=== PATIENT | male | born 1945 | race Caucasian/White ===

== ENCOUNTER 2024-07-12 08:36 | Outpatient (CLI) | payer MEDICARE, SELFPAY ==
--- NOTE | ~2024-07-12 | XR_ITS ---
XR foot RT min 3V Ordering provider: Philippe Geiger, History: . Pain in R foot . Comparison: None. FINDINGS: BONES: No acute fracture or dislocation. Small bony fragment near to the navicular bone most likely n onunited apophysis. Calcaneal spur. JOINT SPACES: Proximal and Distal interphalangeal joints osteoarthritic changes. No tarsal coalition. SOFT TISSUES: Normal. IMPRESSION: No acute osseous abnormality of the right foot. Reviewed, dictated and finalized at location A.
== END 2024-07-12 08:37 | disposition home or self-care (01) ==
PROVIDERS: PCP Internal Medicine; Visit Provider Internal Medicine
DX: M79.671 Pain in right foot (principal)
CPT/HCPCS: 73630

== ENCOUNTER 2024-09-01 14:39 | Outpatient (CLI) | payer MEDICARE, SELFPAY ==
--- NOTE | ~2024-09-01 | MR_ITS ---
EXAMINATION: MR foot RT wo con DATE: 09/01/2024 15:36 INDICATION: Right foot pain TECHNIQUE: Magnetic resonance imaging (MRI) of the right foot was performed without intravenous contr ast. Sequences included sagittal T1-weighted FSE, sagittal fluid sensitive FSE STIR, coronal PD-weigh jinny FS FSE, coronal T1-weighted FSE, axial PD-weighted FS FSE, and axial PD-weighted FSE. COMPARISON: Radiographs dated 07/12/2024 FINDINGS: Bone alignment is normal. No fracture. There are juxta articular erosions with overhanging edges and low signal intensity curvilinear likely sclerotic margins at the medial and lateral sides of the head of the first metacarpal tarsal, the lateral and plantar base of the first metatarsal, medial base of the fourth metatarsal, dorsal/distal aspect of the medial cuneiform and into the posterior lateral m alleolus. No marrow signal abnormalities abutting the erosions to suggest osteomyelitis or other path ologic marrow replacing process. The oligo articular distribution and appearance is most suggestive o f a crystalline arthropathy such as gout. Moderate osteoarthritis at the first metatarsophalangeal joint an additional mild osteoarthritis at m ultiple tarsometatarsal and interphalangeal joints. Chronic plantar calcaneal enthesopathy with moder ate-sized spur, thickening and mild increased signal of the proximal plantar aponeurosis without asso ciated marrow edema or surrounding soft tissue edema to suggest acute plantar fasciitis. The medial and lateral stabilizing ligaments of the ankle, the Lisfranc ligament complex and collater al ligament complex at the metatarsophalangeal and interphalangeal joints are unremarkable. The flexo r and extensor tendons of the foot and ankle are normal. Likely reactive mild soft tissue edema in th e intrinsic musculature of the foot with more prominent soft tissue swelling and subcutaneous edema o ann the dorsum of the foot and about the ankle. IMPRESSION: 1. Multiple erosions scattered throughout the right foot and ankle with the distribution and appearan ce most suspicious for gout. 2. 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 3. Chronic plantar enthesopathy. Reviewed, dictated and finalized at location A. GRINDER IMPRESSION: 1. Multiple erosions scattered throughout the right foot and ankle with the dis tribution and appearance most suspicious for gout. 2. 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 3. Chronic plantar enthesopathy.
== END 2024-09-01 14:40 | disposition home or self-care (01) ==
LOC: GOSHIMG 14:40
PROVIDERS: PCP Internal Medicine; Visit Provider Internal Medicine
DX: M19.071 Primary osteoarthritis, right ankle and foot (principal); M77.31 Calcaneal spur, right foot
CPT/HCPCS: 73718

== ENCOUNTER 2024-09-20 09:00 | Emergency (ER) | payer MEDICARE, SELFPAY ==
--- NOTE | ~2024-09-20 | CT_ITS ---
CT of the Abdomen and Pelvis: Indication: Jaundice Technique: 2.5 mm axial scans were obtained through the abdomen and pelvis following intravenous adm inistration of 100 cc of Omnipaque 350. Dose reduction technique was used on this scan by utilizing a utomated exposure control and iterative reconstruction technique. The dose-length product (DLP) was 6 78.54 mGy-cm. Findings: Scans through the lung bases are unremarkable. Several scattered hepatic cysts are present. There is mild intrahepatic biliary dilatation. Gallbladd er is partially distended without wall thickening. Common bile duct is mildly dilated up to 11 mm, wi th distal tapering. Possible 2.4 cm hypodense mass at the uncinate process of pancreas, there is stre ak artifact probable spinal fixation hardware which hinders evaluation.. The spleen, pancreas, adrena ls and kidneys are within normal limits. No evidence of aortic aneurysm. No lymphadenopathy. No bowel obstruction or bowel wall thickening. There is no evidence to suggest acute appendicitis. Images through the pelvis were performed. Urinary bladder unremarkable. Prostate gland enlarged, and indents the bladder base. Impression: Possible 2.4 cm hypodense mass at the uncinate process of the pancreas. Evaluation is somewhat subopt imal due to streak artifact from lumbar spinal fixation hardware. Pre and postcontrast MR or endoscop ic ultrasound recommended to further assess for underlying pancreatic mass. Mild intrahepatic and extrahepatic biliary dilatation, which would correlate with findings of an obst ructing pancreatic head mass. Enlarged prostate gland. Reviewed, dictated and finalized at [facility]. ER [employer] Impression: Possible 2.4 cm hypodense mass at the uncinate process of the pancreas. Evaluat ion is somewhat suboptimal due to streak artifact from lumbar spinal fixation h ardware. Pre and postcontrast MR or endoscopic ultrasound recommended to furthe r assess for underlying pancreatic mass. Mild intrahepatic and extrahepatic biliary dilatation, which would correlate wi th findings of an obstructing pancreatic head mass. Enlarged prostate gland.
[2024-09-20 09:05] VITALS: BP 161/68; PULSE 90; RESP 16; TEMP 36.4; O2SAT 100
[2024-09-20 09:17] VITALS: RESP 16; O2SAT 100
--- NOTE | 2024-09-20 10:17 | ED.GENADULT ---
HPI - General Adult General Chief complaint: Unspecified Stated complaint: multiple complaints Time Seen by Provider: 09/20/24 09:54 History of Present Illness HPI narrative: 78-year-old male with history of COPD, GERD, asthma, gout presents to the emergency department for jaundice. Patient states he was started on colchicine about 2 weeks ago by his PCP for a gout flare to his right foot. He had an MRI by his PCP which confirmed gout to this foot. States since he has started the colchicine he has been very nauseous. Today he woke up and was jaundice and this prompted to come to the ED. He denies vomiting, diarrhea, fever, dysuria, abdominal pain. He does state his urine seems darker than normal. Related Data Home Medications ?Medication ?Instructions ?Recorded ?Confirmed ?Last Taken ?Type atorvastatin 10 mg tablet 10 mg PO DAILY 06/07/24 Unknown History budesonide-formoterol HFA 160 1 inh inhalation ONCE 06/07/24 Unknown History mcg-4.5 mcg/actuation aerosol inhaler (Symbicort) furosemide 40 mg tablet (Lasix) 40 mg PO QAM 06/07/24 Unknown History lisinopril 20 mg tablet 20 mg PO DAILY 06/07/24 Unknown History montelukast 10 mg tablet 10 mg PO DAILY 06/07/24 Unknown History (Singulair) omega 6-qbd-ort-fish oil 300 1 cap PO DAILY 06/07/24 Unknown History mg-1,000 mg capsule (Fish Oil) Allergies Allergy/AdvReac Type Severity Reaction Status Date / Time Cephalosporins Allergy Intermediate RASH Verified 09/20/24 09:20 codeine Allergy Intermediate STOMACH Verified 09/20/24 09:20 CRAMPS Review of Systems Review of Systems: All systems reviewed & are unremarkable except as noted in HPI and below [facility] Past Medical History Medical History Heart disease GERD (gastroesophageal reflux disease) COPD (chronic obstructive pulmonary disease) Asthma Arthritis Surgical History Surgical History History of back surgery H/O left inguinal hernia repair H/O right inguinal hernia repair Family History Family History Other Asthma Hypertension Social History Social History Smoking status: Smoker, status unknown Alcohol intake: current Living arrangements: with family Occupation/Education: retired Exam Narrative: GENERAL: Well-appearing, well-nourished, and in no acute distress. HEAD: Normocephalic, atraumatic. EYES: PERRLA and EOMI. Scleral icterus ENT: Nares clear, no rhinorrhea or epistaxis. Mucous membranes moist. NECK: Supple. CHEST: Clear to auscultation. No respiratory distress. HEART: Regular rate and rhythm. No murmur heard. Normal peripheral pulses. ABDOMEN: Soft, nontender, nondistended, normal active bowel sounds. EXTREMITIES: Edema and erythema to the dorsum of the right foot with tenderness. No erythema or edema extending ankle or calf. DP pulse 2 +. Sensation intact. SKIN: Jaundiced NEURO: No focal deficits. Alert and oriented x3 Course Vital Signs Vital signs: Vital Signs Temperature 97.6 F 09/20/24 09:05 Pulse Rate 90 09/20/24 09:05 Respiratory Rate 16 09/20/24 09:05 Blood Pressure 161/68 H 09/20/24 09:05 Pulse Oximetry 100 09/20/24 09:05 Temperature 97.8 F 09/20/24 11:42 Pulse Rate 69 09/20/24 11:42 Respiratory Rate 20 09/20/24 11:42 Blood Pressure 149/71 H 09/20/24 11:42 Pulse Oximetry 99 09/20/24 11:42 Medical Decision Making [facility] Narrative Medical decision making narrative: 78-year-old male with history of gout, GERD, COPD presents to the emergency department for jaundice. Patient started colchicine about 2 weeks ago for gout flare to his right foot. He has been nauseous since then woke up today jaundiced. Triage vitals without over sure 161/68, otherwise unremarkable. On exam patient has scleral icterus and jaundice. His abdomen is soft and nontender. He does have findings consistent with gout to the right foot. Workup shows no leukocytosis, hemoglobin is 13.6 with normal MCV, no prior for comparison. Chemistries are largely unremarkable. LFT show hyperbilirubinemia at 11.9 with a direct bilirubin of 6.1, AST 181, ALT 271, alk-phos 328. Lipase is 1754. Hepatitis panel ordered and pending his coags are normal with an INR of 1. Lipase elevated at 1754. CT abdomen pelvis remarkable for Possible 2.4 cm hypodense mass at the uncinate process of the pancreas. Evaluation is somewhat suboptimal due to streak artifact from lumbar spinal fixation hardware. Pre and postcontrast MR or endoscopic ultrasound recommended to further assess for underlying pancreatic mass. Mild intrahepatic and extrahepatic biliary dilatation, which would correlate with findings of an obstructing pancreatic head mass. Patient was updated on workup. He remains resting comfortably in exam bed. We do not have GI, patient is requiring transfer to tertiary facility. Patient and requesting [facility] unfortunately they are not accepting transfer at this time. Discussed with [facility] physician Dr. Louis and hospitalist Dr. Tellez who accepts transfer to [facility]. Accepting physician Dr. Tellez. Vital Signs Vital Signs: Vital Signs Temperature 97.6 F 09/20/24 09:05 Pulse Rate 90 09/20/24 09:05 Respiratory Rate 16 09/20/24 09:05 Blood Pressure 161/68 H 09/20/24 09:05 Pulse Oximetry 100 09/20/24 09:05 Temperature 97.8 F 09/20/24 11:42 Pulse Rate 69 09/20/24 11:42 Respiratory Rate 20 09/20/24 11:42 Blood Pressure 149/71 H 09/20/24 11:42 Pulse Oximetry 99 09/20/24 11:42 Lab Data 09/20/24 10:46 09/20/24 10:46 Labs: Lab Results 09/20/24 09/20/24 Range/Units 10:45 10:46 WBC 8.9 (4.5-10.0) K/mm3 RBC 4.30 L (4.6-6.20) M/mm3 Hgb 13.6 L (14.0-18.0) g/dL Hct 38.9 L (42.0-52.0) % MCV 90.5 (80-100) fl MCH 31.6 (26-34) pg MCHC 35.0 (32-36) g/dl RDW 17.2 H (11.5-14.5) % Plt Count 275 (150-375) k/mm3 MPV 10.3 (7.4-10.4) fl Immature Gran % (Auto) 0.3 (0-0.5) % Neut % (Auto) 73.0 (45.5-73.1) % Lymph % (Auto) 11.7 L (18.3-44.2) % [place] % (Auto) 12.4 H (2.6-8.5) % Eos % (Auto) 1.5 (0-4.4) % Baso % (Auto) 1.1 (0.2-1.2) % Lymph # (Auto) 1.04 (0.9-3.2) K/mm3 [place] # (Auto) 1.1 H (0.1-0.6) K/mm3 Eos # (Auto) 0.1 (0-0.3) K/mm3 Baso # (Auto) 0.1 (0.0-0.1) K/mm3 Abs Immat Gran (auto) 0.03 (0.00-0.031) K/mm3 Absolute Neuts (auto) 6.5 (1.3-6.7) K/mm3 Absolute Nucleated RBC 0.000 (0.0-0.012) K/mm3 Nucleated RBC % 0.0 (0.0-0.2) % PT 13.7 (11.1-14.7) Seconds INR 1.0 APTT 33.5 (22.3-36.8) Seconds Sodium 138 (137-145) mmol/L Potassium 3.5 (3.4-5.0) mmol/L Chloride 108 H (98-107) mmol/L Carbon Dioxide 22 (22-30) mmol/L Anion Gap 8 (4-12) mmol/L BUN 16 (9-20) mg/dL Creatinine 1.30 (0.7-1.3) mg/dL Estim Creat Clear Calc 49 ml/min Estimated GFR 54 L (59 - ) Glucose 99 (65-110) mg/dL Calcium 9.8 (8.4-10.2) mg/dL Total Bilirubin 11.9 H (0.2-1.3) mg/dL Direct Bilirubin 6.1 H (0-0.3) mg/dL AST 181 H (17-59) U/L ALT 271 H (6-50) U/L Alkaline Phosphatase 328 H (38-126) U/L Total Protein 8.0 (6.3-8.2) g/dL Albumin 3.8 (3.5-5.1) g/dL Lipase 1754 H (23-300) U/L Urine Color Dark yellow (Yellow) Urine Appearance Clear (Clear) Urine pH 6.5 (5.0-9.0) Ur Specific [place] 1.022 (1.001-1.035) Urine Protein 1+ H (Negative) mg/dL Urine Glucose (UA) Negative (Negative) mg/dL Urine Ketones Negative (Negative) mg/dL Ur Blood (Man) Negative (Negative) Urine Nitrate Positive H (Negative) Urine Bilirubin 3+ H (Negative) Urine Urobilinogen 1.0 (<2.0) mg/dL Add Ur Microanalysis Reviewed Leukocyte Esterase Rfl 1+ H (Negative) PRATIBHA/UL Urine RBC 0-2 (0-2) /hpf Urine WBC 0-5 (0-3) /hpf Ur Squamous Epith Cells None seen (Few) /hpf Urine Bacteria None seen /hpf Urine Casts 3-5 Hepatitis A IgM Ab Negative (Negative) Hep Bs Antigen Negative (Negative) Hep B Core IgM Ab Negative (Negative) Hepatitis C Ab Screen Negative (Negative) Discharge Plan Discharge Clinical Impression: Transaminitis, Mass of pancreas Patient Disposition: Acute Care Hospital Condition: Stable Patient Language: Amharic Prescriptions: No Action lisinopril 20 mg tablet 20 mg PO DAILY furosemide [Lasix] 40 mg tablet 40 mg PO QAM montelukast [Singulair] 10 mg tablet 10 mg PO DAILY atorvastatin 10 mg tablet 10 mg PO DAILY omega 6-hrs-amc-fish oil [Fish Oil] 300-1,000 mg capsule 1 cap PO DAILY budesonide-formoterol [Symbicort] 160-4.5 mcg/actuation HFA aerosol inhaler 1 inh inhalation ONCE Follow-up/Referrals: Juanjo,MD Philippe [Primary Care Provider] -
[2024-09-20 10:55] LABS: Basophils Absolute Auto 0.1 K/mm3 (0.0-0.1); Basophils Percent Auto 1.1 % (0.2-1.2); Eosinophils Absolute Auto 0.1 K/mm3 (0-0.3); Eosinophils Percent Auto 1.5 % (0-4.4); Hematocrit 38.9 % (42.0-52.0); Hemoglobin 13.6 g/dL (14.0-18.0); Immature Granulocyte Absolute 0.03 K/mm3 (0.00-0.031); Immature Granulocyte Percent A 0.3 % (0-0.5); Lymphocytes Absolute Auto 1.04 K/mm3 (0.9-3.2); Lymphocytes Percent Auto 11.7 % (18.3-44.2); Mean Corpuscular Hemoglobin 31.6 pg (26-34); Mean Corpuscular Volume 90.5 fl (80-100); Mean Platelet Volume 10.3 fl (7.4-10.4); Monocytes Absolute Auto 1.1 K/mm3 (0.1-0.6); Monocytes Percent Auto 12.4 % (2.6-8.5); Neutrophils Absolute Auto 6.5 K/mm3 (1.3-6.7); Platelet Count Result 275 k/mm3 (150-375); Red Cell Distribution Width 17.2 % (11.5-14.5); White Blood Count 8.9 K/mm3 (4.5-10.0)
[2024-09-20 11:05] LABS: Prothrombin Time 13.7 Seconds (11.1-14.7)
[2024-09-20 11:06] LABS: Partial Thromboplastin Time 33.5 Seconds (22.3-36.8)
[2024-09-20 11:08] LABS: Alanine Aminotransferase 271 U/L (6-50); Albumin Level 3.8 g/dL (3.5-5.1); Alkaline Phosphatase 328 U/L (38-126); Anion Gap 8 mmol/L (4-12); Aspartate Amino Transferase 181 U/L (17-59); Bilirubin Direct 6.1 mg/dL (0-0.3); Bilirubin,Total 11.9 mg/dL (0.2-1.3); Blood Urea Nitrogen 16 mg/dL (9-20); Calcium 9.8 mg/dL (8.4-10.2); Carbon Dioxide 22 mmol/L (22-30); Chloride 108 mmol/L (98-107); Estimated CRCL calculation 49 ml/min; Estimated Glomerular Filt Rate 54; Glucose 99 mg/dL (65-110); Lipase 1754 U/L (23-300); Potassium 3.5 mmol/L (3.4-5.0); Sodium 138 mmol/L (137-145)
[2024-09-20 11:22] LABS: Add Urine Microscopic? YES; Appearance Urine Clear (Clear); Bacteria Urine None Seen /hpf; Bilirubin Urine 3+ (Negative); Blood Urine Negative (Negative); Color Urine Dark Yellow (Yellow); Glucose Urine UA Negative (Negative); Ketones Urine Negative (Negative); Leukocyte Esterase Ur 1+ LEU/UL (Negative); Need Manual Microscopic Reviewed; Nitrate Urine Positive (Negative); Protein Urine 1+ mg/dL (Negative); RBC Urine 0-2 /hpf (0-2); Specific Grav Ur 1.022 (1.001-1.035); Squamous Epithelial Cell Urine None Seen /hpf (Few); WBC Urine 0-5 /hpf (0-3); pH Urine 6.5 (5.0-9.0)
[2024-09-20 11:42] VITALS: BP 149/71; PULSE 69; RESP 20; TEMP 36.6; O2SAT 99
[2024-09-20 12:11] LABS: Hepatitis B Surface Antigen Negative (Negative)
[2024-09-20 12:17] LABS: HAV RESULT Negative (Negative); Hepatitis B Core IgM Result Negative (Negative)
[2024-09-20 12:28] LABS: Hepatitis C Virus Antibody Negative (Negative)
[2024-09-20] MEDS: SODIUM CHLORIDE 0.9% IV 1,000 ML 999 ML IV CONT (14:00)
[2024-09-20 18:25] VITALS: BP 155/74; PULSE 62; RESP 17; O2SAT 100
--- NOTE | 2024-09-20 20:15 | ED.PROGRESS ---
Subjective Date/time seen: 09/20/24 20:15 Objective Data Vital Signs Vital Signs: Vital Signs - 24 hr 09/20/24 09:05 09/20/24 09:17 09/20/24 11:42 Temperature 97.6 F 97.8 F Pulse Rate 90 69 Respiratory Rate 16 16 20 Blood Pressure 161/68 H 149/71 H Pulse Oximetry 100 100 99 09/20/24 18:25 Temperature Pulse Rate 62 Respiratory Rate 17 Blood Pressure 155/74 H Pulse Oximetry 100 Intake/Output Intake/Output: Intake & Output 09/18/24 09/19/24 09/20/24 09/21/24 23:59 23:59 23:59 23:59 Intake Total 1000 Balance 1000 Meds/Results Radiology Results: ITS Impressions Abdomen/Pelvis CT 09/20/24 12:25 Impression: Possible 2.4 cm hypodense mass at the uncinate process of the pancreas. Evaluation is somewhat suboptimal due to streak artifact from lumbar spinal fixation hardware. Pre and postcontrast MR or endoscopic ultrasound recommended to further assess for underlying pancreatic mass. Mild intrahepatic and extrahepatic biliary dilatation, which would correlate with findings of an obstructing pancreatic head mass. Enlarged prostate gland. Labs Labs: Laboratory Results - last 24 hr 09/20/24 09/20/24 10:45 10:46 WBC 8.9 RBC 4.30 L Hgb 13.6 L Hct 38.9 L MCV 90.5 MCH 31.6 MCHC 35.0 RDW 17.2 H Plt Count 275 MPV 10.3 Immature Gran % (Auto) 0.3 Neut % (Auto) 73.0 Lymph % (Auto) 11.7 L [place] % (Auto) 12.4 H Eos % (Auto) 1.5 Baso % (Auto) 1.1 Lymph # (Auto) 1.04 [place] # (Auto) 1.1 H Eos # (Auto) 0.1 Baso # (Auto) 0.1 Abs Immat Gran (auto) 0.03 Absolute Neuts (auto) 6.5 Absolute Nucleated RBC 0.000 Nucleated RBC % 0.0 PT 13.7 INR 1.0 APTT 33.5 Sodium 138 Potassium 3.5 Chloride 108 H Carbon Dioxide 22 Anion Gap 8 BUN 16 Creatinine 1.30 Estim Creat Clear Calc 49 Estimated GFR 54 L Glucose 99 Calcium 9.8 Total Bilirubin 11.9 H Direct Bilirubin 6.1 H AST 181 H ALT 271 H Alkaline Phosphatase 328 H Total Protein 8.0 Albumin 3.8 Lipase 1754 H Urine Color Dark yellow Urine Appearance Clear Urine pH 6.5 Ur Specific [place] 1.022 Urine Protein 1+ H Urine Glucose (UA) Negative Urine Ketones Negative Ur Blood (Man) Negative Urine Nitrate Positive H Urine Bilirubin 3+ H Urine Urobilinogen 1.0 Add Ur Microanalysis Reviewed Leukocyte Esterase Rfl 1+ H Urine RBC 0-2 Urine WBC 0-5 Ur Squamous Epith Cells None seen Urine Bacteria None seen Urine Casts 3-5 Hepatitis A IgM Ab Negative Hep Bs Antigen Negative Hep B Core IgM Ab Negative Hepatitis C Ab Screen Negative Progress Note: A&P Assessment and Plan (1) Serum total bilirubin elevated: Code(s): R17 - Unspecified jaundice Status: Acute (2) Mass of pancreas: Code(s): K86.89 - Other specified diseases of pancreas Status: Inactive Plan I was called into the room by nursing staff for patient electing to leave AMA. This patient has elected to leave against medical advice. In my opinion, the patient has capacity to leave AMA. The patient is clinically sober, free from distracting injury, appears to have intact insight and judgment and reason, and in my opinion has capacity to make decisions. I explained to the patient that his symptoms may represent impending worsening pancreatitis/liver failure due to a mass and the patient verbalized understanding of my concerns. I had a discussion with the patient about their workup and results, and that they may still have life-threatening condition. I informed the patient that the next step in diagnosis and treatment would be transferred to hepatobiliary services at [facility] and they verbalized understanding of this as well. I explained the risks of leaving without further workup or treatment, which included reasonably foreseeable complications such as , serious injury, permanent disability. The patient is refusing any further care, specifically transfer of care and is leaving against medical advice. I am unable to convince the patient to stay. I have asked them to return as soon as possible to complete their evaluation, and also explained that they were welcome to return to the ER for further evaluation whenever they choose. I have asked the patient to follow up with their primary doctor as soon as possible. I have answered all their questions. Patient signed [place] paperwork.
--- NOTE | 2024-09-20 20:19 | PC.NURSE ---
Patient did not want to wait in the ER all night waiting for a bed at [facility]. Stated he wanted to go home and wait instead. ROSA Ding spoke with patient. Patient still wanting to leave AMA.
--- OUTSIDE RECORDS SUMMARY | 2024-09-27 12:24 | XMS_ITS | Continuity of Care Document ---
Author Organization [place] - [place], [facility] Karan Naranjo Address [address] [place] [address] Care Team Providers Care Tank Carpenter Name Role Phone PHILIPPE GEIGER Primary Care Provider Unavailabl e Assessment Encounter Date Assessment Date Assessment LastModified by Organization Details LastModified Time 07/11/2024 07/11/2024 x-ray of the foot. We will check a uric acid CBC and a BMP we will treat empirically for cellulitis with doxycycline and gout with colchicine he will report back by phone in 72 hours. tramadol Not available 07/11/2024 23:03:04 Plan of Treatment Reminders Order Date Submit Date Provider Last Modified By Organization Details Last Modified Time Details Appointments ANY 15 2024 09:30A Sol Geiger MD Not available Not available Not available Lab uric acid, serum or plasma 2023 [facility], [address], [place], [address], 07/13/2024 04:36:59 BMP, serum or plasma 2023 [facility], [address], [place], [address], 07/13/2024 04:36:57 CBC w/ auto diff 2023 [facility], [address], [place], [address], 07/13/2024 04:37:00 Referral None recorded. Procedures None recorded. Surgeries None recorded. Imaging XR, foot 2023 [facility], [address], [place], [address], 07/12/2024 10:32:47 Medication Orders colchicin e 0.6 mg capsule 2023 [facility], [address] [facility] [address], [address], 08/15/2024 10:01:51 doxycycli ne hyclate 100 mg capsule 2023 [facility], [address], [place], [address], 08/15/2024 10:03:08 Patient TargetsNo targets recorded. Patient InstructionsNo instructions recorded. Reason for Referral None Reported. Results Created Date Observation Date Name Description Value Unit Range Abnormal Flag Note LastModifiedBy Organization Detail LastModifiedTime 07/12/2007/12/2024 XR, foot No observ ation record ed. [facility] [address], [place], [address], 07/12/2024 16:17:38 07/12/2007/12/2024 XR, foot No observ ation record ed. [facility] [address], [place], [address], 07/12/2024 16:17:38 09/05/20 24 09/01/2024 MRI, foot, w/o contr ast No observ ation record ed. [facility], [place], [address], 09/05/2024 15:30:37 09/20/20 24 09/20/2024 CT, abdom en + pelvi s, w/ contr ast No observ ation record ed. [facility] [address] [facility] [address], [place], [address], 09/22/2024 14:32:53 Result Notes None recorded. Problems Name Problem SNOMED Code Status Onset Date Resolution Date Notes Provider Name and Address Organization Details Recorded Time Pain in right foot 1201444662401 07 Active 2023 Andrez Moran MA null, [place] - [facility] 15:59:24 Essential hypertensio n 34721163 Active 2023 Philippe Geiger MD Attn: Tiffany mccann,[address] [facility], [place], [address], [place] [facility] 4 21:28:05 Obesity 326551414 Active 2023 Philippe Geiger MD Attn: Tiffany mccann,[address] [facility], [place], [address], [facility] 4 21:28:07 Chronic rhinitis 52352435 Active 2023 Philippe Geiger MD Attn: Tiffany mccann,[address] [facility], [place], [address], [place] [facility] 4 21:28:08 Hyperlipide ivelisse 16219658 Active 2023 Philippe Geiger MD Attn: Tiffany mccann,[address] [facility], [place], [address], [place] [facility] 4 21:28:10 Chronic obstructive pulmonary disease 05612103 Active 2023 Philippe Geiger MD Attn: Guanacotiffany mccann,[address] [facility], [place], [address], [place] [facility] 4 21:28:12 Problem Notes None recorded. Procedures Surgical History Date Name Laterality Status Provider Name and Address Organization Details Recorded Time Back Surgery completed Wilbur Leung MA [place] - [facility] 12/01/2023 09:56:25 Knee Surgery completed Wilbur Leung MA [facility] 12/01/2023 09:56:32 Imaging Results None recorded. Procedure Notes None recorded. Medical Equipment None Reported. Allergies Allergen ID Allergen Name Allergen Category Reaction Reaction Severity Criticality Documentation Date Start Date Code Code System Note Provider Name and Address Organization Details Recorded Time 457557 codeine medicatio n other Not available Not available 12/01/2023 2670 RxNorm stoma ch cramp s Andrez Moran MA null, [place] [facility] 4 10:21:40 863957 Catapres medicatio n Not available Not available Not available 12/01/202377244 1 RxNorm Wilbur Leung [place], [place] [facility] 4 09:50:29 142607 tramadol medicatio n hives Not available Not available 07/12/2024 28987 RxNorm Andrez Moran [place] null, [place] [facility] 4 10:21:53 Medications Name Sig Start Date Stop Date Status Note LastModified by Organization Details LastModified Time furosemid e 40 mg tablet Take 1 tablet by mouth twice daily active Not Available Not Available No t Available carvedilo l 6.25 mg tablet take 1 tablet by mouth twice daily 2023 active Not Available Not Available Not Avai lable doxycycli ne hyclate 100 mg capsule TAKE 1 CAPSULE BY MOUTH TWICE DAILY FOR 7 DAYS active Not Available Not Available No t Available atorvasta tin 10 mg tablet TAKE 1 TABLET BY MOUTH ONCE DAILY active Not Available Not Available No t Available azithromy hunter 250 mg tablet TAKE 2 TABLETS BY MOUTH ON DAY 1, AND THEN TAKE 1 TABLET BY MOUTH ONCE A DAY ON DAY 2 THROUGH DAY 5 11/30 completed Not Available Not Available Not Available lisinopri l 20 mg tablet Take 1 tablet every day by oral route. active Not Available Not Available No t Available prednison e 20 mg tablet TAKE 3 TABLETS BY MOUTH ONCE DAILY FOR 3 DAYS active Not Available Not Available No t Available levofloxa hunter 250 mg tablet TAKE 2 TABLETS BY MOUTH ONCE DAILY 11/30 completed Not Available Not Available Not Available sulfameth oxazole 800 mg-trimet hoprim 160 mg tablet active Not Available Not Available Not Available potassium chloride ER 20 mEq tablet,ex tended release(p art/cryst ) Take 3 tablets by mouth once daily active Not Available Not Available No t Available tamsulosi n 0.4 mg capsule Take 1 capsule by mouth once daily active Not Available Not Available No t Available hydrocodo ne 7.5 mg-acetam inophen 325 mg tablet Take 1 tablet 3 times a day by oral route as needed, for pain. active Not Available Not Available No t Available lisinopri l 20 mg-hydroc hlorothia zide 25 mg tablet Take 1 tablet by mouth once daily 09/05 completed Not Available Not Available Not Available monteluka st 10 mg tablet Take 1 tablet by mouth once daily active Not Available Not Available No t Available furosemid e 20 mg tablet Take 1 tablet twice a day by oral route. 05/12 completed changed to 40mg BID Not Available Not Available Not Available levofloxa hunter 500 mg tablet TAKE 1 TABLET BY MOUTH ONCE DAILY FOR 7 DAYS 08/15 completed Not Available Not Available Not Available methylpre dnisolone 4 mg tablets in a dose pack TAKE BY MOUTH DIRECTED ON INSIDE OF PACKAGE 11/30 completed Not Available Not Available Not Available colchicin e 0.6 mg tablet Take 1 tablet twice a day by oral route for 5 days. active Not Available Not Available No t Available Symbicort 160 mcg-4.5 mcg/actua tion HFA aerosol inhaler INHALE 2 PUFFS BY MOUTH TWICE DAILY active Not Available Not Available No t Available colchicin e 0.6 mg capsule Take 1 capsule twice a day by oral route for 7 days. 08/15 completed Not Available Not Available Not Available Vitals Date Recorded Body height Heart rate Oxygen saturation Oxygen saturation in Arterial blood by Pulse oximetry Systolic blood pressure Diastolic blood pressure Provider Name and Address Organization Details Last Updated DateTime 4 175.26 cm 63 /min 98 % 98 % 132 mm[Hg] 70 mm[Hg] Venita Blair MA [place] - [facility] 4 17:22:35 Social History Question Answer Notes LastModified by Organizat ion Details LastModified Time Tobacco Smoking Status Never Smoker Wilbur Leung MA null, [place] [facility] 12/01/2023 09:54:51 What Is Your Level Of Alcohol Consumption? None Information not available 12/01/2023 Are You Blind Or Do You Have Difficulty Seeing? No Information n ot available 12/01/2023 What Is Your Level Of Caffeine Consumption? Occasional Information not available 12/01/2023 In The 14 Days Before Symptom Onset, Have You Had Close Contact With A Laboratory-confirm ed COVID-19 While That Case Was Ill? No Information n ot available 04/18/2024 In The 14 Days Before Symptom Onset, Have You Had Close Contact With A Person Who Is Under Investigation For COVID-19 While That Person Was Ill? No Information not available 04/18/2024 Have You Been To An Area Known To Be High Risk For COVID-19? No Information not available 04/18/2024 Are You Currently Employed? No Information not available 04/18/2024 Are You Deaf Or Do You Have Serious Difficulty Hearing? No Information not available 12/01/2023 What Type Of Diet Are You Following? REGULAR Information n ot available 12/01/2023 Are There Any Guns Present In Your Home? No Information not available 12/01/2023 What Was The Date Of Your Most Recent Tobacco Screening? 09/01/2024 [email or web address] Information not available 09/01/2024 What Is Your Relationship Status? Information not available 12/01/2023 Do You Use Your Seat Belt Or Car Seat Routinely? Yes Information not available 12/01/2023 Do You Have Smoke And Carbon Monoxide Detectors In Your Home? Yes Information not available 12/01/2023 Do You Feel Stressed (tense, Restless, Nervous, Or Anxious, Or Unable To Sleep At Night)? [id number] Information not available 12/01/2023 Do You Use Any Illicit Or Recreational Drugs? No Information not available 12/01/2023 Do You Use Sunscreen Routinely? No Information not available 12/01/2023 Has Tobacco Cessation Counseling Been Provided? No Information not available 12/01/2023 Do You Or Have You Ever Used Any Other Forms Of Tobacco Or Nicotine? No Information not available 12/01/2023 Sex: Male Functional Status Question Answer Note LastModified by Organizat ion Details LastModified Time Are you able to care for yourself? Yes Information not available 12/01/2023 What is your exercise level? Occasional Information not available 12/01/2023 Mental Status None recorded. Family History Relationship Description Onset Age of this Age Resolved Age Notes LastModified by Organization Details LastModified Time Brother Attention deficit hyperactivit y disorder [email or web address] Not available 08/2024 09:53:59 Mother Cerebrovascu lar accident [email or web address] Not available 0 12/01/2023 09:54:08 Mother Heart disease [email or web address] Not available 11/19 09:54:19 Mother Hypertensive disorder [email or web address] Not available 11/19 09:54:30 Father Heart disease [email or web address] Not available 11/19 09:54:19 Father Hypertensive disorder [email or web address] Not available 11/19 09:54:30 Medical History Condition Response Coronary Artery Disease N Other N High Blood Pressure Y Atrial Fibrillation N Kidney or Bladder Problems N Thyroid Problems N GI Problems N Depression N COPD Y Blood Clots N Skin Problems N Anemia N Heart Attack (DE) N Anxiety Disorder N Diabetes N Muscle, Joint, or Bone Problems N Seizures/Epilepsy N Acid Reflux (GERD) Y Cancer N Stroke N Asthma N Allergies N High Cholesterol Y Hepatitis N Liver Disease N Headaches N Heart Failure N Osteoporosis N Past Encounters Encounter ID Performer Location Encounter Start Date Encounter Closed Date Diagnosis/Indication Diagnosis SNOMED-CT Code Diagnosis ICD10 Code Diagnosis Note [id number] Philippe Geiger MD [facility] [employer] [address] [place] [address] 07/11/2024 16:03:35 07/11/2024 17:43:33 Pain in right foot 2985630935 15014 M79.671 Health Concerns Section Related Observation LastModified by Organization Detai ls LastModified Time None Recorded Concern Status LastModified by Organization Details LastModified Time None Recorded Payers Encounter Date Sequence Insurance Name Policy Number Policy Hinson Covered Member ID Hinson Member ID Guarantor Name 07/11/2024 1 [facility] (MEDICARE REPLACEMENT/A DVANTAGE - HMO) [id number] Jayjay Ellison [id number] Jayjay Ellison Notes Date Note Type Note Provider Name and Address Organization Details Recorded Time 07/11/2024 text/html a couple of days of pain right foot atraumatic painful to bear weight no fever or chills he was up and down on a ladder a few days ago doing some work. Philippe Geiger MD Attn: [address] [place], [address], [facility] 07/11/2024 23:03:21
--- OUTSIDE RECORDS SUMMARY | 2024-09-27 12:24 | XMS_ITS | Data Portability ---
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 Lab PSA, serum or plasma 04/30/20 [facility], [address] [place] [address] [place], [address], 3 12:39:17 CBC w/ auto diff 04/30/20 [facility], [address] [place] [address] [place], [address], 3 12:41:10 lipid panel, serum 04/30/20 [facility], [address] [place] [address] [place], [address], 3 12:57:14 CMP, serum or plasma 04/30/20 [facility], [address] [place] [address] [place], [address], 3 12:57:25 Referral None recorded . Procedures None recorded . Surgeries None recorded . Imaging None recorded . Medication Orders None recorded . Patient TargetsNo targets recorded. Patient InstructionsNo instructions recorded. Reason for Referral None Reported. Results Created Date Observation Date Name Description Value Unit Range Abnormal Flag Note LastModifiedBy Organization Detail LastModifiedTime 01/16/20 22 01/15/2022 PSA SCREE N PSA medicare screen 6.81 NG/mL 0.00-4 .00 high Not Available [facility] (Lab) [address] [place], [address], 01/15/2022 13:56:31 01/16/20 22 01/15/2022 COMPR EHENS TRUPTI METAB OLIC PANEL sodium 140 mmol/ L 137-14 5 Not Available [facility] (Lab) [address] [place], [address], 01/15/2022 13:07:35 01/16/20 22 01/15/2022 COMPR EHENS TRUPTI METAB OLIC PANEL potassium 3.6 mmol/ L 3.5-5. 1 Not Available [facility] (Lab) [address] [place], [address], 01/15/2022 13:07:35 01/16/20 22 01/15/2022 COMPR EHENS TRUPTI METAB OLIC PANEL chloride 103 mmol/ L 98-107 Not Available [facility] (Lab) [address] [place], [address], 01/15/2022 13:07:35 01/16/20 22 01/15/2022 COMPR EHENS TRUPTI METAB OLIC PANEL carbon dioxide 27 mmol/ L 22-30 Not Available [facility] (Lab) [address] [place], [address], 01/15/2022 13:07:35 01/16/20 22 01/15/2022 COMPR EHENS TRUPTI METAB OLIC PANEL anion gap 13.6 mmol/ L 14-22 low Not Available [facility] (Lab) [address] [place], [address], 01/15/2022 13:07:35 01/16/20 22 01/15/2022 COMPR EHENS TRUPTI METAB OLIC PANEL glucose 92 mg/dL 70-99 Not Available [facility] (Lab) [address] [place], [address], 01/15/2022 13:07:35 01/16/20 22 01/15/2022 COMPR EHENS TRUPTI METAB OLIC PANEL BUN 28 mg/dL 8-19 high Not Available [facility] (Lab) [address] [place], [address], 01/15/2022 13:07:35 01/16/20 22 01/15/2022 COMPR EHENS TRUPTI METAB OLIC PANEL creatinine 1.31 mg/dL 0.66-1 .25 high Not Available [facility] (Lab) [address] [place], [address], 01/15/2022 13:07:35 01/16/20 22 01/15/2022 COMPR EHENS TRUPTI METAB OLIC PANEL GFR 53 Refer ence Range : [place] GFR Healt hy Adult : >60 mL/mi n/1.7 3 m2 Chron ic Kidne y Disea se: 15-60 mL/mi n/1.7 3 m2 Kidne y Failu re: <15/m L/min /1.73 m2 www.n iddk. nih.g ov The MDRD study equat ion has not been valid ated in child aaron <18 years of age; pregn ant women ; the elder ly >85 years of age; or in some racia l or ethni c subgr oups, such as Hispa nics. Outsi de the valid ated josey eters , estim ated GFR is less accur ate, requi ring clini daljit judgm ent on a case- by-ca se basis . Clini daljit inter preta tion for other races and ages must be made by the clini anitra. The MDRD study equat ion has not been valid ated for the evalu ation of serum creat inine relat ed to nutri carlos l statu s or medic ation usage . For perso ns <18 years of age, a pedia tric GFR calcu latclementina is avail able on the [facility] websi te: https ://igor vega.juana randall/brianna ofess ional s/kdo qi/gf r_cal culat or Not Available [facility] (Lab) [address] [place], [address], 01/15/2022 13:07:35 01/16/20 22 01/15/2022 COMPR EHENS TRUPTI METAB OLIC PANEL alkaline phosphatase 54 U/L 38-126 Not Available [facility] (Lab) [address] [place], [address], 01/15/2022 13:07:35 01/16/20 22 01/15/2022 COMPR EHENS TRUPTI METAB OLIC PANEL alanine aminotransfe rase 27 U/L 0-50 Not Available [facility] (Lab) [address] [place], [address], 01/15/2022 13:07:35 01/16/20 22 01/15/2022 COMPR EHENS TRUPTI METAB OLIC PANEL aspartate aminotransfe rase 31 U/L 15-46 Not Available [facility] (Lab) [address] [place], [address], 01/15/2022 13:07:35 01/16/20 22 01/15/2022 COMPR EHENS TRUPTI METAB OLIC PANEL bilirubin, total 0.80 mg/dL 0.20-1 .30 Not Available [facility] (Lab) [address] [place], [address], 01/15/2022 13:07:35 01/16/20 22 01/15/2022 COMPR EHENS TRUPTI METAB OLIC PANEL calcium 10.2 mg/dL 8.4-10 .2 Not Available [facility] (Lab) [address] [place], [address], 01/15/2022 13:07:35 01/16/20 22 01/15/2022 COMPR EHENS TRUPTI METAB OLIC PANEL total protein 7.4 g/dL 6.3-8. 2 Not Available [facility] (Lab) [address] [place], [address], 01/15/2022 13:07:35 01/16/20 22 01/15/2022 COMPR EHENS TRUPTI METAB OLIC PANEL albumin 4.5 g/dL 3.0-4. 4 high Not Available [facility] (Lab) [address] [place], [address], 01/15/2022 13:07:35 01/16/20 22 01/15/2022 COMPR EHENS TRUPTI METAB OLIC PANEL globulin 2.9 g/dL 2.6-4. 2 Not Available [facility] (Lab) [address] [place], [address], 01/15/2022 13:07:35 01/16/20 22 01/15/2022 COMPR EHENS TRUPTI METAB OLIC PANEL A/G ratio 1.6 ratio 1.0-2. 0 Not Available [facility] (Lab) [address] [place], [address], 01/15/2022 13:07:35 01/16/20 22 01/15/2022 LIPID PANEL cholesterol 172 mg/dL 140-19 9 NIH TERESA NSUS RECOM MENDA TION FOR ANIBAL STERO L: ADULT CHILD LOW RISK: <200 <170 BORDE RLINE : <200- 239 ----- HIGH RISK: >240 >200 Not Available [facility] (Lab) [address] [place], [address], 01/15/2022 13:07:31 01/16/20 22 01/15/2022 LIPID PANEL triglyceride s 306 mg/dL 0-150 high NIH TERESA NSUS REPOR T RECOM MENDA TION FOR TRIGL YCERI GUILLERMO: ADULT CHILD LOW RISK: <150 ----- BODER LINE: 150-1 99 ----- HIGH RISK: >200 ----- Not Available [facility] (Lab) [address] [place], [address], 01/15/2022 13:07:31 01/16/20 22 01/15/2022 LIPID PANEL HDL cholesterol 47 mg/dL 40- Not Available [facility] (Lab) [address] [place], [address], 01/15/2022 13:07:31 01/16/20 22 01/15/2022 LIPID PANEL LDL cholesterol, calculated 64 mg/dL 0-130 NIH TERESA NSUS REPOR T RECOM MENDA TIONS FOR LDL: ADULT CHILD LOW RISK <130 <110 (OPTI MAL LDL) <100 ----- BORDE RLINE : 130-1 59 ----- HIGH RISK: >160 >130 A TRIGL YCERI DE RESUL T >400 INVAL IDATE S THE CALCU LATIO N FOR LDL FRACT IONAT ION - THE LDL RESUL T WILL NOT BE REPOR TYRONE. Not Available [facility] (Lab) [address] [place], [address], 01/15/2022 13:07:31 01/16/20 22 01/15/2022 CBC/C OMPLE TE BLD COUNT W/DIF F white blood cells 7.4 x10'3 /uL 4.2-10 .8 Not Available [facility] (Lab) [address] [place], [address], 01/15/2022 12:39:55 01/16/20 22 01/15/2022 CBC/C OMPLE TE BLD COUNT W/DIF F red blood cells 4.59 x10'6 /uL 4.10-5 .80 Not Available [facility] (Lab) [address] [place], [address], 01/15/2022 12:39:55 01/16/20 22 01/15/2022 CBC/C OMPLE TE BLD COUNT W/DIF F hemoglobin 14.7 g/dL 13.2-1 7.0 Not Available [facility] (Lab) [address] [place], [address], 01/15/2022 12:39:55 01/16/20 22 01/15/2022 CBC/C OMPLE TE BLD COUNT W/DIF F hematocrit 42.3 % 39.3-5 0.0 Not Available [facility] (Lab) [address] [place], [address], 01/15/2022 12:39:55 01/16/20 22 01/15/2022 CBC/C OMPLE TE BLD COUNT W/DIF F mean red cell volume 92.2 fL 80.0-9 7.0 Not Available [facility] (Lab) [address] [place], [address], 01/15/2022 12:39:55 01/16/20 22 01/15/2022 CBC/C OMPLE TE BLD COUNT W/DIF F mean red cell hemoglobin 32.0 pg 27.0-3 3.0 Not Available [facility] (Lab) [address] [place], [address], 01/15/2022 12:39:55 01/16/20 22 01/15/2022 CBC/C OMPLE TE BLD COUNT W/DIF F mean RBC HGB concentratio n 34.8 g/dL 31.0-3 6.0 Not Available [facility] (Lab) [address] [place], [address], 01/15/2022 12:39:55 01/16/20 22 01/15/2022 CBC/C OMPLE TE BLD COUNT W/DIF F red cell distribution width 13.0 % 11.8-1 5.5 Not Available [facility] (Lab) [address] [place], [address], 01/15/2022 12:39:55 01/16/20 22 01/15/2022 CBC/C OMPLE TE BLD COUNT W/DIF F platelets 240 x10'3 /uL 150-40 0 Not Available [facility] (Lab) [address] [place], [address], 01/15/2022 12:39:55 01/16/20 22 01/15/2022 CBC/C OMPLE TE BLD COUNT W/DIF F mean platelet volume 9.7 fL 9.0-12 .4 Not Available [facility] (Lab) [address] [place], [address], 01/15/2022 12:39:55 01/16/20 22 01/15/2022 CBC/C OMPLE TE BLD COUNT W/DIF F neutrophils 50.0 % 39.0-7 2.0 Not Available [facility] (Lab) [address] [place], [address], 01/15/2022 12:39:55 01/16/20 22 01/15/2022 CBC/C OMPLE TE BLD COUNT W/DIF F lymphocytes 35.1 % 16.0-4 7.0 Not Available [facility] (Lab) [address] [place], [address], 01/15/2022 12:39:55 01/16/20 22 01/15/2022 CBC/C OMPLE TE BLD COUNT W/DIF F monocytes 12.6 % 5.0-12 .0 high Not Available [facility] (Lab) [address] [place], [address], 01/15/2022 12:39:55 01/16/20 22 01/15/2022 CBC/C OMPLE TE BLD COUNT W/DIF F eosinophils 0.9 % 1.0-7. 0 low Not Available [facility] (Lab) [address] [place], [address], 01/15/2022 12:39:55 01/16/20 22 01/15/2022 CBC/C OMPLE TE BLD COUNT W/DIF F basophils 1.1 % 0.0-2. 0 Not Available [facility] (Lab) [address] [place], [address], 01/15/2022 12:39:55 01/16/20 22 01/15/2022 CBC/C OMPLE TE BLD COUNT W/DIF F immature granulocytes 0.3 % 0.00-0 .50 Not Available [facility] (Lab) [address] [place], [address], 01/15/2022 12:39:55 01/16/20 22 01/15/2022 CBC/C OMPLE TE BLD COUNT W/DIF F neutrophils, absolute count 3.71 x10'3 /uL 1.5-8. 0 Not Available [facility] (Lab) [address] [place], [address], 01/15/2022 12:39:55 01/16/20 22 01/15/2022 CBC/C OMPLE TE BLD COUNT W/DIF F lymphocytes, absolute count 2.60 x10'3 /uL 1.07-3 .43 Not Available [facility] (Lab) [address] [place], [address], 01/15/2022 12:39:55 01/16/20 22 01/15/2022 CBC/C OMPLE TE BLD COUNT W/DIF F monocytes, absolute count 0.93 x10'3 /uL 0.29-0 .99 Not Available [facility] (Lab) [address] [place], [address], 01/15/2022 12:39:55 01/16/20 22 01/15/2022 CBC/C OMPLE TE BLD COUNT W/DIF F eosinophils, absolute count 0.07 x10'3 /uL 0.02-0 .53 Not Available [facility] (Lab) [address] [place], [address], 01/15/2022 12:39:55 01/16/20 22 01/15/2022 CBC/C OMPLE TE BLD COUNT W/DIF F basophils, absolute count 0.08 x10'3 /uL 0.01-0 .08 Not Available [facility] (Lab) [address] [place], [address], 01/15/2022 12:39:55 01/16/20 22 01/15/2022 CBC/C OMPLE TE BLD COUNT W/DIF F immature granulocytes ,absolute 0.02 x10'3 /uL 0.00-0 .05 Not Available [facility] (Lab) [address] [place], [address], 01/15/2022 12:39:55 01/16/20 22 01/15/2022 CBC/C OMPLE TE BLD COUNT W/DIF F nucleated red blood cells 0.0 % -0 Not Available [facility] (Lab) [address] [place], [address], 01/15/2022 12:39:55 01/16/20 22 01/15/2022 CBC/C OMPLE TE BLD COUNT W/DIF F NRBC# 0.00 x10'3 /uL Not Available [facility] (Lab) [address] [place], [address], 01/15/2022 12:39:55 05/02/20 22 05/02/2022 LIPID PANEL cholesterol 166 mg/dL 140-19 9 NIH TERESA NSUS RECOM MENDA TION FOR ANIBAL STERO L: ADULT CHILD LOW RISK: <200 <170 BORDE RLINE : <200- 239 ----- HIGH RISK: >240 >200 Not Available [facility] (Lab) [address] [place], [address], 05/02/2022 13:19:20 05/02/20 22 05/02/2022 LIPID PANEL triglyceride s 298 mg/dL 0-150 high NIH TERESA NSUS REPOR T RECOM MENDA TION FOR TRIGL YCERI GUILLERMO: ADULT CHILD LOW RISK: <150 ----- BODER LINE: 150-1 99 ----- HIGH RISK: >200 ----- Not Available [facility] (Lab) [address] [place], [address], 05/02/2022 13:19:20 05/02/20 22 05/02/2022 LIPID PANEL HDL cholesterol 43 mg/dL 40- Not Available [facility] (Lab) [address] [place], [address], 05/02/2022 13:19:20 05/02/20 22 05/02/2022 LIPID PANEL LDL cholesterol, calculated 63 mg/dL 0-130 NIH TERESA NSUS REPOR T RECOM MENDA TIONS FOR LDL: ADULT CHILD LOW RISK <130 <110 (OPTI MAL LDL) <100 ----- DEB RLINE : 130-1 59 ----- HIGH RISK: >160 >130 A TRIGL YCERI DE RESUL T >400 INVAL IDATE S THE CALCU LATIO N FOR LDL FRACT IONAT ION - THE LDL RESUL T WILL NOT BE REPOR TYRONE. Not Available [facility] (Lab) [address] [place], [address], 05/02/2022 13:19:20 05/02/20 22 05/02/2022 COMPR EHENS TRUPTI METAB OLIC PANEL sodium 138 mmol/ L 137-14 5 Not Available [facility] (Lab) [address] [place], [address], 05/02/2022 13:19:15 05/02/20 22 05/02/2022 COMPR EHENS TRUPTI METAB OLIC PANEL potassium 3.1 mmol/ L 3.5-5. 1 low Not Available [facility] (Lab) [address] [place], [address], 05/02/2022 13:19:15 05/02/20 22 05/02/2022 COMPR EHENS TRUPTI METAB OLIC PANEL chloride 99 mmol/ L 98-107 Not Available [facility] (Lab) [address] [place], [address], 05/02/2022 13:19:15 05/02/20 22 05/02/2022 COMPR EHENS TRUPTI METAB OLIC PANEL carbon dioxide 26 mmol/ L 22-30 Not Available [facility] (Lab) [address] [place], [address], 05/02/2022 13:19:15 05/02/20 22 05/02/2022 COMPR EHENS TRUPTI METAB OLIC PANEL anion gap 16.1 mmol/ L 14-22 Not Available [facility] (Lab) [address] [place], [address], 05/02/2022 13:19:15 05/02/20 22 05/02/2022 COMPR EHENS TRUPTI METAB OLIC PANEL glucose 102 mg/dL 70-99 high Not Available [facility] (Lab) [address] [place], [address], 05/02/2022 13:19:15 05/02/20 22 05/02/2022 COMPR EHENS TRUPTI METAB OLIC PANEL BUN 26 mg/dL 8-19 high Not Available [facility] (Lab) [address] [place], [address], 05/02/2022 13:19:15 05/02/20 22 05/02/2022 COMPR EHENS TRUPTI METAB OLIC PANEL creatinine 1.21 mg/dL 0.66-1 .25 Not Available [facility] (Lab) [address] [place], [address], 05/02/2022 13:19:15 05/02/20 22 05/02/2022 COMPR EHENS TRUPTI METAB OLIC PANEL GFR 59 Refer ence Range : [place] GFR Healt hy Adult : >60 mL/mi n/1.7 3 m2 Chron ic Kidne y Disea se: 15-60 mL/mi n/1.7 3 m2 Kidne y Failu re: <15/m L/min /1.73 m2 www.n iddk. nih.g ov The MDRD study equat ion has not been valid ated in child aaron <18 years of age; pregn ant women ; the elder ly >85 years of age; or in some racia l or ethni c subgr oups, such as Hispa nics. Outsi de the valid ated josey eters , estim ated GFR is less accur ate, requi ring clini daljit judgm ent on a case- by-ca se basis . Clini daljit inter preta tion for other races and ages must be made by the clini anitra. The MDRD study equat ion has not been valid ated for the evalu ation of serum creat inine relat ed to nutri carlos l statu s or medic ation usage . For perso ns <18 years of age, a pedia tric GFR calcu lator is avail able on the [facility] websi te: https ://igor w.neftaly vega.o rg/pr ofess ional s/kdo qi/gf r_cal culat or Not Available [facility] (Lab) [address] [place], [address], 05/02/2022 13:19:15 05/02/20 22 05/02/2022 COMPR EHENS TRUPTI METAB OLIC PANEL alkaline phosphatase 52 U/L 38-126 Not Available [facility] (Lab) [address] [place], [address], 05/02/2022 13:19:15 05/02/20 22 05/02/2022 COMPR EHENS TRUPTI METAB OLIC PANEL alanine aminotransfe rase 41 U/L 0-50 Not Available [facility] (Lab) [address] [place], [address], 05/02/2022 13:19:15 05/02/20 22 05/02/2022 COMPR EHENS TRUPTI METAB OLIC PANEL aspartate aminotransfe rase 43 U/L 15-46 Not Available [facility] (Lab) [address] [place], [address], 05/02/2022 13:19:15 05/02/20 22 05/02/2022 COMPR EHENS TRUPTI METAB OLIC PANEL bilirubin, total 0.90 mg/dL 0.20-1 .30 Not Available [facility] (Lab) [address] [place], [address], 05/02/2022 13:19:15 05/02/20 22 05/02/2022 COMPR EHENS TRUPTI METAB OLIC PANEL calcium 10.0 mg/dL 8.4-10 .2 Not Available [facility] (Lab) [address] [place], [address], 05/02/2022 13:19:15 05/02/20 22 05/02/2022 COMPR EHENS TRUPTI METAB OLIC PANEL total protein 7.7 g/dL 6.3-8. 2 Not Available [facility] (Lab) [address] [place], [address], 05/02/2022 13:19:15 05/02/20 22 05/02/2022 COMPR EHENS TRUPTI METAB OLIC PANEL albumin 4.8 g/dL 3.0-4. 4 high Not Available [facility] (Lab) [address] [place], [address], 05/02/2022 13:19:15 05/02/20 22 05/02/2022 COMPR EHENS TRUPTI METAB OLIC PANEL globulin 2.9 g/dL 2.6-4. 2 Not Available [facility] (Lab) [address] [place], [address], 05/02/2022 13:19:15 05/02/20 22 05/02/2022 COMPR EHENS TRUPTI METAB OLIC PANEL A/G ratio 1.7 ratio 1.0-2. 0 Not Available [facility] (Lab) [address] [place], [address], 05/02/2022 13:19:15 05/02/20 22 05/02/2022 CBC/C OMPLE TE BLD COUNT W/DIF F white blood cells 6.2 x10'3 /uL 4.2-10 .8 Not Available [facility] (Lab) [address] [place], [address], 05/02/2022 12:52:58 05/02/20 22 05/02/2022 CBC/C OMPLE TE BLD COUNT W/DIF F red blood cells 4.79 x10'6 /uL 4.10-5 .80 Not Available [facility] (Lab) [address] [place], [address], 05/02/2022 12:52:58 05/02/20 22 05/02/2022 CBC/C OMPLE TE BLD COUNT W/DIF F hemoglobin 15.4 g/dL 13.2-1 7.0 Not Available [facility] (Lab) [address] [place], [address], 05/02/2022 12:52:58 05/02/20 22 05/02/2022 CBC/C OMPLE TE BLD COUNT W/DIF F hematocrit 43.8 % 39.3-5 0.0 Not Available [facility] (Lab) [address] [place], [address], 05/02/2022 12:52:58 05/02/20 22 05/02/2022 CBC/C OMPLE TE BLD COUNT W/DIF F mean red cell volume 91.4 fL 80.0-9 7.0 Not Available [facility] (Lab) [address] [place], [address], 05/02/2022 12:52:58 05/02/20 22 05/02/2022 CBC/C OMPLE TE BLD COUNT W/DIF F mean red cell hemoglobin 32.2 pg 27.0-3 3.0 Not Available [facility] (Lab) [address] [place], [address], 05/02/2022 12:52:58 05/02/20 22 05/02/2022 CBC/C OMPLE TE BLD COUNT W/DIF F mean RBC HGB concentratio n 35.2 g/dL 31.0-3 6.0 Not Available [facility] (Lab) [address] [place], [address], 05/02/2022 12:52:58 05/02/20 22 05/02/2022 CBC/C OMPLE TE BLD COUNT W/DIF F red cell distribution width 12.5 % 11.8-1 5.5 Not Available [facility] (Lab) [address] [place], [address], 05/02/2022 12:52:58 05/02/20 22 05/02/2022 CBC/C OMPLE TE BLD COUNT W/DIF F platelets 206 x10'3 /uL 150-40 0 Not Available [facility] (Lab) [address] [facility] [place], [address], 05/02/2022 12:52:58 05/02/20 22 05/02/2022 CBC/C OMPLE TE BLD COUNT W/DIF F mean platelet volume 10.3 fL 9.0-12 .4 Not Available [facility] (Lab) [address] [place], [address], 05/02/2022 12:52:58 05/02/20 22 05/02/2022 CBC/C OMPLE TE BLD COUNT W/DIF F neutrophils 52.3 % 39.0-7 2.0 Not Available [facility] (Lab) [address] [place], [address], 05/02/2022 12:52:58 05/02/20 22 05/02/2022 CBC/C OMPLE TE BLD COUNT W/DIF F lymphocytes 31.2 % 16.0-4 7.0 Not Available [facility] (Lab) [address] [place], [address], 05/02/2022 12:52:58 05/02/20 22 05/02/2022 CBC/C OMPLE TE BLD COUNT W/DIF F monocytes 12.6 % 5.0-12 .0 high Not Available [facility] (Lab) [address] [place], [address], 05/02/2022 12:52:58 05/02/20 22 05/02/2022 CBC/C OMPLE TE BLD COUNT W/DIF F eosinophils 2.3 % 1.0-7. 0 Not Available [facility] (Lab) [address] [place], [address], 05/02/2022 12:52:58 05/02/20 22 05/02/2022 CBC/C OMPLE TE BLD COUNT W/DIF F basophils 1.3 % 0.0-2. 0 Not Available [facility] (Lab) [address] [place], [address], 05/02/2022 12:52:58 05/02/20 22 05/02/2022 CBC/C OMPLE TE BLD COUNT W/DIF F immature granulocytes 0.3 % 0.00-0 .50 Not Available [facility] (Lab) [address] [place], [address], 05/02/2022 12:52:58 05/02/20 22 05/02/2022 CBC/C OMPLE TE BLD COUNT W/DIF F neutrophils, absolute count 3.25 x10'3 /uL 1.5-8. 0 Not Available [facility] (Lab) [address] [place], [address], 05/02/2022 12:52:58 05/02/20 22 05/02/2022 CBC/C OMPLE TE BLD COUNT W/DIF F lymphocytes, absolute count 1.94 x10'3 /uL 1.07-3 .43 Not Available [facility] (Lab) [address] [place], [address], 05/02/2022 12:52:58 05/02/20 22 05/02/2022 CBC/C OMPLE TE BLD COUNT W/DIF F monocytes, absolute count 0.78 x10'3 /uL 0.29-0 .99 Not Available [facility] (Lab) [address] [place], [address], 05/02/2022 12:52:58 05/02/2005/02/2022 CBC/C OMPLE TE BLD COUNT W/DIF F eosinophils, absolute count 0.14 x10'3 /uL 0.02-0 .53 Not Available [facility] (Lab) [address] [place], [address], 05/02/2022 12:52:58 05/02/20 22 05/02/2022 CBC/C OMPLE TE BLD COUNT W/DIF F basophils, absolute count 0.08 x10'3 /uL 0.01-0 .08 Not Available [facility] (Lab) [address] [place], [address], 05/02/2022 12:52:58 05/02/20 22 05/02/2022 CBC/C OMPLE TE BLD COUNT W/DIF F immature granulocytes ,absolute 0.02 x10'3 /uL 0.00-0 .05 Not Available [facility] (Lab) [address] [place], [address], 05/02/2022 12:52:58 05/02/20 22 05/02/2022 CBC/C OMPLE TE BLD COUNT W/DIF F nucleated red blood cells 0.0 % -0 Not Available [facility] (Lab) [address] [place], [address], 05/02/2022 12:52:58 05/02/20 22 05/02/2022 CBC/C OMPLE TE BLD COUNT W/DIF F NRBC# 0.00 x10'3 /uL Not Available [facility] (Lab) [address] [place], [address], 05/02/2022 12:52:58 06/09/20 22 06/09/2022 MAGNE SIUM magnesium 2.4 mg/dL 1.6-2. 3 high Not Available [facility] (Lab) [address] [place], [address], 06/09/2022 13:11:28 06/09/20 22 06/09/2022 BASIC METAB OLIC PANEL sodium 137 mmol/ L 137-14 5 Not Available [facility] (Lab) [address] [place], [address], 06/09/2022 13:11:27 06/09/20 22 06/09/2022 BASIC METAB OLIC PANEL potassium 3.3 mmol/ L 3.5-5. 1 low Not Available [facility] (Lab) [address] [place], [address], 06/09/2022 13:11:27 06/09/20 22 06/09/2022 BASIC METAB OLIC PANEL chloride 98 mmol/ L 98-107 Not Available [facility] (Lab) [address] [place], [address], 06/09/2022 13:11:27 06/09/20 22 06/09/2022 BASIC METAB OLIC PANEL carbon dioxide 30 mmol/ L 22-30 Not Available [facility] (Lab) [address] [place], [address], 06/09/2022 13:11:27 06/09/20 22 06/09/2022 BASIC METAB OLIC PANEL anion gap 12.3 mmol/ L 14-22 low Not Available [facility] (Lab) [address] [place], [address], 06/09/2022 13:11:27 06/09/20 22 06/09/2022 BASIC METAB OLIC PANEL glucose 94 mg/dL 70-99 Not Available [facility] (Lab) [address] [place], [address], 06/09/2022 13:11:27 06/09/20 22 06/09/2022 BASIC METAB OLIC PANEL BUN 28 mg/dL 8-19 high Not Available [facility] (Lab) [address] [place], [address], 06/09/2022 13:11:27 06/09/20 22 06/09/2022 BASIC METAB OLIC PANEL creatinine 1.37 mg/dL 0.66-1 .25 high Not Available [facility] (Lab) [address] [place], [address], 06/09/2022 13:11:27 06/09/20 22 06/09/2022 BASIC METAB OLIC PANEL GFR 51 Refer ence Range : [place] GFR Healt hy Adult : >60 mL/mi n/1.7 3 m2 Chron ic Kidne y Disea se: 15-60 mL/mi n/1.7 3 m2 Kidne y Failu re: <15/m L/min /1.73 m2 www.n iddk. nih.g ov The MDRD study equat ion has not been valid ated in child aaron <18 years of age; pregn ant women ; the elder ly >85 years of age; or in some racia l or ethni c subgr oups, such as Hispa nics. Outsi de the valid ated josey eters , estim ated GFR is less accur ate, requi ring clini daljit judgm ent on a case- by-ca se basis . Clini daljit inter preta tion for other races and ages must be made by the clini anitra. The MDRD study equat ion has not been valid ated for the evalu ation of serum creat inine relat ed to nutri carlos l statu s or medic ation usage . For perso ns <18 years of age, a pedia tric GFR calcu lator is avail able on the [facility] websi te: https ://igor vega.juana randall/brianna ofess ional s/kdo qi/gf r_cal culat or Not Available [facility] (Lab) [address] [place], [address], 06/09/2022 13:11:27 06/09/20 22 06/09/2022 BASIC METAB OLIC PANEL calcium 9.8 mg/dL 8.4-10 .2 Not Available [facility] (Lab) [address] [place], [address], 06/09/2022 13:11:27 07/01/20 22 07/01/2022 BASIC METAB OLIC PANEL sodium 141 mmol/ L 137-14 5 Not Available [facility] (Lab) [address] [place], [address], 07/01/2022 15:42:47 07/01/20 22 07/01/2022 BASIC METAB OLIC PANEL potassium 3.4 mmol/ L 3.5-5. 1 low Not Available [facility] (Lab) [address] [place], [address], 07/01/2022 15:42:47 07/01/20 22 07/01/2022 BASIC METAB OLIC PANEL chloride 102 mmol/ L 98-107 Not Available [facility] (Lab) [address] [place], [address], 07/01/2022 15:42:47 07/01/20 22 07/01/2022 BASIC METAB OLIC PANEL carbon dioxide 28 mmol/ L 22-30 Not Available [facility] (Lab) [address] [place], [address], 07/01/2022 15:42:47 07/01/20 22 07/01/2022 BASIC METAB OLIC PANEL anion gap 14.4 mmol/ L 14-22 Not Available [facility] (Lab) [address] [place], [address], 07/01/2022 15:42:47 07/01/2007/01/2022 BASIC METAB OLIC PANEL glucose 96 mg/dL 70-99 Not Available [facility] (Lab) [address] [place], [address], 07/01/2022 15:42:47 07/01/20 22 07/01/2022 BASIC METAB OLIC PANEL BUN 26 mg/dL 8-19 high Not Available [facility] (Lab) [address] [place], [address], 07/01/2022 15:42:47 07/01/2007/01/2022 BASIC METAB OLIC PANEL creatinine 1.41 mg/dL 0.66-1 .25 high Not Available [facility] (Lab) [address] [place], [address], 07/01/2022 15:42:47 07/01/2007/01/2022 BASIC METAB OLIC PANEL GFR 49 Refer ence Range : [place] GFR Healt hy Adult : >60 mL/mi n/1.7 3 m2 Chron ic Kidne y Disea se: 15-60 mL/mi n/1.7 3 m2 Kidne y Failu re: <15/m L/min /1.73 m2 www.n iddk. nih.g ov The MDRD study equat ion has not been valid ated in child aaron <18 years of age; pregn ant women ; the elder ly >85 years of age; or in some racia l or ethni c subgr oups, such as Hispa nics. Outsi de the valid ated josey eters , estim ated GFR is less accur ate, requi ring clini daljit judgm ent on a case- by-ca se basis . Clini daljit inter preta tion for other races and ages must be made by the clini anitra. The MDRD study equat ion has not been valid ated for the evalu ation of serum creat inine relat ed to nutri carlos l statu s or medic ation usage . For perso ns <18 years of age, a pedia tric GFR calcu lator is avail able on the [facility] websi te: https ://igor patel.neftaly vega.o tonia/pr ofess ional s/kdo qi/gf r_cal culat or Not Available [facility] (Lab) [address] [place], [address], 07/01/2022 15:42:47 07/01/2007/01/2022 BASIC METAB OLIC PANEL calcium 9.8 mg/dL 8.4-10 .2 Not Available [facility] (Lab) [address] [place], [address], 07/01/2022 15:42:47 08/18/2008/18/2022 BASIC METAB OLIC PANEL sodium 142 mmol/ L 137-14 5 Not Available [facility] (Lab) [address] [place], [address], 08/18/2022 13:26:05 08/18/20 22 08/18/2022 BASIC METAB OLIC PANEL potassium 3.6 mmol/ L 3.5-5. 1 Not Available [facility] (Lab) [address] [place], [address], 08/18/2022 13:26:05 08/18/20 22 08/18/2022 BASIC METAB OLIC PANEL chloride 106 mmol/ L 98-107 Not Available [facility] (Lab) [address] [place], [address], 08/18/2022 13:26:05 08/18/20 22 08/18/2022 BASIC METAB OLIC PANEL carbon dioxide 26 mmol/ L 22-30 Not Available [facility] (Lab) [address] [place], [address], 08/18/2022 13:26:05 08/18/20 22 08/18/2022 BASIC METAB OLIC PANEL anion gap 13.6 mmol/ L 14-22 low Not Available [facility] (Lab) [address] [place], [address], 08/18/2022 13:26:05 08/18/20 22 08/18/2022 BASIC METAB OLIC PANEL glucose 83 mg/dL 70-99 Not Available [facility] (Lab) [address] [place], [address], 08/18/2022 13:26:05 08/18/20 22 08/18/2022 BASIC METAB OLIC PANEL BUN 22 mg/dL 8-19 high Not Available [facility] (Lab) [address] [place], [address], 08/18/2022 13:26:05 08/18/20 22 08/18/2022 BASIC METAB OLIC PANEL creatinine 1.14 mg/dL 0.66-1 .25 Not Available [facility] (Lab) [address] [place], [address], 08/18/2022 13:26:05 08/18/20 22 08/18/2022 BASIC METAB OLIC PANEL GFR >60 Refer ence Range : [place] GFR Healt hy Adult : >60 mL/mi n/1.7 3 m2 Chron ic Kidne y Disea se: 15-60 mL/mi n/1.7 3 m2 Kidne y Failu re: <15/m L/min /1.73 m2 www.n iddk. nih.g ov The MDRD study equat ion has not been valid ated in child aaron <18 years of age; pregn ant women ; the elder ly >85 years of age; or in some racia l or ethni c subgr oups, such as Hispa nics. Outsi de the valid ated josey eters , estim ated GFR is less accur ate, requi ring clini daljit judgm ent on a case- by-ca se basis . Clini daljit inter preta tion for other races and ages must be made by the clini anitra. The MDRD study equat ion has not been valid ated for the evalu ation of serum creat inine relat ed to nutri carlos l statu s or medic ation usage . For perso ns <18 years of age, a pedia tric GFR calcu lator is avail able on the [facility] websi te: https ://igor w.neftaly garcíay.o rg/pr ofess ional s/kdo qi/gf r_cal culat or Not Available [facility] (Lab) [address] [place], [address], 08/18/2022 13:26:05 08/18/20 22 08/18/2022 BASIC METAB OLIC PANEL calcium 9.3 mg/dL 8.4-10 .2 Not Available [facility] (Lab) [address] [place], [address], 08/18/2022 13:26:05 05/11/20 23 05/11/2023 CBC/C OMPLE TE BLD COUNT W/DIF F white blood cells 7.0 x10'3 /uL 4.2-10 .8 Not Available [facility] (Lab) [address] [place], [address], 05/11/2023 12:41:10 05/11/20 23 05/11/2023 CBC/C OMPLE TE BLD COUNT W/DIF F red blood cells 4.69 x10'6 /uL 4.10-5 .80 Not Available [facility] (Lab) [address] [place], [address], 05/11/2023 12:41:10 05/11/20 23 05/11/2023 CBC/C OMPLE TE BLD COUNT W/DIF F hemoglobin 14.7 g/dL 13.2-1 7.0 Not Available [facility] (Lab) [address] [place], [address], 05/11/2023 12:41:10 05/11/20 23 05/11/2023 CBC/C OMPLE TE BLD COUNT W/DIF F hematocrit 43.0 % 39.3-5 0.0 Not Available [facility] (Lab) [address] [place], [address], 05/11/2023 12:41:10 05/11/20 23 05/11/2023 CBC/C OMPLE TE BLD COUNT W/DIF F mean red cell volume 91.7 fL 80.0-9 7.0 Not Available [facility] (Lab) [address] [place], [address], 05/11/2023 12:41:10 05/11/20 23 05/11/2023 CBC/C OMPLE TE BLD COUNT W/DIF F mean red cell hemoglobin 31.3 pg 27.0-3 3.0 Not Available [facility] (Lab) [address] [place], [address], 05/11/2023 12:41:10 05/11/20 23 05/11/2023 CBC/C OMPLE TE BLD COUNT W/DIF F mean RBC HGB concentratio n 34.2 g/dL 31.0-3 6.0 Not Available [facility] (Lab) [address] [place], [address], 05/11/2023 12:41:10 05/11/20 23 05/11/2023 CBC/C OMPLE TE BLD COUNT W/DIF F red cell distribution width 12.7 % 11.8-1 5.5 Not Available [facility] (Lab) [address] [place], [address], 05/11/2023 12:41:10 05/11/2005/11/2023 CBC/C OMPLE TE BLD COUNT W/DIF F platelets 223 x10'3 /uL 150-40 0 Not Available [facility] (Lab) [address] [place], [address], 05/11/2023 12:41:10 08/21/20 23 05/11/2023 CBC/C OMPLE TE BLD COUNT W/DIF F mean platelet volume 9.7 fL 9.0-12 .4 Not Available [facility] (Lab) [address] [place], [address], 05/11/2023 12:41:10 05/11/20 23 05/11/2023 CBC/C OMPLE TE BLD COUNT W/DIF F neutrophils 61.2 % 39.0-7 2.0 Not Available [facility] (Lab) [address] [place], [address], 05/11/2023 12:41:10 05/11/2005/11/2023 CBC/C OMPLE TE BLD COUNT W/DIF F lymphocytes 22.6 % 16.0-4 7.0 Not Available [facility] (Lab) [address] [place], [address], 05/11/2023 12:41:10 05/11/20 23 05/11/2023 CBC/C OMPLE TE BLD COUNT W/DIF F monocytes 11.9 % 5.0-12 .0 Not Available [facility] (Lab) [address] [place], [address], 05/11/2023 12:41:10 05/11/20 23 05/11/2023 CBC/C OMPLE TE BLD COUNT W/DIF F eosinophils 2.8 % 1.0-7. 0 Not Available [facility] (Lab) [address] [place], [address], 05/11/2023 12:41:10 05/11/2005/11/2023 CBC/C OMPLE TE BLD COUNT W/DIF F basophils 1.1 % 0.0-2. 0 Not Available [facility] (Lab) [address] [place], [address], 05/11/2023 12:41:10 05/11/20 23 05/11/2023 CBC/C OMPLE TE BLD COUNT W/DIF F immature granulocytes 0.4 % 0.00-0 .50 Not Available [facility] (Lab) [address] [place], [address], 05/11/2023 12:41:10 05/11/20 23 05/11/2023 CBC/C OMPLE TE BLD COUNT W/DIF F neutrophils, absolute count 4.30 x10'3 /uL 1.5-8. 0 Not Available [facility] (Lab) [address] [place], [address], 05/11/2023 12:41:10 05/11/20 23 05/11/2023 CBC/C OMPLE TE BLD COUNT W/DIF F lymphocytes, absolute count 1.59 x10'3 /uL 1.07-3 .43 Not Available [facility] (Lab) [address] [place], [address], 05/11/2023 12:41:10 05/11/20 23 05/11/2023 CBC/C OMPLE TE BLD COUNT W/DIF F monocytes, absolute count 0.84 x10'3 /uL 0.29-0 .99 Not Available [facility] (Lab) [address] [place], [address], 05/11/2023 12:41:10 05/11/20 23 05/11/2023 CBC/C OMPLE TE BLD COUNT W/DIF F eosinophils, absolute count 0.20 x10'3 /uL 0.02-0 .53 Not Available [facility] (Lab) [address] [place], [address], 05/11/2023 12:41:10 05/11/20 23 05/11/2023 CBC/C OMPLE TE BLD COUNT W/DIF F basophils, absolute count 0.08 x10'3 /uL 0.01-0 .08 Not Available [facility] (Lab) [address] [place], [address], 05/11/2023 12:41:10 05/11/20 23 05/11/2023 CBC/C OMPLE TE BLD COUNT W/DIF F immature granulocytes ,absolute 0.03 x10'3 /uL 0.00-0 .05 Not Available [facility] (Lab) [address] [place], [address], 05/11/2023 12:41:10 05/11/20 23 05/11/2023 CBC/C OMPLE TE BLD COUNT W/DIF F nucleated red blood cells 0.0 % -0 Not Available [facility] (Lab) [address] [place], [address], 05/11/2023 12:41:10 05/11/20 23 05/11/2023 CBC/C OMPLE TE BLD COUNT W/DIF F NRBC# 0.00 x10'3 /uL Not Available [facility] (Lab) [address] [place], [address], 05/11/2023 12:41:10 05/11/20 23 05/11/2023 LIPID PANEL cholesterol 177 mg/dL 140-19 9 NIH TERESA NSUS RECOM MENDA TION FOR ANIBAL STERO L: ADULT CHILD LOW RISK: <200 <170 BORDE RLINE : <200- 239 ----- HIGH RISK: >240 >200 Not Available [facility] (Lab) [address] [place], [address], 05/11/2023 12:57:14 05/11/2005/11/2023 LIPID PANEL triglyceride s 402 mg/dL 0-150 high NIH TERESA NSUS REPOR T RECOM MENDA TION FOR TRIGL YCERI GUILLERMO: ADULT CHILD LOW RISK: <150 ----- BODER LINE: 150-1 99 ----- HIGH RISK: >200 ----- Not Available [facility] (Lab) [address] [place], [address], 05/11/2023 12:57:14 05/11/20 23 05/11/2023 LIPID PANEL HDL cholesterol 36 mg/dL 40- low Not Available [facility] (Lab) [address] [place], [address], 05/11/2023 12:57:14 05/11/20 23 05/11/2023 COMPR EHENS TRUPTI METAB OLIC PANEL sodium 138 mmol/ L 137-14 5 Not Available [facility] (Lab) [address] [place], [address], 05/11/2023 12:57:25 05/11/20 23 05/11/2023 COMPR EHENS TRUPTI METAB OLIC PANEL potassium 3.3 mmol/ L 3.5-5. 1 low Not Available [facility] (Lab) [address] [place], [address], 05/11/2023 12:57:25 05/11/20 23 05/11/2023 COMPR EHENS TRUPTI METAB OLIC PANEL chloride 103 mmol/ L 98-107 Not Available [facility] (Lab) [address] [place], [address], 05/11/2023 12:57:25 05/11/20 23 05/11/2023 COMPR EHENS TRUPTI METAB OLIC PANEL carbon dioxide 27 mmol/ L 22-30 Not Available [facility] (Lab) [address] [place], [address], 05/11/2023 12:57:25 05/11/20 23 05/11/2023 COMPR EHENS TRUPTI METAB OLIC PANEL anion gap 11.3 mmol/ L 14-22 low Not Available [facility] (Lab) [address] [place], [address], 05/11/2023 12:57:25 05/11/20 23 05/11/2023 COMPR EHENS TRUPTI METAB OLIC PANEL glucose 103 mg/dL 70-99 high Not Available [facility] (Lab) [address] [place], [address], 05/11/2023 12:57:25 05/11/20 23 05/11/2023 COMPR EHENS TRUPTI METAB OLIC PANEL BUN 24 mg/dL 8-19 high Not Available [facility] (Lab) [address] [place], [address], 05/11/2023 12:57:25 05/11/20 23 05/11/2023 COMPR EHENS TRUPTI METAB OLIC PANEL creatinine 0.97 mg/dL 0.66-1 .25 Not Available [facility] (Lab) [address] [place], [address], 05/11/2023 12:57:25 05/11/20 23 05/11/2023 COMPR EHENS TRUPTI METAB OLIC PANEL GFR >60 Refer ence Range : [place] GFR Healt hy Adult : >60 mL/mi n/1.7 3 m2 Chron ic Kidne y Disea se: 15-60 mL/mi n/1.7 3 m2 Kidne y Failu re: <15/m L/min /1.73 m2 www.n iddk. nih.g ov The MDRD study equat ion has not been valid ated in child aaron <18 years of age; pregn ant women ; the elder ly >85 years of age; or in some racia l or ethni c subgr oups, such as [facility] nics. Outsi de the valid ated josey eters , estim ated GFR is less accur ate, requi ring clini daljit judgm ent on a case- by-ca se basis . Clini daljit inter preta tion for other races and ages must be made by the clini anitra. The MDRD study equat ion has not been valid ated for the evalu ation of serum creat inine relat ed to nutri carlos l statu s or medic ation usage . For perso ns <18 years of age, a pedia tric GFR calcu lator is avail able on the [facility] websi te: https ://igor vega.juana randall/pr ofess ional s/kdo qi/gf r_cal culat or Not Available [facility] (Lab) [address] [place], [address], 05/11/2023 12:57:25 05/11/20 23 05/11/2023 COMPR EHENS TRUPTI METAB OLIC PANEL alkaline phosphatase 45 U/L 38-126 Not Available [facility] (Lab) [address] [place], [address], 05/11/2023 12:57:25 05/11/20 23 05/11/2023 COMPR EHENS TRUPTI METAB OLIC PANEL alanine aminotransfe rase 33 U/L 0-50 Not Available [facility] (Lab) [address] [place], [address], 05/11/2023 12:57:25 05/11/20 23 05/11/2023 COMPR EHENS TRUPTI METAB OLIC PANEL aspartate aminotransfe rase 53 U/L 15-46 high Not Available [facility] (Lab) [address] [place], [address], 05/11/2023 12:57:25 05/11/20 23 05/11/2023 COMPR EHENS TRUPTI METAB OLIC PANEL bilirubin, total 0.50 mg/dL 0.20-1 .30 Not Available [facility] (Lab) [address] [place], [address], 05/11/2023 12:57:25 05/11/20 23 05/11/2023 COMPR EHENS TRUPTI METAB OLIC PANEL calcium 9.5 mg/dL 8.4-10 .2 Not Available [facility] (Lab) [address] [place], [address], 05/11/2023 12:57:25 05/11/20 23 05/11/2023 COMPR EHENS TRUPTI METAB OLIC PANEL total protein 7.5 g/dL 6.3-8. 2 Not Available [facility] (Lab) [address] [place], [address], 05/11/2023 12:57:25 05/11/20 23 05/11/2023 COMPR EHENS TRUPTI METAB OLIC PANEL albumin 4.5 g/dL 3.0-4. 4 high Not Available [facility] (Lab) [address] [place], [address], 05/11/2023 12:57:25 05/11/20 23 05/11/2023 COMPR EHENS TRUPTI METAB OLIC PANEL globulin 3.0 g/dL 2.6-4. 2 Not Available [facility] (Lab) [address] [place], [address], 05/11/2023 12:57:25 05/11/20 23 05/11/2023 COMPR EHENS TRUPTI METAB OLIC PANEL A/G ratio 1.5 ratio 1.0-2. 0 Not Available [facility] (Lab) [address] [place], [address], 05/11/2023 12:57:25 05/11/20 23 05/11/2023 PSA SCREE N PSA medicare screen 4.83 NG/mL 0.00-4 .00 high Not Available [facility] (Lab) [address] [place], [address], 05/11/2023 13:24:32 09/02/20 24 09/01/2024 imagi ng/di agnos tic resul t No observ ation record ed. [facility], [place], [address], 09/02/2024 11:24:53 Result Notes None recorded. 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 y 8481242458988 Active Not Available [facility] 4 01:04:24 Asthma 994404726 Active 2016 Not Available [facility] 4 01:04:24 Peripheral venous insufficie ncy 06637190 Active Not Available [facility] 4 01:04:24 Edema 439633406 Active Not Available [facility] 4 01:04:24 Shoulder joint pain 541229159 Active Not Available [facility] 4 01:04:24 Swelling of scrotum 423953882 Active Not Available [facility] 4 01:04:24 Eruption 772030128 Active Not Available [facility] 4 01:04:24 Bronchitis 46635534 Active Not Available [facility] 4 01:04:24 Blood in urine 58374213 Active Not Available [facility] 4 01:04:24 Dyslipidem ia 319199611 Active 2017 Not Available [facility] 4 01:04:24 Hypertensi ve disorder 17313121 Active Not Available [facility] 4 01:04:24 Prostate specific antigen above reference range 920694586 Active 2021 Not Available [facility] 4 01:04:24 Hypokalemi a 50284328 Active 2021 Not Available [facility] 4 01:04:24 Hyperlipid emia 82825629 Active 2015 Not Available [facility] 4 01:04:24 Essential hypertensi on 27906552 Active 2021 Not Available [facility] 4 01:04:24 Swelling of limb 31656949 Active Not Available [facility] 4 01:04:24 Pain in limb 07426206 Active Not Available [facility] 01:04:24 Problem Notes None recorded. Procedures Surgical History Date Name Laterality Status Provider Name and Address Organization Details Recorded Time 02/21/20 21 Back Surgery completed Not Available [facility] 023 04:44:13 05/14/20 18 Colonoscopy with biopsy completed Not Available [facility] 11/19/2022 04:44:13 Arthroscopy completed Not Available [facility] 11/19/2022 04:44:13 Hernia Repair completed Not Available [facility] 11/19/2022 04:44:13 Hernia Repair completed Not Available [facility] 11/19/2022 04:44:13 Imaging Results Imaging Date Name Status LastModified by Organiz ation Details LastModified Time 09/01/2024 imaging/diagn ostic result active [facility] [address] [address], [place], [address], 09/02/2024 11:24:53 Procedure Notes None recorded. Medical Equipment None Reported. Allergies Allergen ID Allergen Name Allergen Category Reaction Reaction Severity Criticality Documentation Date Start Date Code Code System Note Provider Name and Address Organization Details Recorded Time 91 tramadol medicatio n itching Not available Not available 11/19/2022 51782 RxNorm Not Available [facility] 3 05:07:50 9129 Keflex medicatio n rash Not available Not available 11/19/2022 67066 7 RxNorm Not Available [facility] 3 05:07:50 9131 codeine medicatio n vomiting Not available Not available 11/19/2022 2670 RxNorm Not Available [facility] 3 05:07:50 Medications Name Sig Start Date Stop Date Status Note LastModified by Organization Details LastModified Time cyclobenz aprine 10 mg tablet Take 1 tablet 3 times a day by oral route for 14 days. active Not Available Not Available No t Available amoxicill in 500 mg capsule Take 1 capsule 3 times a day by oral route for 7 days. active Not Available Not Available No t Available furosemid e 40 mg tablet active Not Available Not Available Not Available metolazon e 2.5 mg tablet TAKE 1 TABLET BY MOUTH ONCE DAILY IN THE MORNING 07/02 completed Not Available Not Available Not Available albuterol sulfate 0.63 mg/3 mL solution for nebulizat ion 04/05 completed Not Available Not Available Not Available carvedilo l 25 mg tablet TAKE 1/2 (ONE-NIKKI F) TABLET BY MOUTH TWICE DAILY 01/14 completed bp dropping too low pt stopped Not Available Not Available Not Available prednison e 10 mg tablet TAKE 1 TABLET BY MOUTH THREE TIMES DAILY FOR 3 DAYS THEN 1 TAB TWICE DAILY FOR 2 DAYS THEN 1 TAB ONCE DAILY FOR 1 DAY 01/01 completed Not Available Not Available Not Available doxycycli ne hyclate 100 mg capsule TAKE 1 CAPSULE BY MOUTH TWICE DAILY FOR 7 DAYS 08/20 completed Not Available Not Available Not Available carvedilo l 12.5 mg tablet Take 1 tablet twice a day by oral route. active Not Available Not Available No t Available atorvasta tin 10 mg tablet Take 1 tablet by mouth once daily 2023 active Not Available Not Available Not Avai lable Pneumovax -23 25 mcg/0.5 mL injection solution active Not Available Not Available Not Available azithromy hunter 250 mg tablet TAKE 2 TABLETS BY MOUTH ON DAY 1, AND THEN TAKE 1 TABLET BY MOUTH ONCE A DAY ON DAY 2 THROUGH DAY 5 08/20 completed Not Available Not Available Not Available atenolol 100 mg tablet 02/16 completed Not Available Not Available Not Available Coreg 6.25 mg tablet Take 1 tablet twice a day by oral route. active Not Available Not Available No t Available prednison e 20 mg tablet TAKE 3 TABLETS BY MOUTH ONCE DAILY FOR 5 DAYS 09/18 completed Not Available Not Available Not Available potassium chloride ER 10 mEq tablet,ex tended release active Not Available Not Available Not Available metronida zole 500 mg tablet TAKE 1 TABLET BY MOUTH EVERY 8 HOURS FOR 10 DAYS 07/02 completed Not Available Not Available Not Available ciproflox acin 500 mg tablet TAKE 1 TABLET BY MOUTH TWICE DAILY FOR 7 DAYS 03/19 completed Not Available Not Available Not Available peg-elect rolyte solution 420 gram oral solution 07/28 completed Not Available Not Available Not Available tramadol 50 mg tablet TAKE 2 TABLETS BY MOUTH THREE TIMES DAILY NEEDED 03/19 completed Not Available Not Available Not Available prednison e 10 mg tablets in a dose pack Take 1 tab by mouth, 3 times a day for 3 daysTake 1 tab by mouth 2 times a day for 2 daysTake 1 tab by mouth once a day for 1 day 03/19 completed Not Available Not Available Not Available oxycodone -acetamin ophen 5 mg-325 mg tablet 07/28 completed Not Available Not Available Not Available potassium chloride ER 20 mEq tablet,ex tended release(p art/cryst ) Take 3 tablets by mouth once daily 2022 active Not Available Not Available Not Avai lable tamsulosi n 0.4 mg capsule Take 1 capsule by mouth once daily at bedtime active Not Available Not Available No t Available Kenalog 10 mg/mL suspensio n for injection In office injectio n administ ered by the provider active [facility]: [id number] 01-08 Not Available Not Available Not Available triamcino lone acetonide 0.1 % topical ointment 1gm daily on rash active Not Available Not Available No t Available lisinopri l 20 mg-hydroc hlorothia zide 25 mg tablet Take 2 tablets by mouth once daily active Not Available Not Available No t Available diclofena c sodium 75 mg tablet,de layed release Take 1 tablet(s ) 2 TIMES A DAY by oral route with food active Not Available Not Available No t Available etodolac 400 mg tablet Take 1 tablet twice a day by oral route for 14 days. active Not Available Not Available No t Available monteluka st 10 mg tablet Take 1 tablet by mouth once daily 2022 active Not Available Not Available Not Avai lable furosemid e 20 mg tablet TAKE 1 TABLET BY MOUTH ONCE DAILY 08/20 completed Not Available Not Available Not Available levofloxa hunter 500 mg tablet TAKE 1 TABLET BY MOUTH ONCE DAILY FOR 10 DAYS 11/05 completed Not Available Not Available Not Available methylpre dnisolone 4 mg tablets in a dose pack TAKE BY MOUTH DIRECTED ON INSIDE OF PACKAGE 08/20 completed Not Available Not Available Not Available atenolol 50 mg tablet TAKE 1 TABLET BY MOUTH ONCE DAILY active Not Available Not Available No t Available oxycodone 5 mg tablet 03/19 completed Not Available Not Available Not Available Crestor 10 mg tablet Take 1 tablet every day by oral route. 12/31 completed Not Available Not Available Not Available Boostrix Tdap 2.5 Lf unit-8 mcg-5 Lf/0.5 mL intramusc ular syringe PHARMACI ST ADMINIST ERED IMMUNIZA TION ADMINIST ERED AT TIME OF DISPENSI NG active Not Available Not Available No t Available lisinopri l-hydroch lorothiaz mary qd 02/14 completed Not Available Not Available Not Available lidocaine (PF) 10 mg/mL (1 %) injection solution In office injectio n administ ered by the provider active [facility]: [phone] 03-07 Not Available Not Available Not Available ProAir HFA 90 mcg/actua tion aerosol inhaler Inhale 2 puffs every 4-6 hours by inhalati on route as directed for 18 days. 08/03 completed Not Available Not Available Not Available Symbicort 160 mcg-4.5 mcg/actua tion HFA aerosol inhaler active Not Available Not Available Not Available Symbicort 80 mcg-4.5 mcg/actua tion HFA aerosol inhaler INHALE TWO PUFFS BY MOUTH TWICE DAILY active Not Available Not Available No t Available Prevnar 13 (PF) 0.5 mL intramusc ular syringe PHARMACI ST ADMINIST ERED IMMUNIZA TION ADMINIST ERED AT TIME OF DISPENSI NG active Not Available Not Available No t Available potassium chloride ER 20 mEq tablet,ex tended release TAKE 2 TABLETS BY MOUTH ONCE DAILY 06/26 completed dose changed to [address] Geiger Not Available Not Available Not Available Fluvirin 8880-7798 (PF) 45 mcg (15 mcg x3)/0.5 mL intramusc ular syringe active Not Available Not Available Not Available Fluvirin 1561-1449 (PF) 45 mcg (15 mcg x 3)/0.5 mL IM syringe active Not Available Not Available Not Available Fluzone High-Dose 0136-2463 (PF) 180 mcg/0.5 mL intramusc ular syringe 09/25 completed Not Available Not Available Not Available Fluzone High-Dose 2035-2276 (PF) 180 mcg/0.5 mL intramusc ular syringe 08/11 completed Not Available Not Available Not Available Fluzone High-Dose 0420-5604 (PF) 180 mcg/0.5 mL intramusc ular syringe 07/28 completed Not Available Not Available Not Available Fluzone High-Dose (PF) 180 mcg/0.5 mL intramusc ular syringe active Not Available Not Available Not Available tramadol 100 mg tablet Take 1 tablet 3 times a day by oral route as needed for 14 days. 03/19 completed Not Available Not Available Not Available Fluzone High-Dose Quad (PF) 240 mcg/0.7 mL IM syringe PHARMACI ST ADMINIST ERED IMMUNIZA TION ADMINIST ERED AT TIME OF DISPENSI NG active Not Available Not Available No t Available BinaxNOW COVID-19 Ag Self Test kit Use as Directed on the Package 09/18 completed Not Available Not Available Not Available Vitals Date Recorded Body mass index (BMI) Body height Heart rate Body temperature Body weight Systolic blood pressure Diastolic blood pressure Provider Name and Address Organization Details Last Updated DateTime 2 33.8 kg/m2 172.72 cm 60 /min 97.4 [degF] 527637. 51 g 138 mm[Hg] 60 mm[Hg] Not Available [facility] 3 04:52:27 Date Recorded Body mass index (BMI) Body height Heart rate Body temperature Body weight Systolic blood pressure Diastolic blood pressure Provider Name and Address Organization Details Last Updated DateTime 2 33.8 kg/m2 172.72 cm 78 /min 97.7 [degF] 245000. 51 g 116 mm[Hg] 60 mm[Hg] Not Available [facility] 3 04:52:27 Date Recorded Body mass index (BMI) Body height Heart rate Body temperature Body weight Systolic blood pressure Diastolic blood pressure Provider Name and Address Organization Details Last Updated DateTime 2 34.7 kg/m2 172.72 cm 64 /min 96.3 [degF] 273861. 06 g 150 mm[Hg] 80 mm[Hg] Not Available [facility] 3 04:52:27 Date Recorded Body mass index (BMI) Body height Heart rate Body temperature Body weight Systolic blood pressure Diastolic blood pressure Provider Name and Address Organization Details Last Updated DateTime 2 34.7 kg/m2 172.72 cm 60 /min 98 [degF] 553537. 06 g 120 mm[Hg] 78 mm[Hg] Not Available [facility] 3 04:52:27 Date Recorded Body height Body mass index (BMI) Body weight Body temperature Heart rate Systolic blood pressure Diastolic blood pressure Provider Name and Address Organization Details Last Updated DateTime 3 172.72 cm 34.5 kg/m2 033894. 47 g 98.2 [degF] 63 /min 136 mm[Hg] 72 mm[Hg] ABHI Lynn [facility] 3 14:37:50 Date Recorded Body height Body mass index (BMI) Body weight Body temperature Heart rate Systolic blood pressure Diastolic blood pressure Provider Name and Address Organization Details Last Updated DateTime 3 172.72 cm 3.3 kg/m2 9979.03 g 98 [degF] 68 /min 126 mm[Hg] 68 mm[Hg] Gena UnderwoodABHI [facility] 3 11:36:56 Social History Question Answer Notes LastModified by Organizat ion Details LastModified Time Tobacco Smoking Status Never Smoker Not Available [facility] 11/19/2022 04:43:04 Do You Have An Advance Directive? No MIGRATION.75012 [id number] Information not available 11/19/2022 What Is Your Level Of Alcohol Consumption? Occasional MIGRATION.52347 27488 Information not available 11/19/2022 Do You Wear A Helmet When Biking? No MIGRATION.11126 92508 Information not available 11/19/2022 Are You Blind Or Do You Have Difficulty Seeing? No MIGRATION.18011 82087 Information not available 11/19/2022 What Is Your Level Of Caffeine Consumption? None MIGRATION.90503 46048 Information not available 11/19/2022 How Much Tobacco Do You Chew? None MIGRATION.04097 46150 Information not available 11/19/2022 What Is Your Code Status? DNR MIGRATION.02994 96703 Information not available 11/19/2022 In The 14 Days Before Symptom Onset, Have You Had Close Contact With A Laboratory-confi rmed COVID-19 While That Case Was Ill? No MIGRATION.99804 65131 Information not available 11/19/2022 In The 14 Days Before Symptom Onset, Have You Had Close Contact With A Person Who Is Under Investigation For COVID-19 While That Person Was Ill? No MIGRATION.60357 57663 Information not available 11/19/2022 Are You Deaf Or Do You Have Serious Difficulty Hearing? No MIGRATION.44758 18063 Information not available 11/19/2022 What Type Of Diet Are You Following? REGULAR MIGRATION.40883 25668 Information not available 11/19/2022 Which Illicit Or Recreational Drugs Have You Used? None MIGRATION.36627 50671 Information not available 11/19/2022 Do You Or Have You Ever Used E-cigarettes Or Vape? Never Used Electronic Cigarettes MIGRATION.31404 58632 Information not available 11/19/2022 What Is The Highest Grade Or Level Of School You Have Completed Or The Highest Degree You Have Received? [id number] MIGRATION.81470 10354 Information not available 11/19/2022 What Is Your Occupation? RETIRED MIGRATION.35310 49406 Information not available 11/19/2022 Have There Been Any Changes To Your Family Or Social Situation? No MIGRATION.67856 40179 Information not available 11/19/2022 Are There Any Guns Present In Your Home? Yes MIGRATION.01684 58851 Information not available 11/19/2022 Do You Use Insect Repellent Routinely? Yes MIGRATION.37330 02506 Information not available 11/19/2022 Where Do You Live? [place] MIGRATION.18281 54521 Information not available 11/19/2022 Do You Have A Medical Power Of Die Cleaner? No MIGRATION.81718 68187 Information not available 11/19/2022 What Was The Date Of Your Most Recent Tobacco Screening? 08/20/2023 [email or web address] Information not available 08/20/2023 Have You Ever Been Counseled For Unhealthy Alcohol Use? No MIGRATION.87896 77325 Information not available 11/19/2022 Do You Have Any Pets? No MIGRATION.54834 04918 Information not available 11/19/2022 What Is Your Relationship Status? MIGRATION.07904 41974 Information not available 11/19/2022 Do You Use Your Seat Belt Or Car Seat Routinely? Yes MIGRATION.07953 35955 Information not available 11/19/2022 Do You Have Smoke And Carbon Monoxide Detectors In Your Home? Yes MIGRATION.83520 93597 Information not available 11/19/2022 Are You Passively Exposed To Smoke? No MIGRATION.62872 05511 Information not available 11/19/2022 Do You Or Have You Ever Used Smokeless Tobacco? Never Used Smokeless Tobacco MIGRATION.58795 96338 Information not available 11/19/2022 Are There Any Smokers In Your House? No MIGRATION.91549 46158 Information not available 11/19/2022 How Much Tobacco Do You Smoke? No MIGRATION.92628 25596 Information not available 11/19/2022 Do You Feel Stressed (tense, Restless, Nervous, Or Anxious, Or Unable To Sleep At Night)? [id number] MIGRATION.38149 99319 Information not available 11/19/2022 Do You Use Any Illicit Or Recreational Drugs? No MIGRATION.11003 37456 Information not available 11/19/2022 Do You Use Sunscreen Routinely? Yes MIGRATION.27248 49896 Information not available 11/19/2022 Has Tobacco Cessation Counseling Been Provided? No MIGRATION.85731 96045 Information not available 11/19/2022 Have You Recently Traveled Abroad? No MIGRATION.60690 16145 Information not available 11/19/2022 Do You Have Any Dietary Restrictions? No MIGRATION.32581 05896 Information not available 11/19/2022 Do You Or Have You Ever Used Any Other Forms Of Tobacco Or Nicotine? No MIGRATION.67969 51301 Information not available 11/19/2022 Sex: Male Functional Status Question Answer Note LastModified by Organizat ion Details LastModified Time Do you have difficulty walking or climbing stairs? No MIGRATION.6460592 026 Information not available 11/19/2022 Do you have transportation difficulties? No MIGRATION.1436802 026 Information not available 11/19/2022 Are you able to walk? YESWOREST MIGRATION.7793625 026 Information not available 11/19/2022 Do you have difficulty doing errands alone? No MIGRATION.9657134 026 Information not available 11/19/2022 Are you able to care for yourself? Yes MIGRATION.1575132 026 Information not available 11/19/2022 Do you have difficulty dressing or bathing? No MIGRATION.9076048 026 Information not available 11/19/2022 What is your exercise level? Moderate MIGRATION.3411506 026 Information not available 11/19/2022 Mental Status Question Answer Note LastModified by Organizat ion Details LastModified Time Do you have difficulty concentrating, remembering or making decisions? No MIGRATION.[id number] 6 Information not available 11/19/2022 Family History Relationship Description Onset Age of this Age Resolved Age Notes LastModified by Organization Details LastModified Time Mother Cerebrovascu lar accident MIGRATION.545 [id number] Not available 11/19/2022 04:44:23 Mother Hypertensive disorder MIGRATION.448 [id number] Not available 11/19/2022 04:44:23 Father Hypercholest erolemia MIGRATION.479 [id number] Not available 11/19/2022 04:44:23 Father Hypertensive disorder MIGRATION.070 [id number] Not available 11/19/2022 04:44:23 Unspecified Relation Diabetes mellitus MIGRATION.573 [id number] Not available 11/19/2022 04:44:23 Unspecified Relation Heart disease MIGRATION.082 [id number] Not available 11/19/2022 04:44:23 Medical History Condition Response NERVE DISEASE N BLINDNESS N RHEUMATIC FEVER N KIDNEY STONES N BLADDER PROBLEMS N MRSA N CARPAL TUNNEL SYNDROME N OTHER # 1 Y POLIO N LUNG DISEASE/DISORDER N HISTORY OF DRUG ABUSE N COPD Y RADIATION / CHEMOTHERAPY N Other # 2 Y BLOOD DISEASES N SURGERY N EAR OR HEARING PROBLEMS N MUMPS N SCHIZOPHRENIA N SHINGLES N BOWEL PROBLEMS N DEPRESSION (INCLUDING POST ) N STROKE/TIA N ULCERS N BENIGN PROSTATIC HYPERPLASIA N MEASLES N HYPOTENSION N MYOCARDIAL INFARCTION N OBESITY N GERD/NAUSEA N ANEURYSM N URINARY/BLADDER/KIDNEY PROBLEMS Y CORONARY ARTERY DISEASE (CAD) N ADDICTION CONCERNS N ENDOMETRIOSIS N Impotence N USE OF BLOOD THINNERS N SKIN PROBLEMS N EMPHYSEMA N GASTROINTESTINAL DISORDER N PERIPHERAL VASCULAR DISEASE N MUSCLE,JOINT OR BONE PROBLEMS Y DVT N STOMACH ULCERS N GASTROINTESTINAL BLEEDING N BLOOD CLOTS N ASTHMA N CATARACTS N USE OF NSAIDS N CONCUSSION OR SPINAL TRAUMA N VARICOSITIES N GI PROBLEMS N Low Testosterone N NEUROPATHY N INFERTILITY N AIDS/HIV N FRACTURES N CHEMOTHERAPY / RADIATION N LIVER DISEASE N MALE HYPOGONADISM N HYPERTENSION Y Deficiency N TOURETTE'S N ANXIETY DISORDER N Metal allergy N BLOOD TRANSFUSION N ANEMIA/BLOOD DISORDER N CHRONIC EAR INFECTIONS N BIPOLAR DISORDER N BRONCHITIS Y OSTEOARTHRITIS N TUBERCULOSIS N GLAUCOMA N FOOT PROBLEM N HEART VALVE DISORDERS N DIVERTICULITIS N CHICKENPOX N SLEEP APNEA N ALLERGIES/HAYFEVER N INFECTIOUS DISEASE N HEART ARRHYTHMIA N PROSTATE N INSOMNIA N HIGH CHOLESTEROL / HYPERLIPIDEMIA Y RHEUMATOID ARTHRITIS N HYPERTHYROIDISM N NEUROLOGICAL PROBLEMS N EDEMA Y CHRONIC PAIN SYNDROME Y HYPOTHYROIDISM N CAROTID BLOCKAGE N CONSTIPATION N BACK / NECK PROBLEMS Y HAVE YOU BEEN HOSPITALIZED OR SEEN IN [facility] IN THE PAST YEAR ? N ATHEROSCLEROSIS N BURSITIS N BREAST PROBLEMS N HERNIATED DISC N DIALYSIS N ECZEMA N FIBROMYALGIA N OSTEOPOROSIS N ARTHRITIS Y NO SIGNIFICANT PAST MEDICAL HISTORY N PERIPHERAL NEUROPATHY N APPENDICITIS N DIABETES, TYPE N BAD TEETH N ENT N HEARTBURN / REFLUX N AUTISM SPECTRUM DISORDER (ASD) N HEPATITIS / LIVER DISEASE N GOUT N SLEEP DISORDER N ALZHEIMER'S DISEASE N Brain Problems N HERPES N DEMENTIA N HEADACHES/MIGRAINES N SEIZURES/EPILEPSY N VASCULAR DISEASE N PACEMAKER N Blood Disorder N DIZZINESS N HEAD TRAUMA OR INJURY N HEART DISEASE/HEART PROBLEMS N KIDNEY DISEASE N MULTIPLE SCLEROSIS N CARDIAC ARRHYTHMIA N CANCER: SPECIFY N ANESTHESIA COMPLICATIONS N ATRIAL FIBRILLATION N Gall Stones N PULMONARY EMBOLISM N AUTOIMMUNE DISEASE N Immunizations Vaccine Type Date Status Note Provider Nam e and Address Organization Details Recorded Time RSV, recombinant, protein subunit RSVpreF, adjuvant reconstituted, 0.5 mL, PF 3 completed Not Available [facility] 10/22/2023 01:04:26 Influenza, high-dose, quadrivalent, PF 3 completed Not Available [facility] 10/22/2023 01:04:25 COVID-19, mRNA, LNP-S, PF, 100 mcg/0.5mL dose or 50 mcg/0.25mL dose 1 completed Not Available [facility] 10/22/2023 01:04:26 Tdap 0 completed Not Available [facility] 10/22/2023 01:04:26 Influenza, high-dose, trivalent, PF 0 completed Not Available [facility] 10/22/2023 01:04:26 Pneumococcal conjugate PCV 13 9 completed Not Available [facility] 10/22/2023 01:04:26 Influenza, high-dose, trivalent, PF 9 completed Not Available [facility] 10/22/2023 01:04:26 influenza, unspecified formulation 8 completed Not Available [facility] 10/22/2023 01:04:26 zoster, unspecified formulation 3 completed Not Available [facility] 10/22/2023 01:04:25 Tdap 2 completed Not Available [facility] 10/22/2023 01:04:26 zoster recombinant 2 completed Not Available [facility] 10/22/2023 01:04:25 COVID-19, mRNA, LNP-S, PF, 30 mcg/0.3 mL dose 2 completed Not Available [facility] 10/22/2023 01:04:26 Influenza, high-dose, quadrivalent, PF 2 completed Not Available [facility] 10/22/2023 01:04:25 pneumococcal polysaccharide PPV23 2 completed Not Available [facility] 10/22/2023 01:04:26 COVID-19, mRNA, LNP-S, PF, 100 mcg/0.5mL dose or 50 mcg/0.25mL dose 2 completed Not Available [facility] 10/22/2023 01:04:25 Influenza, high-dose, trivalent, PF 1 completed Not Available [facility] 10/22/2023 01:04:26 COVID-19, mRNA, LNP-S, PF, 100 mcg/0.5mL dose or 50 mcg/0.25mL dose 1 completed Not Available [facility] 10/22/2023 01:04:26 Influenza, high-dose, trivalent, PF 7 completed Not Available [facility] 10/22/2023 01:04:26 Influenza, split virus, trivalent, preservative 6 completed Not Available [facility] 10/22/2023 01:04:26 influenza, unspecified formulation 5 completed Not Available [facility] 10/22/2023 01:04:26 Influenza, high-dose, trivalent, PF 4 completed Not Available [facility] 10/22/2023 01:04:26 Past Encounters Encounter ID Performer Location Encounter Start Date Encounter Closed Date Diagnosis/Indication Diagnosis SNOMED-CT Code Diagnosis ICD10 Code Diagnosis Note [id number] [place] [place] [address] [place] [address] 12/27/2020 00:00:00 12/27/2020 13:47:38 [id number] [facility] [place] Parth hernández [address] , [place] [address] 01/01/2021 00:00:00 01/01/2021 22:30:[id number] [facility] Internal [place] [address] [place] [address] y , [place] [address] 03/19/2021 00:00:00 03/25/2021 21:19:[id number] [facility] Internal [place] [address] [place] [address] y , [place] [address] 04/02/2021 00:00:00 04/02/2021 22:21:[id number] [facility] Internal [place] [address] [place] [address] y , [place] [address] 07/02/2021 00:00:00 07/02/2021 22:10:[id number] [facility] [place] [address] [place] [address] y , [place] [address] 11/05/2021 00:00:00 11/16/2021 17:07:[id number] [facility] [place] [address] [place] [address] y , [place] [address] 01/14/2022 00:00:00 02/02/2022 16:42:[id number] [facility] Internal [place] [address] [place] [address] y , [place] [address] 05/13/2022 00:00:00 05/13/2022 22:58:[id number] [facility] Internal [place] [address] [place] [address] y , [place] [address] 09/18/2022 00:00:00 09/19/2022 09:10:[id number] Ge[address] [facility] Internal Med [place] [address] [place] [address] y , [place] [address] 04/30/2023 14:24:59 04/30/2023 15:45:18 Hyperlipidemia 68463922 E78.5 Essential hypertension 64250234 I10 Screening for malignant neoplasm of prostate [id number] Z12.5 Chronic ob structive pulmonary disease [id number] J44.9 Health Concerns Section Related Observation LastModified by Organization Detai ls LastModified Time None Recorded Concern Status LastModified by Organization Details LastModified Time None Recorded Advance Directives Directive N: Payers Encounter Date Sequence Insurance Name Policy Number Policy Hinson Covered Member ID Hinson Member ID Guarantor Name 04/30/2023 1 [facility] - [employer] - MEDICARE COMPLETE PLAN 1 (MEDICARE REPLACEMENT HMO) [id number] Jayjay Ellison [id number] Jayjay Ellison Notes Date Note Type Note Provider Name and Address Organization Details Recorded Time 04/30/2023 text/html COPD/asthma seem s to be stable. Hypertension blood pressure 136/72 doing fine rhinitis doing well rays PSA does not want to do anything about that venous insufficiency of the legs stable Jonathan Geiger MD [address] [place] [address], [place], [address], [place] - [facility] [employer] 07/19/2023 17:20:17
--- OUTSIDE RECORDS SUMMARY | 2024-09-27 12:24 | XMS_ITS | Encounter Summary ---
Author Organization [facility] Address [address] [place] [address] Care Team Providers Care Intelligence Consultant Name Role Phone Philippe Geiger MD Primary Care Provider [phone] Encounter Details Date Type Department Care Team (Latest Contact Info) Description 04/22/2021 10:00 AM CDT - 04/22/2021 11:59 PM CDT Hospital Encounter [facility] [place] [facility] [address] [place] [id number] Francisco Javier Quick MD NO ADDRESS ON FILE Discharge Disposition: Home or Self Care Social History Tobacco Use Types Packs/Day Years Used Date Smoking Tobacco: Never Smokeless Tobacco: Never Alcohol Use Standard Drinks/Week Comments Yes 0 (1 standard drink = 0.6 oz pur e alcohol) socially Sex and Gender Information Value Date Recorded Sex Assigned at Not on file Gender Identity Not on file Sexual Orientation Not on file COVID-19 Exposure Response Date Recorded In the last month, have you been in contact with someone who was confirmed or suspected to have Coronavirus / COVID-19? No / Unsure 04/22/2021 9:57 AM CDT documented as of this encounter Medications at Time of Discharge Medication Sig Dispensed Refills Start Date End Date metOLazone (ZAROXOLYN) 5 mg tablet Take 5 mg by mouth twice weekly. oxyCODONE (ROXICODONE) 5 mg tabletIndications:Posto perative pain after spinal surgery Take 1 to 2 Tablets (5-10 mg) by mouth every 4 hours as needed for Pain. Max Daily Amount: 12 Tablets 60 Tablet 02/19/2021 budesonide-formoteroL (SYMBICORT) 160-4.5 mcg/actuation HFA Aerosol Inhaler Take 2 Puffs by inhalation daily. aspirin (MAMADOU) 325 mg tablet Take 325 mg by mouth daily. montelukast (SINGULAIR) 10 mg tablet Take 10 mg by mouth daily at bedtime. furosemide (LASIX) 20 mg tablet Take 20 mg by mouth daily. atenoloL (TENORMIN) 50 mg tablet Take 25 mg by mouth daily. atorvastatin (LIPITOR) 10 mg tablet Take 10 mg by mouth daily. lisinopriL (PRINIVIL) 20 mg tablet Take 20 mg by mouth daily. POTASSIUM ORAL Take 20 mg by mouth daily. vitamin E 400 unit capsule Take 400 Units by mouth daily. HIARR-2-IWI-EPA-DPA ORAL Take 500 mg by mouth daily. cyanocobalamin 1,000 mcg Tablet Take 1,000 mcg by mouth daily. Cholecalciferol, Vitamin D3, 50 mcg (2,000 unit) Capsule Take by mouth. documented as of this encounter Plan of Treatment Not on file documented as of this encounter Procedures Procedure Name Priority Date/Time Associated Diagnosis Comments XR LUMBAR SPINE 2 OR 3 VW Routine 04/22/2021 10:13 AM CDT Lumbar stenosis with neurogenic claudication documented in this encounter Results * XR LUMBAR SPINE 2 OR 3 VW (04/22/2021 10:13 AM CDT) Anatomical Region Laterality Modality Spine Computed Radiogr aphy 04/22/2021 10:1 4 AM CDT Impressions 04/22/2021 10:51 AM CDT IMPRESSION: Status post L2-L5 fusion. Possible displacement of plug from one of the L5 tulips. L4-5 anterolisthesis 6.4 mm unchanged. ?? DICTATION LOCATION: Location 1 - [facility] ?? Narrative 04/22/2021 10:51 AM CDT LUMBAR SPINE AP AND LATERAL VIEWS DATE: 04/22/2021 HISTORY: Lumbar stenosis with neurogenic claudication. FINDINGS: Patient is again noted be status post dorsal fusion between L2, L3 L4 and L5 level. Interbody cages are seen between L2-3, L3-4 and L4-5. One of the L5 screws has a plug which appears to extend dorsally more than normally expected. This may or may not have escaped the tulip of the screw at this level. Dorsal osteophyte formation is seen at L2-L3 and L3-L4 levels. Procedure Note Blake John MD - 04/22/2021 LUMBAR SPINE AP AND LATERAL VIEWS DATE: 04/22/2021 HISTORY: Lumbar stenosis with neurogenic claudication. FINDINGS: Patient is again noted be status post dorsal fusion between L2, L3 L4 and L5 level. Interbody cages are seen between L2-3, L3-4 and L4-5. One of the L5 screws has a plug which appears to extend dorsally more than normally expected. This may or may not have escaped the tulip of the screw at this level. Dorsal osteophyte formation is seen at L2-L3 and L3-L4 levels. IMPRESSION: Status post L2-L5 fusion. Possible displacement of plug from one of the L5 tulips. L4-5 anterolisthesis 6.4 mm unchanged. DICTATION LOCATION: Location 1 - [facility] Francisco Javier Quick MD DIAGNOSTIC IMAGIN G ORDERABLES documented in this encounter Visit Diagnoses Diagnosis Lumbar stenosis with neurogenic claudication Spinal stenosis, lumbar region, with neurogenic claudication documented in this encounter Care Teams Intelligence Consultant Relationship Specialty Start Date End Date Philippe Geiger MD [address] [place] [address] PCP - General Internal Medicine 01/08/21 documented as of this encounter
--- OUTSIDE RECORDS SUMMARY | 2024-09-27 12:24 | XMS_ITS | CONTINUITY OF CARE DOCUMENT ---
Author Name luis alberto sahu Address Unknown Organization [facility] Address [address] [place] [address] Phone [phone] Care Team Providers Care Cullet Washer Name Role Phone Melvina WINTERS, Leo Unavailable JONATHAN CAN MD Unavailable [phone] JONATHAN CAN MD Unavailable PROBLEMS Condition Status Date Provider Notes Decreased dorsalis pedis pulse active Julia Leung INSURANCE PROVIDERS Payer name Policy type / Coverage type Portis red libertarian ID [facility] MEDICARE COMPLETE HMO Other [id number] TREATMENT PLAN Date Name Complete Echo Arterial Duplex Clay-Ashlie godinez EX
--- OUTSIDE RECORDS SUMMARY | 2024-09-27 12:24 | XMS_ITS | Encounter Summary ---
Author Organization [facility] Address [address] Attn: Epic Prelude ADT JEN[place] VALDEZ [address] Care Team Providers Care Radioisotope Technician Name Role Phone Philippe Geiger MD Primary Care Provider [phone] Encounter Details Date Type Department Care Team (Latest Contact Info) Description 04/22/2021 Travel Social History Tobacco Use Types Packs/Day Years [...] AM CDT documented as of this encounter Plan of Treatment Not on file documented as of this encounter Visit Diagnoses Not on filedocumented in this encounter Care Teams Radioisotope Technician Relationship Specialty Start Date End Date Philippe Geiger MD [address] [place] [address] PCP - General Internal Medicine 01/08/21 documented as of this encounter
--- OUTSIDE RECORDS SUMMARY | 2024-09-27 12:24 | XMS_ITS | Continuity of Care Document ---
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 His other chronic medical problems appear stable do not take any anti-inflamma tories I will check blood work next visit all diagnosis have been discussed. From a blood pressure standpoint he says he will lose weight watch salt and he thinks some of it might be because he has been using some anti-inflamma tories for his foot pain [id number] Not available 08/15/2024 22:38:14 Plan of Treatment Reminders Order Date Submit Date Provider Last Modified By Organization Details Last Modified Time Details Appointments ANY 15 2024 09:30A Sol Geiger MD Not available Not available Not available Lab None recorded. Referral None recorded. Procedures None recorded. Surgeries None recorded. Imaging MRI, foot, w/o contrast 2023 024 [facility], [facility] [facility] , [address], [place], [address], 09/05/2024 12:21:48 Medication Orders None recorded. Patient TargetsNo targets recorded. Patient InstructionsNo instructions recorded. Reason for Referral None Reported. Results Created Date Observation Date Name Description Value Unit Range Abnormal Flag Note LastModifiedBy Organization Detail LastModifiedTime 09/05/20 24 09/01/2024 MRI, foot, w/o contr ast No observ ation record ed. [facility] [address] [place] [address] [address], [place], [address], 09/05/2024 15:30:37 09/20/20 24 09/20/2024 CT, abdom en + pelvi s, w/ contr ast No observ ation record ed. [facility] [address], [place], [address], 09/22/2024 14:32:53 Result Notes None recorded. Problems Name Problem SNOMED Code Status Onset Date Resolution Date Notes Provider Name and Address Organization Details Recorded Time Pain in right foot 5148655512338 07 Active 2023 Andrez Moran MA null, [place] [facility] 4 15:59:24 Essential hypertensio n 50474070 Active 2023 Philippe Geiger MD Attn: Tiffany mccann,[address] [place], [address], [facility] 4 21:28:05 Obesity 012356591 Active 2023 Philippe Geiger MD Attn: Tiffany mccann,[address] [facility], [place], [address], [facility] 4 21:28:07 Chronic rhinitis 31058938 Active 2023 Philippe Geiger MD Attn: Tiffany mccann,[address] [place], [address], [facility] 4 21:28:08 Hyperlipide ivelisse 52279963 Active 2023 Philippe Geiger MD Attn: Tiffany mccann,[address] [place], [address], [place] [facility] 4 21:28:10 Chronic obstructive pulmonary disease 10692730 Active 2023 Philippe Geiger MD Attn: Tiffany mccann,[address] [facility], [place], [address], [facility] 4 21:28:12 Problem Notes None recorded. Procedures Surgical History Date Name Laterality Status Provider Name and Address Organization Details Recorded Time Back Surgery completed Wilbur Leung MA [facility] 12/01/2023 09:56:25 Knee Surgery completed Wilbur Leung MA [facility] 12/01/2023 09:56:32 Imaging Results None recorded. Procedure Notes None recorded. Medical Equipment None Reported. Allergies Allergen ID Allergen Name Allergen Category Reaction Reaction Severity Criticality Documentation Date Start Date Code Code System Note Provider Name and Address Organization Details Recorded Time 547077 codeine medicatio n other Not available Not available 12/01/2023 2670 RxNorm stoma ch cramp s ANN MARIE Caban [facility] 4 10:21:40 410152 Catapres medicatio n Not available Not available Not available 12/01/2023 1 RxNorm ANN MARIE Graves [facility] 09:50:29 724610 tramadol medicatio n hives Not available Not available 07/12/2024 00627 RxNorm ANN MARIE Caban [facility] 4 10:21:53 Medications Name Sig Start Date [...] Not Available Vitals Date Recorded Body height Body mass index (BMI) Body weight Heart rate Oxygen saturation Oxygen saturation in Arterial blood by Pulse oximetry Systolic blood pressure Diastolic blood pressure Provider Name and Address Organization Details Last Updated DateTime 4 175.26 cm 32 kg/m2 83249.1 1 g 58 /min 98 % 98 % 140 mm[Hg] 76 mm[Hg] Lise Foster MA [place] [facility] 4 10:01:10 Social History Question Answer Notes LastModified by Organizat ion Details LastModified Time Tobacco Smoking Status Never Smoker Wilbur Leung MA null, [place] [facility] 12/01/2023 09:54:51 What Is Your Level Of [...] Anxious, Or Unable To Sleep At Night)? [id number] Information not available 12/01/2023 Do You Use [...] Response Coronary Artery Disease N Other N Atrial Fibrillation N High Blood Pressure Y Depression N COPD Y Blood Clots N Anxiety Disorder N Muscle, Joint, or Bone Problems N Acid Reflux (GERD) Y Cancer N Stroke N Headaches N Kidney or Bladder Problems N Skin Problems N Asthma N Allergies N Hepatitis N High Cholesterol Y Liver Disease N Thyroid Problems N GI Problems N Anemia N Heart Attack (OK) N Diabetes N Seizures/Epilepsy N Heart Failure N Osteoporosis N Past Encounters Encounter ID Performer Location Encounter Start Date Encounter Closed Date Diagnosis/Indication Diagnosis SNOMED-CT Code Diagnosis ICD10 Code Diagnosis Note [id number] Philippe Geiger MD [facility] [employer] [address] [place] [address] 08/15/2024 09:43:22 08/15/2024 10:45:26 Chronic pain of right foot 9184016590 1210925 M79.671 Chronic ob structive pulmonary disease 23942437 J44.9 Chronic rhinitis 9846190 6 J31.0 Essential hypertension 18700537 I10 Hyperlipidemia 79322412 E78.5 Pain in right foot 86922 66743 44420 M79.671 Health Concerns Section Related Observation LastModified by Organization Detai ls LastModified Time None Recorded Concern Status LastModified by Organization Details LastModified Time None Recorded Payers Encounter Date Sequence Insurance Name Policy Number Policy Hinson Covered Member ID Hinson Member ID Guarantor Name 08/15/2024 1 [facility] (MEDICARE REPLACEMENT/A DVANTAGE - HMO) [id number] Jayjay Ellison [id number] Jayjay Ellison Notes Date Note Type Note Provider Name and Address Organization Details Recorded Time 08/15/2024 text/html COPD no cough wheezing or shortness of breath at this time. Rhinitis has been stable. Hypertension no headache no dizziness. Dyslipidemia he is trying to follow a low-fat diet he is taking his atorvastatin. Pain in right foot not really that much better hurts to walk on occasionally will wake him up at night no numbness or tingling. BPH doing well on the Flomax hypokalemia is being supplemented Philippe Geiger MD Attn: [address]ing[address] [facility], [place], [address], [place] [facility] 08/15/2024 22:38:30
--- OUTSIDE RECORDS SUMMARY | 2024-09-27 12:24 | XMS_ITS | Data Portability ---
[facility] Address [address] [facility] [place] [address] Care Team Providers Care Zoogler Name Role Phone JONATHAN GEIGER Primary Care Provider Unavailabl e Assessment Encounter Date Assessment Date Assessment LastModified by Organization Details LastModified Time 12/23/2023 12/23/2023 Will get him see n by podiatry already has appointment for his chronic medical problems with me and refill his Flomax [email or web address] Not available 01/21/2024 08:30:45 04/18/2024 04/18/2024 we will have a surgical consultation at the patient's request for the right groin pain he will continue his medications for his hypertension hyperlipidemia COPD chronic rhinitis and BPH type symptomatology and all those problems have been stable follow up with me in 3-4 months [email or web address] Not available 04/21/2024 21:29:05 07/11/2024 07/11/2024 x-ray of the foot. We will check a uric acid CBC and a BMP we will treat empirically for cellulitis with doxycycline and gout with colchicine he will report back by phone in 72 hours. tramadol [email or web address] Not available 07/11/2024 23:03:04 08/15/2024 08/15/2024 with chronicity of the pain we will get an MRI of the foot. His other chronic medical problems appear stable do not take any anti-inflammatori es I will check blood work next visit all diagnosis have been discussed. From a blood pressure standpoint he says he will lose weight watch salt and he thinks some of it might be because he has been using some anti-inflammatori es for his foot pain [email or web address] Not available 08/15/2024 22:38:14 09/01/2024 09/01/2024 hydrocodone for pain [id number] t.i.d. p.r.n. number 30 we are going to see if we can move up his MRI. He will need to see Podiatry as soon as I can get this MRI done [email or web address] Not available 09/26/2024 22:12:54 Plan of Treatment Reminders Order Date Submit Date Provider Last Modified By Organization Details Last Modified Time Details Appointments ANY 15 2024 09:30A M Jonathan Geiger MD Not available Not available Not available Lab uric acid, serum or plasma 2023 024 [facility], [address], [place], [address], 07/13/2024 04:36:59 BMP, serum or plasma 2023 024 [facility], [address], [place], [address], 07/13/2024 04:36:57 CBC w/ auto diff 2023 024 [facility] [address], [place], [address], 07/13/2024 04:37:00 Referral podiatris t referral 2023 024 wilton Leger DPM, [address], [place], [address], 09/01/2024 09:52:24 Procedures None recorded. Surgeries None recorded. Imaging XR, foot 2023 024 [facility], [address], [place], [address], 07/12/2024 10:32:47 MRI, foot, w/o contrast 2023 024 [facility], [address] , [address], [place], [address], 09/05/2024 12:21:48 Medication Orders tamsulosi n 0.4 mg capsule 2023 024 [email or web address] [facility], [address], [address], 12/23/2023 17:46:14 colchicin e 0.6 mg capsule 2023 024 [facility], [address], [address], 08/15/2024 10:01:51 doxycycli ne hyclate 100 mg capsule 2023 024 [facility] [address], [address], [address], 08/15/2024 10:03:08 Patient TargetsNo targets recorded. 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 Referring Physician: Jonathan Geiger, Internal Medicine, Encounter Date: 12/23/2023 Results Created Date Observation Date Name Description Value Unit Range Abnormal Flag Note LastModifiedBy Organization Detail LastModifiedTime 12/01/1912/02/2023 LIPID PANEL cholesterol, total 159 mg/dL 100-19 9 Not Available [facility] ([facility]) [address] [facility] [address], [place], [address], 12/02/2023 06:20:48 12/01/1912/02/2023 LIPID PANEL triglyceride s 337 mg/dL 0-149 above high normal Not Available [facility] ([facility]) [address] [facility], [place], [address], 12/02/2023 06:20:48 12/01/1912/02/2023 LIPID PANEL HDL cholesterol 40 mg/dL >39 Not Available [facility]) [address] [place], [address], 12/02/2023 06:20:48 12/01/19 24 12/02/2023 LIPID PANEL VLDL cholesterol daljit 53 mg/dL 5-40 above high normal Not Available [facility] ([facility]) [address] [place], [address], 12/02/2023 06:20:48 12/01/19 24 12/02/2023 LIPID PANEL LDL chol calc ([facility]) 66 mg/dL 0-99 Not Available [facility]) [address] [place], [address], 12/02/2023 06:20:48 12/01/19 24 12/02/2023 COMP. METAB OLIC PANEL (14) glucose 81 mg/dL 70-99 Not Available [facility] ([facility]) [address] [place], [address], 12/02/2023 06:20:49 12/01/19 24 12/02/2023 COMP. METAB OLIC PANEL (14) BUN 19 mg/dL 8-27 Not Available [facility] ([facility]) [address] [place], [address], 12/02/2023 06:20:49 12/01/19 24 12/02/2023 COMP. METAB OLIC PANEL (14) creatinine 1.17 mg/dL 0.76-1 .27 Not Available [facility] ([facility]) [address] [place], [address], 12/02/2023 06:20:49 12/01/19 24 12/02/2023 COMP. METAB OLIC PANEL (14) eGFR 65 mL/mi n/1.7 3 >59 Not Available [facility] ([facility]) [address] [place], [address], 12/02/2023 06:20:49 12/01/19 24 12/02/2023 COMP. METAB OLIC PANEL (14) BUN/creatini ne ratio 16 10-24 Not Available [facility] ([facility]) [address] [facility], [place], [address], 12/02/2023 06:20:49 12/01/19 24 12/02/2023 COMP. METAB OLIC PANEL (14) sodium 143 mmol/ L 134-14 4 Not Available [facility] ([facility]) [address] [place], [address], 12/02/2023 06:20:49 12/01/19 24 12/02/2023 COMP. METAB OLIC PANEL (14) potassium 3.5 mmol/ L 3.5-5. 2 Not Available [facility] ([facility]) [address] [place], [address], 12/02/2023 06:20:49 12/01/19 24 12/02/2023 COMP. METAB OLIC PANEL (14) chloride 101 mmol/ L 96-106 Not Available [facility] ([facility]) [address] [place], [address], 12/02/2023 06:20:49 12/01/19 24 12/02/2023 COMP. METAB OLIC PANEL (14) carbon dioxide, total 26 mmol/ L 20-29 Not Available [facility] ([facility]) [address] [place], [address], 12/02/2023 06:20:49 12/01/19 24 12/02/2023 COMP. METAB OLIC PANEL (14) calcium 10.2 mg/dL 8.6-10 .2 Not Available [facility] ([facility]) [address] [place], [address], 12/02/2023 06:20:49 12/01/19 24 12/02/2023 COMP. METAB OLIC PANEL (14) protein, total 7.3 g/dL 6.0-8. 5 Not Available [facility] ([facility]) [address] [place], [address], 12/02/2023 06:20:49 12/01/19 24 12/02/2023 COMP. METAB OLIC PANEL (14) albumin 4.5 g/dL 3.8-4. 8 Not Available [facility] ([facility]) [address] [place], [address], 12/02/2023 06:20:49 12/01/19 24 12/02/2023 COMP. METAB OLIC PANEL (14) globulin, total 2.8 g/dL 1.5-4. 5 Not Available [facility] ([facility]) [address] [place], [address], 12/02/2023 06:20:49 12/01/19 24 12/02/2023 COMP. METAB OLIC PANEL (14) A/G ratio 1.6 1.2-2. 2 Not Available [facility] ([facility]) [address] [place], [address], 12/02/2023 06:20:49 12/01/19 24 12/02/2023 COMP. METAB OLIC PANEL (14) bilirubin, total 0.4 mg/dL 0.0-1. 2 Not Available [facility] ([facility]) [address] [place], [address], 12/02/2023 06:20:49 12/01/19 24 12/02/2023 COMP. METAB OLIC PANEL (14) alkaline phosphatase 59 IU/L 44-121 Not Available [facility] ([facility]) [address] [place], [address], 12/02/2023 06:20:49 12/01/19 24 12/02/2023 COMP. METAB OLIC PANEL (14) AST (SGOT) 35 IU/L 0-40 Not Available [facility] ([facility]) [address] [facility], [place], [address], 12/02/2023 06:20:49 12/01/19 24 12/02/2023 COMP. METAB OLIC PANEL (14) ALT (SGPT) 45 IU/L 0-44 above high normal Not Available [facility] ([facility]) [address] [facility], [place], [address], 12/02/2023 06:20:49 12/01/19 24 12/02/2023 CBC WITH DIFFE RENTI AL/PL ATELE T WBC 8.5 x10e3 /uL 3.4-10 .8 Not Available [facility] ([facility]) [address] [facility], [place], [address], 12/02/2023 06:20:50 12/01/19 24 12/02/2023 CBC WITH DIFFE RENTI AL/PL ATELE T RBC 4.77 x10e6 /uL 4.14-5 .80 Not Available [facility] ([facility]) [address] [facility], [place], [address], 12/02/2023 06:20:50 12/01/19 24 12/02/2023 CBC WITH DIFFE RENTI AL/PL ATELE T hemoglobin 14.9 g/dL 13.0-1 7.7 Not Available [facility] ([facility]) [address] [place], [address], 12/02/2023 06:20:50 12/01/19 24 12/02/2023 CBC WITH DIFFE RENTI AL/PL ATELE T hematocrit 44.3 % 37.5-5 1.0 Not Available [facility] ([facility]) [address] [place], [address], 12/02/2023 06:20:50 12/01/19 24 12/02/2023 CBC WITH DIFFE RENTI AL/PL ATELE T MCV 93 fL 79-97 Not Available [facility] ([facility]) [address] [facility], [place], [address], 12/02/2023 06:20:50 12/01/19 24 12/02/2023 CBC WITH DIFFE RENTI AL/PL ATELE T MCH 31.2 pg 26.6-3 3.0 Not Available [facility] ([facility]) [address] [facility], [place], [address], 12/02/2023 06:20:50 12/01/19 24 12/02/2023 CBC WITH DIFFE RENTI AL/PL ATELE T MCHC 33.6 g/dL 31.5-3 5.7 Not Available [facility] ([facility]) [address] [facility], [place], [address], 12/02/2023 06:20:50 12/01/19 24 12/02/2023 CBC WITH DIFFE RENTI AL/PL ATELE T RDW 12.8 % 11.6-1 5.4 Not Available [facility] ([facility]) [address] [facility], [place], [address], 12/02/2023 06:20:50 12/01/19 24 12/02/2023 CBC WITH DIFFE RENTI AL/PL ATELE T platelets 234 x10e3 /uL 150-45 0 Not Available [facility] ([facility]) [address] [facility], [place], [address], 12/02/2023 06:20:50 12/01/19 24 12/02/2023 CBC WITH DIFFE RENTI AL/PL ATELE T neutrophils 61 % notest ab. Not Available [facility] ([facility]) [address] [facility], [place], [address], 12/02/2023 06:20:50 12/01/19 24 12/02/2023 CBC WITH DIFFE RENTI AL/PL ATELE T lymphs 20 % notest ab. Not Available [facility] ([facility]) [address] [facility], [place], [address], 12/02/2023 06:20:50 12/01/19 24 12/02/2023 CBC WITH DIFFE RENTI AL/PL ATELE T monocytes 13 % notest ab. Not Available [facility] ([facility]) [address] [facility], [place], [address], 12/02/2023 06:20:50 12/01/19 24 12/02/2023 CBC WITH DIFFE RENTI AL/PL ATELE T eos 4 % notest ab. Not Available [facility] ([facility]) [address] [facility], [place], [address], 12/02/2023 06:20:50 12/01/19 24 12/02/2023 CBC WITH DIFFE RENTI AL/PL ATELE T basos 1 % notest ab. Not Available [facility] ([facility]) [address] [facility], [place], [address], 12/02/2023 06:20:50 12/01/19 24 12/02/2023 CBC WITH DIFFE RENTI AL/PL ATELE T neutrophils (absolute) 5.3 x10e3 /uL 1.4-7. 0 Not Available [facility] ([facility]) [address] [facility], [place], [address], 12/02/2023 06:20:50 12/01/19 24 12/02/2023 CBC WITH DIFFE RENTI AL/PL ATELE T lymphs (absolute) 1.7 x10e3 /uL 0.7-3. 1 Not Available [facility] ([facility]) [address] [place], [address], 12/02/2023 06:20:50 12/01/19 24 12/02/2023 CBC WITH DIFFE RENTI AL/PL ATELE T monocytes(ab solute) 1.1 x10e3 /uL 0.1-0. 9 above high normal Not Available [facility] ([facility]) [address] [facility], [place], [address], 12/02/2023 06:20:50 12/01/19 24 12/02/2023 CBC WITH DIFFE RENTI AL/PL ATELE T eos (absolute) 0.3 x10e3 /uL 0.0-0. 4 Not Available [facility] ([facility]) [address] [facility], [place], [address], 12/02/2023 06:20:50 12/01/19 24 12/02/2023 CBC WITH DIFFE RENTI AL/PL ATELE T baso (absolute) 0.1 x10e3 /uL 0.0-0. 2 Not Available [facility] ([facility]) [address] [facility], [place], [address], 12/02/2023 06:20:50 12/01/19 24 12/02/2023 CBC WITH DIFFE RENTI AL/PL ATELE T immature granulocytes 1 % notest ab. Not Available [facility] ([facility]) [address] [facility], [place], [address], 12/02/2023 06:20:50 12/01/19 24 12/02/2023 CBC WITH DIFFE RENTI AL/PL ATELE T immature grans (abs) 0.1 x10e3 /uL 0.0-0. 1 Not Available [facility] ([facility]) [address] [place], [address], 12/02/2023 06:20:50 07/12/20 24 07/13/2024 BASIC METAB OLIC PANEL (8) glucose 89 mg/dL 70-99 Not Available [facility] ([facility]) [address] [place], [address], 07/13/2024 04:36:57 07/12/20 24 07/13/2024 BASIC METAB OLIC PANEL (8) BUN 23 mg/dL 8-27 Not Available [facility] ([facility]) [address] [facility] [place], [address], 07/13/2024 04:36:57 07/12/2007/13/2024 BASIC METAB OLIC PANEL (8) creatinine 1.33 mg/dL 0.76-1 .27 above high normal Not Available [facility] ([facility]) [address] [facility] [place], [address], 07/13/2024 04:36:57 07/12/2007/13/2024 BASIC METAB OLIC PANEL (8) eGFR 55 mL/mi n/1.7 3 >59 below low normal Not Available [facility] ([facility]) [address] [facility], [place], [address], 07/13/2024 04:36:57 07/12/2007/13/2024 BASIC METAB OLIC PANEL (8) BUN/creatini ne ratio 17 -24 Not Available [facility] ([facility]) [address] [facility], [place], [address], 07/13/2024 04:36:57 07/12/2007/13/2024 BASIC METAB OLIC PANEL (8) sodium 141 mmol/ L 134-14 4 Not Available [facility] ([facility]) [address] [facility] [place], [address], 07/13/2024 04:36:57 07/12/2007/13/2024 BASIC METAB OLIC PANEL (8) potassium 3.9 mmol/ L 3.5-5. 2 Not Available [facility] ([facility]) [address] [facility] [place], [address], 07/13/2024 04:36:57 07/12/2007/13/2024 BASIC METAB OLIC PANEL (8) chloride 101 mmol/ L 96-106 Not Available [facility] ([facility]) [address] [facility] [place], [address], 07/13/2024 04:36:57 07/12/2007/13/2024 BASIC METAB OLIC PANEL (8) carbon dioxide, total 23 mmol/ L 20-29 Not Available [facility] ([facility]) [address] [facility], [place], [address], 07/13/2024 04:36:57 07/12/2007/13/2024 BASIC METAB OLIC PANEL (8) calcium 10.0 mg/dL 8.6-10 .2 Not Available [facility] ([facility]) [address] [facility], [place], [address], 07/13/2024 04:36:57 07/12/2007/13/2024 URIC ACID uric acid 7.9 mg/dL 3.8-8. 4 Thera martai c targe t for gout patie nts: <6.0 Not Available [facility] ([facility]) [address] [facility], [place], [address], 07/13/2024 04:36:59 07/12/2007/12/2024 CBC WITH DIFFE RENTI AL/PL ATELE T WBC 8.1 x10e3 /uL 3.4-10 .8 Not Available [facility] ([facility]) [address] [place], [address], 07/13/2024 04:37:00 07/12/2007/12/2024 CBC WITH DIFFE RENTI AL/PL ATELE T RBC 4.88 x10e6 /uL 4.14-5 .80 Not Available [facility] ([facility]) [address] [place], [address], 07/13/2024 04:37:00 07/12/2007/12/2024 CBC WITH DIFFE RENTI AL/PL ATELE T hemoglobin 15.4 g/dL 13.0-1 7.7 Not Available [facility] ([facility]) [address] [place], [address], 07/13/2024 04:37:00 07/12/20 24 07/12/2024 CBC WITH DIFFE RENTI AL/PL ATELE T hematocrit 46.2 % 37.5-5 1.0 Not Available [facility] ([facility]) [address] [facility], [place], [address], 07/13/2024 04:37:00 07/12/2007/12/2024 CBC WITH DIFFE RENTI AL/PL ATELE T MCV 95 fL 79-97 Not Available [facility] ([facility]) [address] [facility], [place], [address], 07/13/2024 04:37:00 07/12/2007/12/2024 CBC WITH DIFFE RENTI AL/PL ATELE T MCH 31.6 pg 26.6-3 3.0 Not Available [facility] ([facility]) [address] [place], [address], 07/13/2024 04:37:00 07/12/20 24 07/12/2024 CBC WITH DIFFE RENTI AL/PL ATELE T MCHC 33.3 g/dL 31.5-3 5.7 Not Available [facility] ([facility]) [address] [place], [address], 07/13/2024 04:37:00 07/12/2007/12/2024 CBC WITH DIFFE RENTI AL/PL ATELE T RDW 12.4 % 11.6-1 5.4 Not Available [facility] ([facility]) [address] [place], [address], 07/13/2024 04:37:00 07/12/20 24 07/12/2024 CBC WITH DIFFE RENTI AL/PL ATELE T platelets 244 x10e3 /uL 150-45 0 Not Available [facility] ([facility]) [address] [place], [address], 07/13/2024 04:37:00 07/12/20 24 07/12/2024 CBC WITH DIFFE RENTI AL/PL ATELE T neutrophils 57 % notest ab. Not Available [facility] ([facility]) [address] [facility], [place], [address], 07/13/2024 04:37:00 07/12/20 24 07/12/2024 CBC WITH DIFFE RENTI AL/PL ATELE T lymphs 26 % notest ab. Not Available [facility] ([facility]) [address] [facility], [place], [address], 07/13/2024 04:37:00 07/12/2007/12/2024 CBC WITH DIFFE RENTI AL/PL ATELE T monocytes 14 % notest ab. Not Available [facility] ([facility]) [address] [facility], [place], [address], 07/13/2024 04:37:00 07/12/2007/12/2024 CBC WITH DIFFE RENTI AL/PL ATELE T eos 2 % notest ab. Not Available [facility] ([facility]) [address] [facility], [place], [address], 07/13/2024 04:37:00 07/12/20 24 07/12/2024 CBC WITH DIFFE RENTI AL/PL ATELE T basos 1 % notest ab. Not Available [facility] ([facility]) [address] [facility], [place], [address], 07/13/2024 04:37:00 07/12/2007/12/2024 CBC WITH DIFFE RENTI AL/PL ATELE T neutrophils (absolute) 4.7 x10e3 /uL 1.4-7. 0 Not Available [facility] ([facility]) [address] [facility], [place], [address], 07/13/2024 04:37:00 07/12/2007/12/2024 CBC WITH DIFFE RENTI AL/PL ATELE T lymphs (absolute) 2.1 x10e3 /uL 0.7-3. 1 Not Available [facility] ([facility]) [address] [facility], [place], [address], 07/13/2024 04:37:00 07/12/20 24 07/12/2024 CBC WITH DIFFE RENTI AL/PL ATELE T monocytes(ab solute) 1.1 x10e3 /uL 0.1-0. 9 above high normal Not Available [facility] ([facility]) [address] [facility], [place], [address], 07/13/2024 04:37:00 07/12/20 24 07/12/2024 CBC WITH DIFFE RENTI AL/PL ATELE T eos (absolute) 0.2 x10e3 /uL 0.0-0. 4 Not Available [facility] ([facility]) [address] [facility], [place], [address], 07/13/2024 04:37:00 07/12/20 24 07/12/2024 CBC WITH DIFFE RENTI AL/PL ATELE T baso (absolute) 0.1 x10e3 /uL 0.0-0. 2 Not Available [facility] ([facility]) [address] [facility], [place], [address], 07/13/2024 04:37:00 07/12/20 24 07/12/2024 CBC WITH DIFFE RENTI AL/PL ATELE T immature granulocytes 0 % notest ab. Not Available [facility] ([facility]) [address] [facility], [place], [address], 07/13/2024 04:37:00 07/12/20 24 07/12/2024 CBC WITH DIFFE RENTI AL/PL ATELE T immature grans (abs) 0.0 x10e3 /uL 0.0-0. 1 Not Available [facility] ([facility]) [address] [place], [address], 07/13/2024 04:37:00 07/12/20 24 07/12/2024 XR, foot No observ ation record ed. [facility] [address], [place], [address], 07/12/2024 16:17:38 07/12/20 24 07/12/2024 XR, foot No observ ation record ed. [facility] [address], [place], [address], 07/12/2024 16:17:38 09/05/20 24 09/01/2024 MRI, foot, w/o contr ast No observ ation record ed. [facility] [address], [place], [address], 09/05/2024 15:30:37 09/20/20 24 09/20/2024 CT, abdom en + pelvi s, w/ contr ast No observ ation record ed. [facility] [address], [place], [address], 09/22/2024 14:32:53 Result Notes None recorded. Problems Name Problem SNOMED Code Status Onset Date Resolution Date Notes Provider Name and Address Organization Details Recorded Time Pain in right foot 6676975636652 07 Active 2023 Andrez Moran MA null, [place] - [facility] 4 15:59:24 Essential hypertensio n 93354562 Active 2023 Jonathan Geiger MD Attn: Tiffany mccann,[address] [facility], [place], [address], [place] - [facility] 4 21:28:05 Obesity 605346133 Active 2023 Jonathan Geiger MD Attn: Tiffany mccann,[address] [facility], [place], [address], [facility] - [facility] 4 21:28:07 Chronic rhinitis 58815620 Active 2023 Jonathan Geiger MD Attn: Tiffany mccann,[address], [place], [address], [place] - [facility] 21:28:08 Hyperlipide ivelisse 73549890 Active 2023 Jonathan Geiger MD Attn: Tiffany mccann,[address], [place], [address], [place] - [facility] 21:28:10 Chronic obstructive pulmonary disease 67468178 Active 2023 Jonatahn Geiger MD Attn: Tiffany mccann,[address], [place], [address], [place] [facility] 21:28:12 Problem Notes None recorded. Procedures Surgical History Date Name Laterality Status Provider Name and Address Organization Details Recorded Time Back Surgery completed Wilbur Leung MA [place] - [place] 12/01/2023 09:56:25 Knee Surgery completed Wilbur Leung MA [place] - [place] 12/01/2023 09:56:32 Imaging Results Imaging Date Name Status LastModified by Organiz ation Details LastModified Time 07/12/2024 XR, foot completed [facility] [address], [place], [address], 07/12/2024 16:17:38 07/12/2024 XR, foot completed [facility] [address], [place], [address], 07/12/2024 16:17:38 09/01/2024 MRI, foot, w/o contrast completed [facility] [address], [place], [address], 09/05/2024 15:30:37 09/20/2024 CT, abdomen + pelvis, w/ contrast active [facility] [address] [facility] [address] [address], [place], [address], 09/22/2024 14:32:53 Procedure Notes None recorded. Medical Equipment None Reported. Allergies Allergen ID Allergen Name Allergen Category Reaction Reaction Severity Criticality Documentation Date Start Date Code Code System Note Provider Name and Address Organization Details Recorded Time [id number] codeine medicatio n other Not available Not available 12/01/2023 2670 RxNorm stoma ch cramp s ANN MARIE [place], [place] - [facility] 4 10:21:40 137189 Catapres medicatio n Not available Not available Not available 12/01/202366483 1 RxNorm BrasANN MARIE [place], [place] - [place] 4 09:50:29 573346 tramadol medicatio n hives Not available Not available 07/12/2024 15807 RxNorm ANN MARIE [place], [place] - [facility] 4 10:21:53 Medications Name Sig Start Date [...] height Body mass index (BMI) Body weight Oxygen saturation Oxygen saturation in Arterial blood by Pulse oximetry Heart rate Systolic blood pressure Diastolic blood pressure Provider Name and Address Organization Details Last Updated DateTime 4 175.26 cm 33.4 kg/m2 850454. 88 g 98 % 98 % 71 /min 142 mm[Hg] 72 mm[Hg] Wilbur Leung MA [place] - [facility] 4 15:14:16 Date Recorded Body height Body mass index (BMI) Body weight Heart rate Oxygen saturation Oxygen saturation in Arterial blood by Pulse oximetry Systolic blood pressure Diastolic blood pressure Provider Name and Address Organization Details Last Updated DateTime 4 175.26 cm 32.6 kg/m2 652861. 2 g 63 /min 97 % 97 % 132 mm[Hg] 72 mm[Hg] ANN MARIE Prasad - [facility] 4 10:59:56 Date Recorded Body height Heart rate Oxygen saturation Oxygen saturation in Arterial blood by Pulse oximetry Systolic blood pressure Diastolic blood pressure Provider Name and Address Organization Details Last Updated DateTime 4 175.26 cm 63 /min 98 % 98 % 132 mm[Hg] 70 mm[Hg] Venita Blair MA [facility] SI 4 17:22:35 Date Recorded Body height Body mass index (BMI) Body weight Heart rate Oxygen saturation Oxygen saturation in Arterial blood by Pulse oximetry Systolic blood pressure Diastolic blood pressure Provider Name and Address Organization Details Last Updated DateTime 4 175.26 cm 32 kg/m2 97187.1 1 g 58 /min 98 % 98 % 140 mm[Hg] 76 mm[Hg] Lise Foster MA [facility] SI 4 10:01:10 Date Recorded Body height Body mass index (BMI) Body weight Heart rate Oxygen saturation Oxygen saturation in Arterial blood by Pulse oximetry Systolic blood pressure Diastolic blood pressure Provider Name and Address Organization Details Last Updated DateTime 4 175.26 cm 31.6 kg/m2 21105.7 7 g 66 /min 96 % 96 % 142 mm[Hg] 82 mm[Hg] Lise Foster MA [facility] 4 09:56:44 Social History Question Answer Notes LastModified by Organizat ion Details LastModified Time Tobacco Smoking Status Never Smoker Wilbur Leung MA [facility] 12/01/2023 09:54:51 What Is Your Level [...] Anxious, Or Unable To Sleep At Night)? [id number] Information not available 12/01/2023 Do You Use [...] Skin Problems N Anemia N Heart Attack (ME) N Anxiety Disorder N Diabetes N Muscle, Joint, or Bone Problems N Seizures/Epilepsy N Acid Reflux (GERD) Y Cancer N Stroke N Asthma N Allergies N High Cholesterol Y Hepatitis N Liver Disease N Headaches N Heart Failure N Osteoporosis N Past Encounters Encounter ID Performer Location Encounter Start Date Encounter Closed Date Diagnosis/Indication Diagnosis SNOMED-CT Code Diagnosis ICD10 Code Diagnosis Note [id number] Jonathan Geiger MD [facility] (Adult Med) [address] [place] [address] 12/01/2023 09:34:00 12/01/2023 10:56:14 Essential hypertension 07431381 I10 Hyperlipidemia 22546903 E78.5 Bilateral lower leg edema 539965030 R60.0 Chronic rhinitis 0721360 6 J31.0 Hypokalemia 66572039 E87 .6 Chronic ob structive pulmonary disease 86357488 J44.9 [id number] Jonathan Geiger MD [facility] (Adult Med) [address] [place] [address] 12/23/2023 14:36:39 12/23/2023 16:11:29 Pain in right foot 8273606405 75955 M79.671 Renewal of prescription 325161054 Z76.0 Ordered per written permission from Dr. Geiger [id number] Jonathan [facility] MD [facility] [address] [place] [address] 04/18/2024 10:42:19 04/18/2024 11:31:49 Obesity 358997008 E66.8 Essential hypertension 02083764 I10 Chronic rhinitis 2062278 6 J31.0 Hyperlipidemia 19293050 E78.5 Chronic ob structive pulmonary disease 69207703 J44.9 [id number] Jonathan Geiger MD [facility] [address] [place] [address] 07/11/2024 16:03:35 07/11/2024 17:43:33 Pain in right foot 1934643574 42088 M79.075 [id number] Jonathan Geiger MD [facility] [address] [place] [address] 08/15/2024 09:43:22 08/15/2024 10:45:26 Chronic pain of right foot 4949588746 1360895 M79.671 Chronic ob structive pulmonary disease 53204551 J44.9 Chronic rhinitis 4660035 6 J31.0 Essential hypertension 32891546 I10 Hyperlipidemia 13242587 E78.5 Pain in right foot 76323 24974 68681 M79.142 [id number] Jonathan Geiger MD [facility] [address] [place] [address] 09/01/2024 09:41:51 09/01/2024 10:35:05 Body mass index 30+ - obesity 780176347 Z68.30 Obesity 810229482 E66.9 Pain in right foot 56929 42335 09973 M79.671 Health Concerns Section Related Observation LastModified by Organization Detai ls LastModified Time None Recorded Concern Status LastModified by Organization Details LastModified Time None Recorded Advance Directives Directive None Recorded Payers Encounter Date Sequence Insurance Name Policy Number Policy Hinson Covered Member ID Hinson Member ID Guarantor Name 12/23/2023 1 [facility] (MEDICARE REPLACEMENT/A DVANTAGE - HMO) [id number] Jayjay Ellison [id number] Jayjay Ellison 04/18/2024 1 [facility] (MEDICARE REPLACEMENT/A DVANTAGE - HMO) [id number] Jayjay Ellison [id number] Jayjay Ellison 07/11/2024 1 [facility] (MEDICARE REPLACEMENT/A DVANTAGE - HMO) [id number] Jayjay Ellison [id number] Jayjay Ellison 08/15/2024 1 [facility] (MEDICARE REPLACEMENT/A DVANTAGE - HMO) [id number] Jayjay Ellison [id number] Jayjay Ellison 09/01/2024 1 [facility] (MEDICARE REPLACEMENT/A DVANTAGE - HMO) [id number] Jayjay Horton Scot [id number] Jayjay Horton Scot Notes Date Note Type Note Provider Name and Address Organization Details Recorded Time 12/23/2023 text/html Acute appointmen t because he is having problems with pain in his right foot Jonathan Geiger MD Attn: Accounting, [address] [place], [address], [facility] 01/21/2024 08:31:15 04/18/2024 text/html Hypertension no headache or dizziness hyperlipidemia does try to watch diet lower leg edema Lasix as needed hypokalemia replace orally chronic rhinitis stable GERD he has been controlling conservative COPD no cough or wheezing Cyst on his back and he is having some pain down in his right groin where he has had a hernia before Jonathan Geiger MD Attn: Accounting, [address] [facility], [place], [address], [facility] 04/21/2024 21:29:36 07/11/2024 text/html a couple of days of pain right foot atraumatic painful to bear weight no fever or chills he was up and down on a ladder a few days ago doing some work. Jonathan Geiger MD Attn: Accounting, [address] [facility], [place], [address], [facility] 07/11/2024 23:03:21 08/15/2024 text/html COPD no cough wheezing or [...] on the Flomax hypokalemia is being supplemented Jonathan Geiger MD Attn: Accounting, [address] [place], [address], [facility] 08/15/2024 22:38:30 09/01/2024 text/html his foot is real ly bothering him and states that he needs to have something for pain he can not walk on it without extreme difficulty no numbness or tingling he just says the pain is 9 to 1010 Jonathan Geiger MD Attn: Accounting[address] , [place], [address], [facility] 09/26/2024 22:13:44
--- OUTSIDE RECORDS SUMMARY | 2024-09-27 12:24 | XMS_ITS | Clinical Summary ---
Author Organization [facility] Address [address] [place] [address] Phone Care Team Providers Care Fence Installer Name Role Phone Philippe Geiger MD Primary Care Provider [phone] Allergies Active Allergy Reactions Criticality Noted Date Comments Cephalosporins Unknown 01/17/2021 Codeine Unknown 01/17/2021 Tramadol Itching Low 02/11/2021 Medications Medication Sig Dispensed Refills Start Date End Date Status aspirin (MAMADOU) 325 mg tablet Take 325 mg by mouth daily. Active montelukast (SINGULAIR) 10 mg tablet Take 10 mg by mouth daily at bedtime. Active furosemide (LASIX) 20 mg tablet Take 20 mg by mouth daily. Active atenoloL (TENORMIN) 50 mg tablet Take 25 mg by mouth daily. Active atorvastatin (LIPITOR) 10 mg tablet Take 10 mg by mouth daily. Active lisinopriL (PRINIVIL) 20 mg tablet Take 20 mg by mouth daily. Active POTASSIUM ORAL Take 20 mg by mouth daily. Active vitamin E 400 unit capsule Take 400 Units by mouth daily. Active RNGGV-2-ZQM-EPA-DPA ORAL Take 500 mg by mouth daily. Active cyanocobalamin 1,000 mcg Tablet Take 1,000 mcg by mouth daily. Active Cholecalciferol, Vitamin D3, 50 mcg (2,000 unit) Capsule Take by mouth. Active oxyCODONE (ROXICODONE) 5 mg tabletIndications:P ostoperative pain after spinal surgery Take 1 to 2 Tablets (5-10 mg) by mouth every 4 hours as needed for Pain. Max Daily Amount: 12 Tablets 60 Tablet 02/19/2021 Active budesonide-formoter oL (SYMBICORT) 160-4.5 mcg/actuation HFA Aerosol Inhaler Take 2 Puffs by inhalation daily. Active metOLazone (ZAROXOLYN) 5 mg tablet Take 5 mg by mouth twice weekly. Active Active Problems Problem Noted Date Diagnosed Date Spinal stenosis of lumbar re gion with neurogenic claudication 02/19/2021 Postoperative ileus Family History Medical History Relation Name Comments Hypertension Brother Hypertension Father Hypertension Mother Hypertension Sister Relation Name Status Comments Brother Father Mother Sister Social History Tobacco Use Types Packs/Day Years Used Date Smoking Tobacco: Never Smokeless Tobacco: Never Alcohol Use Standard Drinks/Week Comments Yes 0 (1 standard drink = 0.6 oz pur e alcohol) socially Sex and Gender Information Value Date Recorded Sex Assigned at Not on file Gender Identity Not on file Sexual Orientation Not on file Last Filed Vital Signs Vital Sign Reading Time Taken Comments Blood Pressure 162/78 04/22/2021 10:22 AM CDT Pulse 88 04/22/2021 10:22 AM CDT Temperature 36.7 ??C (98.1 ??F) 04/22/2021 10:22 AM C DT Respiratory Rate 18 02/26/2021 4:54 AM CDT Oxygen Saturation 98% 02/26/2021 8:00 AM CDT Inhaled Oxygen Concentration - - Weight 101.6 kg (224 lb) 04/22/2021 10:22 AM CDT Height 177.8 cm (5' 10 ) 04/22/2021 10:22 AM CDT Body Mass Index 32.14 04/22/2021 10:22 AM CDT Plan of Treatment Health Maintenance Due Date Last Done Comments ZOSTER VACCINE (1 of 2) 12/12/1997 PNEUMOCOCCAL VACCINE 65+ YEA RS (2 of 2 - PPSV23 or PCV20) 08/23/2019 06/28/2019 RSV VACCINE (60+ or ) (1 - 1-dose 75+ series) 12/12/2022 INFLUENZA VACCINE (#1) 2024 0, 06/04/2019, 05/30/2017, Additional history exists DTAP/TDAP/TD VACCINES (2 - T d or Tdap) 06/12/2030 06/12/2020 Medical Devices Implanted Type Area Flat Ironer Device Identifier Shelf Expiration Date Model / Serial / Lot Cage Interbody 4?? 9mm 26/9 Str Plif [id number] - [id number] Implanted:Qty : 1 on 02/19/2021 by Francisco Javier Quick MD at [facility] Cage N/A: Back [employer] [id number] 10/21/2024 [id number] / / [id number] Description:All Depuy cages and other spinal hardware was processed on requisition, [id number]. Eit T/Plif H 8mm Implanted:Qty : 1 on 02/19/2021 by Francisco Javier Quick MD at [facility] Cage N/A: Back [employer] [id number] 10/21/2024 [id number] / / [id number] Eit T/Plif H 7mm Implanted:Qty : 1 on 02/19/2021 by Francisco Javier Quick MD at [facility] Cage N/A: Back [employer] [id number] 05/21/2025 [id number] / / [id number] Hemostatic Surgiflo 8ml W/Thrombin 2994 - [id number] Implanted:Qty : 1 on 02/19/2021 by Francisco Javier Quick MD at [facility] Hemostatic N/A: Back [employer] [id number] 02/18/2022 2994 / / [id number] Jose Juan Xpdm Crv W/Line 105mm [id number] - Ssterilized Implanted:Qty : 2 on 02/19/2021 by Francisco Javier Quick MD at [facility] Jose Juan N/A: Back [employer] [id number] / STERILIZED / [id number] Set Screw Xpdm Verse 5.5mm - Sload# 17 Implanted:Qty : 8 on 02/19/2021 by Francisco Javier Quick MD at [facility] Screw N/A: Back [employer] 1 / LOAD# 17 / STERILIZED 01-07-21 Screw Xpdm Verse 7x45mm -745 - Sload# 17 Implanted:Qty : 8 on 02/19/2021 by Francisco Javier Quick MD at [facility] Screw N/A: Back [employer] [id number] / LOAD# 17 / STERILIZED 01-07-21 Putty Dbx Dbm 10 26155 - [id number] Implanted:Qty : 1 on 02/19/2021 by Francisco Javier Quick MD at [facility] Tissue N/A: Back [employer] 09/15/2021 [id number] / [id number] / Advance Directives For more information, please contact: [phone] * Full Code (Latest Code Status on File) Date Activated Date Inactivated Comments 02/19/2021 3:17 PM 02/26/2021 3:48 PM Care Teams Fence Installer Relationship Specialty Start Date End Date Philippe Geiger MD [address] [place] [address] PCP - General Internal Medicine 01/08/21
--- OUTSIDE RECORDS SUMMARY | 2024-09-27 12:25 | XMS_ITS | Encounter Summary ---
Author Organization [facility] Address [address] [place] [address] Care Team Providers Care Audit Officer Name Role Phone Philippe Geiger MD Primary Care Provider [phone] Reason for Visit * Reason Comments Post-op Visit 2 Week - TLIF Encounter Details Date Type Department Care Team (Latest Contact Info) Description 03/11/2021 2:15 PM CDT Office Visit [facility] Neuro[facility] - [facility] [address] [facility] [address] [place] [address] Francisco Javier Quick MD NO ADDRESS ON FILE Postop check (Primary Dx) Social History Tobacco Use Types Packs/Day Years [...] have Coronavirus / COVID-19? No / Unsure 03/11/2021 1:39 PM CDT documented as of this encounter Last Filed Vital Signs Vital Sign Reading Time Taken Comments Blood Pressure 182/82 03/11/2021 1:41 PM CDT Pulse 99 03/11/2021 1:41 PM CDT Temperature 36.5 ??C (97.7 ??F) 03/11/2021 1:41 PM CD T Respiratory Rate - - Oxygen Saturation - - Inhaled Oxygen Concentration - - Weight 99.8 kg (220 lb) 03/11/2021 1:41 PM CDT Height 175.3 cm (5' 9 ) 03/11/2021 1:41 PM CDT Body Mass Index 32.49 03/11/2021 1:41 PM CDT documented in this encounter Progress Notes * Francisco Javier Quick MD - 03/11/2021 2:01 PM CDT [facility] Postoperative Visit Patient Name: Jayjay Ellison : 1945 Date of Service: 03/11/2021 Subjective: Chief Complaint: S/p lumbar decompression and fusion L2-L5 History of Present Illness: Jayjay is a 75 y.o. male who presents for a postoperative visit following Lumbar Interbody Fusion on 02/19/2021. Patient reports that their preoperative symptoms resolved. The patient still uses a cane to walk. He had developed postoperative ileus and subsequently developed some UTI. However the patient claims that the lower back pain has never been a problem since the surgery. He denies having any leg pain. He denies having any urinary incontinence.. Social History Tobacco Use ??? Smoking status: Never Smoker ??? Smokeless tobacco: Never Used Substance Use Topics ??? Alcohol use: Yes Comment: socially TOBACCO COUNSELING He is not a tobacco user. Objective: Physical Exam: BP (!) 182/82 (BP Location: Left arm, Patient Position (BP): Sitting, BP Cuff Size: Adult) Pulse 99 Temp 97.7 ??F (36.5 ??C) (Temporal) Ht 5' 9 (1.753 m) Wt 99.8 kg (220 lb) BMI 32.49 kg/m?? Normal BMI Range: 18 & older: > or = 18.5 and < 25 Body mass index is 32.49 kg/m??. Constitutional: Appears well, no distress, well nourished Skin: Incision healing well, no signs of drainage or erythema. were removed. Neurological Exam: Neurologic Exam motor strength are 5 throughout. He ambulates independently with a cane. His reflexes are absent throughout in the lower extremities Imaging Studies: Assessment and Plan: ICD-10-CM ICD-9-CM 1. Postop check Z09 V67.00 Discussed postoperative instructions and recovery course expectations. Continue gradually increasing activities as tolerated. Follow up: in 6 weeks with Xrays Francisco Javier Quick MD documented in this encounter Plan of Treatment Not on file documented as of this encounter Visit Diagnoses Diagnosis Postop check- Primary Follow-up examination, following unspecified surgery documented in this encounter Care Teams Audit Officer Relationship Specialty Start Date End Date Philippe Geiger MD [address] [place] [address] PCP - General Internal Medicine 01/08/21 documented as of this encounter
--- OUTSIDE RECORDS SUMMARY | 2024-09-27 12:25 | XMS_ITS | Encounter Summary ---
Author Organization [facility] Address [address] [place] [address] Care Team Providers Care Mash Tub Cooker Name Role Phone Philippe Geiger MD Primary Care Provider [phone] Reason for Visit * Reason Comments Follow Up PO/TLIF * Eval and Treat (Routine) - Closed Specialty Diagnoses / Procedures Referred By Contac t Referred To Contact Neurosurgery Diagnoses Spinal stenosis, lumbar region without neurogenic claudication Philippe Geiger, DO [address] [place] [address] Francisco Javier Quick MD NO ADDRESS ON FILE Referral ID Status Reason Start Date Expiration Date Visits Re quested Visits Authorized [id number] Closed 01/08/2021 07/07/2021 1 12 Encounter Details Date Type Department Care Team (Latest Contact Info) Description 04/22/2021 10:45 AM CDT Office Visit [facility] Neuro[facility] - [facility] [address] [facility] [address] [place] [address] Francisco Javier Quick MD NO ADDRESS ON FILE Postop check (Primary Dx); History of lumbar fusion Social History Tobacco Use Types Packs/Day Years [...] AM CDT documented as of this encounter Last Filed Vital Signs Vital Sign Reading Time Taken Comments Blood Pressure 162/78 04/22/2021 10:22 AM CDT Pulse 88 04/22/2021 10:22 AM CDT Temperature 36.7 ??C (98.1 ??F) 04/22/2021 10:22 AM C DT Respiratory Rate - - Oxygen Saturation - - Inhaled Oxygen Concentration - - Weight 101.6 kg (224 lb) 04/22/2021 10:22 AM CDT Height 177.8 cm (5' 10 ) 04/22/2021 10:22 AM CDT Body Mass Index 32.14 04/22/2021 10:22 AM CDT documented in this encounter Progress Notes * Francisco Javier Quick MD - 04/22/2021 10:31 AM CDT [facility] Neurosurgery Clinic Postoperative Visit Patient Name: Jayjay Ellison : 1945 Date of Service: 04/22/2021 Subjective: Chief Complaint: S/p transforaminal lumbar interbody fusion L2 to 5. History of Present Illness: Jayjay is a 75 y.o. male who presents for a postoperative visit following Lumbar Interbody Fusion on 02/19/2021. Patient reports that their preoperative symptoms improved. The patient is now able to walk without having any significant radiating pain. He has some back stiffness but has been resuming n ormal activities.. Social History Tobacco Use ??? Smoking status: Never Smoker ??? Smokeless tobacco: Never Used Substance Use Topics ??? Alcohol use: Yes Comment: socially TOBACCO COUNSELING He is not a tobacco user. Objective: Physical Exam: BP (!) 162/78 (BP Location: Left arm, Patient Position (BP): Sitting, BP Cuff Size: Adult) Pulse 88 Temp 98.1 ??F (36.7 ??C) (Temporal) Ht 5' 10 (1.778 m) Wt 101.6 kg (224 lb) BMI 32.14 kg/m?? Normal BMI Range: 18 & older: > or = 18.5 and < 25 Body mass index is 32.14 kg/m??. Constitutional: Appears well, no distress, well nourished Skin: Incision healing well, no signs of drainage or erythema. were removed. Neurological Exam: Neurologic Exam gait ambulates independently. Motor strengths are 5 throughout. His reflexes are absent in lower extremities. Imaging Studies: Lumbar spine x-rays show adequate position of the construct Assessment and Plan: ICD-10-CM ICD-9-CM 1. Postop check Z09 V67.00 2. History of lumbar fusion Z98.1 V45.4 Discussed postoperative instructions and recovery course expectations. Continue gradually increasing activities as tolerated. Follow up: As needed in 4 months Francisco Javier Quick MD documented in this encounter Plan of Treatment Not on file documented as of this encounter Visit Diagnoses Diagnosis Postop check- Primary Follow-up examination, following unspecified surgery History of lumbar fusion documented in this encounter Care Teams Mash Tub Cooker Relationship Specialty Start Date End Date Philippe Geiger MD [address] [place] [address] PCP - General Internal Medicine 01/08/21 documented as of this encounter
--- OUTSIDE RECORDS SUMMARY | 2024-09-27 12:25 | XMS_ITS | Encounter Summary ---
Author Organization [facility] Address [address] [place] [address] Care Team Providers Care Dumpster Operator Name Role Phone Philippe Geiger MD Primary Care Provider [phone] Encounter Details Date Type Department Care Team (Late st Contact Info) Description 03/06/2021 Abstract [facility] Neurosurgery - [facility] [address] [facility] [address] [place] [address] Francisco Jaiver Quick MD NO ADDRESS ON FILE Social History Tobacco Use Types Packs/Day Years [...] have Coronavirus / COVID-19? No / Unsure 02/27/2021 9:18 AM CDT documented as of this encounter Plan of Treatment Not on file documented as of this encounter Visit Diagnoses Not on filedocumented in this encounter Care Teams Dumpster Operator Relationship Specialty Start Date End Date Philippe Geiger MD [address] [place] [phone] PCP - General Internal Medicine 01/08/21 documented as of this encounter
--- OUTSIDE RECORDS SUMMARY | 2024-09-27 12:25 | XMS_ITS | Encounter Summary ---
Author Organization [facility] Address [address] [facility] Attn: Epic Prelude ADT JENNY VALDEZ [address] Care Team Providers Care Rubber Stamp Assembler Name Role Phone Philippe Geiger MD Primary Care Provider [phone] Encounter Details Date Type Department Care Team (Latest Contact Info) Description 02/27/2021 Travel Social History Tobacco Use Types Packs/Day [...] on filedocumented in this encounter Care Teams Rubber Stamp Assembler Relationship Specialty Start Date End Date Philippe Geiger MD [address] [place] [address] PCP - General Internal Medicine 01/08/21 documented as of this encounter
--- OUTSIDE RECORDS SUMMARY | 2024-09-27 12:25 | XMS_ITS | Encounter Summary ---
Author Organization [facility] Address [address] [place] [address] Care Team Providers Care Aircraft Avionics Technician Name Role Phone Philippe Geiger MD Primary Care Provider [phone] Encounter Details Date Type Department Care Team (Late st Contact Info) Description 03/11/2021 Orders Only [facility] - [facility] [address] [facility] [address] [place] [address] Francisco Javier Quick MD NO ADDRESS ON FILE Lumbar stenosis with neurogenic claudication (Primary Dx) Social History Tobacco Use Types [...] PM CDT documented as of this encounter Plan of Treatment Not on file documented as of this encounter Results * XR LUMBAR SPINE 2 OR 3 VW (04/22/2021 10:13 AM CDT) Anatomical Region Laterality Modality Spine Computed Radiogr aphy 04/22/2021 10:1 4 AM CDT Impressions 04/22/2021 10:51 AM CDT IMPRESSION: Status post L2-L5 fusion. Possible displacement of plug from one of the L5 tulips. L4-5 anterolisthesis 6.4 mm unchanged. ?? DICTATION LOCATION: Location - [facility] ?? Narrative 04/22/2021 10:51 AM CDT LUMBAR [...] anterolisthesis 6.4 mm unchanged. DICTATION LOCATION: Location [address] [place] [address] Francisco Javier Quick MD DIAGNOSTIC IMAGIN G ORDERABLES documented in this encounter Visit Diagnoses Diagnosis Lumbar stenosis with neurogenic claudication- Primary Spinal stenosis, lumbar region, with neurogenic claudication Lumbar stenosis with neurogenic claudication Spinal stenosis, lumbar region, with neurogenic claudication documented in this encounter Care Teams Aircraft Avionics Technician Relationship Specialty [place] [address] [place] [phone] PCP - General Internal Medicine 01/08/21 documented as of this encounter
--- OUTSIDE RECORDS SUMMARY | 2024-09-27 12:25 | XMS_ITS | Encounter Summary ---
Author Organization [facility] Address [address] [place] [address] Care Team Providers Care Commission Specialist Name Role Phone Philippe Geiger MD Primary Care Provider [phone] Encounter Details Date Type Department Care Team (Late st Contact Info) Description 02/27/2021 Abstract [facility] Neurosurgery - [facility] [address] [facility] [address] [place] [address] Francisco Javier Quick MD NO ADDRESS ON FILE Social [...] on filedocumented in this encounter Care Teams Commission Specialist Relationship Specialty Start Date End Date Philippe Geiger MD [address] [place] [phone] PCP - General Internal Medicine 01/08/21 documented as of this encounter
--- OUTSIDE RECORDS SUMMARY | 2024-09-27 12:25 | XMS_ITS | Encounter Summary ---
Author Organization [facility] Address [address] [place] [address] Care Team Providers Care Electronic Equipment Repairer Name Role Phone Philippe Geiger MD Primary Care Provider [phone] Reason for Visit * Auth/Cert Specialty Diagnoses / Procedures Referred By Contac t Referred To Contact Multi Specialty Diagnoses Spinal stenosis, lumbar region with neurogenic claudication Spondylolisthesis, lumbar region LUMBAR STENOSIS; SPONDYLOLISTHESIS Procedures AK ARTHDSIS POST/POSTEROLATRL/POSTINTERBO DY LUMBAR AK ARTHDSIS POST/POSTERLATRL/POSTINTRBDYA DL SPC/SEG AK LAMINECTOMY,FACETECTOMY,LUMBA R AK LAMINEC/FACETECT/FORAMIN,LUMB AR 1 SEG AK LAMINEC/FACETECT/FORAMIN,EACH ADDNL AK POSTERIOR SEGMENTAL INSTRUMENTATION 3-6 VRT SEG AK INSJ BIOMCHN DEV INTERVERTEBRAL DSC SPC W/ARTHRD AK AUTOGRAFT SPINE SURGERY LOCAL FROM SAME INCISION AK ALLOGRAFT FOR SPINE SURGERY ONLY MORSELIZED LUMBAR INTERBODY FUSION (TLIF L2-3, L3-4, L4-5) [facility] Or [address] [place] [address] Referral ID Status Reason Start Date Expiration Date Visits Re quested Visits Authorized [id number] 1 1 Encounter Details Date Type Department Care Team (Latest Contact Info) Description 02/19/2021 7:04 AM CDT - 02/19/2021 11:59 PM CDT Hospital Encounter [facility] [place] [facility] [address] [place] [address] Francisco Javier Quick MD NO ADDRESS ON [...] have Coronavirus / COVID-19? No / Unsure 02/19/2021 8:11 AM CDT documented as of this encounter Medications at Time of Discharge Medication Sig Dispensed Refills Start Date End Date oxyCODONE (ROXICODONE) 5 mg tabletIndications:Posto perative pain [...] capsule Take 400 Units by mouth daily. BEYOV-4-DSG-EPA-DPA ORAL Take 500 mg by mouth daily. cyanocobalamin 1,000 mcg Tablet Take 1,000 mcg by mouth daily. Cholecalciferol, Vitamin D3, 50 mcg (2,000 unit) Capsule Take by mouth. documented as of this encounter Plan of Treatment Not on file documented as of this encounter Procedures Procedure Name Priority Date/Time Associated Diagnosis Comments XR LUMBAR SPINE 4+ VW Routine 02/19/2021 7:14 AM CDT Lumbar stenosis with neurogenic claudication Acquired spondylolisthesis of lumbosacral region documented in this encounter Results * XR LUMBAR SPINE 4+ VW (02/19/2021 7:14 AM CDT) Anatomical Region Laterality Modality Spine Computed Radiogr aphy 02/19/2021 7:14 AM CDT Impressions 02/19/2021 8:19 AM CDT IMPRESSION: 1. Approximately 8-9 mm anterolisthesis of L4 on L5, not significantly changed between flexion and extension. 2. Multilevel disc degeneration and facet arthropathy. DICTATION LOCATION: Location [address] [place] [address] Narrative 02/19/2021 8:19 AM CDT EXAM: XR LUMBAR SPINE 4+ VW DATE: 02/19/2021 7:14 AM CLINICAL HISTORY: Lumbar stenosis with neurogenic claudication; Acquired spondylolisthesis of lumbosacral region COMPARISON: None available. FINDINGS: Five nonrib-bearing lumbar-type vertebral bodies. 8-9 mm anterolisthesis of L4 on L5, not significantly changed between flexion and extension. No evidence of acute vertebral fracture. Moderate disc degeneration from L2 to L5. Multilevel facet arthropathy noted. INCIDENTAL FINDINGS: ??None. Procedure Note Jose Strickland MD - 02/19/2021 EXAM: XR LUMBAR SPINE 4+ VW DATE: 02/19/2021 7:14 AM CLINICAL HISTORY: Lumbar stenosis with neurogenic claudication; Acquired spondylolisthesis of lumbosacral region COMPARISON: None available. FINDINGS: Five nonrib-bearing lumbar-type vertebral bodies. 8-9 mm anterolisthesis of L4 on L5, not significantly changed between flexion and extension. No evidence of acute vertebral fracture. Moderate disc degeneration from L2 to L5. Multilevel facet arthropathy noted. INCIDENTAL FINDINGS: None. IMPRESSION: 1. Approximately 8-9 mm anterolisthesis of L4 on L5, not significantly changed between flexion and extension. 2. Multilevel disc degeneration and facet arthropathy. DICTATION LOCATION: [address] Francisco Javier Quick MD DIAGNOSTIC IMAGIN G ORDERABLES documented in this encounter Visit Diagnoses Diagnosis Lumbar stenosis with neurogenic claudication Spinal stenosis, lumbar region, with neurogenic claudication Acquired spondylolisthesis of lumbosacral region Acquired spondylolisthesis documented in this encounter Care Teams Electronic Equipment Repairer Relationship Specialty Start Date End Date Philippe Geiger MD [address] [place] [address] PCP - General Internal Medicine 01/08/21 documented as of this encounter
--- OUTSIDE RECORDS SUMMARY | 2024-09-27 12:25 | XMS_ITS | Encounter Summary ---
Author Organization [facility] Address [address] [place] [address] Care Team Providers Care Medical Director Name Role Phone Philippe Geiger MD Primary Care Provider [phone] Reason for Visit * Reason Onset Date Comments Medication Refill 02/19/2021 Encounter Details Date Type Department Care Team (Late st Contact Info) Description 02/19/[address] [facility] [address] [facility] [address] [place] [address] Tuyet Fox PA NO ADDRESS ON FILE Postoperative pain after spinal surgery (Primary Dx) Social History Tobacco Use Types [...] AM CDT documented as of this encounter Miscellaneous Notes * Telephone Encounter - Tuyet Fox PA - 02/19/2021 9:31 AM CDT Postop L2-5 fusion pain medications to be filled at [facility] pharmacy. documented in this encounter Plan of Treatment Not on file documented as of this encounter Visit Diagnoses Diagnosis Postoperative pain after spinal surgery- Primary documented in this encounter Care Teams Medical Director Relationship Specialty [place] [address] [place] [id number] PCP - General Internal Medicine 01/08/21 documented as of this encounter
--- OUTSIDE RECORDS SUMMARY | 2024-09-27 12:25 | XMS_ITS | Encounter Summary ---
Author Organization [facility] Address [address] [facility] Attn: Epic Prelude ADT JENNY VALDEZ [address] Care Team Providers Care Graduate Student Name Role Phone Philippe Geiger MD Primary Care Provider [phone] Encounter Details Date Type Department Care Team (Latest Contact Info) Description 02/19/2021 Travel Social History Tobacco Use Types Packs/Day [...] on filedocumented in this encounter Care Teams Graduate Student Relationship Specialty Start Date End Date Philippe Geiger MD [address] [place] [address] PCP - General Internal Medicine 01/08/21 documented as of this encounter
--- OUTSIDE RECORDS SUMMARY | 2024-09-27 12:25 | XMS_ITS | Encounter Summary ---
Author Organization [facility] Address [address] [place] [address] Care Team Providers Care Contracting Support Specialist Name Role Phone Philippe Geiger MD Primary Care Provider [phone] Reason for Visit * Auth/Cert Specialty Diagnoses / Procedures Referred By Contac t Referred To Contact Multi Specialty Diagnoses Spinal stenosis, lumbar region with neurogenic claudication Spondylolisthesis, lumbar region LUMBAR STENOSIS; SPONDYLOLISTHESIS Procedures NV ARTHDSIS POST/POSTEROLATRL/POSTINTERBO DY LUMBAR NV ARTHDSIS POST/POSTERLATRL/POSTINTRBDYA DL SPC/SEG NV LAMINECTOMY,FACETECTOMY,LUMBA R NV LAMINEC/FACETECT/FORAMIN,LUMB AR 1 SEG NV LAMINEC/FACETECT/FORAMIN,EACH ADDNL NV POSTERIOR SEGMENTAL INSTRUMENTATION 3-6 VRT SEG NV INSJ BIOMCHN DEV INTERVERTEBRAL DSC SPC W/ARTHRD NV AUTOGRAFT SPINE SURGERY LOCAL FROM SAME INCISION NV ALLOGRAFT FOR SPINE SURGERY ONLY MORSELIZED LUMBAR INTERBODY FUSION (TLIF L2-3, L3-4, L4-5) [facility] [address] [place] [address] Referral ID Status Reason Start Date Expiration Date Visits Re quested Visits Authorized [id number] 1 1 Encounter Details Date Type Department Care Team (Latest Contact Info) Description 02/19/2021 7:23 AM CDT - 02/26/2021 1:43 PM CDT Hospital Encounter [facility] [address] [place] [address] Francisco Javier Quick MD NO ADDRESS ON FILE Spinal stenosis of lumbar region with neurogenic claudication Discharge Disposition: Home or Self Care Social [...] Sign Reading Time Taken Comments Blood Pressure 189/79 02/26/2021 8:00 AM CDT Pulse 60 02/26/2021 8:00 AM CDT Temperature 36.6 ??C (97.8 ??F) 02/26/2021 8:00 AM CD T Respiratory Rate 18 02/26/2021 4:54 AM CDT Oxygen Saturation 98% 02/26/2021 8:00 AM CDT Inhaled Oxygen Concentration - - Weight 109.9 kg (242 lb 4.8 oz) 02/20/2021 3:34 AM CDT Height 177.8 cm (5' 10 ) 02/19/2021 7:36 AM CDT Body Mass Index 34.77 02/19/2021 7:36 AM CDT documented in this encounter Discharge Summaries * Bertha Geiger PA - 03/20/2021 12:46 PM CDT [place], [place] [address] Discharge Summary Patient: Jayjay Ellison / 75 y.o. / male CSN: [id number] : 1945 ADMIT DATE: 02/19/2021 DISCHARGE DATE: 02/26/2021 Length of Stay: LOS: 7 days ATTENDING PHYSICIAN: Francisco Javier Quick MD PRIMARY CARE PHYSICIAN: Philippe Geiger MD ADMIT DIAGNOSIS: Spinal stenosis of lumbar region with neurogenic claudication PROCEDURE PERFORMED: Procedure(s) (LRB): LUMBAR INTERBODY FUSION (N/A) HOSPITAL COURSE: The patient was admitted on 02/19/2021 for the above diagnosis/procedure. The procedure went well without complications. The patient did not require a blood transfusion, with stable hemoglobin and hematocrit levels during this hospital visit stay. See electronic hospital record for full detailed hospital stay. He progressed well in regards to physical therapy, neurologic exam remained stable from baseline; therefore, patient was discharged to Home. His surgical wound showed no erythema or drainage. His hospital stay was prolonged due to ileus. General surgery was consulted. Ileus resolved priorto discharge. Active Problems Addressed (Secondary Diagnoses): Spinal stenosis of lumbar region with neurogenic claudication Ileus - managed per general surgery, NGT, NPO, resolved Discharge medications and new prescriptions: Medication List START taking these medications oxyCODONE 5 mg tablet Commonly known as: ROXICODONE Take 1 to 2 Tablets (5-10 mg) by mouth every 4 hours as needed for Pain. Max Daily Amount: 12 Tablets Signed by: Francisco Javier Quick MD Quantity: 60 Tablet Refills: 0 CONTINUE taking these medications aspirin 325 mg tablet Commonly known as: MAMADOU Take 325 mg by mouth daily. Refills: 0 atenoloL 50 mg tablet Commonly known as: TENORMIN Take 50 mg by mouth daily. Refills: 0 atorvastatin 10 mg tablet Commonly known as: LIPITOR Take 10 mg by mouth daily. Refills: 0 budesonide-formoteroL 160-4.5 mcg/actuation HFA Aerosol Inhaler Commonly known as: SYMBICORT Take 2 Puffs by inhalation daily. Refills: 0 Cholecalciferol (Vitamin D3) 50 mcg (2,000 unit) Capsule Take by mouth. Refills: 0 cyanocobalamin 1,000 mcg Tablet Take 1,000 mcg by mouth daily. Refills: 0 furosemide 20 mg tablet Commonly known as: LASIX Take 20 mg by mouth daily. Refills: 0 lisinopriL 20 mg tablet Commonly known as: PRINIVIL Take 20 mg by mouth daily. Refills: 0 montelukast 10 mg tablet Commonly known as: SINGULAIR Take 10 mg by mouth daily at bedtime. Refills: 0 SAASX-5-EVY-EPA-DPA ORAL Take 500 mg by mouth daily. Refills: 0 POTASSIUM ORAL Take 20 mg by mouth daily. Refills: 0 vitamin E 400 unit capsule Take 400 Units by mouth daily. Refills: 0 Where to Get Your Medications [address] [facility] [address] Hours: Retail 8 AM - 12 AM Daily / ED Service 10 AM - 12 AM Daily ?? oxyCODONE 5 mg tablet Discharge Condition: stable Disposition: Home Patient instructions: Activity: activity as tolerated, nothing strenuous and minimizing heavy lifting until follow up appointment. Diet: Regular - as tolerated Wound Care: As directed Follow-up & Outstanding Issues/Tests: Follow-up in our office in 2 week(s), call with any concerns. Signed: Bertha Geiger PA-C 03/20/2021, 12:46 PM documented in this encounter Discharge Instructions * Discharge Instructions* Tuyet Fox PA - 02/19/2021 9:16 AM CDT Thank you for choosing [facility] for your care! The following is a list of instructions, from your provider, to follow upon your discharge to ensure you have the optimal recovery fromyour recent injury or surgery. If you don't have a follow up appointment already made, follow up with Dr. Quick in 2-[address] Quick's office in the next 1-2 days to make your appointment at [phone]. Feel free tocall for any further questions or concerns. - Medications will be prescribed for you at your provider???s discretion. These medications are to be used as instructed; if they are taken more often that prescribed they will not be refilled early and in most cases will not be refilled at all. > When a refill is needed, you should contact our office 2-3 business days before your prescription runs out. Medications will NOT be refilled by ???radiation control technician?? providers after hours! > Many pain medications contain Tylenol (Acetaminophen). Do not consume more than 4,000 mg of Tylenol per day in total with any combination of medications. > Pain medications can cause constipation. Please use an over the counter stool softener as directed, while taking pain medications. Consult your local pharmacist with questions or recommendationson stool softeners. If constipation persists, contact our office or your primary care provider. > While under our care, you are not to receive pain medications or other controlled substances from any other provider unless our office is notified and approves. Any attempts to do so will resultin refusal to prescribe any further pain medications and possible dismissal from our practice. - Your incision is covered with a Silverlon dressing, this dressing that has antimicrobial properties in the absorption pad. Leave this dressing on for a total of 7 days after your surgery (okay to shower with the dressing on), and then remove on day 7. After the dressing is removed it is okay to shower and get the incision wet, no overtly washing is needed, your body soap lather may run down into the incision. Pad dry afterwards, no further dressing should be required from that point on. Do noput any ointments or creams on the incision for at least 4 weeks. - Once the dressing has been removed, the wound should be examined 1-2 times a day for signs of infection. Mild redness or bruising is to be expected but indications that an infection may be startingwould include; an increase in redness, swelling, discharge, a foul odor present around the incision, and/or a fever greater than 101 ??F. - Showering is permitted, however we ask that you do not take a bath, sit in a whirlpool / Jacuzzi,or go swimming for at least 1 month. - Walking is essential for the healing process after surgery. We would like you to slowly advance your walking. This should be done on relatively flat clear ground (inside or out) or can be done on atreadmill. Remember this goal does not have to happen all at once, slowly increase your distance and duration. This can be broken into more more than one walk per day as tolerated. Patients who walk a s directed after surgery rarely require Physical Therapy. In the unlikely event this issue arises your provider will direct hospital staff to make the appropriate arrangements. - No lifting over 5 pounds (a gallon of milk) or bending/twisting at the waist until further notice. Each of these activities places an unnecessary amount of stress onto the body and can impede the delicate healing process. > Instead of bending at the waist, keep your back straight and bend at the knees. > Instead of twisting your torso, keep your back straight and turn your entire body with your feet. - You may sleep in any position which makes you comfortable. Many patients find comfort sleeping glenda reclining chair. It is not abnormal to have difficulty sleeping for the first several weeks following your surgery. We recommend trying Benadryl or Tylenol PM as directed to help with your sleepingdifficulties. Both medications are over the counter and available without prescription. - NO SMOKING!!! Smoking dramatically increases the probability of developing postoperative wound infections. Nicotine use has also been shown to decrease fusion rates and we recommend you avoid all forms of nicotine, including cigarettes and nicotine patches/gum, to help increase your chances of suc cessfully fusing and healing from this surgery. - Common complaints after lumbar and/or thoracic spine surgery include, but are not limited to: numbness and/or tingling in the legs, pain around the incision and surrounding tissues, muscle spasms, or stiffness of the middle to low back. Contact our office if these symptoms are worse than your pre-operative symptoms or if an acute change occurs. - No driving for the first 5-7 days following surgery and not while taking narcotic pain medications or muscle relaxants (I.e. Percocet, Conklin, Valium, Flexiril, etc). There are no restrictions for riding on short trips, however if you take a longer trip, arrangements should be made to make regularstops to get out of the vehicle and ???stretch?? . - Swelling is an unfortunate event that will take place with any surgery and is the primary source of your postoperative discomfort. While walking and regular approved activities helps control inflammation, there are additional steps you can take to minimize swelling. > Place ice over the surgical site and surrounding tissue for twenty minutes, followed by applying a low/medium heat (heating pad) for an additional twenty minutes every 1-2 hours as needed for pain relief. > Do not use over the counter anti-inflammatory medications (Ibuprofen, Motrin, Aleve, Advil, etc). Taking these medications after having a fusion can delay fusion rates and we recommend that you avoid them for the first 3 months after your surgery. Contact information: [facility] Office #: [phone] 8:30am- 4:30pm Thu-Thursday Exchange#: [phone] After-hours Emergency contact documented in this encounter Medications at Time of Discharge [...] capsule Take 400 Units by mouth daily. VLBRS-2-DDZ-EPA-DPA ORAL Take 500 mg by mouth daily. cyanocobalamin 1,000 mcg Tablet Take 1,000 mcg by mouth daily. Cholecalciferol, Vitamin D3, 50 mcg (2,000 unit) Capsule Take by mouth. documented as of this encounter Progress Notes * Edouard Cartagena RN - 02/26/2021 1:41 PM CDT Jayjay Ellison will be discharged via wheelchair to home. Jayjay Ellison is accompanied by spouseand will be transported via private vehicle. Iv taken out and discharge medication picked up. No questions or concerns at discharge * Bertha Geiger PA - 02/26/2021 11:48 AM CDT Neurosurgery Progress Note Jayjay Ellison 1945 7 Days Post-Op Procedure(s) (LRB): LUMBAR INTERBODY FUSION (N/A) Awake and alert. Pain controlled + BM Diet advanced per surgery, tolerating well Eager to go home Active Hospital Problems Diagnosis ??? Postoperative ileus ??? Spinal stenosis of lumbar region with neurogenic claudication Resolved Hospital Problems No resolved problems to display. Vitals: 02/25/21 0805 02/25/21 2039 02/26/21 0454 02/26/21 0800 BP: (!) 176/74 (!) 169/72 (!) 169/74 (!) 189/79 BP Location: Right arm Left arm Left arm Left arm Patient Position (BP): Supine Supine Sitting Supine Pulse: 63 (!) 58 60 60 Resp: 16 18 Temp: 97.7 ??F (36.5 ??C) 98.4 ??F (36.9 ??C) 98.3 ??F (36.8 ??C) 97.8 ??F (36.6 ??C) TempSrc: Oral Oral Oral SpO2: 100% 98% 98% 98% Weight: Height: PE: Awake, Alert, Ox3. PERRL. Speech intact. Follows all commands. Moves all extremities full/symmetric. Sensory intact to LT. Strength 5/5 throughout BLE Incision c/d/i, dressing removed Output by Drain (mL) 02/24/21 0700 - 02/24/21 1859 02/24/21 190 - 02/25/21 0659 02/25/21 07 - 02/25/21 1859 02/25/21 1900 - 02/26/21 0659 02/26/21 0700 - 02/26/21 1148 Patient has no LDAs of requested type attached. Recent Labs 02/24/21 0640 02/25/21 0528 02/26/21 0822 NA 142 141 138 K 3.4* 3.3* 4.2 CL 110* 110* 108* CO2 24 23 20* BUN 17 11 7* CREAT 0.96 0.93 0.93 GLUCOSE 100* 108* 166* Nutrition: Current Diet and/or Nutritional Supplementation ordered: DIET GENERAL Effective Now Impression/Plan: Neuro exam intact Pain--well controlled PT/OT Ileus resolved Granger out DVT prophylaxis - SCDs, Lovenox D/c home today F/u 2 weeks RUEL MacC MARJ PA Pager *For Healthcare Providers Only* (Thu- 7:30am-5pm and Thu-Thu 24 hours): [phone] NSGY After Hours Exchange: [phone] NSGY Office (Thu-Thu 8:30am-4:30pm): [phone] * Nelly Chou MD - 02/26/2021 7:28 AM CDT Images from the original note were not included. DATE: 02/26/2021 NAME: Jayjay Ellison : 1945 CSN: [id number] [facility] Surgery Progress Note Recent Events: NAEON. Tolerated NGT clamp trial yesterday. NGT removed and patient now on clear, tolerating well. Continues to pass flatus and have BMs. ASSESSMENT/PLAN: Jayjay Ellison is a 75 y.o. male s/p lumbar interbody fusion, now with obstipation, bloating, and imaging consistent with postoperative ileus, appears to be starting to resolve - diet advanced to regular - replete electrolytes to keep K > 4, Phos > 3, Mag > 2 - general surgery team will sign off. Please call if questions See orders. I have reviewed this patient's history and physical, family history, acute and chronic diagnoses, all pertinent notes, vitals, labs, medications and images during my development of the above assessment and plan. I discussed case with Dr. Bray. Nelly Chou MD, 02/26/2021 7:28 AM TACS Resident On-Call Pager [phone] TACS Attending On-Call - please refer to Trauma and Acute Care Surgery (TACS) page on [facility] website Subjective: No chief complaint on file. Active Hospital Problems Diagnosis ??? Postoperative ileus ??? Spinal stenosis of lumbar region with neurogenic claudication Resolved Hospital Problems No resolved problems to display. HPI: Jayjay Ellison is a 75 y.o. male admitted after planned lumbar decompressions and fusion surgery by neurosurgery team on 02/19/2021. Patient reports that postoperatively he was feeling ok, pain has been controlled. Reports passing flatus on POD#1, but no longer passing flatus today (POD#2). Reports abdominal distension and discomfort with associated nausea and vomiting. reports coffee ground appearance of emesis as well as sour taste. Denies any previous history of bowel obstructions or bowel surgery. Reports distant history of left inguinal hernia repair. Allergies Allergen Reactions ??? Cephalosporins Unknown ??? Codeine Unknown ??? Tramadol Itching Medications Prior to Admission Medication Sig Dispense Refill Last Dose ??? budesonide-formoteroL (SYMBICORT) 160-4.5 mcg/actuation HFA Aerosol Inhaler Take 2 Puffs by inhalation daily. 02/19/2021 at 0600 ??? aspirin (MAMADOU) 325 mg tablet Take 325 mg by mouth daily. Past Week at Unknown time ??? montelukast (SINGULAIR) 10 mg tablet Take 10 mg by mouth daily at bedtime. 02/18/2021 at Unknowntime ??? furosemide (LASIX) 20 mg tablet Take 20 mg by mouth daily. 02/19/2021 at 0500 ??? atenoloL (TENORMIN) 50 mg tablet Take 50 mg by mouth daily. 02/19/2021 at 0500 ??? atorvastatin (LIPITOR) 10 mg tablet Take 10 mg by mouth daily. 02/19/2021 at 0500 ??? lisinopriL (PRINIVIL) 20 mg tablet Take 20 mg by mouth daily. 02/18/2021 at Unknown time ??? POTASSIUM ORAL Take 20 mg by mouth daily. 02/18/2021 at Unknown time ??? vitamin E 400 unit capsule Take 400 Units by mouth daily. Past Week at Unknown time ??? OGYEJ-0-XEB-EPA-DPA ORAL Take 500 mg by mouth daily. Past Week at Unknown time ??? cyanocobalamin 1,000 mcg Tablet Take 1,000 mcg by mouth daily. Past Week at Unknown time ??? Cholecalciferol, Vitamin D3, 50 mcg (2,000 unit) Capsule Take by mouth. Past Week at Unknown time Past Medical History: Diagnosis Date ??? Arthritis ??? COPD (chronic obstructive pulmonary disease) ??? Difficult intravenous access ??? Difficulty balancing ??? Difficulty walking ??? Emphysema, unspecified ??? HTN (hypertension) ??? Hyperlipidemia ??? Low back pain ??? Numbness ??? Psoriasis ??? Skin disorder Past Surgical History: Procedure Laterality Date ??? HX BACK SURGERY N/A 02/19/2021 LUMBAR INTERBODY FUSION performed by Francisco Javier Quick MD at [facility] ??? HX HERNIA REPAIR x2 ??? HX KNEE ARTHROSCOPY Left ??? HX NASAL/SINUS SURGERY Family History Problem Relation Name Age of Onset ??? Hypertension Father ??? Hypertension Mother ??? Hypertension Sister ??? Hypertension Brother Social History Socioeconomic History ??? Marital status: Spouse name: Not on file ??? Number of children: Not on file ??? Years of education: Not on file ??? Highest education level: Not on file Occupational History ??? Not on file Tobacco Use ??? Smoking status: Never Smoker ??? Smokeless tobacco: Never Used Vaping Use ??? Vaping Use: Never used Substance and Sexual Activity ??? Alcohol use: Yes Comment: socially ??? Drug use: Never ??? Sexual activity: Not on file Other Topics Concern ??? Not on file Social History Narrative ??? Not on file Social Determinants of Health Financial Resource Strain: ??? Difficulty of Paying Living Expenses: Food Insecurity: ??? Worried About Running Out of Food in the Last Year: ??? Ran Out of Food in the Last Year: Transportation Needs: ??? Lack of Transportation (Medical): ??? Lack of Transportation (Non-Medical): Physical Activity: ??? Days of Exercise per Week: ??? Minutes of Exercise per Session: Stress: ??? Feeling of Stress : Social Connections: ??? Frequency of Communication with Friends and Family: ??? Frequency of Social Gatherings with Friends and Family: ??? Attends Evangelical Services: ??? Active Member of Clubs or Organizations: ??? Attends Club or Organization Meetings: ??? Marital Status: Intimate Partner Violence: ??? Fear of Current or Ex-Partner: ??? Emotionally Abused: ??? Physically Abused: ??? Sexually Abused: Review of Systems: Review of Systems Constitutional: Negative for chills and fever. HENT: Negative. Eyes: Negative. Respiratory: Negative. Cardiovascular: Negative. Gastrointestinal: Negative for abdominal pain, constipation, nausea and vomiting. Musculoskeletal: Positive for back pain. Skin: Negative. Psychiatric/Behavioral: Negative. Objective: Patient Vitals for the past 8 hrs: BP Temp Temp src Pulse Resp SpO2 02/26/21 0454 (!) 169/74 98.3 ??F (36.8 ??C) Oral 60 18 98 % BP (!) 169/74 (BP Location: Left arm, Patient Position (BP): Sitting) Pulse 60 Temp 98.3 ??F (36.8 ??C) (Oral) Resp 18 Ht 5' 10 (1.778 m) Wt 109.9 kg (242 lb 4.8 oz) SpO2 98% BMI 34.77 kg/m?? Physical Exam: Gen alert, in no distress Neuro Grossly normal HEENT NGT out Heart regular rate and rhythm Lungs normal respiratory effort on RA Abdomen Mildly distended, tympanic, nontender to palpation Extremities intact distal pulses, moves all extremities equally, no edema, redness or tenderness inthe calves or thighs Skin WWP Other Psych: appropriate mood and affect Labs/Imaging: No results found for this visit on 02/19/21 (from the past 24 hour(s)). No new imaging Nelly Chou MD Associated attestation - Maynor Bray MD - 02/26/2021 1:58 PM CDT I personally seen and examined the patient. All pertinent labs and imaging reviewed. Consultants note reviewed. Denies abdominal pain. Having BM. NG is out. Tolerating regular diet. BP (!) 189/79 (BP Location: Left arm, Patient Position (BP): Supine) Pulse 60 Temp 97.8 ??F (36.6 ??C) Resp 18 Ht 5' 10 (1.778 m) Wt 109.9 kg (242 lb 4.8 oz) SpO2 98% BMI 34.77 kg/m?? Abdomen: soft, ND, NT A/P: Patient Active Problem List Diagnosis Code Spinal stenosis of lumbar region with neurogenic claudication M48.062 Postoperative ileus K91.89, K56.7 Ileus resolved. Continue care per primary service. Will signoff I agree with resident's detailed progress note. Maynor Bray MD, 02/26/2021 1:58 PM * Miguelina Godinez, ROSA - 02/25/2021 1:20 PM CDT Neurosurgery Progress Note Jayjay Ellison 1945 6 Days Post-Op Procedure(s) (LRB): LUMBAR INTERBODY FUSION (N/A) Awake and alert. Minimal back pain. No new leg symptoms. NG tube remains in place for ileus. He has had multiple BMs and is feeling much better. No nausea or vomiting. Failed NG clamping trial yesterday but attempting again today. Active Hospital Problems Diagnosis ??? Postoperative ileus ??? Spinal stenosis of lumbar region with neurogenic claudication Resolved Hospital Problems No resolved problems to display. Vitals: 02/24/21 1142 02/24/21 2104 02/25/21 0408 02/25/21 0805 BP: (!) 169/73 (!) 164/96 (!) 168/80 (!) 176/74 BP Location: Left arm Left arm Right arm Right arm Patient Position (BP): Supine Sitting Supine Supine Pulse: 66 72 60 63 Resp: 18 16 16 16 Temp: 98.4 ??F (36.9 ??C) 98.6 ??F (37 ??C) 98 ??F (36.7 ??C) 97.7 ??F (36.5 ??C) TempSrc: Oral Oral Oral Oral SpO2: 96% 97% 98% 100% Weight: Height: PE: Awake, Alert, Ox3. PERRL. Speech intact. Follows all commands. Moves all extremities full/symmetric. Sensory intact to LT. Strength 5/5 throughout BLE Incision Silverlon dressing is clean/dry/intact. Abdomen less distended. Output by Drain (mL) 02/23/21 07 - 02/23/21 1859 02/23/21 190 - 02/24/21 0659 02/24/21 07 - 02/24/21 1859 02/24/21 1900 - 02/25/21 0659 02/25/21 0700 - 02/25/21 1321 Naso/Oral Tube 02/21/21 1544 16 Fr right nostril 400 1100 200 300 Recent Labs 02/22/21 1848 02/23/21 0650 02/24/21 0640 02/25/21 0528 NA -- 140 142 141 K 3.6 3.2* 3.4* 3.3* CL -- 103 110* 110* CO2 -- 29 24 23 BUN -- 21 17 11 CREAT -- 1.06 0.96 0.93 GLUCOSE -- 91 100* 108* Nutrition: Current Diet and/or Nutritional Supplementation ordered: DIET CLEAR LIQUID Impression/Plan: Neuro exam intact Pain--well controlled Continue granger for now- will d/c once NG tube is out and tolerating clears PT/OT Ileus- appreciate gen surg assistance, resolving, has had multiple BMs, no nausea or vomiting, correcting electrolytes, NG tube in place- attempting clamping trial again today and clear liquid diet- if he tolerates, ok to d/c NG tube per their recs DVT prophylaxis - Niru Boone PA-C NSGY PA Pager *For Healthcare Providers Only* (Thu- 7:30am-5pm and Thu-Thu 24 hours): [phone] NSGY After Hours Exchange: [phone] NSGY Office (Thu-Thu 8:30am-4:30pm): [phone] * Nelly Chou MD - 02/25/2021 9:44 AM CDT Images from the original note were not included. DATE: 02/25/2021 NAME: Jayjay Ellison : 1945 CSN: [id number] [facility] General Surgery Progress Note Recent Events: NAEON. High residuals at conclusion of NGT clamp trial yesterday, NGT returned to LIWS overnight. 3x BM overnight. ASSESSMENT/PLAN: Jayjay Ellison is a 75 y.o. male s/p lumbar interbody fusion, now with obstipation, bloating, and imaging consistent with postoperative ileus, appears to be starting to resolve - NGT clamp trial for 4 hours this morning. If patient able to tolerate gastric secretions without nausea or emesis, OK to remove NGT and start CLD. - If patient fails NGT clamp trial, patient NGT should be reconnected to LIWS. - serial abdominal exams - replete electrolytes to keep K > 4, Phos > 3, Mag > 2 - please contact general surgery team if change in patient clinical status - general surgery team will continue to follow See orders. I have reviewed this patient's history and physical, family history, acute and chronic diagnoses, all pertinent notes, vitals, labs, medications and images during my development of the above assessment and plan. I discussed case with Dr. Bray. Nelly Chou MD, 02/25/2021 9:44 AM TACS Resident On-Call Pager [phone].TACS TACS Attending On-Call - please refer to Trauma and Acute Care Surgery (TACS) page on [facility] website Subjective: No chief complaint on file. Active Hospital Problems Diagnosis ??? Postoperative ileus ??? Spinal stenosis of lumbar region with neurogenic claudication Resolved Hospital Problems No resolved problems to display. HPI: Jayjay Ellison is a 75 y.o. male admitted after planned lumbar decompressions and fusion surgery by neurosurgery team on 02/19/2021. Patient reports that postoperatively he was feeling ok, pain has been controlled. Reports passing flatus on POD#1, but no longer passing flatus today (POD#2). Reports abdominal distension and discomfort with associated nausea and vomiting. reports coffee ground appearance of emesis as well as sour taste. Denies any previous history of bowel obstructions or bowel surgery. Reports distant history of left inguinal hernia repair. Allergies Allergen Reactions ??? Cephalosporins Unknown ??? Codeine Unknown ??? Tramadol Itching Medications Prior to Admission Medication Sig Dispense Refill Last Dose ??? budesonide-formoteroL (SYMBICORT) 160-4.5 mcg/actuation HFA Aerosol Inhaler Take 2 Puffs by inhalation daily. 02/19/2021 at 0600 ??? aspirin (MAMADOU) 325 mg tablet Take 325 mg by mouth daily. Past Week at Unknown time ??? montelukast (SINGULAIR) 10 mg tablet Take 10 mg by mouth daily at bedtime. 02/18/2021 at Unknowntime ??? furosemide (LASIX) 20 mg tablet Take 20 mg by mouth daily. 02/19/2021 at 0500 ??? atenoloL (TENORMIN) 50 mg tablet Take 50 mg by mouth daily. 02/19/2021 at 0500 ??? atorvastatin (LIPITOR) 10 mg tablet Take 10 mg by mouth daily. 02/19/2021 at 0500 ??? lisinopriL (PRINIVIL) 20 mg tablet Take 20 mg by mouth daily. 02/18/2021 at Unknown time ??? POTASSIUM ORAL Take 20 mg by mouth daily. 02/18/2021 at Unknown time ??? vitamin E 400 unit capsule Take 400 Units by mouth daily. Past Week at Unknown time ??? CCUKZ-4-NXB-EPA-DPA ORAL Take 500 mg by mouth daily. Past Week at Unknown time ??? cyanocobalamin 1,000 mcg Tablet Take 1,000 mcg by mouth daily. Past Week at Unknown time ??? Cholecalciferol, Vitamin D3, 50 mcg (2,000 unit) Capsule Take by mouth. Past Week at Unknown time Past Medical History: Diagnosis Date ??? Arthritis ??? COPD (chronic obstructive pulmonary disease) ??? Difficult intravenous access ??? Difficulty balancing ??? Difficulty walking ??? Emphysema, unspecified ??? HTN (hypertension) ??? Hyperlipidemia ??? Low back pain ??? Numbness ??? Psoriasis ??? Skin disorder Past Surgical History: Procedure Laterality Date ??? HX BACK SURGERY N/A 02/19/2021 LUMBAR INTERBODY FUSION performed by Francisco Javier Quick MD at [facility] OR [facility] ??? HX HERNIA REPAIR x2 ??? HX KNEE ARTHROSCOPY Left ??? HX NASAL/SINUS SURGERY Family History Problem Relation Name Age of Onset ??? Hypertension Father ??? Hypertension Mother ??? Hypertension Sister ??? Hypertension Brother Social History Socioeconomic History ??? Marital status: Spouse name: Not on file ??? Number of children: Not on file ??? Years of education: Not on file ??? Highest education level: Not on file Occupational History ??? Not on file Tobacco Use ??? Smoking status: Never Smoker ??? Smokeless tobacco: Never Used Vaping Use ??? Vaping Use: Never used Substance and Sexual Activity ??? Alcohol use: Yes Comment: socially ??? Drug use: Never ??? Sexual activity: Not on file Other Topics Concern ??? Not on file Social History Narrative ??? Not on file Social Determinants of Health Financial Resource Strain: ??? Difficulty of Paying Living Expenses: Food Insecurity: ??? Worried About Running Out of Food in the Last Year: ??? Ran Out of Food in the Last Year: Transportation Needs: ??? Lack of Transportation (Medical): ??? Lack of Transportation (Non-Medical): Physical Activity: ??? Days of Exercise per Week: ??? Minutes of Exercise per Session: Stress: ??? Feeling of Stress : Social Connections: ??? Frequency of Communication with Friends and Family: ??? Frequency of Social Gatherings with Friends and Family: ??? Attends Evangelical Services: ??? Active Member of Clubs or Organizations: ??? Attends Club or Organization Meetings: ??? Marital Status: Intimate Partner Violence: ??? Fear of Current or Ex-Partner: ??? Emotionally Abused: ??? Physically Abused: ??? Sexually Abused: Review of Systems: Review of Systems Constitutional: Negative for chills and fever. HENT: Negative. Eyes: Negative. Respiratory: Negative. Cardiovascular: Negative. Gastrointestinal: Negative for abdominal pain, constipation, nausea and vomiting. Musculoskeletal: Positive for back pain. Skin: Negative. Psychiatric/Behavioral: Negative. Objective: Patient Vitals for the past 8 hrs: BP Temp Temp src Pulse Resp SpO2 02/25/21 0805 (!) 176/74 97.7 ??F (36.5 ??C) Oral 63 16 100 % 02/25/21 0408 (!) 168/80 98 ??F (36.7 ??C) Oral 60 16 98 % BP (!) 176/74 (BP Location: Right arm, Patient Position (BP): Supine) Pulse 63 Temp 97.7 ??F (36.5 ??C) (Oral) Resp 16 Ht 5' 10 (1.778 m) Wt 109.9 kg (242 lb 4.8 oz) SpO2 100% BMI 34.77 kg/m?? Physical Exam: Gen alert, in no distress Neuro Grossly normal HEENT NGT in place with gastric secretions in canister Heart regular rate and rhythm Lungs normal respiratory effort on RA Abdomen Mildly distended, nontender to palpation Extremities intact distal pulses, moves all extremities equally, no edema, redness or tenderness inthe calves or thighs Skin WWP Other Psych: appropriate mood and affect Labs/Imaging: Results for orders placed or performed during the hospital encounter of 02/19/21 (from the past 24 hour(s)) BASIC METABOLIC PANEL Result Value Ref Range SODIUM 141 136 - 145 mmol/L POTASSIUM 3.3 (L) 3.5 - 5.0 mmol/L CHLORIDE 110 (H) 98 - 107 mmol/L CO2 23 22 - 29 mmol/L CALCIUM 8.6 8.6 - 10.2 mg/dL BUN 11 8 - 23 mg/dL CREATININE 0.93 0.67 - 1.17 mg/dL GLUCOSE 108 (H) 74 - 99 mg/dL GFR >60 mL/min/1.73 sq meter GFR, >60 mL/min/1.73 sq meter ANION GAP 8 8 - 16 mmol/L MAGNESIUM LEVEL Result Value Ref Range MAGNESIUM 2.0 1.6 - 2.4 mg/dL CALCIUM IONIZED Result Value Ref Range PH, VENOUS 7.43 7.32 - 7.43 CALCIUM IONIZED 4.7 (L) 4.8 - 5.2 mg/dL No new imaging Nelly Chou MD Associated attestation - Maynor Bray MD - 02/25/2021 12:17 PM CDT I personally seen and examined the patient. All pertinent labs and imaging reviewed. Consultants note reviewed. Passing flatus, having BM NG remains clamped. BP (!) 176/74 (BP Location: Right arm, Patient Position (BP): Supine) Pulse 63 Temp 97.7 ??F (36.5 ??C) (Oral) Resp 16 Ht 5' 10 (1.778 m) Wt 109.9 kg (242 lb 4.8 oz) SpO2 100% BMI 34.77 kg/m?? Abdomen: soft, ND, NT A/P: Patient Active Problem List Diagnosis Code Spinal stenosis of lumbar region with neurogenic claudication M48.062 Postoperative ileus K91.89, K56.7 Ileus resolved. Start clear liquids. D/c NG if tolerating liquids. I agree with resident's detailed progress note. Maynor Bray MD, 02/25/2021 12:17 PM * Miguelina Godinez PA - 02/24/2021 1:21 PM CDT Neurosurgery Progress Note Jayjay Scot 1945 5 Days Post-Op Procedure(s) (LRB): LUMBAR INTERBODY FUSION (N/A) Awake and alert. C/o expected back pain, controlled. No new leg symptoms. NG tube remains in place for ileus. He is passing gas but no BM. He has been ambulating frequently.Abdomen is feeling better. Gen surg ordered clamping trial today and advanced to clear liquid diet.He is tolerating clears so far without nausea or vomiting. Active Hospital Problems Diagnosis ??? Postoperative ileus ??? Spinal stenosis of lumbar region with neurogenic claudication Resolved Hospital Problems No resolved problems to display. Vitals: 02/23/21195702/24/21 0405 02/24/21 0931 02/24/21 1142 BP: (!) 161/72 (!) 169/74 (!) 171/77 (!) 169/73 BP Location: Left arm Left arm Left arm Left arm Patient Position (BP): Sitting Supine Supine Supine Pulse: 68 63 66 66 Resp: 18 18 20 18 Temp: 97.8 ??F (36.6 ??C) 97.4 ??F (36.3 ??C) 98.6 ??F (37 ??C) 98.4 ??F (36.9 ??C) TempSrc: Oral Oral Oral Oral SpO2: 95% 99% 99% 96% Weight: Height: PE: Awake, Alert, Ox3. PERRL. Speech intact. Follows all commands. Moves all extremities full/symmetric. Sensory intact to LT. Strength 5/5 throughout BLE Incision Silverlon dressing is clean/dry/intact. Abdomen less distended. Output by Drain (mL) 02/22/21699 - 02/22/21 1859 02/22/211899 - 02/23/21 0659 02/23/21 07 - 02/23/21 1859 02/23/21 190 - 02/24/21 0659 02/24/21 07 - 02/24/21 1321 Naso/Oral Tube 02/21/21 1544 16 Fr right nostril 1900 400 200 Recent Labs 02/22/21 0620 02/22/21 1848 02/23/21 0650 02/24/21 0640 NA 143 -- 140 142 K 2.8* 3.6 3.2* 3.4* CL 107 -- 103 110* CO2 27 -- 29 24 BUN 17 -- 21 17 CREAT 0.98 -- 1.06 0.96 GLUCOSE 99 -- 91 100* Nutrition: Current Diet and/or Nutritional Supplementation ordered: DIET CLEAR LIQUID Fluid/day: 1000 ML Fluid, Impression/Plan: Neuro exam intact Pain--well controlled Continue granger for now PT/OT Ileus- appreciate gen surg assistance, NG tube in place, correcting electrolytes, clamping trial today and clear liquid diet- if he tolerates, ok to d/c NG tube per their recs. Ok for PO bowel regimen. DVT prophylaxis - SCDs, Lovenox Miguelina Godinez PA-C NSGY PA Pager *For Healthcare Providers Only* (Thu- 7:30am-5pm and Thu-Thu 24 hours): [phone] NSGY After Hours Exchange: [phone] NSGY Office (Thu-Thu 8:30am-4:30pm): [phone] * Nelly Chou MD - 02/24/2021 8:31 AM CDT Images from the original note were not included. DATE: 02/24/2021 NAME: Jayjay Ellison : 1945 CSN: [id number] [facility] General Surgery Progress Note Recent Events: NAEON. NGT to LIWS, only 400cc of gastric appearing fluid overnight. Patient reports passing copious amounts of gas, denies BM. Reports overall feeling better. Is frustrated with prolonged hospital stay. ASSESSMENT/PLAN: Jayjay Ellison is a 75 y.o. male s/p lumbar interbody fusion, now with obstipation, bloating, and imaging consistent with postoperative ileus, appears to be starting to resolve - NGT clamp trial with limited CLD for 4 hours this morning. If patient able to tolerate gastric secretions and PO intake for 4 hours without nausea or emesis, OK to remove NGT and continue CLD. - If patient fails NGT clamp trial, patient NGT should be reconnected to LIWS. - serial abdominal exams - replete electrolytes to keep K > 4, Phos > 3, Mag > 2 - please contact general surgery team if change in patient clinical status - general surgery team will continue to follow See orders. I have reviewed this patient's history and physical, family history, acute and chronic diagnoses, all pertinent notes, vitals, labs, medications and images during my development of the above assessment and plan. I discussed case with Dr. Goetz. Nelly Chou MD, 02/24/2021 8:31 AM TACS Resident On-Call Pager [phone].TACS TACS Attending On-Call - please refer to Trauma and Acute Care Surgery (TACS) page on [facility] website Subjective: No chief complaint on file. Active Hospital Problems Diagnosis ??? Postoperative ileus ??? Spinal stenosis of lumbar region with neurogenic claudication Resolved Hospital Problems No resolved problems to display. HPI: Jayjay Ellison is a 75 y.o. male admitted after planned lumbar decompressions and fusion surgery by neurosurgery team on 02/19/2021. Patient reports that postoperatively he was feeling ok, pain has been controlled. Reports passing flatus on POD#1, but no longer passing flatus today (POD#2). Reports abdominal distension and discomfort with associated nausea and vomiting. reports coffee ground appearance of emesis as well as sour taste. Denies any previous history of bowel obstructions or bowel surgery. Reports distant history of left inguinal hernia repair. Allergies Allergen Reactions ??? Cephalosporins Unknown ??? Codeine Unknown ??? Tramadol Itching Medications Prior to Admission Medication Sig Dispense Refill Last Dose ??? budesonide-formoteroL (SYMBICORT) 160-4.5 mcg/actuation HFA Aerosol Inhaler Take 2 Puffs by inhalation daily. 02/19/2021 at 0600 ??? aspirin (MAMADOU) 325 mg tablet Take 325 mg by mouth daily. Past Week at Unknown time ??? montelukast (SINGULAIR) 10 mg tablet Take 10 mg by mouth daily at bedtime. 02/18/2021 at Unknowntime ??? furosemide (LASIX) 20 mg tablet Take 20 mg by mouth daily. 02/19/2021 at 0500 ??? atenoloL (TENORMIN) 50 mg tablet Take 50 mg by mouth daily. 02/19/2021 at 0500 ??? atorvastatin (LIPITOR) 10 mg tablet Take 10 mg by mouth daily. 02/19/2021 at 0500 ??? lisinopriL (PRINIVIL) 20 mg tablet Take 20 mg by mouth daily. 02/18/2021 at Unknown time ??? POTASSIUM ORAL Take 20 mg by mouth daily. 02/18/2021 at Unknown time ??? vitamin E 400 unit capsule Take 400 Units by mouth daily. Past Week at Unknown time ??? GGMTH-6-RLN-EPA-DPA ORAL Take 500 mg by mouth daily. Past Week at Unknown time ??? cyanocobalamin 1,000 mcg Tablet Take 1,000 mcg by mouth daily. Past Week at Unknown time ??? Cholecalciferol, Vitamin D3, 50 mcg (2,000 unit) Capsule Take by mouth. Past Week at Unknown time Past Medical History: Diagnosis Date ??? Arthritis ??? COPD (chronic obstructive pulmonary disease) ??? Difficult intravenous access ??? Difficulty balancing ??? Difficulty walking ??? Emphysema, unspecified ??? HTN (hypertension) ??? Hyperlipidemia ??? Low back pain ??? Numbness ??? Psoriasis ??? Skin disorder Past Surgical History: Procedure Laterality Date ??? HX BACK SURGERY N/A 02/19/2021 LUMBAR INTERBODY FUSION performed by Francisco Javier Quick MD at [facility] ??? HX HERNIA REPAIR x2 ??? HX KNEE ARTHROSCOPY Left ??? HX NASAL/SINUS SURGERY Family History Problem Relation Name Age of Onset ??? Hypertension Father ??? Hypertension Mother ??? Hypertension Sister ??? Hypertension Brother Social History Socioeconomic History ??? Marital status: Spouse name: Not on file ??? Number of children: Not on file ??? Years of education: Not on file ??? Highest education level: Not on file Occupational History ??? Not on file Tobacco Use ??? Smoking status: Never Smoker ??? Smokeless tobacco: Never Used Vaping Use ??? Vaping Use: Never used Substance and Sexual Activity ??? Alcohol use: Yes Comment: socially ??? Drug use: Never ??? Sexual activity: Not on file Other Topics Concern ??? Not on file Social History Narrative ??? Not on file Social Determinants of Health Financial Resource Strain: ??? Difficulty of Paying Living Expenses: Food Insecurity: ??? Worried About Running Out of Food in the Last Year: ??? Ran Out of Food in the Last Year: Transportation Needs: ??? Lack of Transportation (Medical): ??? Lack of Transportation (Non-Medical): Physical Activity: ??? Days of Exercise per Week: ??? Minutes of Exercise per Session: Stress: ??? Feeling of Stress : Social Connections: ??? Frequency of Communication with Friends and Family: ??? Frequency of Social Gatherings with Friends and Family: ??? Attends Evangelical Services: ??? Active Member of Clubs or Organizations: ??? Attends Club or Organization Meetings: ??? Marital Status: Intimate Partner Violence: ??? Fear of Current or Ex-Partner: ??? Emotionally Abused: ??? Physically Abused: ??? Sexually Abused: Review of Systems: Review of Systems Constitutional: Negative for chills and fever. HENT: Negative. Eyes: Negative. Respiratory: Negative. Cardiovascular: Negative. Gastrointestinal: Positive for constipation and nausea. Negative for abdominal pain and vomiting. Musculoskeletal: Positive for back pain. Skin: Negative. Psychiatric/Behavioral: Negative. Objective: Patient Vitals for the past 8 hrs: BP Temp Temp src Pulse Resp SpO2 02/24/21 0405 (!) 169/74 97.4 ??F (36.3 ??C) Oral 63 18 99 % BP (!) 169/74 (BP Location: Left arm, Patient Position (BP): Supine) Pulse 63 Temp 97.4 ??F (36.3 ??C) (Oral) Resp 18 Ht 5' 10 (1.778 m) Wt 109.9 kg (242 lb 4.8 oz) SpO2 99% BMI 34.77 kg/m?? Physical Exam: Gen alert, in no distress Neuro Grossly normal HEENT NGT in place with gastric secretions in canister Heart regular rate and rhythm Lungs normal respiratory effort on RA Abdomen Mildly distended, nontender to palpation on exam this morning Extremities intact distal pulses, moves all extremities equally, no edema, redness or tenderness inthe calves or thighs Skin WWP Other Psych: appropriate mood and affect Labs/Imaging: Results for orders placed or performed during the hospital encounter of 02/19/21 (from the past 24 hour(s)) POC GLUCOSE Result Value Ref Range POC GLUCOSE 83 74 - 99 mg/dL COMMENT, GLU POC Notified RN/MD FILM FLAT INSPECTOR NAME MIKAYLA AHMADI POC GLUCOSE Result Value Ref Range POC GLUCOSE 71 (L) 74 - 99 mg/dL COMMENT, GLU POC Notified RN/MD FILM FLAT INSPECTOR NAME MIKAYLA AHMADI POC GLUCOSE Result Value Ref Range POC GLUCOSE 90 74 - 99 mg/dL FILM FLAT INSPECTOR NAME MAIRA STALLWORTH (JANNETTE) POC GLUCOSE Result Value Ref Range POC GLUCOSE 88 74 - 99 mg/dL COMMENT, GLU POC To be Repeated FILM FLAT INSPECTOR NAME MAIRA STALLWORTH (JANNETTE) POC GLUCOSE Result Value Ref Range POC GLUCOSE 90 74 - 99 mg/dL COMMENT, GLU POC Notified RN/MD FILM FLAT INSPECTOR NAME MAIRA STALLWORTH (JANNETTE) BASIC METABOLIC PANEL Result Value Ref Range SODIUM 142 136 - 145 mmol/L POTASSIUM 3.4 (L) 3.5 - 5.0 mmol/L CHLORIDE 110 (H) 98 - 107 mmol/L CO2 24 22 - 29 mmol/L CALCIUM 8.3 (L) 8.6 - 10.2 mg/dL BUN 17 8 - 23 mg/dL CREATININE 0.96 0.67 - 1.17 mg/dL GLUCOSE 100 (H) 74 - 99 mg/dL GFR >60 mL/min/1.73 sq meter GFR, >60 mL/min/1.73 sq meter ANION GAP 8 8 - 16 mmol/L CALCIUM IONIZED Result Value Ref Range PH, VENOUS 7.45 (H) 7.32 - 7.43 CALCIUM IONIZED 4.6 (L) 4.8 - 5.2 mg/dL MAGNESIUM LEVEL Result Value Ref Range MAGNESIUM 2.3 1.6 - 2.4 mg/dL No new imaging Nelly Chou MD Associated attestation - Love Goetz MD - 02/24/2021 10:45 AM CDT Agree with below as noted by the resident. In addition I note: No acute events overnight. Patient is now having flatus with no bowel movements as yet. Feels much less distended, abdominal pain improving. Exam: Abdomen is soft, nontender to palpation, minimally tympanic on percussion. NG output is a total of 450 yesterday, 200 track since midnight. A/P: 75-year-old male status post lumbar fusion with postoperative ileus. Now recovering well and having flatus. Recommend 6-hour clamping trial today, if output is less than 200ml when suction is reattached for at least 15 minutes at the end of the clamping trial -okay to DC NG tube. Patient should remain on clears until tomorrow morning, start p.o. bowel regimen (MiraLAX, senna S,Dulcolax suppositories as needed) No indication for surgical intervention at this time. Surgery will continue to follow over the course of the day. If NG is removed the patient is started on clears, we will sign off. I certify that I have independently seen and examined this patient reviewed the patient's HPI, labs, xrays, and evaluated the travel consultant's notes and agree with the assessment as documented below. I have spent no less than 35 minutes involved in the care and evaluation of the patient; >50% ofthis time was spent in counseling and/or coordination of care for this patient. Love Goetz MD - Trauma and Acute Care Surgery - Pager: [phone] *If unable to reach me, please call the [facility]l screen operator and ask for the On-Call Trauma Surgeon* * Miguelina Godinez PA - 02/23/2021 2:20 PM CDT Neurosurgery Progress Note Jayjay Ellison 1945 4 Days Post-Op Procedure(s) (LRB): LUMBAR INTERBODY FUSION (N/A) Awake and alert. C/o expected back pain, controlled. No new leg symptoms. NG tube remains in place for ileus. He is now passing gas but no BM. He has been ambulating frequently. Active Hospital Problems Diagnosis ??? Postoperative ileus ??? Spinal stenosis of lumbar region with neurogenic claudication Resolved Hospital Problems No resolved problems to display. Vitals: 02/22/21 2018 02/23/21 0422 02/23/21 1013 02/23/21 1248 BP: (!) 152/70 (!) 148/77 (!) 168/72 (!) 163/78 BP Location: Right arm Right arm Left arm Left arm Patient Position (BP): Supine Supine Supine Supine Pulse: 72 72 71 64 Resp: 18 18 18 18 Temp: 98.4 ??F (36.9 ??C) 98.1 ??F (36.7 ??C) 98 ??F (36.7 ??C) TempSrc: Oral Oral Oral Oral SpO2: 96% 96% 97% 100% Weight: Height: PE: Awake, Alert, Ox3. PERRL. Speech intact. Follows all commands. Moves all extremities full/symmetric. Sensory intact to LT. Strength 5/5 throughout BLE Incision Silverlon dressing is clean/dry/intact. Abdomen distended but less firm today. Output by Drain (mL) 02/21/21 0700 - 02/21/21 1859 02/21/21 1900 - 02/22/21 0659 02/22/21 0700 - 02/22/21 1859 02/22/21 1900 - 02/23/21 0659 02/23/21 0700 - 02/23/21 1420 Naso/Oral Tube 02/21/21 1544 16 Fr right nostril 900 1900 Recent Labs 02/21/21 0707 02/21/21 1022 02/21/21 1244 02/22/21 0620 02/22/21 1848 02/23/21 0650 HGB 11.6* 12.0* -- -- -- -- HCT 35.5* 36.0* -- -- -- -- NA -- -- 140 143 -- 140 K -- -- 3.0* 2.8* 3.6 3.2* CL -- -- 103 107 -- 103 CO2 -- -- 26 27 -- 29 BUN -- -- 19 17 -- 21 CREAT -- -- 1.14 0.98 -- 1.06 GLUCOSE -- -- 98 99 -- 91 Nutrition: Current Diet and/or Nutritional Supplementation ordered: DIET NPO Sips w/Meds, Impression/Plan: Neuro exam intact Pain--well controlled Drain d/c'd today Continue granger for now PT/OT Orthostatic hypotension- resolved, suspect due to dehydration from vomiting and poor PO intake, H/Hstable, monitor BP Ileus- appreciate gen surg assistance, NG tube in place, NPO- ok for gum and hard candies, encourage ambulation at least 3x/day, correct electrolytes- KCl and calcium gluconate ordered for low K and ionized Ca- will follow labs and continue to replete as needed. Continue bowel regimen. Could consider small bowel follow through per gen surg recs. DVT prophylaxis - SCDs, Lovenox Miguelina Godinez PA-C NSGY PA Pager *For Healthcare Providers Only* (Thu- 7:30am-5pm and Thu-Thu 24 hours): [phone] NSGY After Hours Exchange: [phone] NSGY Office (Thu-Thu 8:30am-4:30pm): [phone] * Shyla Lord MD - 02/23/2021 5:55 AM CDT Images from the original note were not included. DATE: 02/23/2021 NAME: Jayjay Ellison : 1945 CSN: [id number] [facility] General Surgery Progress Note Recent Events: NAEON. Denies passing flatus or BM. NGT to LIWS, drained 1900cc bilious output in past 24 hours. Nochange in abdominal pain or distension. ASSESSMENT/PLAN: Jayjay Ellison is a 75 y.o. male s/p lumbar interbody fusion, now with obstipation, bloating, and imaging consistent with postoperative ileus. - NPO - continue NGT to LIWS - serial abdominal exams - replete electrolytes to keep K > 4, Phos > 3, Mag > 2 - recommend small bowel follow through - please contact general surgery team if change in patient clinical status - general surgery team will continue to follow See orders. I have reviewed this patient's history and physical, family history, acute and chronic diagnoses, all pertinent notes, vitals, labs, medications and images during my development of the above assessment and plan. I discussed case with Dr. Goetz. Shyla Lord MD, 02/23/2021 5:55 AM TACS Resident On-Call Pager [phone].TACS TACS Attending On-Call - please refer to Trauma and Acute Care Surgery (TACS) page on [facility] website Subjective: No chief complaint on file. Active Hospital Problems Diagnosis ??? Postoperative ileus ??? Spinal stenosis of lumbar region with neurogenic claudication Resolved Hospital Problems No resolved problems to display. HPI: Jayjay Ellison is a 75 y.o. male admitted after planned lumbar decompressions and fusion surgery by neurosurgery team on 02/19/2021. Patient reports that postoperatively he was feeling ok, pain has been controlled. Reports passing flatus on POD#1, but no longer passing flatus today (POD#2). Reports abdominal distension and discomfort with associated nausea and vomiting. reports coffee ground appearance of emesis as well as sour taste. Denies any previous history of bowel obstructions or bowel surgery. Reports distant history of left inguinal hernia repair. Allergies Allergen Reactions ??? Cephalosporins Unknown ??? Codeine Unknown ??? Tramadol Itching Medications Prior to Admission Medication Sig Dispense Refill Last Dose ??? budesonide-formoteroL (SYMBICORT) 160-4.5 mcg/actuation HFA Aerosol Inhaler Take 2 Puffs by inhalation daily. 02/19/2021 at 0600 ??? aspirin (MAMADOU) 325 mg tablet Take 325 mg by mouth daily. Past Week at Unknown time ??? montelukast (SINGULAIR) 10 mg tablet Take 10 mg by mouth daily at bedtime. 02/18/2021 at Unknowntime ??? furosemide (LASIX) 20 mg tablet Take 20 mg by mouth daily. 02/19/2021 at 0500 ??? atenoloL (TENORMIN) 50 mg tablet Take 50 mg by mouth daily. 02/19/2021 at 0500 ??? atorvastatin (LIPITOR) 10 mg tablet Take 10 mg by mouth daily. 02/19/2021 at 0500 ??? lisinopriL (PRINIVIL) 20 mg tablet Take 20 mg by mouth daily. 02/18/2021 at Unknown time ??? POTASSIUM ORAL Take 20 mg by mouth daily. 02/18/2021 at Unknown time ??? vitamin E 400 unit capsule Take 400 Units by mouth daily. Past Week at Unknown time ??? RMLET-3-MDE-EPA-DPA ORAL Take 500 mg by mouth daily. Past Week at Unknown time ??? cyanocobalamin 1,000 mcg Tablet Take 1,000 mcg by mouth daily. Past Week at Unknown time ??? Cholecalciferol, Vitamin D3, 50 mcg (2,000 unit) Capsule Take by mouth. Past Week at Unknown time Past Medical History: Diagnosis Date ??? Arthritis ??? COPD (chronic obstructive pulmonary disease) ??? Difficult intravenous access ??? Difficulty balancing ??? Difficulty walking ??? Emphysema, unspecified ??? HTN (hypertension) ??? Hyperlipidemia ??? Low back pain ??? Numbness ??? Psoriasis ??? Skin disorder Past Surgical History: Procedure Laterality Date ??? HX BACK SURGERY N/A 02/19/2021 LUMBAR INTERBODY FUSION performed by Francisco Javier Quick MD at [facility] ??? HX HERNIA REPAIR x2 ??? HX KNEE ARTHROSCOPY Left ??? HX NASAL/SINUS SURGERY Family History Problem Relation Name Age of Onset ??? Hypertension Father ??? Hypertension Mother ??? Hypertension Sister ??? Hypertension Brother Social History Socioeconomic History ??? Marital status: Spouse name: Not on file ??? Number of children: Not on file ??? Years of education: Not on file ??? Highest education level: Not on file Occupational History ??? Not on file Tobacco Use ??? Smoking status: Never Smoker ??? Smokeless tobacco: Never Used Vaping Use ??? Vaping Use: Never used Substance and Sexual Activity ??? Alcohol use: Yes Comment: socially ??? Drug use: Never ??? Sexual activity: Not on file Other Topics Concern ??? Not on file Social History Narrative ??? Not on file Social Determinants of Health Financial Resource Strain: ??? Difficulty of Paying Living Expenses: Food Insecurity: ??? Worried About Running Out of Food in the Last Year: ??? Ran Out of Food in the Last Year: Transportation Needs: ??? Lack of Transportation (Medical): ??? Lack of Transportation (Non-Medical): Physical Activity: ??? Days of Exercise per Week: ??? Minutes of Exercise per Session: Stress: ??? Feeling of Stress : Social Connections: ??? Frequency of Communication with Friends and Family: ??? Frequency of Social Gatherings with Friends and Family: ??? Attends Evangelical Services: ??? Active Member of Clubs or Organizations: ??? Attends Club or Organization Meetings: ??? Marital Status: Intimate Partner Violence: ??? Fear of Current or Ex-Partner: ??? Emotionally Abused: ??? Physically Abused: ??? Sexually Abused: Review of Systems: Review of Systems Constitutional: Negative for chills and fever. HENT: Negative. Eyes: Negative. Respiratory: Negative. Cardiovascular: Negative. Gastrointestinal: Positive for abdominal pain, constipation, nausea and vomiting. Musculoskeletal: Positive for back pain. Skin: Negative. Psychiatric/Behavioral: Negative. Objective: Patient Vitals for the past 8 hrs: BP Temp Temp src Pulse Resp SpO2 02/23/21 0422 (!) 148/77 98.1 ??F (36.7 ??C) Oral 72 18 96 % BP (!) 148/77 (BP Location: Right arm, Patient Position (BP): Supine) Pulse 72 Temp 98.1 ??F (36.7 ??C) (Oral) Resp 18 Ht 5' 10 (1.778 m) Wt 109.9 kg (242 lb 4.8 oz) SpO2 96% BMI 34.77kg/m?? Physical Exam: Gen alert, in no distress Neuro Grossly normal HEENT NGT in place Heart regular rate and rhythm Lungs normal respiratory effort on RA Abdomen Distended, diffusely mildly tender to palpation. Extremities intact distal pulses, moves all extremities equally, no edema, redness or tenderness inthe calves or thighs Skin WWP Other Psych: appropriate mood and affect Labs/Imaging: Results for orders placed or performed during the hospital encounter of 02/19/21 (from the past 24 hour(s)) BASIC METABOLIC PANEL Result Value Ref Range SODIUM 143 136 - 145 mmol/L POTASSIUM 2.8 (L) 3.5 - 5.0 mmol/L CHLORIDE 107 98 - 107 mmol/L CO2 27 22 - 29 mmol/L CALCIUM 7.4 (L) 8.6 - 10.2 mg/dL BUN 17 8 - 23 mg/dL CREATININE 0.98 0.67 - 1.17 mg/dL GLUCOSE 99 74 - 99 mg/dL GFR >60 mL/min/1.73 sq meter GFR, >60 mL/min/1.73 sq meter ANION GAP 9 8 - 16 mmol/L POC GLUCOSE Result Value Ref Range POC GLUCOSE 117 (H) 74 - 99 mg/dL COMMENT, GLU POC Notified RN/MD FILM FLAT INSPECTOR NAME MIKAYLA AHMADI CALCIUM IONIZED Result Value Ref Range PH, VENOUS 7.44 (H) 7.32 - 7.43 CALCIUM IONIZED 4.6 (L) 4.8 - 5.2 mg/dL POC GLUCOSE Result Value Ref Range POC GLUCOSE 114 (H) 74 - 99 mg/dL COMMENT, GLU POC Notified RN/MD FILM FLAT INSPECTOR NAME MIKAYLA AHMADI POC GLUCOSE Result Value Ref Range POC GLUCOSE 103 (H) 74 - 99 mg/dL FILM FLAT INSPECTOR NAME KAY LAN CALCIUM IONIZED Result Value Ref Range PH, VENOUS 7.42 7.32 - 7.43 CALCIUM IONIZED 4.7 (L) 4.8 - 5.2 mg/dL POTASSIUM LEVEL Result Value Ref Range POTASSIUM 3.6 3.5 - 5.0 mmol/L POC GLUCOSE Result Value Ref Range POC GLUCOSE 97 74 - 99 mg/dL FILM FLAT INSPECTOR NAME KARLO TRAVIS No new imaging Shyla Lord MD Associated attestation - Love Goetz MD - 02/23/2021 10:00 AM CDT Late attestation. Pt seen on 02/22; charge is appropriate for that date. Agree with below as noted by the resident. In addition I note: No acute events overnight. Patient reportedly having flatus but no bowel movements as yet. NG reportedly put out 1900 from 02/22-02/23. No recorded output in the last 2 shifts. No bowel movements recorded. Exam: Abdomen is distended, less firm. No peritonitis. Most recent x-ray shows diffusely distended loops of bowel consistent with known ileus. A/P: 75-year-old male status post lumbar fusion now presenting with postoperative ileus. Recommend continue conservative management with NG tube, could consider small bowel follow-through to assess for transition point or point of obstruction. This may also have therapeutic effect and patient is able to tolerate the contrast. Optimize electrolytes-K >4.0, Mg >2.0. Ok for gum and hard candies, otherwise n.p.o. with NG tube to LIS. Make sure to flush NG tube every 8 to maintain patency, air down the main/wound port, okay to flusha small amount of water down the main port. No water should go down the blue port. Encourage ambulation 3 times daily. General surgery will continue to follow I certify that I have independently seen and examined this patient reviewed the patient's HPI, labs, xrays, and evaluated the travel consultant's notes and agree with the assessment as documented below. I have spent no less than 40 minutes involved in the care and evaluation of the patient; >50% ofthis time was spent in counseling and/or coordination of care for this patient. oLve Goetz MD - Trauma and Acute Care Surgery - Pager: [phone] *If unable to reach me, please call the tetryl screen operator and ask for the On-Call Trauma Surgeon* * Miguelina Godinez PA - 02/22/2021 3:00 PM CDT Neurosurgery Progress Note Jayjay Ellison 1945 3 Days Post-Op Procedure(s) (LRB): LUMBAR INTERBODY FUSION (N/A) Awake and alert. C/o expected back pain, controlled. No new leg symptoms. NG tube placed yesterday for ileus and recurrent vomiting. He is now passing gas but no BM. He has been ambulating frequently. Active Hospital Problems Diagnosis ??? Postoperative ileus ??? Spinal stenosis of lumbar region with neurogenic claudication Resolved Hospital Problems No resolved problems to display. Vitals: 02/22/21 0352 02/22/21 0847 02/22/21 1237 02/22/21 1644 BP: (!) 154/84 (!) 150/93 (!) 154/68 (!) 156/64 BP Location: Left arm Left arm Left arm Right arm Patient Position (BP): Supine Supine Supine Supine Pulse: 78 86 81 73 Resp: 18 18 18 18 Temp: 97.9 ??F (36.6 ??C) 98.8 ??F (37.1 ??C) 98.2 ??F (36.8 ??C) 98.6 ??F (37 ??C) TempSrc: Oral Oral Oral Oral SpO2: 93% 100% 94% 95% Weight: Height: PE: Awake, Alert, Ox3. PERRL. Speech intact. Follows all commands. Moves all extremities full/symmetric. Sensory intact to LT. Strength 5/5 throughout BLE Incision Silverlon dressing is clean/dry/intact. Abdomen distended. Output by Drain (mL) 02/20/21 0700 - 02/20/21 1859 02/20/21 1900 - 02/21/21 0659 02/21/21 07 - 02/21/21 1859 02/21/21 1900 - 02/22/21 0659 02/22/21 0700 - 02/22/21 1831 Naso/Oral Tube 02/21/21 1544 16 Fr right nostril 900 1900 Drain/Device Site #1 Right: lumbar spine 285 80 90 140 60 Recent Labs 02/20/21 0652 02/21/21 0707 02/21/21 1022 02/21/21 1244 02/22/21 0620 HGB 11.6* 11.6* 12.0* -- -- HCT 34.3* 35.5* 36.0* -- -- NA -- -- -- 140 143 K -- -- -- 3.0* 2.8* CL -- -- -- 103 107 CO2 -- -- -- 26 27 BUN -- -- -- 19 17 CREAT -- -- -- 1.14 0.98 GLUCOSE -- -- -- 98 99 Nutrition: Current Diet and/or Nutritional Supplementation ordered: DIET NPO Sips w/Meds, Impression/Plan: Neuro exam intact Pain--well controlled Continue drain, monitor output Continue granger for now H/H stable PT/OT Orthostatic hypotension- resolved, suspect due to dehydration from vomiting and poor PO intake, H/Hstable, monitor BP, fluid bolus Ileus- appreciate gen surg assistance, NG tube in place, NPO, encourage ambulation at least 3x/day,correct electrolytes- KCl, calcium gluconate, and mag sulfate ordered this am for low levels- will recheck labs and replete as needed. Continue bowel regimen. DVT prophylaxis - SCDs, Lovenox SHIRLENE Granados PA Pager *For Healthcare Providers Only* (Thu- 7:30am-5pm and Thu-Thu 24 hours): [phone] NSGY After Hours Exchange: [phone] NSGY Office (Mon-Fri 8:30am-4:30pm): [phone] * Gerri Camejo RN - 02/22/2021 2:38 PM CDT Patient has been OOB and ambulating 3 times today * Miguelina Godinez PA - 02/21/2021 1:30 PM CDT NSGY Progress Note Abdominal xray suggestive of ileus Will make NPO Continue IVF Aggressive bowel regimen- will start Movantik Addendum: Patient started vomiting again this afternoon. Will place NG tube. Gen surg consult placed. * Miguelina Goidnez PA - 02/21/2021 11:44 AM CDT Neurosurgery Progress Note Jayjay Ellison 1945 2 Days Post-Op Procedure(s) (LRB): LUMBAR INTERBODY FUSION (N/A) Awake and alert. C/o expected back pain, controlled. Epidural d/c'd by pain services this morning. Having nausea with a couple episodes of emesis last night. No further emesis today but nausea persists. Also reports abdominal pain. No bowel movement since surgery and not passing gas. No appetite. In addition, he had an episode of orthostatic hypotension this morning and reported near syncope when getting up with therapy although patient denies feeling lightheaded. Active Hospital Problems Diagnosis ??? Spinal stenosis of lumbar region with neurogenic claudication Resolved Hospital Problems No resolved problems to display. Vitals: 02/21/21 0912 02/21/21 1028 02/21/21 1030 02/21/21 1035 BP: 116/65 122/58 132/72 97/47 BP Location: Right arm Right arm Right arm Patient Position (BP): Sitting Supine Sitting Standing Pulse: 90 72 Resp: 18 Temp: TempSrc: SpO2: 96% Weight: Height: PE: Awake, Alert, Ox3. PERRL. Speech intact. Follows all commands. Moves all extremities full/symmetric. Sensory intact to LT. Strength 5/5 throughout BLE Incision Silverlon dressing is clean/dry/intact. Abdomen distended. Output by Drain (mL) 02/19/21 07 - 02/19/21 1859 02/19/21 190 - 02/20/21 0659 02/20/21 07 - 02/20/21 1859 02/20/21 1900 - 02/21/21 0659 02/21/21 07 - 02/21/21 1144 Drain/Device Site #1 Right: lumbar spine 245 240 285 80 30 Recent Labs 02/20/21 0652 02/21/21 0707 02/21/21 1022 HGB 11.6* 11.6* 12.0* HCT 34.3* 35.5* 36.0* Nutrition: Current Diet and/or Nutritional Supplementation ordered: DIET CLEAR LIQUID Impression/Plan: Neuro exam intact Pain--well controlled, epidural d/c'd by pain services this am, PO and IV pain meds ordered Continue drain, monitor output Continue granger for now H/H stable PT/OT Orthostatic hypotension- suspect due to dehydration from vomiting and poor PO intake, H/H stable, monitor BP, fluid bolus Abdominal distension/constipation/vomiting- concern for ileus, stat abdominal xray ordered, clear liquid diet, aggressive bowel regimen (reglan, miralax, and mag citrate ordered) DVT prophylaxis - SCDs, Lovenox Miguelina Godinez PA-C NSGY PA Pager *For Healthcare Providers Only* (Thu- 7:30am-5pm and Thu-Thu 24 hours): [phone] NSGY After Hours Exchange: [phone] NSGY Office (Thu-Thu 8:30am-4:30pm): [phone] * Patrick Al - 02/20/2021 1:33 PM CDT I stopped in to see the patient to introduce him to [facility]. He was born in [place], raised in the [facility], lived in [place] and now lives in [place], [place]. Essentially, we spoke about [employer]. He was vocal and gave as good as he took. It was a very pleasant visit. Eventually, his daughter arrived and she simply listened as we went back and forth. Fr. Patrick Al, O.P. [phone] * Miguelina Godinez PA - 02/20/2021 1:13 PM CDT Neurosurgery Progress Note Jayjay Scot 1945 1 Day Post-Op Procedure(s) (LRB): LUMBAR INTERBODY FUSION (N/A) Doing well. Pain controlled with epidural. Preop leg pain resolved. Dressing saturated last night when he got to floor- replaced with new Silverlon dressing. Active Hospital Problems Diagnosis ??? Spinal stenosis of lumbar region with neurogenic claudication Resolved Hospital Problems No resolved problems to display. Vitals: 02/20/21 0706 02/20/21 0917 02/20/21 1146 02/20/21 1306 BP: 134/69 (!) 153/67 125/65 132/60 BP Location: Right arm Right arm Right arm Right arm Patient Position (BP): Supine Supine Supine Supine Pulse: 72 76 73 75 Resp: 16 16 16 18 Temp: 97.9 ??F (36.6 ??C) 97.8 ??F (36.6 ??C) 98.6 ??F (37 ??C) 97.8 ??F (36.6 ??C) TempSrc: Oral Oral Oral Oral SpO2: 97% 97% 97% 98% Weight: Height: PE: Awake, Alert, Ox3. PERRL. Speech intact. Follows all commands. Moves all extremities full/symmetric. Sensory intact to LT. Strength 5/5 throughout BLE Incision Silverlon dressing is clean/dry/intact Output by Drain (mL) 02/18/21 0700 - 02/18/21 1859 02/18/21 1900 - 02/19/21 0659 02/19/21 0700 - 02/19/21 1859 02/19/21 1900 - 02/20/21 0659 02/20/21 0700 - 02/20/21 1314 Drain/Device Site #1 Right: lumbar spine 245 240 245 Recent Labs 02/20/21 0652 HGB 11.6* HCT 34.3* Nutrition: Current Diet and/or Nutritional Supplementation ordered: DIET GENERAL Effective Now Impression/Plan: Neuro exam intact Pain--well controlled Continue drain, monitor output Continue granger and epidural until tomorrow am H/H stable PT/OT DVT prophylaxis - SCDs Miguelina Godinez PA-C NSGY PA Pager *For Healthcare Providers Only* (Thu- 7:30am-5pm and Thu-Thu 24 hours): [phone] NSGY After Hours Exchange: [phone] NSGY Office (Thu-Thu 8:30am-4:30pm): [phone] * Jazzy Coto RN - 02/20/2021 10:12 AM CDT [facility] Adult Therapeutic Orders Protocol [facility] Approved by: [facility] - Medical Executive Committee Approval Date: 07/05/2020 ORDERS ARE ENTERED ???PER PROTOCOL?? Enter the protocol in the patient's electronic health record using smartphrase:.nursingtherapeuticordersprotocol For inpatients with complaints of minor discomfort Nursing Orders: o QIT252 Ice Pack/Cold Therapy 20 minutes every 2 hours to affected area. o [id number] Warm Compress/Heat to affected area 20 minutes every 8 hours to affected area. Medication Orders: o yaufqrejzj-ofkguvg-bsjdbxteuuxhos (CEPACOL) lozenge. 1 each by mouth every 2 hours PRN for sore throat. o Docusate sodium (COLACE) capsule 100 mg, Oral two times daily for constipation except for patients with diagnosed or rule-out bowel obstruction o calcium carbonate (TUMS) chewable tablet. 400mg, Oral every 4 hours PRN for heartburn. o simethicone (MYLICON) tablet. 160 mg Oral four times daily PRN for gas. o Neomycin-Bacitracin Zn-Polymyxin (NEOSPORIN) topical ointment. 1 packet, One Time to affected area. For minor scraps/abrasions. Use cover dressing as needed. o Polyvinyl alcohol-povidon(PF) (REFRESH CLASSIC) 1.4-0.6% ophthalmic solution. 1 drop to affected eye every 4 hours PRN for dry eye. o Sodium chloride (OCEAN) 0.65% nasal solution. 2 sprays to affected nostril every 15 minutes PRN for congestion. o If symptoms persist or worsen contact provider for further orders * Elza Blanco RN - 02/20/2021 1:07 AM CDT Images from the original note were not included. ?02/2020[facility] Adult IV Flush Protocol [facility] Approved by: [facility] - Medical Executive Committee Approval Date: 02/20/2020 ORDERS ARE ENTERED ???PER PROTOCOL?? Enter the protocol in the patient's electronic health record using smartphrase: .adultivflushprotocol NURSING ORDERS Ok to utilize existing central venous access (example: Implanted Port, PICC) unless otherwise directed by provider. (Exclusion: Hemodialysis line may not be accessed without order from provider) Local Anesthetic for IV Initiation Panel (18 and over) ORDER SET Local Anesthetic for use to initiate IV (orders to discontinue 24 hours from initiation) ; Lidocaine 1% 0.3mL intradermal ONE TIME to numb area of IV catheter insertion or port access PRN ; Lidocaine 4% (L.M.X.4) applied topically ONE TIME 15 minutes prior to IV catheter insertion PRN Peripheral IV (Peripheral and Midline catheter) Flush Panel (18 yr and over) ORDER SET ; Line care and maintenance o Sodium chloride 0.9% (normal saline) flush 5 mL every 12 hours when locked o Sodium chloride 0.9% (normal saline) flush 5 mL PRN before and after medication administration orto verify line patency ; Carrier fluid (select most appropriate fluid for capability with medications) o Sodium chloride 0.9% (normal saline) 250 mL carrier bag. - Infuse 25 mL at a rate of IVPB administration to flush as needed to complete the IVPB and/or may keep rate at KVO (10mL/hr) to minimize frequent line interruption. o Dextrose 5% (D5W) 250 mL carrier bag - Infuse 25 mL at a rate of IVPB administration to flush as needed to complete the IVPB and/or may keep rate at KVO (10mL/hr) to minimize frequent line interruption. Central Lines (CVC, Sheath/Introducer, 3rd lumen of Hemodialysis catheter) Flush Panel (18 yr and over) ORDER SET ; Line care and maintenance o Sodium chloride 0.9% (normal saline) flush 10mL per lumen every 12 hours when locked. o Sodium chloride 0.9% (normal saline) flush 10mL per lumen before and after medication administration or to verify line patency. ; Carrier fluid (select most appropriate fluid for capability with medications) o Sodium chloride 0.9% (normal saline) 250 mL carrier bag. - Infuse 25 mL at a rate of IVPB administration to flush as needed to complete the IVPB and/or may keep rate at KVO (10mL/hr) to minimize frequent line interruption. o Dextrose 5% (D5W) 250 mL carrier bag: carrier bag - Infuse 25 mL at a rate of IVPB administration to flush as needed to complete the IVPB and/or may keep rate at KVO (10mL/hr) to minimize frequent line interruption. Central Lines (PICC, Implanted Port) Flush Panel (18 yr and over) ORDER SET ; Line care and maintenance o Sodium chloride 0.9% (normal saline) flush 10mL per lumen AND Heparin 10 units/mL 5mL per lumen every 12 hours after normal saline flush when locked. o Sodium chloride 0.9% (normal saline) flush 10mL per lumen before and after medication administration or to verify line patency AND Heparin 10 units/mL 5 mL per lumen following normal saline flush to lock. ; Carrier fluid (select most appropriate fluid for capability with medications) o Sodium chloride 0.9% (normal saline) 250 mL carrier bag. - Infuse 25 mL at a rate of IVPB administration to flush as needed to complete the IVPB and/or may keep rate at KVO (10mL/hr) to minimize frequent line interruption. o Dextrose 5% (D5W) 250 mL carrier bag: carrier bag - Infuse 25 mL at a rate of IVPB administration to flush as needed to complete the IVPB and/or may keep rate at KVO (10mL/hr) to minimize frequent line interruption. Transducers- Hemodynamic Pressure Monitoring ??? Arterial Catheter, Pulmonary Artery Catheter, Central Venous Pressure, Intra-Aortic Balloon Pump: o Sodium chloride 0.9% (normal saline) to infuse continuously at 3mL/hr via pressure bag at 300 mmHg ??? Intra-Aortic Balloon Pump: o Heparin 2 unit/mL in normal saline to infuse continuously at 3 mL/hr via pressure bag at 300mmHg For Occluded Central Line (Adult ONCOLOGY only) ?? Alteplase (CATHFLO) Instill 2mg to affected lumen(s) to dwell in occluded lumen one time. * Jenn Jaramillo RN - 02/19/2021 6:06 PM CDT ?UNDRESS AND ASSESS FOR ALL ADMISSIONS AND TRANSFERS: Remove all existing dressings and assess all wounds upon admission (unless instructed by physician). Undress and Assess performed by: bedside coworker DC Barajas and bedside coworker ALVAREZ Jordan upon transfer to [facility] Demetrio Score: Demetrio Score: 18 (02/19/21 1519) 1. Patient does not have skin breakdown. ??? If yes o Description of wound location and appearance: pt is a post-op pt back sx (silverlon dressing to back) o LDA added for any open areas and for non-blanching pink/red or purple areas? N/A (please note, heels, ankles, knees, hips, sacrum, coccyx, ischium, gluteal, occiput, spine and all skin folds are high risk for skin breakdown) and consult wound care services 2. Was wound photographed: No 3. Is a specialty support surface utilized? No If yes, which one?: i.e. impaired mobility, bariatric, malnourished, existing pressure injury. 4. Is the patient a paraplegic/quadriplegic? No If so, if stable spine immediately place on specialty surface. If unstable spine or new spinal injury, consult physician (per facility process) and consult wound care services. 5. Is a medical radiation tech in place?no If yes, remove device/brace/splint to check skin underneath, obtain provider order if necessary. 6. Does the patient have a wound VAC (negative pressure wound therapy)? No If yes, please consult wound care services and follow facility process. 7. Does the patient have an ostomy? No If yes, please consult wound care services. 8. Was the Skin Care Prevention: Pressure Injury Pathway initiated and appropriate interventions selected? (i.e. protective foams, turn patient q 2 h, elevate heels etc.) Yes 9. Was the Skin Care Treatment: Pressure Injury/Lower Extremity Ulcer Pathway initiated, and appropriate interventions selected? Yes(i.e. cleanse and apply silicone border dressing to skin tears, cleanse and apply antifungal to affected skin folds and apply soft linen or Interdry between folds etc.). Wound care consult was not initiated. [facility] Skin Care Injury Prevention and Treatment Protocol [facility] Approved by: [facility] - Medical Executive Committee Approval Date: 10/06/2019 ORDERS ARE ENTERED ???PER PROTOCOL?? Nursing Orders: o When a patient age 18 years or older has: ; a documented Demetrio score of 18 or less or a Demetrio sub score of 2 or 1, ; or a documented condition on the problem list of: diabetes, malnutrition or cachectic, paralysis,spinal cord disorder/injuries or muscle/neurological disease, THEN, the RN will order the Skin Care/Pressure Injury Prevention Pathway and initiate all appropriate interventions as per the Demetrio Risk Assessment Algorithm. o When a patient age 18 years or older has a wound requiring treatment, the RN and Wound Care Nurses may order the Skin Care/Pressure Ulcer/Lower Extremity Ulcer Treatment Pathway and use appropriatetreatments found in the Nursing Algorithm. o The Wound Care Nurse may also order treatments found in the Wound Care Algorithm. documented in this encounter H&P Notes * Tuyet Fox PA - 02/19/2021 9:02 AM CDT [place], [place] [address] HISTORY AND PHYSICAL PATIENT NAME: Jayjay Ellison CSN: [id number] ADMITTING PHYSICIAN: Francisco Javier Quick MD PRIMARY CARE PROVIDER: Philippe Geiger MD Admission Diagnosis: Spinal stenosis of lumbar region with neurogenic claudication History Patient is a 75 y.o. male admitted for lumbar decompression and fusion. He initially presented withc/o lower back pain with left leg radiation. The pain started about 10 weeks ago with severe pain radiating mainly into the left leg with some radiation into the right leg. The pain is associated with numbness of the whole leg as well as the toes. He had a work-up for vascular flow without any significant pathology. Patient denies having any urinary incontinence. The pain is worse with standing. Upon awakening the pain is severe and he has a hard time getting out of bed. He has not had any significant treatment for this condition. Past Medical History: Diagnosis Date ??? Arthritis ??? COPD (chronic obstructive pulmonary disease) ??? Difficult intravenous access ??? Difficulty balancing ??? Difficulty walking ??? Emphysema, unspecified ??? HTN (hypertension) ??? Hyperlipidemia ??? Low back pain ??? Numbness ??? Psoriasis ??? Skin disorder Past Surgical History: Procedure Laterality Date ??? HX HERNIA REPAIR x2 ??? HX KNEE ARTHROSCOPY Left ??? HX NASAL/SINUS SURGERY Allergies Allergen Reactions ??? Cephalosporins Unknown ??? Codeine Unknown ??? Tramadol Itching Prior to Admission medications Medication Sig Start Date End Date Taking? Authorizing Provider aspirin (MAMADOU) 325 mg tablet Take 325 mg by mouth daily. Yes Provider, Historical montelukast (SINGULAIR) 10 mg tablet Take 10 mg by mouth daily at bedtime. Yes Provider, Historical furosemide (LASIX) 20 mg tablet Take 20 mg by mouth daily. Yes Provider, Historical atenoloL (TENORMIN) 50 mg tablet Take 50 mg by mouth daily. Yes Provider, Historical atorvastatin (LIPITOR) 10 mg tablet Take 10 mg by mouth daily. Yes Provider, Historical lisinopriL (PRINIVIL) 20 mg tablet Take 20 mg by mouth daily. Yes Provider, Historical POTASSIUM ORAL Take 20 mg by mouth daily. Yes Provider, Historical vitamin E 400 unit capsule Take 400 Units by mouth daily. Yes Provider, Historical [id number]-7-[id number]-EPA-DPA ORAL Take 500 mg by mouth daily. Yes Provider, Historical cyanocobalamin 1,000 mcg Tablet Take 1,000 mcg by mouth daily. Yes Provider, Historical Cholecalciferol, Vitamin D3, 50 mcg (2,000 unit) Capsule Take by mouth. Yes Provider, Historical Social History Tobacco Use ??? Smoking status: Never Smoker ??? Smokeless tobacco: Never Used Substance Use Topics ??? Alcohol use: Yes Comment: socially Family History Problem Relation Name Age of Onset ??? Hypertension Father ??? Hypertension Mother ??? Hypertension Sister ??? Hypertension Brother Review of Systems 10 point ROS reviewed, all pertinent positives are in the HPI. Patient denies any recent fevers, chills, or swelling in the extremities. Physical Exam The patient is alert and oriented Cardiovascular: RRR Respiratory: even, unlabored Gastrointestinal: nondistended NEURO: Face is symmetric, speech intact Motor of LE's: 5/5 Sensory: is intact to LT throughout Impression Low back pain due to degenerative disc disease and spondylolisthesis. Spinal Stenosis Plan: Surgery will consist of a posterior laminectomy with bilateral facetectomy at L2-3, L3-4, and L4-5 with transforaminal lumbar interbody fusion at L2-3, L3-4, and L4-5. The risks and benefits of the surgery were explained, including no guarantee for success. The patient wishes to proceed with the procedure as planned and consents. Tuyet Fox PA-C documented in this encounter Consult Notes * Nelly Chou MD - 02/21/2021 3:57 PM CDTAssociated Order(s): IP CONSULT TO GENERAL SURGERY Images from the original note were not included. DATE: 02/21/2021 NAME: Jayjay Ellison : 1945 CSN: [id number] [facility] General Surgery H&P/Consult ASSESSMENT/PLAN: Jayjay Ellison is a 75 y.o. male POD#2 s/p lumbar interbody fusion, now with obstipation, bloating, and imaging consistent with postoperative ileus. - NPO - NGT to LIWS, placement to be confirmed with KUB - serial abdominal exams - replete electrolytes to keep K > 4, Phos > 3, Mag > 2 - please contact general surgery team if change in patient clinical status - general surgery team will continue to follow See orders. I have reviewed this patient's history and physical, family history, acute and chronic diagnoses, all pertinent notes, vitals, labs, medications and images during my development of the above assessment and plan. I discussed case with Dr. Goetz. Nelly Chou MD, 02/21/2021 3:58 PM TACS Resident On-Call Pager [phone] TACS Attending On-Call - please refer to Trauma and Acute Care Surgery (TACS) page on [facility] website Subjective: No chief complaint on file. Active Hospital Problems Diagnosis ??? Spinal stenosis of lumbar region with neurogenic claudication Resolved Hospital Problems No resolved problems to display. HPI: Jayjay Ellison is a 75 y.o. male admitted after planned lumbar decompressions and fusion surgery by neurosurgery team on 02/19/2021. Patient reports that postoperatively he was feeling ok, pain has been controlled. Reports passing flatus on POD#1, but no longer passing flatus today (POD#2). Reports abdominal distension and discomfort with associated nausea and vomiting. reports coffee ground appearance of emesis as well as sour taste. Denies any previous history of bowel obstructions or bowel surgery. Reports distant history of left inguinal hernia repair. Allergies Allergen Reactions ??? Cephalosporins Unknown ??? Codeine Unknown ??? Tramadol Itching Medications Prior to Admission Medication Sig Dispense Refill Last Dose ??? budesonide-formoteroL (SYMBICORT) 160-4.5 mcg/actuation HFA Aerosol Inhaler Take 2 Puffs by inhalation daily. 02/19/2021 at 0600 ??? aspirin (MAMADOU) 325 mg tablet Take 325 mg by mouth daily. Past Week at Unknown time ??? montelukast (SINGULAIR) 10 mg tablet Take 10 mg by mouth daily at bedtime. 02/18/2021 at Unknowntime ??? furosemide (LASIX) 20 mg tablet Take 20 mg by mouth daily. 02/19/2021 at 0500 ??? atenoloL (TENORMIN) 50 mg tablet Take 50 mg by mouth daily. 02/19/2021 at 0500 ??? atorvastatin (LIPITOR) 10 mg tablet Take 10 mg by mouth daily. 02/19/2021 at 0500 ??? lisinopriL (PRINIVIL) 20 mg tablet Take 20 mg by mouth daily. 02/18/2021 at Unknown time ??? POTASSIUM ORAL Take 20 mg by mouth daily. 02/18/2021 at Unknown time ??? vitamin E 400 unit capsule Take 400 Units by mouth daily. Past Week at Unknown time ??? XUSQC-0-LAO-EPA-DPA ORAL Take 500 mg by mouth daily. Past Week at Unknown time ??? cyanocobalamin 1,000 mcg Tablet Take 1,000 mcg by mouth daily. Past Week at Unknown time ??? Cholecalciferol, Vitamin D3, 50 mcg (2,000 unit) Capsule Take by mouth. Past Week at Unknown time Past Medical History: Diagnosis Date ??? Arthritis ??? COPD (chronic obstructive pulmonary disease) ??? Difficult intravenous access ??? Difficulty balancing ??? Difficulty walking ??? Emphysema, unspecified ??? HTN (hypertension) ??? Hyperlipidemia ??? Low back pain ??? Numbness ??? Psoriasis ??? Skin disorder Past Surgical History: Procedure Laterality Date ??? HX BACK SURGERY N/A 02/19/2021 LUMBAR INTERBODY FUSION performed by Francisco Javier Quick MD at [facility] ??? HX HERNIA REPAIR x2 ??? HX KNEE ARTHROSCOPY Left ??? HX NASAL/SINUS SURGERY Family History Problem Relation Name Age of Onset ??? Hypertension Father ??? Hypertension Mother ??? Hypertension Sister ??? Hypertension Brother Social History Socioeconomic History ??? Marital status: Spouse name: Not on file ??? Number of children: Not on file ??? Years of education: Not on file ??? Highest education level: Not on file Occupational History ??? Not on file Tobacco Use ??? Smoking status: Never Smoker ??? Smokeless tobacco: Never Used Vaping Use ??? Vaping Use: Never used Substance and Sexual Activity ??? Alcohol use: Yes Comment: socially ??? Drug use: Never ??? Sexual activity: Not on file Other Topics Concern ??? Not on file Social History Narrative ??? Not on file Social Determinants of Health Financial Resource Strain: ??? Difficulty of Paying Living Expenses: Food Insecurity: ??? Worried About Running Out of Food in the Last Year: ??? Ran Out of Food in the Last Year: Transportation Needs: ??? Lack of Transportation (Medical): ??? Lack of Transportation (Non-Medical): Physical Activity: ??? Days of Exercise per Week: ??? Minutes of Exercise per Session: Stress: ??? Feeling of Stress : Social Connections: ??? Frequency of Communication with Friends and Family: ??? Frequency of Social Gatherings with Friends and Family: ??? Attends Evangelical Services: ??? Active Member of Clubs or Organizations: ??? Attends Club or Organization Meetings: ??? Marital Status: Intimate Partner Violence: ??? Fear of Current or Ex-Partner: ??? Emotionally Abused: ??? Physically Abused: ??? Sexually Abused: Review of Systems: Review of Systems Constitutional: Negative for chills and fever. HENT: Negative. Eyes: Negative. Respiratory: Negative. Cardiovascular: Negative. Gastrointestinal: Positive for abdominal pain, constipation, nausea and vomiting. Musculoskeletal: Positive for back pain. Skin: Negative. Psychiatric/Behavioral: Negative. Objective: Patient Vitals for the past 8 hrs: BP Pulse Resp SpO2 02/21/21 1035 97/47 -- -- -- 02/21/21 1030 132/72 -- -- -- 02/21/21 1028 122/58 72 -- -- 02/21/21 0912 116/65 90 18 96 % BP 97/47 (BP Location: Right arm, Patient Position (BP): Standing) Pulse 72 Temp 98.8 ??F (37.1??C) (Oral) Resp 18 Ht 5' 10 (1.778 m) Wt 109.9 kg (242 lb 4.8 oz) SpO2 96% BMI 34.77 kg/m?? Physical Exam: Gen alert, in no distress Neuro Grossly normal HEENT NGT in place Heart regular rate and rhythm Lungs normal respiratory effort on RA Abdomen Rubbery, distended, diffusely mildly tender to palpation. Extremities intact distal pulses, moves all extremities equally, no edema, redness or tenderness inthe calves or thighs Skin WWP Other Psych: appropriate mood and affect Labs/Imaging: Results for orders placed or performed during the hospital encounter of 02/19/21 (from the past 24 hour(s)) HEMOGLOBIN AND HEMATOCRIT Result Value Ref Range HEMOGLOBIN 11.6 (L) 13.6 - 16.5 g/dL HEMATOCRIT 35.5 (L) 40.0 - 48.0 % POC GLUCOSE Result Value Ref Range POC GLUCOSE 122 (H) 74 - 99 mg/dL FILM FLAT INSPECTOR NAME JAZZY COTO HEMOGLOBIN AND HEMATOCRIT Result Value Ref Range HEMOGLOBIN 12.0 (L) 13.6 - 16.5 g/dL HEMATOCRIT 36.0 (L) 40.0 - 48.0 % BASIC METABOLIC PANEL Result Value Ref Range SODIUM 140 136 - 145 mmol/L POTASSIUM 3.0 (L) 3.5 - 5.0 mmol/L CHLORIDE 103 98 - 107 mmol/L CO2 26 22 - 29 mmol/L CALCIUM 8.5 (L) 8.6 - 10.2 mg/dL BUN 19 8 - 23 mg/dL CREATININE 1.14 0.67 - 1.17 mg/dL GLUCOSE 98 74 - 99 mg/dL GFR >60 mL/min/1.73 sq meter GFR, >60 mL/min/1.73 sq meter ANION GAP 11 8 - 16 mmol/L Abdominal XR: dilated loops of small bowel and colon. Gas extending to distal colon. Distended stomach. I personally reviewed all images. Nelly Chou MD Associated attestation - Love Goetz MD - 02/21/2021 5:28 PM CDT Agree with below as noted by the resident. In addition I note: 75-year-old male status post lumbar fusion now with obstipation/bloating. Imaging consistent with ileus. Exam: Abdomen distended, diffusely tender to palpation. Hypokalemia noted, otherwise electrolytes are within normal limits. X-ray of the abdomen demonstrates diffusely dilated bowel with NG tube in the gastric body. A/P: 75-year-old male with a postoperative ileus following a lumbar fusion. NG in place, set this low intermittent suction with occasional flushes to maintain patency. Correct electrolytes, K greater than 4, mag greater than 2, normalize electrolytes. N.p.o. except for meds as needed. Await return of bowel function prior clamping NG. OK to be clamped for transport/tests Encourage patient to be up and ambulating 3 times daily. I certify that I have independently seen and examined this patient reviewed the patient's HPI, labs, xrays, and evaluated the travel consultant's notes and agree with the assessment as documented below. I have spent no less than 35 minutes involved in the care and evaluation of the patient; >50% ofthis time was spent in counseling and/or coordination of care for this patient. Love Goetz MD - Trauma and Acute Care Surgery - Pager: [phone] *If unable to reach me, please call the tetryl screen operator and ask for the On-Call Trauma Surgeon* documented in this encounter OR Notes * Anesthesiology - Zachary Krueger MD - 02/21/2021 10:40 AM CDT 02/21/2021 10:40 AM Regional Anesthesia Service Name: Jayjay Ellison Age: 75 y.o. Sex: male CSN: [id number] Chief complaint: Post operative pain POD # 2 Epidural Infusing at 4.5 cc/hr Pain scale at rest: 0/10 Pain scale with movement/cough: 0/10 Sedation: no Pruritis: no Nausea/vomiting: has had nausea , not taking diet yet. Urinary retention: no BP 97/47 (BP Location: Right arm, Patient Position (BP): Standing) Pulse 72 Temp 37.1 ??C (Oral) Resp 18 Ht 5' 10 (1.778 m) Wt 109.9 kg (242 lb 4.8 oz) SpO2 96% BMI 34.77 kg/m?? Alert: yes Motor block: no Sensory block: no Epidural site C/D/I: yes LABS Lab Results Component Value Date/Time WBC 8.4 02/11/2021 11:10 AM HEMOGLOBIN 11.6 (L) 02/21/2021 07:07 AM HEMATOCRIT 35.5 (L) 02/21/2021 07:07 AM PLATELETS 205 02/11/2021 11:10 AM No results found for: INR, PT, PROTIMEPOC Epidural catheter removed, with tip intact. Epidural orders discontinued. The following pain medications were ordered:morphine Future pain management per surgeon. The Regional Anesthesia Service may be contacted by zone phone [phone] during daytime resource hours,or by pager [phone] at any time. If there is no answer within 20 minutes, call [phone] for the Anesthesiologist radiation control technician. Zachary Krueger MD Pager: [phone] * Anesthesiology - Zachary Krueger MD - 02/20/2021 11:14 AM CDT 02/20/2021 11:14 AM Regional Anesthesia Service Name: Jayjay Ellison Age: 75 y.o. Sex: male CSN: [id number] Chief complaint: Post operative pain POD # 1 Epidural Infusing at 6 cc/hr Pain scale at rest: 0/10 Pain scale with movement/cough: 0/10 Sedation: no Pruritis: yes; moderately severe Nausea/vomiting: no Urinary retention: no BP (!) 153/67 (BP Location: Right arm, Patient Position (BP): Supine) Pulse 76 Temp 36.6 ??C (Oral) Resp 16 Ht 5' 10 (1.778 m) Wt 109.9 kg (242 lb 4.8 oz) SpO2 97% BMI 34.77 kg/m?? Alert: yes Motor block: no Sensory block: no as noted by touch. Infusing: yes LABS Lab Results Component Value Date/Time WBC 8.4 02/11/2021 11:10 AM HEMOGLOBIN 11.6 (L) 02/20/2021 06:52 AM HEMATOCRIT 34.3 (L) 02/20/2021 06:52 AM PLATELETS 205 02/11/2021 11:10 AM No results found for: INR, PT, PROTIMEPOC Continue epidural infusion at 4.5 cc/hr Plan to discontinue epidural catheter tomorrow. Zachary Krueger MD Pager: [phone] * Operative Report - Francisco Javier Quick MD - 02/20/2021 12:14 AM CDT [facility] [place] Patient: JAYJAY ELLISON CSN: [id number] : 1945 Provider: Francisco Javier Quick MD Operative Report DATE OF SERVICE: 02/19/21 PREOPERATIVE DIAGNOSES: Lumbar spondylosis with stenosis with neurogenic claudication at L2-3, L3-4, and L4-5; spondylolisthesis, degenerative, at L4-5. POSTOPERATIVE DIAGNOSES: Lumbar spondylosis with stenosis with neurogenic claudication at L2-3, L3-4, and L4-5; spondylolisthesis, degenerative, at L4-5. OPERATION NAME: Laminectomy, bilateral facetectomy, L2-3, L3-4, and L4-5; transforaminal lumbar interbody fusion with insertion of conduit cage, L2-3, L3-4, and L4-5; pedicle screw fixation, L2, 3, 4, and 5; autologous bone graft, local harvest combined anterior and posterolateral fusion, L2-3, L3-4, and L4-5. SURGEON: Francisco Javier Quick MD ANESTHESIA: CAN SORTER: Tuyet Fox. ESTIMATED BLOOD LOSS: 600 mL. COMPLICATIONS: None. BRIEF HISTORY: This is a 75-year-old man with a long history of lower back pain with bilateral leg radiation, leftside worse than right. In spite of conservative treatment, the pain continued to worsen. The pain was mostly worse when he was standing up and walking, somewhat better when he sat. MRI revealed severe stenosis at L2-3, L3-4, and L4-5. At L4-5, there was a stable 8 mm spondylolisthesis with bilateral foraminal impingement. There was some disk bulging at both L2-3 and L3-4. WHAT WAS DONE: The patient was taken to the operating room and placed in a supine position. After a satisfactory general endotracheal anesthesia, he was turned over prone over a Richard frame on the Alexsander table. The lower lumbar region was prepped and draped in the usual fashion, infiltrated with 10 mL of 1% lidocaine with epinephrine. A midline incision was made. Muscle was stripped from the lamina of L2, L3,L4, and top of L5. The exposure was extended to the lateral aspect of the facet joints. The L5 pedicle was cannulated at the root of transverse process and tapped with a 6 mm tap. A 7 x 45 mm screw was inserted. Similarly, at L3 and L4, pedicles were cannulated at the root of the transverse process, tapped with a 6 mm tap, probed, and 7 x 45 mm screws were inserted. On the right side, L2, L3, L4,and L5 pedicles were similarly cannulated, tapped with a 6 mm tap, 7 x 45 mm screws were inserted. Lateral lumbar spine x-ray was obtained at this point to examine the position of the screws. The spinous processes of L2, L3, and L4 were removed with a Synchronized bone biter. PetBox drill was used to perform a laminectomy at L2, L3, and L4. The superior and medial tips of the superior articulating processes of L3, L4, and L5 were drilled to dislodge and uncover the foramen bilaterally. Epidural veins were coagulated with bipolar coagulation. At L4-5 level, the annulotomy was performed with a #11 blade. Disk space shaver was used to shave away disk material starting with 7 mm up to 9 mm at L4-5.A 9 mm cage was selected. This was packed with the patient's own bone. After scraping enough disk material and retrieving disk material at L4-5 interspace, the 9 mm cage was gently pounded into place. At the L3-4 level, similarly, the thecal sac was retracted medially with a nerve root retractor. Ep idural vein was coagulated with bipolar coagulation. Annulotomy was performed with a #11 blade. After scraping the disk material from this level, an 8 mm x 26 mm cage was selected. This was packed with the patient's own bone and gently pounded into place. At the L2-3 level, disk space again was shaved. A 7 mm cage was selected and this was gently pounded into place after packing the cage with thepatient's own bone morselized from the laminectomy, facetectomy. The decompression was refined bilaterally with a Kerrison rongeur. 105 mm slightly lordosed rods were inserted into the variable-anglescrew heads. The O-arm was brought into the field to assess the position of the screws, which seemed to be adequate. Before the final tightening of the set screws, gentle compression was applied between L2 and L3 and L3 and L4 and L4 and L5 pedicle screws. After placing the bone grafts along the transverse processes bilaterally, a separate puncture wound was made to advance the epidural catheter under the L1 lamina. After sprinkling vancomycin powder over the raw surface of the wound, deep fasci a was closed with 0 Vicryl suture. After placing a subcutaneous drain, subcutaneous layer was closed with 2-0 Vicryl suture. Skin was closed with 4-0 Monocryl running subcuticular stitch. The patienttolerated the procedure well and he was transferred to recovery room in stable condition. Francisco Javier Quick MD MMODL D: [id number] V: [id number] CC Philippe Geiger MD * OR Anesthesia - Dany Rosales MD - 02/19/2021 9:14 AM CDT [facility] Epidural Consult Note 02/19/2021 9:14 AM I have discussed with the patient, and/or surrogate, the placement of an epidural catheter and/or the use of epidural narcotics/local anesthetic for postoperative pain management, including potentialrisks, benefits, complications and side effects. I have also discussed alternative methods of postoperative analgesia. The patient, and/or surrogate, understands and wishes to proceed with the epidural narcotic/local anesthetic for postoperative analgesia. Surgeon will place epidural during procedure in the operating room. Recommended initial epidural bolus dose: Fentanyl 100 mcg and Bupivacaine 0.25% with epinephrine 5 mL. Dany Rosales MD Pager: [phone] documented in this encounter Miscellaneous Notes * Therapy Treatment - Yessica Curry, Physical Therapist - 02/26/2021 12:00 PM CDT Patient not seen for PT secondary to politely refused, states he is going home shortly. Will continue to follow patient and will re-attempt at a later time if pt remains inpatient beyond today. [facility]. Zone #: [id number] * Care Plan - Sissy Beck LPN - 02/25/2021 6:57 PM CDT Patient is : A&Ox4 Pain Range/Score during the shift: zero Medication that have helped or need to be changed: All meds working at this time Bowel Movement: 02/25 Dressing: CDI Diet Tolerated : clear liquid diet Skin Concerns : back incision Behaviors: Calm Activity: x 1 walker and gait Discharge: TBD Pt has remained free of falls this shift. Pt tolerated liquids well, thus had NG tube pulled today. Granger will be pulled around 1934 * Care Plan - Ale Hastings Occupational Therapist - 02/25/2021 2:55 PM CDT Problem: Self-Care Deficit Goal: Self care goal: Improve dressing ability by discharge Description: Patient will require modified independent with upper extremity and lower extremity dressing with adaptive equipment as needed Outcome: Progressing Flowsheets (Taken 02/25/2021 1408) Therapy Comments: no bend/lift/twist Mon: X Pain Rating: Rest: 0 Pain Rating: Activity: 0 Present Activity: in bed OT Current Discharge Recommendation: Home with supervision OT Recommended DME: To be determined OT Treatment Start Time: 1408 OT Treatment Stop Time: 1451 S: Patient agrees to therapy O: Cognition/ Perception: Alert and oriented, cooperative, pt recalled activities to avoid Skin Integrity: No areas of concern noted Weight Bearing: No restrictions in chart Precautions: Fall; no bending/lifting/twisting/ FUNCTIONAL ACTIVITIES Grooming: SBA to wash hands, standing at the sink (x2) UE Dressing: min A to adjust gown around back, seated EOB LE Dressing: SBA to don/doff brief over buttocks while standing p education, increased time Toilet Transfer: SBA w/use of grab bars and WWR (x2 d/t need to use), pt has a high toilet at home,this setup also practiced: SBA Functional mobility: supine to/from sit via log roll w/SBA/(I), sit scoot SBA (min verbal cues to avoid twisting), sit to/from stand SBA, pt ambulated to/from the bathroom x 2 w/SBA using WWR per pt's request d/t need to use. Equipment Recommended at discharge: To be further assessed Education: safety w/ADL/functional mobility Positioning after tx: Pt positioned in bed, heels not floated per pt, bed alarm on, all lines intact, call light in reach, RN aware. Other: Increased time in the bathroom as pt had BM x 2 in close succession, pt required mod A for jakub area hygiene (A for thoroughness). A: Response to treatment: Progressing toward goals Recommend: Home with supervision Recommendations were made on today's assessment. Additional recommendations will be based on patient's progress in therapy. P: Continue 2-5x/wk at bedside for: ADL Training, Functional Mobility Training, UE ROM/Strengthening, Patient Education unless change in status or patient is discharged from the facility. Plan of Care developed, as indicated by OT assessment and patient's current status. Please refer to plan of care for updates on goals. Zone #: [phone] * Care Plan - Lilly Ramirez Physical Therapist - 02/25/2021 12:03 PM CDT Problem: Physical Mobility, Impaired Goal: Mobility goal: Improve ambulation by discharge Description: Patient will ambulate 200 feet on level surface, using none assistive device, with independence so patient can navigate discharge environment. Outcome: Progressing Goal: Mobility goal: Ascend/descend stairs by discharge Description: Patient will ascend/descend curb step without handrails with independence for home/community mobility. Outcome: Progressing Flowsheets (Taken 02/25/2021 1201) Mon: X Assistive Devices Screening: Front wheeled walker Gait belt Assistive Devices Used: Gait belt Ambulation device Present Activity: in bed Physical Assist/Nonphysical Assist: w/ stand by assist Total Treatment Time (min): 25 PT Current Discharge Recommendation: Home with supervision PT Recommended DME: No new DME recommended PT Treatment Start Time: 1049 PT Treatment Stop Time: 1114 S: Patient agreeable to therapy. Pt presents supine in bed and motivated to work with therapy. O: Cognition/ Perception: Alert and oriented x 4 Weight Bearing: no restrictions Skin Integrity: refer to RN note Precautions: Fall, spinal MOBILITY ASSESSMENT Bed Mobility: Supine <> sit SBA Transfers: Sit <> stand SBA Gait: 350 feet with WWR and SBA --Gait deviations: Decreased tri, decreased step length, decreased step width Stairs: Pt states he feels safe negotiating the 1-2 steps into his home. Equipment to be issued at discharge: DME: No new DME recommended (02/25/21 120) Education: PT plan of care Positioning after tx: Tolerated session well. Patient returned supine, positioned as found, bilateral upper extremities and lower extremities elevated for comfort and maintained skin integrity, bed alarm on with all lines intact; call light in reach. RN aware. A: Response to treatment: Progressing towards goals, Assessment Ongoing Recommend: Home with supervision (02/25/211200) Recommendations were made on today's assessment. Additional recommendations will be based on patient's progress in therapy. P: Continue PT 7x/wk OD at bedside for Transfer training, Gait training, Exercises, Balance training, unless change in status or patient is discharged from the facility. Plan of Care developed, as indicated by PT assessment and patient's current status. Please refer to plan of care for updates on goals. Zone #: [id number] * Care Plan - Azucena Joshua GN - 02/25/2021 7:39 AM CDT Patient is A&O x 4. Diet NPO sips w/ meds. Patient was able to have a bowel movement this shift, and has granger in place. Patient has NG tube in place connected to Low Intermittent Suction with 300 mL output this shift. Patient moved from chair to bed throughout shift with gait belt and walker. Dressings on back are clean dry and intact. Patient complains of back pain medicated per NOV. Fall precautions in place. * Treatment Plan - Azucena Joshua GN - 02/24/2021 11:59 PM CDT ..STL JOI Adult Therapeutic Orders Protocol [facility] Approved by: [facility] - Medical Executive Committee Approval Date: 07/05/2020 ORDERS ARE ENTERED ???PER PROTOCOL?? Enter the protocol in the patient's electronic health record using smartphrase:.nursingtherapeuticordersprotocol For inpatients with complaints of minor discomfort Nursing Orders: o [id number] Ice Pack/Cold Therapy 20 minutes every 2 hours to affected area. o KOC219 Warm Compress/Heat to affected area 20 minutes every 8 hours to affected area. Medication Orders: o icybfccrsc-qxmumqj-wswrecirwmmqeg (CEPACOL) lozenge. 1 each by mouth every 2 hours PRN for sore throat. o Docusate sodium (COLACE) capsule 100 mg, Oral two times daily for constipation except for patients with diagnosed or rule-out bowel obstruction o calcium carbonate (TUMS) chewable tablet. 400mg, Oral every 4 hours PRN for heartburn. o simethicone (MYLICON) tablet. 160 mg Oral four times daily PRN for gas. o Neomycin-Bacitracin Zn-Polymyxin (NEOSPORIN) topical ointment. 1 packet, One Time to affected area. For minor scraps/abrasions. Use cover dressing as needed. o Polyvinyl alcohol-povidon(PF) (REFRESH CLASSIC) 1.4-0.6% ophthalmic solution. 1 drop to affected eye every 4 hours PRN for dry eye. o Sodium chloride (OCEAN) 0.65% nasal solution. 2 sprays to affected nostril every 15 minutes PRN for congestion. o If symptoms persist or worsen contact provider for further orders * Care Plan - Sissy Beck LPN - 02/24/2021 6:38 PM CDT Patient is : A&Ox4 Pain Range/Score during the shift: Medication that have helped or need to be changed: All meds working at this time Bowel Movement:02/24 Dressing: CDI Diet Tolerated : clear liquid diet, but is now back to NPO Skin Concerns : back incision Behaviors: Calm Activity: x 1 walker and gait Discharge: TBD Pt has remained free of falls this shift. Pt participated in a NG clamp trial today, but had too much fluid evacuated during the 15 minute trail period, that the intermittent suction had to be hooked back up again, and trail may be tested again tomorrow. Pt is NPO * Care Plan - Mehnaz Marcial, Seed Tester - 02/24/2021 10:15 AM CDT Problem: Physical Mobility, Impaired Goal: Mobility goal: Improve ambulation by discharge Description: Patient will ambulate 200 feet on level surface, using none assistive device, with independence so patient can navigate discharge environment. Outcome: Progressing Goal: Mobility goal: Ascend/descend stairs by discharge Description: Patient will ascend/descend curb step without handrails with independence for home/community mobility. Outcome: Progressing Flowsheets Taken 02/24/2021 1010 by Mehnaz Marcial, Seed Tester Sun: X Pain Rating: Rest: 0 Pain Rating: Activity: 0 Response to Interventions: content/relaxed Assistive Devices Used: Gait belt Ambulation device Ambulation Distance (feet): 350 Present Activity: up in renteria ambulated chair Physical Assist/Nonphysical Assist: w/ stand by assist Total Treatment Time (min): 23 PT Treatment Start Time: 0942 PT Treatment Stop Time: 1005 PT Current Discharge Recommendation: Home with supervision PT Recommended DME: No new DME recommended Taken 02/20/2021 1045 by Yessica Curry, Physical Therapist Therapy Plan of Care: 7x/week OD S: Patient agreeable to therapy. present. Pain: Patient denies pain at rest and with mobility this session. O: Cognition/ Perception: Alert and oriented x 4, following 100% of commands Weight Bearing: No Restrictions Skin Integrity: NG tube, no new issues noted Precautions: Fall, no bending/lifting/twisting Exercises: Bilateral LE AROM x 15 reps, sitting Type: Sitting exercises: hip flexion, hip abduction/adduction, Long arc quads, ankle pumps --LE ROM performed to increase ROM, increase strength, increase muscular endurance, prevent loss ofjoint mobility to promote independence with functional mobility and gait. MOBILITY ASSESSMENT Bed Mobility: SBA supine to sit, increased time to perform and BLT's maintained Transfers: SBA sit to stand from EOB. Min A for steadying initially upon standing, Pt states, I didn't have my feet set right. other badillo SBA static standing balance with WWR. Gait: 350' x 1, WWR, SBA --Gait deviations: No loss of balance, reduced gait speed, maintained no bending/lifting/twisting Stairs: NA, pt declines performing curb-step. Pt states he has 1 step inside that they do not need to use. Equipment to be issued at discharge: DME: No new DME recommended (02/23/211038) Education: no bending/lifting/twisting, benefits of mobility, safety awareness Other: Pt denies lightheadedness/dizziness during session Positioning after tx: Patient positioned up in chair with chair alarm on/patient educated on alarm,all lines intact, call light in reach, family present, all needs met, RN aware A: Response to treatment: Progressing towards goals Recommend: Home with supervision (02/23/211038) Recommendations were made on today's assessment. Additional recommendations will be based on patient's progress in therapy. P: Continue PT 7x/wk OD at bedside for Transfer training, Gait training, Exercises, Balance training, unless change in status or patient is discharged from the facility. Plan of Care developed, as indicated by PT assessment and patient's current status. Please refer to plan of care for updates on goals. Zone #: [id number] * Care Plan - Vijay Kraus RN - 02/24/2021 7:29 AM CDT Patient alert and oriented x 4, able to make needs known. Patient complaint of pain X 1, and medicated as order. Granger cath patent draining dark carmenza color urine. No BM during this shift. Patient remains NPO for this shift. Dressing to back is intact and dry. Problem: Nutrition/Endocrine Goal: Achieve optimal nutrition and fluid status to meet metabolic needs throughout hospitalization Outcome: Variance * Care Plan - Gerri Camejo RN - 02/23/2021 7:57 PM CDT Feeling better today. Not much back pain, less abdominal discomfort also. Passing flatus, audible bowel sounds. NG still to LWS, meds per tube and clamped then for 1/2 hour to 45 minutes. Dark green drainage. PAUL removed today by PA, silver dressing intact. SCD's in bed. Using IS, noted K+ drop again and replacement ordered. Additional new IV line placed per RN. Walked in halls with this RN aroundentire floor. Minimal narcotic use today. In chair * Care Plan - Werner Joshua, Latex Thread Machine Operator - 02/23/2021 11:12 AM CDT Problem: Physical Mobility, Impaired Goal: Mobility goal: Improve transfer ability by discharge Description: Patient will transfer to/from toilet with modified independent. Outcome: Progressing Problem: Self-Care Deficit Goal: Self care goal: Improve dressing ability by discharge Description: Patient will require modified independent with upper extremity and lower extremity dressing with adaptive equipment as needed Outcome: Progressing Problem: Physical Mobility, Impaired Goal: Mobility goal: Improve ambulation by discharge Description: Patient will ambulate 200 feet on level surface, using none assistive device, with independence so patient can navigate discharge environment. Outcome: Progressing Flowsheets (Taken 02/23/2021 1112) Pain Rating: Rest: 0 Pain Rating: Activity: 0 Pain Management Interventions: unnecessary movement avoided positioning Response to Interventions: content/relaxed Assistive Devices Screening: Gait belt Assistive Devices Used: Gait belt Present Activity: in bed dangled at bedside up in room Physical Assist/Nonphysical Assist: w/ 1 person assist Total Treatment Time (min): 23 Minute breakdown: Individual OT Current Discharge Recommendation: Home with Home Health OT OT Recommended DME: To be determined OT Treatment Start Time: 2 OT Treatment Stop Time: 1135 S: Patient agrees to therapy. Pt resting in bed upon OLMAN arrival w/ family and INSIDE TRUCKER at bedside finishing bath. Pain rating: c/o 0/10 pain Pain intervention: Unneccessary movement avoided, Repositioned for comfort, Premedicated for activity, RN aware Response to pain intervention: Appeared content O: Cognition/ Perception: Alert and oriented x 4. Pt pleasant and cooperative during session. Weight Bearing: No restrictions Precautions: Fall, No bending, lifting, or twisting Skin Integrity: Bandage to incision site intact. Exercises: N/A FUNCTIONAL ACTIVITIES Grooming: Pt declined at this time. Per pt, he just got cleaned up w/ INSIDE TRUCKER. UE Dressing: Pt Max A to tie gown behind neck sitting at EOB. LE Dressing: Pt SBA to doff/don socks using heating and ventilating drafter and sock aid sitting at EOB. Pt able to verbalize steps of using assistive device. Toilet Transfer: Pt SBA stand<>sit/sit<>stand to/from toilet using grab bars for lifting and lowering assistance. Pt noted to verbalize sequencing and safety awareness during transfer. Bed Mobility: Pt SBA supine<>sit/sit<>supine to/from EOB using log rolling technique. Pt able to verbalize log rolling technique and sequence log roll. Functional mobility: Pt ambulated ~ 30 ft in room for functional ADL distance to/from bathroom pushing IV pole w/SBA for safety and line management. Equipment Recommended at discharge: To be determined (02/23/211111) Education: ADLs, Functional mobility Positioning after tx: Tolerated session. Patient returned supine, rolled to none, bilateral upper extremities and lower extremities elevated for comfort and maintained skin integrity, bed alarm on with all lines intact; call light in reach. RN aware. A: Response to treatment: Progressing towards goals Recommend: Home with Home Health OT (02/23/211111) Recommendations were made on today's assessment. Additional recommendations will be based on patient's progress in therapy. P: Continue OT 2-5x/wk at bedside for: ADL Training, Functional Mobility Training, UE ROM/Strengthening, Patient Education, Cognition/Perception unless change in status or patient is discharged from the facility. Plan of Care developed, as indicated by OT assessment and patient's current status. Please refer to plan of care for updates on goals. Zone #: [id number] On weekends--please call [phone] * Care Plan - Shria Bello, Seed Tester - 02/23/2021 10:39 AM CDT Problem: Physical Mobility, Impaired Goal: Mobility goal: Improve ambulation by discharge Description: Patient will ambulate 200 feet on level surface, using none assistive device, with independence so patient can navigate discharge environment. Outcome: Progressing Goal: Mobility goal: Ascend/descend stairs by discharge Description: Patient will ascend/descend curb step without handrails with independence for home/community mobility. Outcome: Progressing Flowsheets (Taken 02/23/2021 103) Sat: X Pain Rating: Rest: 0 Pain Rating: Activity: 0 Pain Management Interventions: unnecessary movement avoided positioning Response to Interventions: content/relaxed Present Activity: up in renteria ambulated Total Treatment Time (min): 23 PT Current Discharge Recommendation: Home with supervision PT Recommended DME: No new DME recommended PT Treatment Start Time: 1039 PT Treatment Stop Time: 1102 S: Patient agreeable to therapy. Patient reported no pain or dizziness. Patient able to recall no bending. Patient stated he has 1 step to enter home. O: Cognition/ Perception: Alert and oriented x 4 Weight Bearing: no restrictions Skin Integrity: nasal drainage tube, IV Precautions: Fall, no bending, lifting, twisting MOBILITY ASSESSMENT Bed Mobility: Log roll with SBA. Sidelying to sit with min assist of 1 to assist elevating trunk. Sit to supine with min/close SBA for BLE. Patient displayed good technique. Transfers: sit <-> stand from bed to WWR with SBA for safety. Gait: Patient ambulated ~350 feet x 1 with WWR with close SBA for safety. No loss of balance on tile surface. --Gait deviations: decreased gait speed Stairs: patient politely declined Equipment to be issued at discharge: DME: No new DME recommended (02/23/211038) patient owns WWR Education: benefits of therapy. Re educated on no bending, lifting or twisting. Other: present in room throughout treatment. Increased gait distance. Positioning after tx: Patient supine in bed with head of bed elevated. Bed alarm activated. Call light, phone and tray table within reach. RNGerri. A: Response to treatment: Progressing towards goals, Assessment Ongoing Recommend: Home with supervision (02/23/211038) Recommendations were made on today's assessment. Additional recommendations will be based on patient's progress in therapy. P: Continue PT 7x/wk OD at bedside for Transfer training, Gait training, Exercises, Balance training, unless change in status or patient is discharged from the facility. Plan of Care developed, as indicated by PT assessment and patient's current status. Please refer to plan of care for updates on goals. Zone #: [id number] * Care Plan - Vijay Kraus RN - 02/23/2021 3:14 AM CDT Patient alert and oriented X 4, able to make needs known. Incision dressing to back is intact and dry. PAUL drain is intact and patent draining serosanguineous fluids. Patient ambulated with assist X 1, gait belt and walker without difficulties. Granger cath intact and patent draining dark carmenza urine. Patient continues NPO, with Normal saline at 125ml/hr. Problem: Genitourinary/Renal Goal: Achieve optimal genitourinary and renal function by discharge or maintain baseline function Outcome: Variance Problem: Musculoskeletal Goal: Achieve optimal musculoskeletal function by discharge or maintain baseline function Outcome: Variance Problem: Skin Goal: Maintain skin integrity and/or promote wound healing by discharge Outcome: Variance Problem: Nutrition/Endocrine Goal: Achieve optimal nutrition and fluid status to meet metabolic needs throughout hospitalization Outcome: Variance * Care Plan - Gerri Camejo RN - 02/22/2021 6:41 PM CDT Better day, but still with lots of drainage from NG. Has walked 3 times in hallways, and sat in chair. Back dressing intact. IV continues with K+ drip almost complete, due to pain when infusing at scheduled rate. Medicated with roxicodone for discomfort, per NG then left clamped 30-40 minutes. Gives patient relief. Moderate UOP per granger, with dark urine. IV fluids patent. * Care Plan - Stacy Mccarty, Occupational Therapist - 02/22/2021 3:00 PM CDT Problem: Physical Mobility, Impaired Goal: Mobility goal: Improve transfer ability by discharge Description: Patient will transfer to/from toilet with modified independent. Outcome: Progressing Problem: Self-Care Deficit Goal: Self care goal: Improve ability to perform self care activities by discharge Description: Patient will require modified independent with grooming/bathing with adaptive equipment as needed Outcome: Progressing Problem: Self-Care Deficit Goal: Self care goal: Improve dressing ability by discharge Description: Patient will require modified independent with upper extremity and lower extremity dressing with adaptive equipment as needed Outcome: Progressing S: Patient agrees to therapy. Pt c/o of pain in back and overall stiffness . Pt reports going on multiple walks today and feeling much better O: Cognition/ Perception: Alert and oriented x 4 Skin Integrity: No obvious signs of skin breakdown noted. Weight Bearing: no restrictions Precautions: Fall; limit bend/lift/twist, NG to LIWS FUNCTIONAL ACTIVITIES Grooming: SBA to wash hands standing at sink level Toilet Transfer: close SBA sit<>stand coming into WWR--pt required cues for hand placement for safety when pushing up from bedside Functional mobility: close SBA to ambulate 80 feet with WWR; Min A supine<>sit EOB with log roll strategy and cues to maintain trunk alignment Equipment Recommended at discharge: To be determined Education: self care, ADLs, functional mobility Positioning after tx: Pt left lying supine in bed, NG to LIWS, bed alarm on, call light and phone within reach, all lines intact. RN aware. A: Response to treatment: Patient tolerated treatment well this date. Recommend: Home with home health, Home with supervision Recommendations were made on today's assessment. Additional recommendations will be based on patient's progress in therapy. P: Continue 2-5x/wk at bedside for: ADL Training, Functional Mobility Training, Patient Education unless change in status or patient is discharged from the facility. Plan of Care developed, as indicated by OT assessment and patient's current status. Please refer to plan of care for updates on goals. Zone #: [phone] * Care Plan - Trista Ahmadi RN - 02/22/2021 1:33 PM CDT Care Management Initial Assessment Initial Discharge Planning Assessment completed. Discussed Care Management's role and Discharge planning. Discharge Plan: Home with [facility] Patient Discharge Planning Goal: Pain Control Patient will potentially discharge to a SNF/NH? No Care Management visited with: patient via in person. Prior to admission, patient resides at: own home. 1+1 IAN. 1 story home Prior to admission, living arrangements: spouse. Prior to admission, patient's functional level:independent; uses N/A for ADLs; needs assistance with iADLs: N/A Prior to admission, the patient has the following DME? Yes wheeled walker, SPC cane Services in the home: none with no company Receives hemodialysis? No Emergency contact(s): Extended Emergency Contact Information Primary Emergency Contact: Joanna Ellison Mobile Relation: Spouse Secondary Emergency Contact: Elle Boateng Mobile Relation: Daughter Insurance coverage verified: Payor: [employer] / Plan: MEDICARE ADVANTAGE HMO / Product Type: Medicare Managed Care / Prescription coverage: yes Preferred Pharmacy verified: [facility] [address] [place] [address] [facility] Employment Status: retired Has VA Benefits: no PCP verified as: Philippe Geiger MD Patient has not had a stay at an acute care hospital in the last 30 days. Recent Falls?: Last Known Fall: During the current hospitalization Patient has a [employer] account: yes Patient has a smart device: Yes Patient's mobile number verified: Yes. Patient's number: Telephone Information: Patient is able to receive text messages: Yes Patient has access to the internet: Yes Plan for transportation at discharge: family transport Comments: S/P Lumbar fusion. POD #3. NG tube with LIWS, granger, Distended abdomen. Currently with Post OP ileus. NPO.No BM's or passing gas, A&O x 4. Therapies recommend home with supervision. No d/c this weekend. Care Management contact information provided. Care Management will continue to follow and assist asneeded. Trista Ahmadi MSN,RN, [facility] Assurance Sourcing Manager II [phone] * Care Plan - Darcie Yang Physical Therapist - 02/22/2021 12:43 PM CDT Problem: Physical Mobility, Impaired Goal: Mobility goal: Improve ambulation by discharge Description: Patient will ambulate 200 feet on level surface, using none assistive device, with independence so patient can navigate discharge environment. Outcome: Progressing Goal: Mobility goal: Ascend/descend stairs by discharge Description: Patient will ascend/descend curb step without handrails with independence for home/community mobility. Outcome: Progressing Flowsheets (Taken 02/22/2021 1213) Fri: X Location: abdomen region Pain Rating: Rest: (not rated) -- Pain Management Interventions: unnecessary movement avoided positioning Response to Interventions: content/relaxed Present Activity: up in room up in renteria ambulated in bed Total Treatment Time (min): 23 PT Current Discharge Recommendation: Home with supervision PT Treatment Start Time: 1213 PT Treatment Stop Time: 1236 S: Patient agreeable to therapy. States he is doing much better today. Still with some nausea and abdominal pain. Eager to walk. RN in room and disconnects NG from wall suction for walk. O: Cognition/ Perception: Alert and oriented Weight Bearing: no restriction noted Skin Integrity: lumbar dressing intact Precautions: Fall, no bend/lift/twist MOBILITY ASSESSMENT Bed Mobility: Review of log roll technique. Supine to R sidelying with SBA; R sidelying to sit withmin A to complete upright. Sits EOB SBA. Increased time in sitting to adapt to position change and place covering back gown. Sit to supine via log roll with min A/SBA- guidance of LE's as pt places them on bed. Transfers: Sit to stand with min A- review to safety with hand placement. Gait: Pt ambulated with WWR close SBA 200-250ft. --Gait deviations: Pace decreased but consistent, use of WWR for increased safety and support this session, good effort to advance distance. Equipment to be issued at discharge: DME: will monitor Education: functional mobility, review of body mechanics/posture in functional mobility Positioning after tx: Pt in supine with attachments intact,needs in reach,archives technician in room for care. A: Response to treatment: Progressing towards goals Recommend: Home with supervision (02/22/21 1213) Recommendations were made on today's assessment. Additional recommendations will be based on patient's progress in therapy. P: Continue PT 7x/wk OD at bedside for Transfer training, Gait training, unless change in status orpatient is discharged from the facility. Plan of Care developed, as indicated by PT assessment and patient's current status. Please refer to plan of care for updates on goals. Zone #: [id number] * Care Plan - Lala Simmons RN - 02/22/2021 6:32 AM CDT Patient alert and oriented. Potassium given per IV . No bowel movement this shift but bowel sounds present. Stomach is distended and patient says he feels full of air. NG tube had green drainage. Patient nausous off and on overnight and refused all oral medication. Granger care was done and a lot of time was spent in the room trying to make him comforable. Back dressing remains clean dry and intact. PAUL drain had moderate output. * Therapy Treatment - Yessica Curry, Physical Therapist - 02/21/2021 9:51 AM CDT Patient not seen for PT secondary to hold due to earlier syncopal episode after OT treatment. Will continue to follow patient and will re-attempt at a later time/date as appropriate. Thank you. Zone #: [id number] * Care Plan - Stacy Carcamo Occupational Therapist - 02/21/2021 8:45 AM CDT Problem: Physical Mobility, Impaired Goal: Mobility goal: Improve transfer ability by discharge Description: Patient will transfer to/from toilet with modified independent. Outcome: Progressing Problem: Self-Care Deficit Goal: Self care goal: Improve ability to perform self care activities by discharge Description: Patient will require modified independent with grooming/bathing with adaptive equipment as needed Outcome: Progressing Goal: Self care goal: Improve dressing ability by discharge Description: Patient will require modified independent with upper extremity and lower extremity dressing with adaptive equipment as needed Outcome: Progressing S: Patient agrees to therapy. Pt denies pain, however stated he is just sore. Pt stated he was feeling nauseas earlier, but is feeling better now. Pt semi- supine in bed upon OT arrival. Epidural and granger intact. O: Cognition/ Perception: Alert and oriented x 4. Pt followed all commands without concern. Skin Integrity: No obvious signs for skin breakdown noted. Weight Bearing: no restrictions charted Precautions: Fall; no bend/lift/twist FUNCTIONAL ACTIVITIES UE Dressing: Pt min A to put on 2nd gown like a coat/jacket around back seated EOB LE Dressing: Pt SBA with verbal cues to doff socks with heating and ventilating drafter and don socks with sock-aide seatedEOB Toilet Transfer: Pt sit <> stand coming from toilet to stance with use of grab bars SBA Functional mobility: Pt supine > sit min A for trunk control. Pt sit > stand coming from EOB to stance close SBA. Pt ambulated in room ~20 ft close SBA to simulate ambulation for ADLs and household tasks. Pt stand > sit min A. Pt sit > supine SBA using log roll technique SBA. OT in room providing skilled therapy to patient. Patient ambulating towards bed with OT assistance.Upon approaching bed to sit down, OT cued patient to turn and sit on the edge of the bed. Patient knees began to buckle and patient stopped responding to OT when OT cued patient. Patient's eye's rolled back into his head and patient became limp. Patient did not seize. OT carefully lowered patient to the ground with use of gait belt into a seated position. Patient promptly responded to OT once in seated position on ground and was able to maintain seated position on own, and asked, what happened, did I just sit down? Patient did not hit his head, did not injure himself, and denied dizziness. OT promptly called RN and INSIDE TRUCKER into room. RN, INSIDE TRUCKER, and OT helped assist pt back to a standing position and pt was able to turn and sit on the edge of the bed. Seated edge of bed patient had another episode, however did not loose consciousness at this time. Pt BP taken seated edge of bed (slightly egl143/65) and blood glucose (122) taken. OT and INSIDE TRUCKER assisted pt into supine position in bed. Pt denied dizziness or light headedness again once lying down in bed. Patient denied increase in pain or injury after the event. RN notified MD. RN and INSIDE TRUCKER providing care in room upon OT departure. Equipment Recommended at discharge: to be determined Education: ADLs, LE dressing equipment, functional mobility, transfers Positioning after tx: Pt left lying supine in bed. Bed alarm on. Call light and phone within reach.All lines (granger, epidural, PAUL drain) intact. RN aware. A: Response to treatment: Pt progressing toward goals Recommend: Home with home health, Home with supervision, Home with home safety evaluation Recommendations were made on today's assessment. Additional recommendations will be based on patient's progress in therapy. P: Continue 2-5x/wk at bedside for: ADL Training, Functional Mobility Training, UE ROM/Strengthening, Patient Education, Cognition/Perception [facility] Plan of Care developed, as indicated by OT assessment and patient's current status. Please refer to plan of care for updates on goals. Zone #: [id number] * Care Plan - Elza Blanco RN - 02/21/2021 5:57 AM CDT Jayjay Ellison is alert and oriented x4, ambulates x1 w/GB. Complained of nausea and pain. Medicated per NOV. Voids in bathroom and per urinal Patient updated on POC and all questions answered. Pt had a lot of abdominal pain that he describedas gas pain along with nausea. Medications were ineffective. We got him up to bathroom and he was able to pass some gas. He had 2 episodes of emesis. After passing gas and the bouts of emesis he stated he felt much better and was able to sleep. Neurovasc checks remained unchanged, no complaints of numbness or tingling. * Therapy Evaluation - Yessica Curry, Physical Therapist - 02/20/2021 10:45 AM CDT Physical Therapy order received, chart reviewed, and evaluation completed. Please see full evaluation below for details. Daily PT notes will be located in Care Plan notes. Thank You. PT INITIAL EVALUATION Reason for Admission: S/p lumber interbody fusion Ordered by: ROSA Fox Activity Order: Up with assist Weight Bearing Status: No restrictions Precautions: Fall; no bend/lift/twist PMH: Past Medical History: Diagnosis Date ??? Arthritis ??? COPD (chronic obstructive pulmonary disease) ??? Difficult intravenous access ??? Difficulty balancing ??? Difficulty walking ??? Emphysema, unspecified ??? HTN (hypertension) ??? Hyperlipidemia ??? Low back pain ??? Numbness ??? Psoriasis ??? Skin disorder S: Patient agreeable to therapy. Patient reports 0/10 pain. Pain intervention: Unneccessary movement avoided, Repositioned for comfort, Premedicated for activity Response to pain intervention: Verbalized no change in pain, Appeared content, Agrees to continue Living Situation/Functional Level GIFT CONSULTANT: Pt lives with his in a 1 story home with 1+1 steps to enter, no handrail. Pt is independent without assistive device at baseline, reports no falls in the past 6 months. Home Equipment: WWR, SPC that are his 's O: Appearance: 75-year-old male presents sitting in recliner, epidural, granger catheter, and PAUL drain intact. Cognition/Perception: A&Ox4, follows commands, very pleasant and cooperative Skin Integrity: No skin breakdown noted on visible areas ROM: Bilateral Lower Extremity WFL Muscle Tone: WFL Strength: Bilateral Lower Extremity WFL Sensation: B LE intact to light touch MOBILITY ASSESSMENT: Bed Mobility: Standby sit to R sidelying to supine with cues for proper technique. Transfers: Standby to mod I sit<>stand with use of UE Gait: Standby assist with IV for light support, 200 feet --Gait Deviations: Decreased tri, otherwise normal Balance: Independent sitting and static standing without assistive device, standby dynamic standingwithout assistive device Stairs/Curb: Not assessed this date Patient/Family Education: Role of PT, no bend/lift/twist Other: Lines intact at end of session Positioning after tx: Pt returned to supine position in bed, all needs including daljit llight within reach, SCDs donned and machine on, bed alarm activated. A: Disabilities: Gait dysfunction Assessment: Pt will benefit from PT services while inpatient to address the above impairments. Clinical Presentation: Stable and/or uncomplicated EVALUATION COMPLEXITY: Low Complexity -These findings are based on patient's self reporting, therapist's objective findings and professional determinations. Recommend: Home with supervision (02/20/211044) Recommendations were made on today's assessment. Additional recommendations will be based on patient's progress in therapy. P: PT to see patient: At bedside 7x/wk OD. Will continue therapy unless patient has a change in status or patient is discharged from the facility. Plan of Care developed, as indicated by PT assessment and patient's current status. Treatment Plan: Patient to be seen for Transfer training, Gait training, Exercises, Balance training Recommendations: For: Patient, Nursing --OOB to chair with chair alarm, ambulate in room or hallway, with assist Equipment to be issued at DC: No new DME recommended (02/20/211044) --Patient involved in goal setting: yes Patient goals will be found in the Care Plan section of the medical chart. Zone #: [phone] On weekends--please call [phone] * Therapy Evaluation - Stacy Carcamo Occupational Therapist - 02/20/2021 9:20 AM CDT Occupational Therapy order received, chart reviewed, and evaluation completed. Please see full evaluation below for details. Daily OT notes will be located in Care Plan notes. Thank You. OT INITIAL EVALUATION Reason for Admission: S/p lumbar interbody fusion Ordered by: Tuyet Fox PA Activity Order: Up with assist Weight Bearing Status: No restrictions charted Precautions: Fall; no bend/lift/twist PMH: Past Medical History: Diagnosis Date ??? Arthritis ??? COPD (chronic obstructive pulmonary disease) ??? Difficult intravenous access ??? Difficulty balancing ??? Difficulty walking ??? Emphysema, unspecified ??? HTN (hypertension) ??? Hyperlipidemia ??? Low back pain ??? Numbness ??? Psoriasis ??? Skin disorder S: Patient agreeable to therapy. Patient reports 0/10 pain. Pain intervention: RN aware, No intervention required Response to pain intervention: Appeared content Living Situation/Functional Level GIFT CONSULTANT: Pt states he lives in a one story home with his . Pt states there are two steps the enter the home through the garage. Pt states he has a raised toilet and a tub shower combo with grab bars. Pt states GIFT CONSULTANT she was (I) with all ADLs and IADLs. Pt states GIFT CONSULTANT in the last 8 weeks he has used a SPC for ambulation due to increased back and L leg pain. Home Equipment: BSC, heating and ventilating drafter, sock-aide, tub transfer bench, grab bars, raised toilet O: Appearance: Pt is 75 y.o. M semi-supine in bed. Epidural, IV, granger, and APUL drain intact. INSIDE TRUCKER inroom assisting with care upon OT arrival. Vision: Pt denied blurry/double vision. Pt wears glasses at baseline. Cognition/Perception: Pt alert and oriented x4. Pt followed all commands without issues. UE ROM: WFL Muscle Tone: WFL UE Strength: WFL Coordination: right Hand Dominant: WFL Sensation: Pt denied tingling/numbness in bilateral UE Skin Integrity: No obvious signs for skin breakdown noted. Incision dressing dry and intact. FUNCTIONAL ACTIVITIES ASSESSMENT: Feeding: Pt states they already ate upon OT arrival. Pt states they have no issues bringing food tomouth, opening packages/containers, or manipulating utensils. Grooming: Pt declined to perform grooming tasks at this time. INSIDE TRUCKER in room providing granger care and bed bath upon OT arrival. UE Dressing: Pt able to adjust shoulders of gown seated EOB (I) LE Dressing: Pt min A with cues for abide by precautions (no bend/lift/twist) to doff/don socks seated EOB. Pt would benefit from LE AD equipment education. Toilet Transfer: Not assessed at this time due to pt functional level/safety concerns and line management needs Tub/Shower Transfer: Not assessed at this time due to pt functional level/safety concerns and line management needs Functional Mobility: Pt supine > sit EOB min A with min verbal cues for log roll technique. Pt sit > stand coming into stance from EOB close SBA. Pt ambulated ~3ft without AD from EOB to recliner close SBA. Pt stand > sit from stance to recliner min A for controlled descent. Positioning after tx: Pt left sitting in recliner, all lines (PAUL drain, epidural, granger, IV) in tact, call light and needs within reach, chair alarm on. RN aware. Patient/Family Education: OT role, OT POC, ADLs, functional mobility, transfers, no bend/lift/twist Equipment needed at DC: to be determined A: Disabilities: Balance, endurance, functional mobility, transfers, ADLs Assessment: Patient would benefit from continued skilled OT intervention to address disabilities stated above. EVALUATION COMPLEXITY: Low Complexity -These findings are based on patient's self reporting, therapist's objective findings and professional determinations. Recommend: To be determined (pending further assessment of OOB mobility ) (02/20/21 0920) anticipate discharge to home with supervision; home with assistance; home health as needed. Recommendations were made on today's assessment. Additional recommendations will be based on patient's progress in therapy. P: OT to see patient: 2-5x/wk at bedside Treatment: OT to see patient for: ADL Training, Functional Mobility Training, UE ROM/Strengthening,Patient Education, Cognition/Perception Will continue therapy unless patient has a change in statusor patient is discharged from the facility. --Patient involved in goal setting: yes Patient goals will be found in the Care Plan section of the medical chart. Zone #: [id number] On weekends--please call [phone] * Care Plan - Elza Blanco RN - 02/20/2021 5:29 AM CDT Jayjay Ellison is alert and oriented, ambulates x2 & transfer pad. . Complained of itchyness. Medicated per NOV. Voids per granger. Epidural rate at 6ml/hr. Q2 turn. Rested quietly throughout shift Patient updated on POC and all questions answered. * Care Plan - Jenn Jaramillo RN - 02/19/2021 6:03 PM CDT Pt A&Ox4. VSS. Pt denies pain. PRN benadryl given for itchiness. Epidural rate at 6 mL/hr. Pt came up to unit with completely saturated silverlon dressing. PAUL drain with large amount of drainage.ROSA Benz notified (OK to remove silverlon dressing and place new one or reinforce with ABD pads and medipore tape). Q2 turn. * Care Plan - Stefanie Carrion RN - 02/19/2021 2:10 PM CDT Potential for pain related to surgical/procedural intervention Interventions: Assess level of pain/comfort utilizing verbal/nonverbal pain scales; assess culturalor restorationism indicators attached to pain; administer pain medications as prescribed; utilize non-pharmacologic pain control and comfort measures Expected Outcome: Patient demonstrates and reports adequate pain control Outcome Met: VSS. Pain managed post-op. Potential for anxiety related to surgical intervention Interventions: convey caring/supportive attitude; offer emotional support as needed; provide comfort measures (warm blanket, pillow, quiet environment); allow patient opportunity to verbalize concerns/fears/questions; explore coping behaviors; allow age-specific/special needs family support Expected Outcome: Patient will demonstrate decreased anxiety or adaptive coping strategies Outcome Met: VSS. Pt resting comfortably. * Care Plan - Lenny Norman RN - 02/19/2021 7:51 AM CDT Knowledge deficit related to procedure/environment Interventions: Assess learning needs and willingness to learn; give clear, concise explanations of the environment and sequence of events surrounding the periop experience; address patient/family questions and concerns; provide teaching as indicated, provide teaching related to postoperative pain assessment utilizing pain scales Expected Outcome: Patient verbalizes or demonstrates awareness/understanding of surgery and perioperative experience Outcome Met: jakub op procedures explained documented in this encounter Plan of Treatment Not on file documented as of this encounter Procedures Procedure Name Priority Date/Time Associated Diagnosis Comments MAGNESIUM LEVEL Routine 02/26/2021 8:22 AM CDT BASIC METABOLIC PANEL Routine 02/26/2021 8:22 AM CDT CALCIUM IONIZED Routine 02/25/2021 6:54 AM CDT MAGNESIUM LEVEL Routine 02/25/2021 5:28 AM CDT BASIC METABOLIC PANEL Routine 02/25/2021 5:28 AM CDT MAGNESIUM LEVEL Routine 02/24/2021 6:40 AM CDT CALCIUM IONIZED Routine 02/24/2021 6:40 AM CDT BASIC METABOLIC PANEL Routine 02/24/2021 6:40 AM CDT POC GLUCOSE Routine 02/24/2021 4:06 AM CDT POC GLUCOSE Routine 02/24/2021 12:05 AM CDT POC GLUCOSE Routine 02/23/2021 7:59 PM CDT POC GLUCOSE Routine 02/23/2021 4:10 PM CDT POC GLUCOSE Routine 02/23/2021 12:47 PM CDT POC GLUCOSE Routine 02/23/2021 8:08 AM CDT MAGNESIUM LEVEL Routine 02/23/2021 6:50 AM CDT CALCIUM IONIZED Routine 02/23/2021 6:50 AM CDT BASIC METABOLIC PANEL Routine 02/23/2021 6:50 AM CDT POC GLUCOSE Routine 02/23/2021 1:02 AM CDT POTASSIUM LEVEL Routine 02/22/2021 6:48 PM CDT CALCIUM IONIZED Routine 02/22/2021 6:48 PM CDT POC GLUCOSE Routine 02/22/2021 4:42 PM CDT POC GLUCOSE Routine 02/22/2021 12:35 PM CDT CALCIUM IONIZED Routine 02/22/2021 9:35 AM CDT POC GLUCOSE Routine 02/22/2021 8:46 AM CDT BASIC METABOLIC PANEL Routine 02/22/2021 6:20 AM CDT XR ABDOMEN FOR FEEDING TUBE 1 VW Stat 02/21/2021 5:18 PM CDT XR ABDOMEN FOR FEEDING TUBE 1 VW Stat 02/21/2021 4:08 PM CDT MAGNESIUM LEVEL Routine 02/21/2021 12:44 PM CDT BASIC METABOLIC PANEL Routine 02/21/2021 12:44 PM CDT XR ABDOMEN 1 VW Stat 02/21/2021 12:13 PM CDT HEMOGLOBIN AND HEMATOCRIT Stat 02/21/2021 10:22 AM CDT POC GLUCOSE Routine 02/21/2021 9:16 AM CDT HEMOGLOBIN AND HEMATOCRIT Routine 02/21/2021 7:07 AM CDT XR FLUORO LESS THAN 1 HOUR Routine 02/20/2021 7:16 AM CDT HEMOGLOBIN AND HEMATOCRIT Routine 02/20/2021 6:52 AM CDT XR LUMBAR SPINE 1 VW Routine 02/19/2021 11:47 AM CDT XR LUMBAR SPINE 1 VW Routine 02/19/2021 10:52 AM CDT VERIFICATION BLOOD GROUP Stat 02/19/2021 9:02 AM CDT Preop testing LUMBAR INTERBODY FUSION 02/19/2021 8:45 AM CDT LUMBAR STENOSIS Case Notes [facility] MEDICARE--PP--CPT 63042, 28572 X 2, 15100, 01669, 08000 X 2, 44151, 52414, 12039, 97848 POC GLUCOSE Routine 02/19/2021 8:05 AM CDT documented in this encounter Results * (ABNORMAL) BASIC METABOLIC PANEL (02/26/2021 8:22 AM CDT) Pathologist [facility] SODIUM 138 136 - 145 mmol/L 02/26/2021 9:11 AM CDT [facility] POTASSIUM 4.2 3.5 - 5.0 mmol/L 02/26/2021 9:11 AM CDT [facility] CHLORIDE 108(H) 98 - 107 mmol/L 02/26/2021 9:11 AM CDT [facility] CO2 20(L) 22 - 29 mmol/L 02/26/2021 9:11 AM CDT [facility] CALCIUM 8.6 8.6 - 10.2 mg/dL 02/26/2021 9:11 AM CDT [facility] BUN 7(L) 8 - 23 mg/dL 02/26/2021 9:11 AM T [facility] CREATININE 0.93 0.67 - 1.17 mg/dL 02/26/2021 9:11 AM CDT [facility] Comment:The GFR result is no t clinically significant on patients <18 or >70 years of age. GLUCOSE 166(H) 74 - 99 mg/dL 02/26/2021 9:11 AM CDT [facility] GFR >60 mL/min/1.7 3 sq meter 02/26/2021 9:11 AM CDT [facility] Comment: eGFR has not been validated for use in the elderly (> 70 years of age), women, patients with serious co-morbid conditions, or persons with extremes of body size or muscle mass and should also be interpreted with caution in patients with acute kidney failure, dialysis dependent patients, patients reporting exceptional dietary intake (e.g. vegetarian diet, high protein diets, creatine supplementation), and patients with severe liver disease. Based on National Kidney Disease Education Program If patient is , please refer to the GFR result. GFR, >60 mL/min/1.7 3 sq meter 02/26/2021 9:11 AM CDT [facility] ANION GAP 10 8 - 16 mmol/L 02/26/2021 9:11 AM CDT [facility] Blood Venipuncture / Unknown 02/26/2021 8:22 AM CDT 02/26/2021 8:30 AM CDT Miguelina LEE CHEMISTRY ORDERABLES Performing Organization Address [facility] Co de Phone Number [facility] [employer] [facility]# [id number] [address] [facility] [place] [address] * MAGNESIUM LEVEL (02/26/2021 8:22 AM CDT) MAGNESIUM 1.9 1.6 - 2.4 mg/dL 02/26/2021 9:11 AM CDT [facility] Blood Venipuncture / Unknown 02/26/2021 8:22 AM CDT 02/26/2021 8:30 AM CDT Miguelina LEE CHEMISTRY ORDERABLES Performing Organization Address City/[facility] Co de Phone Number [facility] [employer] [facility] CLIA# [id number] [address] [place] [address] * (ABNORMAL) CALCIUM IONIZED (02/25/2021 6:54 AM CDT) PH, VENOUS 7.43 7.32 - 7.43 02/25/2021 7:06 AM CDT [facility] CALCIUM IONIZED 4.7(L) 4.8 - 5.2 mg/dL 02/25/2021 7:06 AM T [facility] Blood Venipuncture / Unknown 02/25/2021 6:54 AM CDT 02/25/2021 6:59 AM CDT Miguelina LEE CHEMISTRY ORDERABLES [facility] [employer] SERVICES [facility] CLIA# [id number] [address] [facility] [place] [address] * (ABNORMAL) BASIC METABOLIC PANEL (02/25/2021 5:28 AM CDT) SODIUM 141 136 - 145 mmol/L 02/25/2021 6:37 AM T [facility] POTASSIUM 3.3(L) 3.5 - 5.0 mmol/L 02/25/2021 6:37 AM [facility] CHLORIDE 110(H) 98 - 107 mmol/L 02/25/2021 6:37 AM T [facility] CO2 23 22 - 29 mmol/L 02/25/2021 6:37 AM [facility] CALCIUM 8.6 8.6 - 10.2 mg/dL 02/25/2021 6:37 AM T [facility]ORAT[facility] SERVICES [facility] BUN 11 8 - 23 mg/dL 02/25/2021 6:37 AM T [facility] CREATININE 0.93 0.67 - 1.17 mg/dL 02/25/2021 6:37 AM T [facility] Comment:The GFR result is no t clinically significant on patients <18 or >70 years of age. GLUCOSE 108(H) 74 - 99 mg/dL 02/25/2021 6:37 AM T [facility] GFR >60 mL/min/1.7 3 sq meter 02/25/2021 6:37 AM T [facility] Comment: eGFR has not been validated for use in the elderly (> 70 years of age), women, patients with serious co-morbid conditions, or persons with extremes of body size or muscle mass and should also be interpreted with caution in patients with acute kidney failure, dialysis dependent patients, patients reporting exceptional dietary intake (e.g. vegetarian diet, high protein diets, creatine supplementation), and patients with severe liver disease. Based on National Kidney Disease Education Program If patient is , please refer to the GFR result. GFR, >60 mL/min/1.7 3 sq meter 02/25/2021 6:37 AM CDT [facility] LABORATORY SERVICES [facility] ANION GAP 8 8 - 16 mmol/L 02/25/2021 6:37 AM CDT [facility] LABORATORY SERVICES [facility] Blood Venipuncture / Unknown 02/25/2021 5:28 AM CDT 02/25/2021 5:58 AM CDT Miguelina LEE CHEMISTRY ORDERABLES Performing Organization Address City/[facility]/ZIP Co de Phone Number [facility] [employer] [facility]# [id number] [address] [place] [address] * MAGNESIUM LEVEL (02/25/2021 5:28 AM CDT) MAGNESIUM 2.0 1.6 - 2.4 mg/dL 02/25/2021 6:37 AM CDT [facility] [employer] [facility] Blood Venipuncture / Unknown 02/25/2021 5:28 AM CDT 02/25/2021 5:58 AM CDT Miguelina LEE CHEMISTRY ORDERABLES [facility]# [id number] [address] [place] [address] * (ABNORMAL) BASIC METABOLIC PANEL (02/24/2021 6:40 AM CDT) SODIUM 142 136 - 145 mmol/L 02/24/2021 7:45 AM CDT [facility] LABORATORY SERVICES - [facility] POTASSIUM 3.4(L) 3.5 - 5.0 mmol/L 02/24/2021 7:45 AM [facility] LABORATORY SERVICES - [facility] CHLORIDE 110(H) 98 - 107 mmol/L 02/24/2021 7:45 AM [facility] LABORATORY SERVICES - [facility] CO2 24 22 - 29 mmol/L 02/24/2021 7:45 AM [facility] LABORATORY SERVICES - . [facility] CALCIUM 8.3(L) 8.6 - 10.2 mg/dL 02/24/2021 7:45 AM [employer] LABORATORY SERVICES - . [facility] BUN 17 8 - 23 mg/dL 02/24/2021 7:45 AM [facility] LABORATORY SERVICES - . [facility] CREATININE 0.96 0.67 - 1.17 mg/dL 02/24/2021 7:45 AM [facility] LABORATORY SERVICES - [facility] Comment:The GFR result is no t clinically significant on patients <18 or >70 years of age. GLUCOSE 100(H) 74 - 99 mg/dL 02/24/2021 7:45 AM [employer] SERVICES - [facility] GFR >60 mL/min/1.7 3 sq meter 02/24/2021 7:45 AM [facility] LABORATORY SERVICES - [facility] Comment: eGFR has not been validated for use in the elderly (> 70 years of age), women, patients with serious co-morbid conditions, or persons with extremes of body size or muscle mass and should also be interpreted with caution in patients with acute kidney failure, dialysis dependent patients, patients reporting exceptional dietary intake (e.g. vegetarian diet, high protein diets, creatine supplementation), and patients with severe liver disease. Based on National Kidney Disease Education Program If patient is , please refer to the GFR result. GFR, >60 mL/min/1.7 3 sq meter 02/24/2021 7:45 AM [employer] LABORATORY SERVICES - . [facility] ANION GAP 8 8 - 16 mmol/L 02/24/2021 7:45 AM [employer] LABORATORY SERVICES - [facility] Blood Venipuncture / Unknown 02/24/2021 6:40 AM CDT 02/24/2021 7:06 AM CDT Miguelina LEE CHEMISTRY ORDERABLES Performing Organization Address City/[facility]/ZIP Co de Phone Number [facility]# [id number] [address] [place] [address] * MAGNESIUM LEVEL (02/24/2021 6:40 AM CDT) [facility] MAGNESIUM 2.3 1.6 - 2.4 mg/dL 02/24/2021 7:45 AM CDT [facility] LABORATORY [facility] Blood Venipuncture / Unknown 02/24/2021 6:40 AM CDT 02/24/2021 7:06 AM CDT Miguelina LEE CHEMISTRY ORDERABLES Performing Organization Address [facility] Phone Number [facility]# [id number] [address] [place] [address] * (ABNORMAL) CALCIUM IONIZED (02/24/2021 6:40 AM CDT) [facility] PH, VENOUS 7.45(H) 7.32 - 7.43 02/24/2021 7:19 AM CDT [facility] CALCIUM IONIZED 4.6(L) 4.8 - 5.2 mg/dL 02/24/2021 7:19 AM CDT [facility] Blood Venipuncture / Unknown 02/24/2021 6:40 AM CDT 02/24/2021 7:04 AM CDT Miguelina LEE CHEMISTRY ORDERABLES Performing Organization Address [facility] Co de Phone Number [facility]# [id number] [address] [place] [address] * POC GLUCOSE (02/24/2021 4:06 AM CDT) [facility] GLUCOSE POC 90 74 - 99 mg/dL 02/24/2021 4:06 AM CDT [facility] LABORATORY SERVICES - [facility] COMMENT, GLU POC Notified RN/MD 02/24/2021 4:06 AM CDT [facility] - [facility] FILM FLAT INSPECTOR NAME POC MAIRA STALLWORTH (JANNETTE) 02/24/2021 4:06 AM CDT [facility] LABORATORY SERVICES - [facility] Blood, whole 02/24/2021 4:06 AM CDT 02/24/2021 4:33 AM CDT Francisco Javier Quick MD POINT OF CARE NITHIN TRAN [facility] LABORATORY SERVICES [facility] CLIA# [id number] [address] [place] [id number] * POC GLUCOSE (02/24/2021 12:05 AM CDT) GLUCOSE POC 88 74 - 99 mg/dL 02/24/2021 12:05 AM CDT [facility] LABORATORY SERVICES - [facility] COMMENT, GLU POC To be Repeated 02/24/2021 12:05 AM CDT [facility] LABORATORY SERVICES - [facility] FILM FLAT INSPECTOR NAME POC MAIRA STALLWORTH (JANNETTE) 02/24/2021 12:05 AM CDT [facility] LABORATORY SERVICES [facility] Blood, whole 02/24/2021 12:0 5 AM CDT 02/24/2021 12:39 AM CDT Francisco Javier Quick MD POINT OF CARE NITIHN TRAN [facility] LABORATORY [facility] CLIA# [id number] [address] [place] [address] * POC GLUCOSE (02/23/2021 7:59 PM CDT) GLUCOSE POC 90 74 - 99 mg/dL 02/23/2021 7:59 PM CDT [facility] - [facility] FILM FLAT INSPECTOR NAME MAIRA SHANE (JANNETTE) 02/23/2021 7:59 PM CDT [facility] LABORATORY SERVICES [facility] Blood, whole 02/23/2021 7:59 PM CDT 02/23/2021 8:11 PM CDT Francisco Javier Quick MD POINT OF CARE NITHIN CHELSEA Performing Organization Address [facility] Co de Phone Number [facility] LABORATORY [facility]# [id number] [address] [place] [address] * (ABNORMAL) POC GLUCOSE (02/23/2021 4:10 PM CDT) GLUCOSE POC 71(L) 74 - 99 mg/dL 02/23/2021 4:10 PM CDT [facility] LABORATORY SERVICES [facility] COMMENT, GLU POC Notified RN/ 02/23/2021 4:10 PM CDT [facility] LABORATORY SERVICES [facility] FILM FLAT INSPECTOR NAME POC MIKAYLA AHMADI 02/23/2021 4:10 PM CDT [facility] Blood, whole 02/23/2021 4:1 0 PM CDT 02/23/2021 5:14 PM CDT Francisco Javier Quick MD POINT OF CARE NITHIN TRAN Performing Organization Address [facility] Co de Phone Number [facility] LABORATORY [facility]# [id number] [address] [facility] [place] [address] * POC GLUCOSE (02/23/2021 12:47 PM CDT) GLUCOSE POC 83 74 - 99 mg/dL 02/23/2021 12:47 PM CDT [facility] LABORATORY SERVICES [facility] COMMENT, GLU POC Notified RN/ 02/23/2021 12:47 PM CDT [facility] FILM FLAT INSPECTOR NAME POC MIKAYLA AHMADI 02/23/2021 12:47 PM CDT [facility] LABORATORY SERVICES [facility] Blood, whole 02/23/2021 12:4 7 PM CDT 02/23/2021 1:13 PM CDT Francisco Javier Quick MD POINT OF CARE NITHIN WILBURNSuzie Performing Organization Address [facility]/ZIP Co de Phone Number [facility] [employer] [facility]# [id number] [address] [place] [address] * POC GLUCOSE (02/23/2021 8:08 AM CDT) GLUCOSE POC 86 74 - 99 mg/dL 02/23/2021 8:08 AM CDT [facility] LABORATORY SERVICES [facility] COMMENT, GLU POC Notified RN/MD 02/23/2021 8:08 AM CDT [facility] LABORATORY SERVICES [facility] FILM FLAT INSPECTOR NAME POC MIKAYLA AHMADI 02/23/2021 8:08 AM CDT [facility] LABORATORY SERVICES [facility] Blood, whole 02/23/2021 8:08 AM CDT 02/23/2021 8:41 AM CDT Francisco Javier Quick MD POINT OF CARE NITHIN TRAN Performing Organization Address [facility]/ZIP Co de Phone Number [facility] [employer] [facility]# [id number] [address] [place] [address] * (ABNORMAL) BASIC METABOLIC PANEL (02/23/2021 6:50 AM CDT) SODIUM 140 136 - 145 mmol/L 02/23/2021 8:03 AM CDT [facility] LABORATORY SERVICES [facility] POTASSIUM 3.2(L) 3.5 - 5.0 mmol/L 02/23/2021 8:03 AM CDT [facility] LABORATORY SERVICES - [facility] CHLORIDE 103 98 - 107 mmol/L 02/23/2021 8:03 AM CDT [facility] LABORATORY SERVICES - [facility] CO2 29 22 - 29 mmol/L 02/23/2021 8:03 AM CDT [facility] LABORATORY SERVICES - [facility] CALCIUM 8.2(L) 8.6 - 10.2 mg/dL 02/23/2021 8:03 AM CDT [facility] [employer] SERVICES [facility] BUN 21 8 - 23 mg/dL 02/23/2021 8:03 AM [facility] [employer] [facility] CREATININE 1.06 0.67 - 1.17 mg/dL 02/23/2021 8:03 AM T [facility] LABORATORY [facility] Comment:The GFR result is no t clinically significant on patients <18 or >70 years of age. GLUCOSE 91 74 - 99 mg/dL 02/23/2021 8:03 AM T [facility] LABORATORY [facility] GFR >60 mL/min/1.7 3 sq meter 02/23/2021 8:03 AM T [facility] LABORATORY [facility] - [facility] Comment: eGFR has not been validated for use in the elderly (> 70 years of age), women, patients with serious co-morbid conditions, or persons with extremes of body size or muscle mass and should also be interpreted with caution in patients with acute kidney failure, dialysis dependent patients, patients reporting exceptional dietary intake (e.g. vegetarian diet, high protein diets, creatine supplementation), and patients with severe liver disease. Based on National Kidney Disease Education Program If patient is , please refer to the GFR result. GFR, >60 mL/min/1.7 3 sq meter 02/23/2021 8:03 AM T [facility] [employer] [facility] ANION GAP 8 8 - 16 mmol/L 02/23/2021 8:03 AM T [facility] [employer] [facility] Blood Venipuncture / Unknown 02/23/2021 6:50 AM CDT 02/23/2021 7:03 AM CDT Miguelina LEE CHEMISTRY ORDERABLES [facility] [employer] [facility]# [id number] [address] [facility] [address] [place] [address] * MAGNESIUM LEVEL (02/23/2021 6:50 AM CDT) MAGNESIUM 2.3 1.6 - 2.4 mg/dL 02/23/2021 8:03 AM CDT [facility] LABORATORY [facility] Blood Venipuncture / Unknown 02/23/2021 6:50 AM CDT 02/23/2021 7:03 AM CDT Miguelina LEE CHEMISTRY ORDERABLES Performing Organization Address [facility]/ZIP Co de Phone Number [facility]# [id number] [address] [place] [address] * (ABNORMAL) CALCIUM IONIZED (02/23/2021 6:50 AM CDT) PH, VENOUS 7.43 7.32 - 7.43 02/23/2021 7:39 AM CDT [facility] LABORATORY [facility] CALCIUM IONIZED 4.4(L) 4.8 - 5.2 mg/dL 02/23/2021 7:39 AM CDT [facility] [employer] [facility] Blood Venipuncture / Unknown 02/23/2021 6:50 AM CDT 02/23/2021 7:02 AM CDT Miguelina LEE CHEMISTRY ORDERABLES Performing Organization Address [facility]/ZIP Co de Phone Number [facility]# [id number] [address] [place] [address] * POC GLUCOSE (02/23/2021 1:02 AM CDT) GLUCOSE POC 97 74 - 99 mg/dL 02/23/2021 1:02 AM CDT [facility] LABORATORY [facility] FILM FLAT INSPECTOR NAME POC KARLO TRAVIS 02/23/2021 1:02 AM CDT [facility] [employer] [facility] Blood, whole 02/23/2021 1:02 AM CDT 02/23/2021 1:10 AM CDT Francisco Javier Quick MD POINT OF CARE NITHIN TRAN [facility]# [id number] [address] [place] [address] * POTASSIUM LEVEL (02/22/2021 6:48 PM CDT) [facility] POTASSIUM 3.6 3.5 - 5.0 mmol/L 02/22/2021 7:49 PM CDT [facility] LABORATORY [facility] Blood Venipuncture / Unknown 02/22/2021 6:48 PM CDT 02/22/2021 7:02 PM CDT Miguelina LEE CHEMISTRY ORDERABLES [facility]# [id number] [address] [place] [address] * (ABNORMAL) CALCIUM IONIZED (02/22/2021 6:48 PM CDT) [facility] PH, VENOUS 7.42 7.32 - 7.43 02/22/2021 7:26 PM CDT [facility] CALCIUM IONIZED 4.7(L) 4.8 - 5.2 mg/dL 02/22/2021 7:26 PM CDT [facility] LABORATORY [facility] Blood Venipuncture / Unknown 02/22/2021 6:48 PM CDT 02/22/2021 7:02 PM CDT Miguelina LEE CHEMISTRY ORDERABLES [facility]# [id number] [address] [place] [address] * (ABNORMAL) POC GLUCOSE (02/22/2021 4:42 PM CDT) [facility] GLUCOSE POC 103(H) 74 - 99 mg/dL 02/22/2021 4:42 PM CDT [facility] LABORATORY [facility] FILM FLAT INSPECTOR NAME POC KAY LAN 02/22/2021 4:42 PM CDT [facility] LABORATORY [facility] Blood, whole 02/22/2021 4:42 PM CDT 02/22/2021 5:07 PM CDT Francisco Javier Quick MD POINT OF CARE NITHIN TRAN Performing Organization Address [facility] Co de Phone Number [facility] [id number] [address] [place] [address] * (ABNORMAL) POC GLUCOSE (02/22/2021 12:35 PM CDT) GLUCOSE POC 114(H) 74 - 99 mg/dL 02/22/2021 12:35 PM CDT [facility] LABORATORY [facility] COMMENT, GLU POC Notified RN/MD 02/22/2021 12:35 PM CDT [facility] LABORATORY [facility] FILM FLAT INSPECTOR NAME POC MIKAYLA AHMADI 02/22/2021 12:35 PM CDT [facility] Blood, whole 02/22/2021 12:3 5 PM CDT 02/22/2021 12:51 PM CDT Francisco Javier Quick MD POINT OF CARE NITHIN TRAN Performing Organization Address [facility] Co de Phone Number [facility] [employer] [facility]# [id number] [address] [place] [address] * (ABNORMAL) CALCIUM IONIZED (02/22/2021 9:35 AM CDT) PH, VENOUS 7.44(H) 7.32 - 7.43 02/22/2021 9:49 AM CDT [facility] LABORATORY [facility] CALCIUM IONIZED 4.6(L) 4.8 - 5.2 mg/dL 02/22/2021 9:49 AM CDT [facility] LABORATORY [facility] Blood Venipuncture / Unknown 02/22/2021 9:35 AM CDT 02/22/2021 9:39 AM CDT Miguelina LEE CHEMISTRY ORDERABLES Performing Organization Address [facility]/ZIP Co de Phone Number [facility] [employer] [facility]# [id number] [address] [place] [address] * (ABNORMAL) POC GLUCOSE (02/22/2021 8:46 AM CDT) GLUCOSE POC 117(H) 74 - 99 mg/dL 02/22/2021 8:46 AM CDT [facility] LABORATORY SERVICES - [facility] COMMENT, GLU POC Notified RN/MD 02/22/2021 8:46 AM CDT [facility] LABORATORY SERVICES - [facility] FILM FLAT INSPECTOR NAME POC MIKAYLA AHMADI 02/22/2021 8:46 AM CDT [facility] LABORATORY SERVICES - [facility] Blood, whole 02/22/2021 8:46 AM CDT 02/22/2021 8:56 AM CDT Francisco Javier Quick MD POINT OF CARE NITHIN TING Performing Organization Address [facility]/ZIP Co de Phone Number [facility] [employer] SERVICES [facility]# [id number] [address] [place] [address] * (ABNORMAL) BASIC METABOLIC PANEL (02/22/2021 6:20 AM CDT) SODIUM 143 136 - 145 mmol/L 02/22/2021 7:20 AM CDT [facility] LABORATORY SERVICES [facility] POTASSIUM 2.8(L) 3.5 - 5.0 mmol/L 02/22/2021 7:20 AM CDT [facility] LABORATORY SERVICES - [facility] CHLORIDE 107 98 - 107 mmol/L 02/22/2021 7:20 AM CDT [facility] LABORATORY SERVICES - [facility] CO2 27 22 - 29 mmol/L 02/22/2021 7:20 AM CDT [facility] LABORATORY SERVICES - [facility] CALCIUM 7.4(L) 8.6 - 10.2 mg/dL 02/22/2021 7:20 AM CDT [facility] LABORATORY SERVICES - [facility] BUN 17 8 - 23 mg/dL 02/22/2021 7:20 AM [facility] CREATININE 0.98 0.67 - 1.17 mg/dL 02/22/2021 7:20 AM T [facility] LABORATORY [facility] Comment:The GFR result is no t clinically significant on patients <18 or >70 years of age. GLUCOSE 99 74 - 99 mg/dL 02/22/2021 7:20 AM T [facility] LABORATORY [facility] GFR >60 mL/min/1.7 3 sq meter 02/22/2021 7:20 AM T [facility] LABORATORY [facility] Comment: eGFR has not been validated for use in the elderly (> 70 years of age), women, patients with serious co-morbid conditions, or persons with extremes of body size or muscle mass and should also be interpreted with caution in patients with acute kidney failure, dialysis dependent patients, patients reporting exceptional dietary intake (e.g. vegetarian diet, high protein diets, creatine supplementation), and patients with severe liver disease. Based on National Kidney Disease Education Program If patient is , please refer to the GFR result. GFR, >60 mL/min/1.7 3 sq meter 02/22/2021 7:20 AM T [facility] LABORATORY [facility] ANION GAP 9 8 - 16 mmol/L 02/22/2021 7:20 AM CDT [facility] LABORATORY [facility] Blood Venipuncture / Unknown 02/22/2021 6:20 AM CDT 02/22/2021 6:43 AM CDT Miguelina LEE CHEMISTRY ORDERABLES [facility] [employer] [facility] CLIA# [id number] [address] [place] [address] * XR ABDOMEN FOR FEEDING TUBE 1 VW (02/21/2021 5:18 PM CDT) Anatomical Region Laterality Modality Abdomen Computed Radiogr aphy 02/21/2021 5:18 PM CDT Impressions 02/21/2021 9:20 PM CDT IMPRESSION: 1. ??Enteric tube has been mildly advanced with tip in the body of the stomach. DICTATION LOCATION: Location - [facility] Narrative 02/21/2021 9:20 PM CDT XR ABDOMEN FOR FEEDING TUBE 1 VIEW DATE: 02/21/2021 5:18 PM HISTORY: Check tube placement. COMPARISON: 02/21/2021 at 1600 hours. FINDINGS: Single view of the upper abdomen for enteric tube placement. Enteric tube is in place with tip in the body of the stomach and has been mildly advanced. There are dilated air-filled loops of small bowel in the visualized upper abdomen which could relate to a distal bowel obstruction or an ileus. There are postoperative changes involving the lumbar spine. A catheter is in place overlying the lumbar spine is unchanged. Procedure Note Pablo Reza MD - 02/21/2021 XR ABDOMEN FOR FEEDING TUBE 1 VIEW DATE: 02/21/2021 5:18 PM HISTORY: Check tube placement. COMPARISON: 02/21/2021 at 1600 hours. FINDINGS: Single view of the upper abdomen for enteric tube placement. Enteric tube is in place with tip in the body of the stomach and has been mildly advanced. There are dilated air-filled loops of small bowel in the visualized upper abdomen which could relate to a distal bowel obstruction or an ileus. There are postoperative changes involving the lumbar spine. A catheter is in place overlying the lumbar spine is unchanged. IMPRESSION: 1. Enteric tube has been mildly advanced with tip in the body of the stomach. DICTATION LOCATION: Location - [facility] Francisco Javier Quick MD DIAGNOSTIC IMAGIN G ORDERABLES * XR ABDOMEN FOR FEEDING TUBE 1 VW (02/21/2021 4:08 PM CDT) Anatomical Region Laterality Modality Abdomen Computed Radiogr aphy 02/21/2021 4:08 PM CDT Impressions 02/21/2021 4:21 PM CDT IMPRESSION: 1. Gastric tube tip in the stomach but side port in distal esophagus. This should be advanced 8 cm and a repeat radiograph obtained. DICTATION LOCATION: Location - [facility] Narrative 02/21/2021 4:21 PM CDT EXAMINATION: XR ABDOMEN FOR FEEDING TUBE 1 VW HISTORY: Check Tube Placement. ?? Preop testing; Lumbar stenosis with neurogenic claudication FINDINGS: Comparison is made with a study from earlier today. A gastric tube tip terminates in the stomach but the side port is in the distal esophagus. Procedure Note Claude Sloan MD - 02/21/2021 EXAMINATION: XR ABDOMEN FOR FEEDING TUBE 1 VW HISTORY: Check Tube Placement. Preop testing; Lumbar stenosis with neurogenic claudication FINDINGS: Comparison is made with a study from earlier today. A gastric tube tip terminates in the stomach but the side port is in the distal esophagus. IMPRESSION: 1. Gastric tube tip in the stomach but side port in distal esophagus. This should be advanced 8 cm and a repeat radiograph obtained. DICTATION LOCATION: Location 1 - [facility] Francisco Javier Quick MD DIAGNOSTIC JARENIN G ORDERABLES * MAGNESIUM LEVEL (02/21/2021 12:44 PM CDT) MAGNESIUM 1.9 1.6 - 2.4 mg/dL 02/21/2021 6:31 PM CDT [facility] LABORATORY SERVICES [facility] Blood Venipuncture / Unknown 02/21/2021 12:44 PM CDT 02/21/2021 1:19 PM CDT Miguelina LEE CHEMISTRY ORDERABLES [facility] LABORATORY SERVICES [facility]# [id number] [address] [place] [address] * (ABNORMAL) BASIC METABOLIC PANEL (02/21/2021 12:44 PM CDT) SODIUM 140 136 - 145 mmol/L 02/21/2021 1:56 PM CDT [facility] LABORATORY [facility] POTASSIUM 3.0(L) 3.5 - 5.0 mmol/L 02/21/2021 1:56 PM CDT [facility] LABORATORY SERVICES - [facility] CHLORIDE 103 98 - 107 mmol/L 02/21/2021 1:56 PM CDT [facility] LABORATORY SERVICES - [facility] CO2 26 22 - 29 mmol/L 02/21/2021 1:56 PM CDT [facility] - [facility] CALCIUM 8.5(L) 8.6 - 10.2 mg/dL 02/21/2021 1:56 PM CDT [facility] - [facility] BUN 19 8 - 23 mg/dL 02/21/2021 1:56 PM CDT [facility] - [facility] CREATININE 1.14 0.67 - 1.17 mg/dL 02/21/2021 1:56 PM CDT [facility] - [facility] Comment:The GFR result is no t clinically significant on patients <18 or >70 years of age. GLUCOSE 98 74 - 99 mg/dL 02/21/2021 1:56 PM CDT [facility] GFR >60 mL/min/1.7 3 sq meter 02/21/2021 1:56 PM T [facility] Comment: eGFR has not been validated for use in the elderly (> 70 years of age), women, patients with serious co-morbid conditions, or persons with extremes of body size or muscle mass and should also be interpreted with caution in patients with acute kidney failure, dialysis dependent patients, patients reporting exceptional dietary intake (e.g. vegetarian diet, high protein diets, creatine supplementation), and patients with severe liver disease. Based on National Kidney Disease Education Program If patient is , please refer to the GFR result. GFR, >60 mL/min/1.7 3 sq meter 02/21/2021 1:56 PM CDT [facility] LABORATORY SERVICES [facility] ANION GAP 11 8 - 16 mmol/L 02/21/2021 1:56 PM CDT [facility] LABORATORY SERVICES [facility] Blood Venipuncture / Unknown 02/21/2021 12:44 PM CDT 02/21/2021 1:19 PM CDT Miguelina LEE CHEMISTRY ORDERABLES [facility] [employer] [facility] CLIA# [id number] [address] [place] [address] * XR ABDOMEN 1 VW (02/21/2021 12:13 PM CDT) Anatomical Region Laterality Modality Abdomen Computed Radiogr aphy 02/21/2021 12:1 3 PM CDT Impressions 02/21/2021 1:02 PM CDT IMPRESSION: Multiple loops of air-filled, dilated small bowel and colon, likely ileus. DICTATION LOCATION: Location [address] [place] [address] Narrative 02/21/2021 1:02 PM CDT EXAMINATION: XR ABDOMEN 1 VW DATE: ??02/21/2021 12:13 PM HISTORY: Constipation,Comment: r/o obstruction or ileus. FINDINGS: A single frontal view the abdomen is submitted with no prior studies for comparison. There is lumbar instrumented fusion and a surgical drain. There are multiple loops of air-filled, dilated small bowel and colon. Procedure Note Venkat Rodriges MD - 02/21/2021 EXAMINATION: XR ABDOMEN 1 VW DATE: 02/21/2021 12:13 PM HISTORY: Constipation,Comment: r/o obstruction or ileus. FINDINGS: A single frontal view the abdomen is submitted with no prior studies for comparison. There is lumbar instrumented fusion and a surgical drain. There are multiple loops of air-filled, dilated small bowel and colon. IMPRESSION: Multiple loops of air-filled, dilated small bowel and colon, likely ileus. DICTATION LOCATION: Location [address] [place] [address] Miguelina LEE DIAGNOSTIC IMAGING O RDERABLES * (ABNORMAL) HEMOGLOBIN AND HEMATOCRIT (02/21/2021 10:22 AM CDT) HEMOGLOBIN 12.0(L) 13.6 - 16.5 g/dL 02/21/2021 10:46 AM CDT [facility] LABORATORY SERVICES [facility] HEMATOCRIT 36.0(L) 40.0 - 48.0 % 02/21/2021 10:46 AM CDT [facility] LABORATORY SERVICES [facility] Blood Venipuncture / Unknown 02/21/2021 10:22 AM CDT 02/21/2021 10:32 AM CDT Miguelina LEE HEMATOLOGY ORDERABLE S Performing Organization Address [facility]/ZIP Co de Phone Number [facility]# [id number] [address] [place] [address] * (ABNORMAL) POC GLUCOSE (02/21/2021 9:16 AM CDT) GLUCOSE POC 122(H) 74 - 99 mg/dL 02/21/2021 9:16 AM CDT [facility] LABORATORY [facility] FILM FLAT INSPECTOR NAME POC JAZZY COTO 02/21/2021 9:16 AM CDT [facility] LABORATORY [facility] Blood, whole 02/21/2021 9:16 AM CDT 02/21/2021 9:37 AM CDT Francisco Javier Quick MD POINT OF CARE NITHIN CHELSEA Performing Organization Address [facility]/ZIP Co de Phone Number [facility]# [id number] [address] [place] [address] * (ABNORMAL) HEMOGLOBIN AND HEMATOCRIT (02/21/2021 7:07 AM CDT) Pathologist [facility] HEMOGLOBIN 11.6(L) 13.6 - 16.5 g/dL 02/21/2021 7:56 AM CDT [facility] LABORATORY [facility] HEMATOCRIT 35.5(L) 40.0 - 48.0 % 02/21/2021 7:56 AM CDT [facility] LABORATORY [facility] Blood Venipuncture / Unknown 02/21/2021 7:07 AM CDT 02/21/2021 7:39 AM CDT Tuyet LEE HEMATOLOGY ORDERABL ES Performing Organization Address [facility]/ZIP Co de Phone Number [facility] [employer] [facility]# [id number] [address] [place] [address] * XR FLUORO LESS THAN 1 HOUR (02/20/2021 7:16 AM CDT) Anatomical Region Laterality Modality Computed Radiogr aphy 02/19/2021 1:23 PM CDT Impressions 02/19/2021 8:57 PM CDT IMPRESSION: 1. Fluoroscopic assistance was provided. DICTATION LOCATION: Location [address] [place] [address] Narrative 02/19/2021 8:57 PM CDT EXAM:Fluoroscopy less than one hour. HISTORY:Lumbar fusion. COMPARISON:02/19/2021. FINDINGS:Fluoroscopic assistance is provided to Dr. Quick during performance of lumbar fusion from L2 through L5, with posterior instrumented fusion and evidence of interbody fusion. Refer to the operative report as I was not present for the procedure. Fluoroscopy time = 23 seconds. Reference air kerma = 21 mGy. Procedure Note Raghavendra Hoskins, DO - 02/19/2021 EXAM:Fluoroscopy less than one hour. HISTORY:Lumbar fusion. COMPARISON:02/19/2021. FINDINGS:Fluoroscopic assistance is provided to Dr. Quick during performance of lumbar fusion from L2 through L5, with posterior instrumented fusion and evidence of interbody fusion. Refer to the operative report as I was not present for the procedure. Fluoroscopy time = 23 seconds. Reference air kerma = 21 mGy. IMPRESSION: 1. Fluoroscopic assistance was provided. DICTATION LOCATION: Location [address] [place] [address] Francisco Javier Quick MD DIAGNOSTIC IMAGIN G ORDERABLES * (ABNORMAL) HEMOGLOBIN AND HEMATOCRIT (02/20/2021 6:52 AM CDT) HEMOGLOBIN 11.6(L) 13.6 - 16.5 g/dL 02/20/2021 7:50 AM CDT [facility] LABORATORY [facility] HEMATOCRIT 34.3(L) 40.0 - 48.0 % 02/20/2021 7:50 AM CDT [facility] LABORATORY [facility] Blood Venipuncture / Unknown 02/20/2021 6:52 AM CDT 02/20/2021 7:01 AM CDT Tuyet LEE HEMATOLOGY ORDERABL ES [facility] LABORATORY [facility]# [id number] [address] [place] [address] * XR LUMBAR SPINE 1 VW (02/19/2021 11:47 AM CDT) Anatomical Region Laterality Modality Spine Computed Radiogr aphy 02/19/2021 11:4 7 AM CDT Impressions 02/19/2021 5:40 PM CDT IMPRESSION: 1. ??Intraoperative radiograph as above. DICTATION LOCATION: Location - [facility] Narrative 02/19/2021 5:40 PM CDT XR LUMBAR SPINE 1 VW, XR LUMBAR SPINE 1 VW DATE: 02/19/2021 11:47 AM CLINICAL INDICATION: Spinal stenosis, status post decompression and fusion. COMPARISON: Lumbar radiographs performed earlier today at 0708. TECHNIQUE/FINDINGS: Crosstable lateral intraoperative radiographs performed at 1045 and 1137 demonstrate L2-L5 laminectomy changes and surgical instrumentation projecting over the dorsal soft tissues. There has been interval removal of the surgical Lap-Band and subsequent placement of several transpedicular fixation screws at L2-L5. Multilevel degenerative changes are redemonstrated with stable intervertebral disc spaces. Procedure Note Moose Fernandez DO - 02/19/2021 XR LUMBAR SPINE 1 VW, XR LUMBAR SPINE 1 VW DATE: 02/19/2021 11:47 AM CLINICAL INDICATION: Spinal stenosis, status post decompression and fusion. COMPARISON: Lumbar radiographs performed earlier today at 0708. TECHNIQUE/FINDINGS: Crosstable lateral intraoperative radiographs performed at 1045 and 1137 demonstrate L2-L5 laminectomy changes and surgical instrumentation projecting over the dorsal soft tissues. There has been interval removal of the surgical Lap-Band and subsequent placement of several transpedicular fixation screws at L2-L5. Multilevel degenerative changes are redemonstrated with stable intervertebral disc spaces. IMPRESSION: 1. Intraoperative radiograph as above. DICTATION LOCATION: Location [address] [place] [address] Francisco Javier Quick MD DIAGNOSTIC IMAGIN G ORDERABLES * XR LUMBAR SPINE 1 VW (02/19/2021 10:52 AM CDT) Anatomical Region Laterality Modality Spine Computed Radiogr aphy 02/19/2021 10:5 3 AM CDT Impressions 02/19/2021 5:40 PM CDT IMPRESSION: 1. ??Intraoperative radiograph as above. DICTATION LOCATION: Location [address] [place] [address] Narrative 02/19/2021 5:40 PM CDT XR LUMBAR SPINE 1 VW, XR LUMBAR SPINE 1 VW DATE: 02/19/2021 11:47 AM CLINICAL INDICATION: Spinal stenosis, status post decompression and fusion. COMPARISON: Lumbar radiographs performed earlier today at 0708. TECHNIQUE/FINDINGS: Crosstable lateral intraoperative radiographs performed at 1045 and 1137 demonstrate L2-L5 laminectomy changes and surgical instrumentation projecting over the dorsal soft tissues. There has been interval removal of the surgical Lap-Band and subsequent placement of several transpedicular fixation screws at L2-L5. Multilevel degenerative changes are redemonstrated with stable intervertebral disc spaces. Procedure Note Moose Fernandez DO - 02/19/2021 XR LUMBAR SPINE 1 VW, XR LUMBAR SPINE 1 VW DATE: 02/19/2021 11:47 AM CLINICAL INDICATION: Spinal stenosis, status post decompression and fusion. COMPARISON: Lumbar radiographs performed earlier today at 0708. TECHNIQUE/FINDINGS: Crosstable lateral intraoperative radiographs performed at 1045 and 1137 demonstrate L2-L5 laminectomy changes and surgical instrumentation projecting over the dorsal soft tissues. There has been interval removal of the surgical Lap-Band and subsequent placement of several transpedicular fixation screws at L2-L5. Multilevel degenerative changes are redemonstrated with stable intervertebral disc spaces. IMPRESSION: 1. Intraoperative radiograph as above. DICTATION LOCATION: Location - [facility] Francisco Javier Quick MD DIAGNOSTIC MARCIA Larsen ORDERABLES * VERIFICATION BLOOD GROUP (02/19/2021 9:02 AM CDT) ABO GROUP A 02/19/2021 9:36 AM CDT [facility] LABORATORY SERVICES -- [facility] RH (D) TYPE Positive 02/19/2021 9:36 AM CDT [facility] LABORATORY SERVICES -- [facility] Blood Venipuncture / Unknown 02/19/2021 9:02 AM CDT 02/19/2021 9:02 AM CDT Rahel Priest MD BLOOD BANK [facility] [id number] [address] [place] [address] * (ABNORMAL) POC GLUCOSE (02/19/2021 8:05 AM CDT) [facility] GLUCOSE POC 116(H) 74 - 99 mg/dL 02/19/2021 8:05 AM CDT [facility] LABORATORY [facility] FILM FLAT INSPECTOR NAME POC DORA BROUSSARD 02/19/2021 8:05 AM CDT [facility] [employer] [facility] Blood, whole 02/19/2021 8:05 AM CDT 02/19/2021 8:15 AM CDT Francisco Javier Quick MD POINT OF CARE NITHIN AKILA Performing Organization Address City/[facility]/ZIP Co de Phone Number [facility] [employer] [facility]# [id number] [address] [place] [address] * 2019 NOVEL CORONAVIRUS (COVID-19) PCR DETECTION (02/11/2021 12:07 PM CDT) [facility] COVID-19 PCR NOT DETECTED Not Detected 02/12/20 6:58 PM CDT [facility] [employer] [facility] PERFORMING LAB [facility] 02/11/2021 6:58 PM CDT [facility] [employer] [facility] Upper Respiratory ENTIRE NASOPHARYNX / Unknown Collection / Unknown 02/11/2021 12:07 PM CDT 02/11/2021 2:12 PM CDT Narrative [facility] LABORATORY [facility] - 02/11/2021 6:58 PM CDT This test has been authorized by the FDA under an Emergency Use Authorization for use by authorized laboratories.?? This test has been validated in accordance with the FDA's guidance regarding Coronavirus Disease-2019 testing.?? Optimum specimen types and timing for peak viral levels during infection have not been determined.?? A negative RT-PCR result does not rule out infection with the 2019-Novel Coronavirus. Francisco Javier Quick MD MICROBIOLOGY - PHILIPPE NORMAN ORDERABLES [facility] LABORATORY SERVICES [facility]# [id number] [address] [place] [address] documented in this encounter Visit Diagnoses Diagnosis Spinal stenosis of lumbar region with neurogenic claudication- Primary Spinal stenosis, lumbar region, with neurogenic claudication Preop testing Preoperative examination, unspecified Lumbar stenosis with neurogenic claudication Spinal stenosis, lumbar region, with neurogenic claudication Postoperative ileus Other digestive system complications documented in this encounter Administered Medications Inactive Administered Medications - up to 3 most recent administrations Medication Order MAR Action Action Date Dose Rate Site acetaminophen (TYLENOL) tablet 650 mg 650 mg, Oral, PRE-PROCEDURE ONCE, 1 dose, Starting on Thu02/19/21 at 0814, Until Thu02/19/21 at 0834, Routine, Pre-op Now Given 02/19/2021 8:34 AM CDT 650 mg acetaminophen (TYLENOL) tablet 650 mg 650 mg, Oral, EVERY 6 HOURS PRN, Starting on Thu02/19/21 at 1517, Until Thu02/21/21 at 1126, Other (See Comment), See admin instructions, Routine, Post-op - Floor Given 02/20/2021 6:40 PM CDT 650 mg Given 02/20/2021 10:21 AM CDT 650 mg acetaminophen (TYLENOL) tablet 650 mg 650 mg, Oral, EVERY 6 HOURS, First dose (after last modification) on Thu02/21/21 at 1200, Until Discontinued, Routine, Post-op - Floor Given 02/21/2021 12:29 PM CDT 650 mg acetaminophen (TYLENOL) tablet 650 mg 650 mg, NG Tube, EVERY 6 HOURS, First dose (after last modification) on Thu02/22/21 at 1200, Until Discontinued, Routine, Post-op - Floor Given 02/26/2021 11:20 AM CDT 650 mg Given 02/26/2021 5:00 AM CDT 650 mg Given 02/26/2021 12:42 AM CDT 650 mg atenoloL (TENORMIN) tablet 50 mg 50 mg, Oral, DAILY, First dose on Thu02/20/21 at 0900, Until Discontinued, Routine Given 02/20/2021 8:04 AM CDT 50 mg atenoloL (TENORMIN) tablet 50 mg 50 mg, NG Tube, DAILY, First dose (after last modification) on Thu02/22/21 at 0900, Until Discontinued, Routine Given 02/26/2021 8:29 AM CDT 50 mg Given 02/25/2021 8:10 AM CDT 50 mg Given 02/24/2021 9:38 AM CDT 50 mg atorvastatin (LIPITOR) tablet 10 mg 10 mg, Oral, DAILY, First dose on Thu02/20/21 at 0900, Until Discontinued, Routine Given 02/26/2021 8:27 AM CDT 10 mg Given 02/25/2021 8:10 AM CDT 10 mg Given 02/24/2021 9:38 AM CDT 10 mg wrdlsqwxyt-loqufqy-yzbtzsucjlxuj (CEPACOL) lozenge 1 Each 1 Each, Mouth/Throat, EVERY 2 HOURS PRN, Starting on Thu02/25/21 at 0000, Until Thu02/26/21 at 1543, Cough, Sore Throat, Routine bisacodyL (DULCOLAX) rectal suppository 10 mg 10 mg, Rectal, DAILY PRN, Starting on Thu02/19/21 at 1517, Until Thu02/26/21 at 1543, Constipation, Routine, Post-op - Floor Given 02/21/2021 8:16 AM CDT 10 mg bupivacaine PF 0.75% 0.0625 %, HYDROmorphone (PF) 10 mcg/mL in sodium chloride 0.9% 457.8 mL EPIDURAL 500 mL, Epidural, at 4.5 mL/hr, CONTINUOUS, Starting on Thu02/19/21 at 0930, Until Thu02/21/21 at 1043, DS: [phone] Rate Change 02/20/2021 9:30 AM CDT 4.5 m L/hr New Bag 02/19/2021 1:14 PM CDT 6 mL/hr 6 mL/hr calcium as carbonate (TUMS) 500 mg (200 mg elemental) chewable tablet 400 mg 400 mg, Oral, EVERY 4 HOURS PRN, Starting on Thu02/20/21 at 1013, Until Thu02/26/21 at 1543, Indigestion, Routine Given 02/20/2021 6:36 PM CDT 400 mg Given 02/20/2021 10:21 AM CDT 400 mg calcium GLUCONATE 1,000 mg in sodium chloride (iso-osmotic) 50 mL IVPB 1,000 mg, IV, ONE TIME ONLY, 1 dose, On Thu02/22/21 at 1300, Routine New Bag 02/22/2021 12:57 PM CDT 1,000 mg 25 mL/hr calcium GLUCONATE 2,000 mg in sodium chloride (iso-osmotic) 100 mL IVPB 2,000 mg, IV, ONE TIME ONLY, 1 dose, On Thu02/23/21 at 1600, Routine New Bag 02/23/2021 3:55 PM CDT 2,000 mg 50 mL/hr cholecalciferol (vitamin D3) tablet 2,000 Units 2,000 Units, Oral, DAILY, First dose on Thu02/20/21 at 0900, Until Discontinued, Routine Given 02/26/2021 8:28 AM CDT 2,000 Units Given 02/25/2021 8:10 AM CDT 2,000 Units Given 02/24/2021 9:37 AM CDT 2,000 Units cyanocobalamin (VITAMIN B-12) tablet 1,000 mcg 1,000 mcg, Oral, DAILY, First dose on Thu02/20/21 at 0900, Until Discontinued, Routine Given 02/26/2021 8:28 AM CDT 1,000 mcg Given 02/25/2021 8:11 AM CDT 1,000 mcg Given 02/24/2021 9:37 AM CDT 1,000 mcg dextrose 5 % in water 250 mL flush bag 25 mL 25 mL, IV, SEE ADMIN INSTRUCTIONS, Starting on Thu02/20/21 at 0107, Until Thu02/26/21 at 1543, Routine dextrose 50% (D50) syringe 12.5 Gram 12.5 Gram, IV, SEE ADMIN INSTRUCTIONS, Starting on Thu02/23/21 at 1629, Until Thu02/26/21 at 1543, Routine dextrose 50% (D50) syringe 25 Gram 25 Gram, IV, SEE ADMIN INSTRUCTIONS, Starting on Thu02/23/21 at 1629, Until Thu02/26/21 at 1543, Routine diazePAM (VALIUM) tablet 5 mg 5 mg, Oral, EVERY 8 HOURS PRN, Starting on Thu02/21/21 at 1530, Until Thu02/26/21 at 1543, Spasm, Routine, Post-op - Floor Given 02/23/2021 9:09 PM CDT 5 mg Given 02/22/2021 9:06 PM CDT 5 mg diphenhydrAMINE (BENADRYL) injection 25 mg 25 mg, IV, POST-PROCEDURE Q 4 HOURS PRN, Starting on Thu02/19/21 at 1517, Until Thu02/21/21 at 1516, Itching, Routine, Post-op - Floor Given 02/20/2021 12:17 AM CDT 25 mg Given 02/19/2021 4:49 PM CDT 25 mg docusate sodium (COLACE) capsule 100 mg 100 mg, Oral, TWO TIMES DAILY, First dose on Thu02/19/21 at 2100, Until Discontinued, Routine, Post-op - Floor Given 02/26/2021 8:27 AM CDT 100 mg Given 02/25/2021 8:19 PM CDT 100 mg Given 02/25/2021 8:10 AM CDT 100 mg enoxaparin (LOVENOX) injection 40 mg 40 mg, subCUT, EVERY 24 HOURS, First dose on Thu02/21/21 at 1900, Until Discontinued, Routine, Indication: Prophylaxis of VTE Given 02/25/2021 6:31 PM CDT 40 mg Abdominal Tissue Given 02/24/2021 6:07 PM CDT 40 mg Ab dominal Tissue Given 02/23/2021 6:25 PM CDT 40 mg Ab dominal Tissue famotidine PF (PEPCID) 20 mg/2 mL injection 20 mg 20 mg, IV, EVERY 12 HOURS, First dose on Thu02/22/21 at 1200, Until Discontinued, Routine Given 02/26/2021 12:40 AM CDT 20 mg Given 02/25/2021 12:46 PM CDT 20 mg Given 02/24/2021 12:06 PM CDT 20 mg furosemide (LASIX) tablet 20 mg 20 mg, Oral, DAILY, First dose on Thu02/20/21 at 0900, Until Discontinued, Routine Given 02/26/2021 8:28 AM CDT 20 mg Given 02/25/2021 8:11 AM CDT 20 mg Given 02/24/2021 9:38 AM CDT 20 mg gabapentin (NEURONTIN) capsule 400 mg 400 mg, Oral, PRE-PROCEDURE ONCE, 1 dose, Starting on Thu02/19/21 at 0814, Until Thu02/19/21 at 0834, Routine, Pre-op Now Given 02/19/2021 8:34 AM CDT 400 mg glucagon HCL 1 mg/mL injection 1 mg 1 mg, IM, SEE ADMIN INSTRUCTIONS, Starting on 02/23/21 at 1629, Until Thu02/26/21 at 1543, Routine HYDROmorphone (DILAUDID) 2 mg/mL injection 0.5 mg 0.5 mg, IV, EVERY 2 HOURS PRN, Starting on Lita 02/21/21 at 1042, Until Thu02/26/21 at 1543, Pain (See admin instructions), Pain, Break-Through, Routine Given 02/22/2021 3:55 AM CDT 0.5 mg Given 02/21/2021 11:52 PM CDT 0.5 mg Given 02/21/2021 7:02 PM CDT 0.5 mg lactated ringers infusion IV, at 150 mL/hr, PRE-PROCEDURE CONTINUOUS, Starting on Thu02/19/21 at 0800, Until Thu02/19/21 at 1338, Routine New Bag 02/19/2021 12:37 PM CDT New Bag 02/19/2021 11:38 AM CDT Restarted 02/19/2021 9:56 AM CDT lisinopriL (PRINIVIL) tablet 20 mg 20 mg, Oral, DAILY, First dose on Thu02/20/21 at 0900, Until Discontinued, Routine Given 02/20/2021 8:04 AM CDT 20 mg lisinopriL (PRINIVIL) tablet 20 mg 20 mg, NG Tube, DAILY, First dose (after last modification) on Thu02/22/21 at 0900, Until Discontinued, Routine Given 02/26/2021 8:28 AM CDT 20 mg Given 02/25/2021 8:11 AM CDT 20 mg Given 02/24/2021 9:38 AM CDT 20 mg magnesium hydroxide (MILK OF MAGNESIA) oral suspension 30 mL 30 mL, Oral, DAILY PRN, Starting on Thu02/19/21 at 1517, Until Thu02/26/21 at 1543, Constipation, Routine, Post-op - Floor Given 02/21/2021 7:17 AM CDT 30 mL magnesium sulfate in water 2 gram/50 mL (4 %) IVPB 2 Gram 2 Gram, IV, ONE TIME ONLY, 1 dose, On Thu02/22/21 at 1200, Routine New Bag 02/22/2021 2:48 PM CDT 2 Grams 25 mL/hr metoclopramide (REGLAN) 5 mg/mL injection 10 mg 10 mg, IV, EVERY 6 HOURS, First dose on Thu02/21/21 at 1200, Until Discontinued, Routine Given 02/26/2021 5:00 AM CDT 10 mg Given 02/26/2021 12:41 AM CDT 10 mg Given 02/25/2021 6:26 PM CDT 10 mg montelukast (SINGULAIR) 10 mg tablet 10 mg 10 mg, Oral, DAILY AT BEDTIME, First dose on Thu02/19/21 at 2100, Until Discontinued, Routine Given 02/25/2021 8:19 PM CDT 10 mg Given 02/24/2021 8:29 PM CDT 10 mg Given 02/23/2021 9:06 PM CDT 10 mg morphine PF (ASTRAMORPH,DURAMORPH) 1 mg/mL injection 3 mg 3 mg, Epidural, ONE TIME ONLY, 1 dose, On Thu02/19/21 at 1145, Routine, Anesthesia Intra-op Given 02/19/2021 1:09 PM CDT 3 mg nalbuphine (NUBAIN) injection 3 mg 3 mg, IV, EVERY 4 HOURS PRN, Starting on Thu02/19/21 at 1517, Until Thu02/21/21 at 1516, Itching, Routine, Post-op - Floor Given 02/19/2021 8:09 PM CDT 3 mg naloxegoL (MOVANTIK) tablet 25 mg 25 mg, Oral, DAILY BEFORE BREAKFAST, First dose (after last reorder) on Thu02/21/21 at 1830, Until Discontinued, Routine Given 02/21/2021 6:53 PM CDT 25 mg naloxegoL (MOVANTIK) tablet 25 mg 25 mg, NG Tube, DAILY BEFORE BREAKFAST, First dose (after last modification) on Thu02/22/21 at 0800, Until Discontinued, Routine Given 02/26/2021 5:00 AM CDT 25 mg Given 02/25/2021 6:17 AM CDT 25 mg Given 02/24/2021 6:53 AM CDT 25 mg naloxone (NARCAN) 0.4 mg/mL injection 0.1 mg 0.1 mg, IV, SEE ADMIN INSTRUCTIONS, Starting on Thu02/19/21 at 0814, Until Thu02/26/21 at 1543, Routine, PACU naloxone (NARCAN) 0.4 mg/mL injection 0.4 mg 0.4 mg, IV, POST-PROCEDURE ONCE PRN, 1 dose, Starting on Thu02/19/21 at 1517, Until Thu02/26/21 at 1543, Other (See Comment), If respiratory rate is less than 6 breaths per minute or patient is difficult to arouse, Routine, Post-op - Floor ondansetron (ZOFRAN ODT) tablet 4 mg 4 mg, Oral, PRE-PROCEDURE ONCE, 1 dose, Starting on Thu02/19/21 at 0814, Until Thu02/19/21 at 0835, Routine, Pre-op Now Given 02/19/2021 8:35 AM CDT 4 mg ondansetron (ZOFRAN ODT) tablet 4 mg 4 mg, Oral, EVERY 6 HOURS PRN, Starting on Thu02/19/21 at 1517, Until Thu02/26/21 at 1543, Nausea/Emesis, Routine, Post-op - Floor Given 02/21/2021 12:27 AM CDT 4 m g Given 02/20/2021 6:41 PM CDT 4 mg ondansetron (ZOFRAN) 4 mg/2 mL injection 4 mg 4 mg, IV, EVERY 6 HOURS PRN, Starting on Thu02/19/21 at 1517, Until Thu02/26/21 at 1543, Nausea/Emesis, Routine, Post-op - Floor Given 02/21/2021 11:52 PM CDT 4 m g Given 02/21/2021 2:52 PM CDT 4 mg Given 02/21/2021 8:23 AM CDT 4 mg oxyCODONE (ROXICODONE) tablet 5 mg 5 mg, NG Tube, EVERY 4 HOURS PRN, Starting on Thu02/22/21 at 0753, Until Thu02/26/21 at 1543, Pain (See admin instructions), Routine Given 02/24/2021 8:29 PM CDT 5 mg Given 02/23/2021 9:06 PM CDT 5 mg Given 02/23/2021 6:28 AM CDT 5 mg polyethylene glycol (MIRALAX) packet 17 Gram 17 Gram, Oral, TWO TIMES DAILY, First dose (after last modification) on Thu02/21/21 at 2100, Until Discontinued, Routine Given 02/26/2021 8:27 AM CDT 17 Grams Given 02/25/2021 8:19 PM CDT 17 Grams Given 02/25/2021 8:09 AM CDT 17 Grams potassium bicarbonate-citric acid (EFFER-K) tablet 20 mEq 20 mEq, Oral, DAILY, First dose on Thu02/20/21 at 0900, Until Discontinued, Routine Given 02/21/2021 10:41 AM CDT 20 mEq Given 02/20/2021 8:05 AM CDT 20 mEq potassium bicarbonate-citric acid (EFFER-K) tablet 20 mEq 20 mEq, Oral, DAILY, First dose (after last modification) on Thu02/24/21 at 1330, Until Discontinued, Routine Given 02/26/2021 8:29 AM CDT 20 mEq Given 02/25/2021 8:11 AM CDT 20 mEq Given 02/24/2021 3:05 PM CDT 20 mEq potassium CHLORIDE 20 mEq/100 mL IVPB 20 mEq 20 mEq, IV, ONE TIME ONLY, 1 dose, On Thu02/21/21 at 1930, Routine New Bag 02/21/2021 6:53 PM CDT 20 mEq 50 mL/hr potassium chloride 40 mEq in sodium chloride 0.9% 250 mL IVPB 40 mEq, IV, ONE TIME ONLY, 1 dose, On Thu02/22/21 at 0900, at 76.25 mL/hr, Administer over 4 Hours, Routine New Bag 02/22/2021 11:36 AM CDT 40 mEq 76.25 mL/hr potassium chloride 40 mEq in sodium chloride 0.9% 250 mL IVPB 40 mEq, IV, ONE TIME ONLY, 1 dose, On Thu02/23/21 at 1500, at 76.25 mL/hr, Administer over 4 Hours, Routine New Bag 02/23/2021 4:41 PM CDT 40 mEq 76.25 mL/hr potassium chloride 40 mEq in sodium chloride 0.9% 250 mL IVPB 40 mEq, IV, ONE TIME ONLY, 1 dose, On 02/25/21 at 1200, at 76.25 mL/hr, Administer over 4 Hours, Routine New Bag 02/25/2021 12:11 PM CDT 40 mEq 76.25 mL/hr potassium Cl in dextrose 5% - NaCl 0.9% 1,000 mL 20 mEq/L infusion IV, at 125 mL/hr, CONTINUOUS, Starting on Thu02/23/21 at 1800, Until Thu02/26/21 at 1058, Routine New Bag 02/25/2021 8:57 PM CDT 125 mL/hr New Bag 02/25/2021 8:12 AM CDT 125 mL/hr New Bag 02/25/2021 12:03 AM CDT 125 mL/hr simethicone chewable tablet 160 mg 160 mg, Oral, EVERY 6 HOURS PRN, Starting on Thu02/20/21 at 1522, Until Thu02/26/21 at 1543, Gas, Routine Given 02/21/2021 12:24 AM CDT 160 mg Given 02/20/2021 3:28 PM CDT 160 mg sodium chloride 0.9 % 250 mL flush bag 25 mL 25 mL, IV, SEE ADMIN INSTRUCTIONS, Starting on Thu02/20/21 at 0107, Until Thu02/26/21 at 1543, Routine sodium chloride 0.9% bolus solution 500 mL 500 mL, IV, ONE TIME ONLY, 1 dose, On Lita 02/21/21 at 1115, at 999 mL/hr, Administer over 30 Minutes, Routine New Bag 02/21/2021 12:37 PM CDT 500 mL 999 mL/hr sodium chloride 0.9% infusion IV, at 125 mL/hr, CONTINUOUS, Starting on Tu02/19/21 at 1530, Until 02/23/21 at 1632, Routine, Post-op - Floor New Bag 02/23/2021 10:30 AM CDT 125 mL/hr New Bag 02/23/2021 2:35 AM CDT 125 mL/hr New Bag 02/22/2021 11:34 AM CDT 125 mL/hr sodium chloride flush injection 5 mL 5 mL, IV, EVERY 12 HOURS (BlD), First dose on Thu02/20/21 at 0900, Until Discontinued, Routine Given 02/26/2021 9 :00 AM CDT 5 mL Given 02/25/2021 8:19 PM CDT 5 mL Given 02/25/2021 8:11 AM CDT 5 mL sodium chloride flush injection 5 mL 5 mL, IV, SEE ADMIN INSTRUCTIONS, Starting on Thu02/20/21 at 0107, Until Thu02/26/21 at 1543, Routine vancomycin 1500 mg in sodium chloride 0.9% 300 mL IVPB 1,500 mg, IV, PRE-PROCEDURE ONCE, 1 dose, Starting on Thu02/19/21 at 0752, Until Thu02/19/21 at 1021, Routine, Pre-op, Antibiotic Indication: Surgical prophylaxis Continue from Pre-Op 02/19/2021 9:44 AM CDT New Bag 02/19/2021 8:51 AM CDT 1,500 mg 200 mL/hr vancomycin 1500 mg in sodium chloride 0.9% 300 mL IVPB 1,500 mg (rounded from 1,546.5 mg = 15 mg/kg ? 103.1 kg), IV, EVERY 12 HOURS, 2 doses, First dose on Thu02/19/21 at 2100, Last dose on Thu02/20/21 at 0900, Routine, Antibiotic Indication: Surgical prophylaxis New Bag 02/20/2021 8:09 AM CDT 1,500 mg 200 mL/hr New Bag 02/19/2021 8:20 PM CDT 1,500 mg 200 mL/hr documented in this encounter Active and Recently Administered Medications Times are shown in CDT. Scheduled Medication Order 02/24/2021 02/25/2021 02/26/2021 acetaminophen (TYLENOL) tablet 650 mg 650 mg, NG Tube, EVERY 6 HOURS, First dose (after last modification) on Thu02/22/21 at 1200, Until Discontinued, Routine, Post-op - Floor 0055 (Given - Provider: Vijay Kraus RN)0600 (Refused - Provider: Vijay Kraus RN)1158 (Given - Provider: Sissy Beck LPN)1753 (Given - Provider: Sissy Beck LPN)2348 (Given - Provider: JULIO Bales) 0617 (Given - Provider: Patsy Lo, [place])1155 (Given - Provider: Sissy Beck LPN)1832 (Given - Provider: Sissy Beck LPN) 0042 (Given - Provider: Bertha Paz RN)0500 (Given - Provider: Bertha Paz RN)1120 (Given - Provider: Edouard Cartagena, DC) atenoloL (TENORMIN) tablet 50 mg 50 mg, NG Tube, DAILY, First dose (after last modification) on Thu02/22/21 at 0900, Until Discontinued, Routine 0938 (Given - Provider: Sissy Beck LPN) 0810 (Given - Provider: Sissy Beck LPN) 0829 (Given - Provider: Edouard Cartagena RN) atorvastatin (LIPITOR) tablet 10 mg 10 mg, Oral, DAILY, First dose on Thu02/20/21 at 0900, Until Discontinued, Routine 0938 (Given - Provider: Sissy Beck LPN) 0810 (Given - Provider: Sissy Beck LPN) 0827 (Given - Provider: Edouard Cartagena RN) cholecalciferol (vitamin D3) tablet 2,000 Units 2,000 Units, Oral, DAILY, First dose on Thu02/20/21 at 0900, Until Discontinued, Routine 0937 (Given - Provider: Sissy Beck LPN) 0810 (Given - Provider: Sissy Beck LPN) 0828 (Given - Provider: Edouard Cartagena RN) cyanocobalamin (VITAMIN B-12) tablet 1,000 mcg 1,000 mcg, Oral, DAILY, First dose on Thu02/20/21 at 0900, Until Discontinued, Routine 0937 (Given - Provider: Sissy Beck LPN) 0811 (Given - Provider: Sissy Beck LPN) 0828 (Given - Provider: Edouard Cartagena RN) dextrose 5 % in water 250 mL flush bag 25 mL 25 mL, IV, SEE ADMIN INSTRUCTIONS, Starting on Thu02/20/21 at 0107, Until Thu02/26/21 at 1543, Routine dextrose 50% (D50) syringe 12.5 Gram 12.5 Gram, IV, SEE ADMIN INSTRUCTIONS, Starting on 02/23/21 at 1629, Until Thu02/26/21 at 1543, Routine dextrose 50% (D50) syringe 25 Gram 25 Gram, IV, SEE ADMIN INSTRUCTIONS, Starting on Thu02/23/21 at 1629, Until Thu02/26/21 at 1543, Routine docusate sodium (COLACE) capsule 100 mg 100 mg, Oral, TWO TIMES DAILY, First dose on Thu02/19/21 at 2100, Until Discontinued, Routine, Post-op - Floor 0938 (Given - Provider: Sissy Beck LPN)2100 (Not Given - Provider: JULIO Bales - Reason: Patient condition) 0810 (Given - Provider: Sissy Beck LPN)2019 (Given - Provider: Bertha Paz RN) 0827 (Given - Provider: Edouard Cartagena, DC) enoxaparin (LOVENOX) injection 40 mg 40 mg, subCUT, EVERY 24 HOURS, First dose on Thu02/21/21 at 1900, Until Discontinued, Routine, Indication: Prophylaxis of VTE 1807 (Given - Provider: Sissy Beck LPN) 1831 (Given - Provider: Sissy Beck LPN) famotidine PF (PEPCID) 20 mg/2 mL injection 20 mg 20 mg, IV, EVERY 12 HOURS, First dose on Thu02/22/21 at 1200, Until Discontinued, Routine 0055 (Given - Provider: Vijay Kraus RN)1206 (Given - Provider: Blake Jurado RN) 0000 (Refused - Provider: JULIO Bales)1246 (Given - Provider: Pilar Jimenez RN) 0040 (Given - Provider: Bertha Paz RN)1200 (Not Given - Provider: Edouard Cartagena RN - Reason: Other - See Comment - Comment: no iv) furosemide (LASIX) tablet 20 mg 20 mg, Oral, DAILY, First dose on Thu02/20/21 at 0900, Until Discontinued, Routine 0938 (Given - Provider: Sissy Beck LPN) 0811 (Given - Provider: Sissy Beck LPN) 0828 (Given - Provider: Edouard Cartagena, RN) glucagon HCL 1 mg/mL injection 1 mg 1 mg, IM, SEE ADMIN INSTRUCTIONS, Starting on Thu02/23/21 at 1629, Until Thu02/26/21 at 1543, Routine lisinopriL (PRINIVIL) tablet 20 mg 20 mg, NG Tube, DAILY, First dose (after last modification) on Thu02/22/21 at 0900, Until Discontinued, Routine 0938 (Given - Provider: Sissy Beck LPN) 08 (Given - Provider: Sissy Beck LPN) 08 (Given - Provider: Edouard Cartagena, RN) metoclopramide (REGLAN) 5 mg/mL injection 10 mg 10 mg, IV, EVERY 6 HOURS, First dose on Thu02/21/21 at 1200, Until Discontinued, Routine 0055 (Given - Provider: Vijay Kraus RN)0653 (Given - Provider: Vijay Kraus RN)1208 (Given - Provider: Blake Jurado RN)1749 (Given - Provider: Vida Powres, DC) 0000 (Refused - Provider: JULIO Bales)0618 (Given - Provider: Patsy Lo, DC)1246 (Given - Provider: Pilar Jimenez RN)1826 (Given - Provider: Vida Powers, DC) 0041 (Given - Provider: Bertha Paz, DC)0500 (Given - Provider: Bertha Paz, DC)1200 (Not Given - Provider: Edouard Cartagena, DC - Reason: Other - See Comment - Comment: no iv) montelukast (SINGULAIR) 10 mg tablet 10 mg 10 mg, Oral, DAILY AT BEDTIME, First dose on Thu02/19/21 at 2100, Until Discontinued, Routine 2028 (Given - Provider: JULIO Bales) 2019 (Given - Provider: Bertha Paz, DC) naloxegoL (MOVANTIK) tablet 25 mg 25 mg, NG Tube, DAILY BEFORE BREAKFAST, First dose (after last modification) on Thu02/22/21 at 0800, Until Discontinued, Routine 0653 (Given - Provider: Vijay Kraus, DC) 0617 (Given - Provider: Patsy Lo, DC) 0500 (Given - Provider: Bertha Paz, DC) naloxone (NARCAN) 0.4 mg/mL injection 0.1 mg 0.1 mg, IV, SEE ADMIN INSTRUCTIONS, Starting on Thu02/19/21 at 0814, Until Thu02/26/21 at 1543, Routine, PACU polyethylene glycol (MIRALAX) packet 17 Gram 17 Gram, Oral, TWO TIMES DAILY, First dose (after last modification) on Lita 02/21/21 at 2100, Until Discontinued, Routine 0939 (Given - Provider: Sissy Beck LPN)2100 (Not Given - Provider: JULIO Bales - Reason: Patient condition) 0809 (Given - Provider: Sissy Beck LPN)2019 (Given - Provider: Bertha Paz, DC) 0827 (Given - Provider: Edouard Cartagena, DC) potassium bicarbonate-citric acid (EFFER-K) tablet 20 mEq 20 mEq, Oral, DAILY, First dose (after last modification) on Thu02/24/21 at 1330, Until Discontinued, Routine 1505 (Given - Provider: Sissy Beck LPN) 0811 (Given - Provider: Sissy Beck LPN) 0829 (Given - Provider: Edouard Cartagena, DC) potassium chloride 40 mEq in sodium chloride 0.9% 250 mL IVPB (COMPLETED) 40 mEq, IV, ONE TIME ONLY, 1 dose, On Thu02/25/21 at 1200, at 76.25 mL/hr, Administer over 4 Hours, Routine 1211 (New Bag - Provider: Sissy Beck LPN)1611 (Stopped - Provider: Sissy Beck LPN) sodium chloride 0.9 % 250 mL flush bag 25 mL 25 mL, IV, SEE ADMIN INSTRUCTIONS, Starting on Thu02/20/21 at 0107, Until Thu02/26/21 at 1543, Routine sodium chloride flush injection 5 mL 5 mL, IV, EVERY 12 HOURS (BlD), First dose on Thu02/20/21 at 0900, Until Discontinued, Routine 0939 (Given - Provider: Sissy Beck LPN)203 (Given - Provider: JULIO Bales) 0811 (Given - Provider: Sissy Beck LPN)2019 (Given - Provider: Bertha Paz, DC) 0900 (Given - Provider: Edouard Cartagena RN - Comment: fluids infusing) sodium chloride flush injection 5 mL 5 mL, IV, SEE ADMIN INSTRUCTIONS, Starting on Thu02/20/21 at 0107, Until Thu02/26/21 at 1543, Routine Continuous Medication Order 02/24/2021 02/25/2021 02/26/2021 potassium Cl in dextrose 5% - NaCl 0.9% 1,000 mL 20 mEq/L infusion IV, at 125 mL/hr, CONTINUOUS, Starting on Thu02/23/21 at 1800, Until Thu02/26/21 at 1058, Routine 0539 (New Bag - Provider: Vijay Kraus RN)1503 (New Bag - Provider: Sissy Beck LPN) 0003 (New Bag - Provider: JULIO Bales)0812 (New Bag - Provider: Sissy Beck LPN)2056 (New Bag - Provider: Bertha Paz RN) PRN Medication Order 02/24/2021 02/25/2021 02/26/2021 cvisivcyfx-bcilvyi-skkovqgctmkfi (CEPACOL) lozenge 1 Each 1 Each, Mouth/Throat, EVERY 2 HOURS PRN, Starting on Thu02/25/21 at 0000, Until Thu02/26/21 at 1543, Cough, Sore Throat, Routine bisacodyL (DULCOLAX) rectal suppository 10 mg 10 mg, Rectal, DAILY PRN, Starting on Thu02/19/21 at 1517, Until Thu02/26/21 at 1543, Constipation, Routine, Post-op - Floor calcium as carbonate (TUMS) 500 mg (200 mg elemental) chewable tablet 400 mg 400 mg, Oral, EVERY 4 HOURS PRN, Starting on Thu02/20/21 at 1013, Until Thu02/26/21 at 1543, Indigestion, Routine diazePAM (VALIUM) tablet 5 mg 5 mg, Oral, EVERY 8 HOURS PRN, Starting on Thu02/21/21 at 1530, Until Thu02/26/21 at 1543, Spasm, Routine, Post-op - Floor HYDROmorphone (DILAUDID) 2 mg/mL injection 0.5 mg 0.5 mg, IV, EVERY 2 HOURS PRN, Starting on Thu02/21/21 at 1042, Until Thu02/26/21 at 1543, Pain (See admin instructions), Pain, Break-Through, Routine magnesium hydroxide (MILK OF MAGNESIA) oral suspension 30 mL 30 mL, Oral, DAILY PRN, Starting on Thu02/19/21 at 1517, Until Thu02/26/21 at 1543, Constipation, Routine, Post-op - Floor naloxone (NARCAN) 0.4 mg/mL injection 0.4 mg 0.4 mg, IV, POST-PROCEDURE ONCE PRN, 1 dose, Starting on Thu02/19/21 at 1517, Until Thu02/26/21 at 1543, Other (See Comment), If respiratory rate is less than 6 breaths per minute or patient is difficult to arouse, Routine, Post-op - Floor ondansetron (ZOFRAN ODT) tablet 4 mg 4 mg, Oral, EVERY 6 HOURS PRN, Starting on Thu02/19/21 at 1517, Until Thu02/26/21 at 1543, Nausea/Emesis, Routine, Post-op - Floor ondansetron (ZOFRAN) 4 mg/2 mL injection 4 mg 4 mg, IV, EVERY 6 HOURS PRN, Starting on Thu02/19/21 at 1517, Until Thu02/26/21 at 1543, Nausea/Emesis, Routine, Post-op - Floor oxyCODONE (ROXICODONE) tablet 5 mg 5 mg, NG Tube, EVERY 4 HOURS PRN, Starting on Thu02/22/21 at 0753, Until Thu02/26/21 at 1543, Pain (See admin instructions), Routine 2028 (Given - Provider: JULIO Bales) simethicone chewable tablet 160 mg 160 mg, Oral, EVERY 6 HOURS PRN, Starting on Thu02/20/21 at 1522, Until Thu02/26/21 at 1543, Gas, Routine documented in this encounter Care Teams Contracting Support Specialist Relationship Specialty Start Date End Date Philippe Geiger MD [address] [place] [id number] PCP - General Internal Medicine 01/08/21 documented as of this encounter
--- OUTSIDE RECORDS SUMMARY | 2024-09-27 12:25 | XMS_ITS | Encounter Summary ---
Author Organization [facility] Address [address] Attn: Epic Prelude ADT JENNY VALDEZ [phone] Care Team Providers Care Web Site Project Manager Name Role Phone Philippe Geiger MD Primary Care Provider [phone] Encounter Details Date Type Department Care Team (Latest Contact Info) Description 03/11/2021 Travel Social History Tobacco Use Types Packs/Day [...] on filedocumented in this encounter Care Teams Web Site Project Manager Relationship Specialty Start Date End Date Philippe Geiger MD [address] [place] [address] PCP - General Internal Medicine 01/08/21 documented as of this encounter
--- OUTSIDE RECORDS SUMMARY | 2024-09-27 12:26 | XMS_ITS | Encounter Summary ---
Author Organization [facility] Address [address] [place] [address] Care Team Providers Care Urologic Surgeon Name Role Phone Philippe Geiger MD Primary Care Provider [phone] Encounter Details Date Type Department Care Team (Latest Contact Info) Description 01/23/2021 Prep for Surgery [facility] Neurosurgery - [facility] [address] [facility] [address] [place] [address] Katia Mckeon PAIndiraC NO ADDRESS ON FILE Lumbar stenosis with neurogenic claudication (Primary Dx) Social History Tobacco Use Types Packs/Day Years Used Date Smoking Tobacco: Never Alcohol Use Standard Drinks/Week Comments [...] have Coronavirus / COVID-19? No / Unsure 01/24/2021 3:35 PM CDT documented as of this encounter Plan of Treatment Not on file documented as of this encounter Visit Diagnoses Diagnosis Lumbar stenosis with neurogenic claudication- Primary Spinal stenosis, lumbar region, with neurogenic claudication documented in this encounter Care Teams Urologic Surgeon Relationship Specialty Start Date End Date Philippe Geiger MD [address] [place] [address] PCP - General Internal Medicine 01/08/21 documented as of this encounter
--- OUTSIDE RECORDS SUMMARY | 2024-09-27 12:26 | XMS_ITS | Encounter Summary ---
Author Organization [facility] Address [address] [place] [address] Care Team Providers Care Slot Service Specialist Name Role Phone Philippe Geiger MD Primary Care Provider [phone] Encounter Details Date Type Department Care Team (Late st Contact Info) Description 01/08/2021 [facility] Neurosurgery - [facility] [address] [address] [place] [address] Francisco Javier Quick MD NO ADDRESS ON FILE Social History Tobacco Use Types Packs/Day Years Used Date Smoking Tobacco: Never Assessed Sex and Gender Information Value Date Recorded Sex Assigned at Not on file Gender Identity Not on file Sexual Orientation Not on file COVID-19 Exposure Response Date Recorded In the last month, have you been in contact with someone who was confirmed or suspected to have Coronavirus / COVID-19? No / Unsure 01/08/2021 1:47 PM CDT documented as of this encounter Plan of Treatment Not on file documented as of this encounter Visit Diagnoses Not on filedocumented in this encounter Care Teams Slot Service Specialist Relationship Specialty Start Date End Date Philippe Geiger MD [address] [place] [phone] PCP - General Internal Medicine 01/08/21 documented as of this encounter
--- OUTSIDE RECORDS SUMMARY | 2024-09-27 12:26 | XMS_ITS | Encounter Summary ---
Author Organization [facility] Address [address] [place] [address] Care Team Providers Care E Merchant Name Role Phone Philippe Geiger MD Primary Care Provider [phone] Reason for Visit * Auth/Cert Specialty Diagnoses / Procedures Referred By Contac t Referred To Contact Multi Specialty Diagnoses Spinal stenosis, lumbar region with neurogenic claudication Spondylolisthesis, lumbar region LUMBAR STENOSIS; SPONDYLOLISTHESIS Procedures CA ARTHDSIS POST/POSTEROLATRL/POSTINTERBO DY LUMBAR CA ARTHDSIS POST/POSTERLATRL/POSTINTRBDYA DL SPC/SEG CA LAMINECTOMY,FACETECTOMY,LUMBA R CA LAMINEC/FACETECT/FORAMIN,LUMB AR 1 SEG CA LAMINEC/FACETECT/FORAMIN,EACH ADDNL CA POSTERIOR SEGMENTAL INSTRUMENTATION 3-6 VRT SEG CA INSJ BIOMCHN DEV INTERVERTEBRAL DSC SPC W/ARTHRD CA AUTOGRAFT SPINE SURGERY LOCAL FROM SAME INCISION CA ALLOGRAFT FOR SPINE SURGERY ONLY MORSELIZED LUMBAR INTERBODY FUSION (TLIF L2-3, L3-4, L4-5) [facility] Or [address] [place] [address] Referral ID Status Reason Start Date Expiration Date Visits Re quested Visits Authorized [id number] 1 1 Encounter Details Date Type Department Care Team (Late st Contact Info) Description 02/19/2021 8:45 AM CDT - 02/19/2021 12:00 PM CDT Surgery [facility] Operating Room [address] [place] [address] Francisco Javier Quick MD NO ADDRESS ON FILE LUMBAR INTERBODY FUSION Surgery Details Date/Time Status Location OR Service Patient Class Case Class Case Type Trauma Case? 02/19/2021 8:45 AM Posted [facility] OR MAIN OR 29 Neurological Surgery Surgery Admit Elective No Panel 1 Procedure LRB Anes Op Region Wound Class Comments LUMBAR INTERBODY FUSION N/A General Back Clean- I TLIF L2-3, L3-4, L4-5 W/ DEPUY, CONDUIT CAGE, PEDICLE SCREWS & AUTOLOGUS BONE GRAFT Surgeon Surgeon Role Service Panel Francisco Javier Quick MD Primary Neurological Ming ean 1 Case Notes [employer]HC MEDICARE--PP--CPT 10097, 92340 X 2, 23500, 53433, 55020 X 2, 15488, 40021, 86011, 93996 documented in this encounter Social History Tobacco Use Types Packs/Day Years [...] Sign Reading Time Taken Comments Blood Pressure 146/80 02/19/2021 7:36 AM CDT Pulse 60 02/19/2021 7:36 AM CDT Temperature 36.5 ??C (97.7 ??F) 02/19/2021 7:36 AM CD T Respiratory Rate 18 02/19/2021 7:36 AM CDT Oxygen Saturation 92% 02/19/2021 7:36 AM CDT Inhaled Oxygen Concentration - - Weight 103.1 kg (227 lb 4.8 oz) 02/19/2021 7:36 AM CDT Height 177.8 cm (5' 10 ) 02/19/2021 7:36 AM CDT Body Mass Index 34.77 02/19/2021 7:36 AM CDT documented in this encounter Discharge Summaries * Bertha Geiger PA - 03/20/2021 12:46 PM CDT [place], [place] [address] Discharge Summary Patient: Jayjay Ellison / 75 y.o. / male CSN: [id number] : 1945 ADMIT DATE: 02/19/2021 DISCHARGE DATE: [...] by mouth daily at bedtime. Refills: 0 ZFXJO-8-MYN-EPA-DPA ORAL Take 500 mg by mouth daily. Refills: 0 POTASSIUM ORAL Take 20 mg by mouth daily. Refills: 0 vitamin E 400 unit capsule Take 400 Units by mouth daily. Refills: 0 Where to Get Your Medications These medications were sent to [facility] [address] [facility] [address] Hours: Retail 8 AM - 12 AM [...] 9:16 AM CDT Thank you for choosing [facility]surgery for your care! The following is [...] 1-2 days to make your appointment at [phone]. Feel free tocall for any further questions [...] out. Medications will NOT be refilled by ???product control and logistics analyst?? providers after hours! > Many pain medications [...] pain medications or muscle relaxants (I.e. Percocet, Mckittrick, Valium, Flexiril, etc). There are no restrictions [...] 3 months after your surgery. Contact information: [facility]surgery Office #: [phone] 8:30am- 4:30pm Thu-Thursday Exchange#: [phone] After-hours Emergency contact documented in this encounter [...] capsule Take 400 Units by mouth daily. AMVSY-3-WHQ-EPA-DPA ORAL Take 500 mg by mouth daily. [...] questions or concerns at discharge * Bertha Geiger, PA - 02/26/2021 11:48 AM CDT Neurosurgery [...] 63 (!) 58 60 60 Resp: 16 16 18 Temp: 97.7 ??F (36.5 ??C) 98.4 ??F (36.9 ??C) 98.3 ??F (36.8 ??C) 97.8 ??F (36.6 ??C) TempSrc: Oral Oral Oral SpO2: 100% 98% 98% 98% Weight: Height: PE: Awake, Alert, Ox3. PERRL. Speech intact. Follows all commands. Moves all extremities full/symmetric. Sensory intact to LT. Strength 5/5 throughout BLE Incision c/d/i, dressing removed Output by Drain (mL) 02/24/21 07 - 02/24/21 18502/24/21 190 - 02/25/21 0659 02/25/21 07 - 02/25/21 1859 02/25/21 1900 - 02/26/21 0659 02/26/21 07 - 02/26/21 1148 Patient has no LDAs [...] Lovenox D/c home today F/u 2 weeks Bertha Geiger PA-C NSGY PA Pager *For Healthcare Providers Only* (Thu- 7:30am-5pm and Thu-Thu 24 hours): [phone] NSGY After Hours Exchange: [phone] NSGY Office (Thu-Thu 8:30am-4:30pm): [phone] * Nelly Chou MD - 02/26/2021 7:28 AM CDT Images from the original note were not included. DATE: 02/26/2021 NAME: Jayjay Ellison : 1945 CSN: [id number] [facility] Surgery Progress Note Recent Events: NAEON. Tolerated [...] 02/26/2021 7:28 AM TACS Resident On-Call Pager [phone] TACS Attending On-Call - please refer to Trauma and Acute Care Surgery (TACS) page on [employer] website Subjective: No chief complaint on file. [...] daily. Past Week at Unknown time ??? ISDAS-6-UIU-EPA-DPA ORAL Take 500 mg by mouth daily. [...] performed by Francisco Javier Quick MD at [facility] OR [facility] ??? HX HERNIA REPAIR x2 ??? [...] Gatherings with Friends and Family: ??? Attends Pentecostalism Services: ??? Active Member of Clubs or [...] (242 lb 4.8 oz) SpO2 98% BMI 34.77kg/m?? Physical Exam: Gen alert, in [...] Bray MD, 02/26/2021 1:58 PM * Miguelina Godinez PA - 02/25/2021 1:20 PM CDT Neurosurgery Progress [...] less distended. Output by Drain (mL) 02/23/21 0700 - 02/23/21 1859 02/23/21 1900 - 02/24/21 0659 02/24/21 0700 - 02/24/21 1859 02/24/21 1900 - 02/25/21 [...] tube per their recs DVT prophylaxis - SCDs, Lovenox Miguelina Godinez PA-C NSGY PA Pager *For Healthcare Providers Only* (Thu- 7:30am-5pm and Fri-Thu 24 hours): [phone] NSGY After Hours Exchange: [phone] NSGY Office (Thu-Thu 8:30am-4:30pm): [phone] * Nelly Chou MD - 02/25/2021 9:44 AM CDT Images from the original note were not included. DATE: 02/25/2021 NAME: Jayjay Ellison : 1945 [facility]: [id number] [facility] General Surgery Progress Note Recent Events: NAEON. [...] 02/25/2021 9:44 AM TACS Resident On-Call Pager [phone] TACS Attending On-Call - please refer to Trauma and Acute Care Surgery (TACS) page on [employer] website Subjective: No chief complaint on file. [...] daily. Past Week at Unknown time ??? JFVJK-6-LKZ-EPA-DPA ORAL Take 500 mg by mouth daily. [...] performed by Francisco Javier Quick MD at [facility] OR [facility] ??? HX HERNIA REPAIR x2 ??? [...] Gatherings with Friends and Family: ??? Attends Pentecostalism Services: ??? Active Member of Clubs or [...] 1:21 PM CDT Neurosurgery Progress Note Jayjay Ellison 1945 5 Days Post-Op Procedure(s) (LRB): LUMBAR [...] Abdomen less distended. Output by Drain (mL) 02/22/21 0700 - 02/22/21 1859 02/22/21 1900 - 02/23/21 0659 02/23/21 0700 - 02/23/21 1859 02/23/21 1900 - 02/24/21 0659 02/24/21 0700 - 02/24/21 1321 Naso/Oral Tube 02/21/21 1544 [...] bowel regimen. DVT prophylaxis - SCDs, Lovenox ROSA Granados-C NSGY PA Pager *For Healthcare Providers Only* (Thu- 7:30am-5pm and Fri-Thu 24 hours): [phone] NSGY After Hours Exchange: [phone] NSGY Office (Thu-Thu 8:30am-4:30pm): [phone] * Nelly Chou MD - 02/24/2021 8:31 AM CDT Images from the original note were not included. DATE: 02/24/2021 NAME: Jayjay Ellison : 1945 [facility]: [id number] [facility] General Surgery Progress Note Recent Events: NAEON. [...] 02/24/2021 8:31 AM TACS Resident On-Call Pager [phone].[phone] TACS Attending On-Call - please refer to Trauma and Acute Care Surgery (TACS) page on [facility] website Subjective: No chief complaint on [...] daily. Past Week at Unknown time ??? BGOTG-6-LRX-EPA-DPA ORAL Take 500 mg by mouth daily. [...] performed by Francisco Javier Quick MD at [facility] OR [facility] ??? HX HERNIA REPAIR x2 ??? [...] Gatherings with Friends and Family: ??? Attends Pentecostalism Services: ??? Active Member of Clubs or [...] 99 mg/dL COMMENT, GLU POC Notified RN/MD KILN DRAWER NAME MIKAYLA AHMADI POC GLUCOSE Result Value Ref Range POC GLUCOSE 71 (L) 74 - 99 mg/dL COMMENT, GLU POC Notified RN/MD KILN DRAWER NAME MIKAYLA AHMADI POC GLUCOSE Result Value Ref Range POC GLUCOSE 90 74 - 99 mg/dL KILN DRAWER NAME FEDERICAMAIRA Hagan (JANNETTE) POC GLUCOSE Result Value Ref Range POC GLUCOSE 88 74 - 99 mg/dL COMMENT, GLU POC To be Repeated KILN DRAWER NAME FEDERICAMAIRA (JANNETTE) POC GLUCOSE Result Value Ref Range POC GLUCOSE 90 74 - 99 mg/dL COMMENT, GLU POC Notified RN/MD KILN DRAWER NAME FEDERICAMAIRA Hagan (JANNETTE) BASIC METABOLIC PANEL Result Value Ref [...] patient's HPI, labs, xrays, and evaluated the entry level sales consultant's notes and agree with the assessment as documented below. I have spent no less than 35 minutes involved in the care and evaluation of the patient; >50% ofthis time was spent in counseling and/or coordination of care for this patient. Love Goetz MD - Trauma and Acute Care Surgery - Pager: [phone] *If unable to reach me, please call the enamel machine operator and ask for the On-Call Trauma [...] Only* (Thu- 7:30am-5pm and Thu-Thu 24 hours): [phone] NSGY After Hours Exchange: [phone] NSGY Office (Thu-Thu 8:30am-4:30pm): [phone] * Shyla Lord MD - 02/23/2021 5:55 AM CDT Images from the original note were not included. DATE: 02/23/2021 NAME: Jayjay Ellison : 1945 CSN: [id number] [facility] General Surgery Progress Note Recent Events: NAEON. [...] 02/23/2021 5:55 AM TACS Resident On-Call Pager [phone].TACS TACS Attending On-Call - please refer to Trauma and Acute Care Surgery (TACS) page on [employer] website Subjective: No chief complaint on file. [...] daily. Past Week at Unknown time ??? ADKJX-6-ENV-EPA-DPA ORAL Take 500 mg by mouth daily. [...] performed by Francisco Javier Quick MD at [facility] ??? HX HERNIA REPAIR x2 ??? [...] Gatherings with Friends and Family: ??? Attends Pentecostalism Services: ??? Active Member of Clubs or [...] 99 mg/dL COMMENT, GLU POC Notified RN/MD KILN DRAWER NAME MIKAYLA AHMADI CALCIUM IONIZED Result Value Ref Range PH, VENOUS 7.44 (H) 7.32 - 7.43 CALCIUM IONIZED 4.6 (L) 4.8 - 5.2 mg/dL POC GLUCOSE Result Value Ref Range POC GLUCOSE 114 (H) 74 - 99 mg/dL COMMENT, GLU POC Notified RN/MD KILN DRAWER NAME MIKAYLA AHMADI POC GLUCOSE Result Value Ref Range POC GLUCOSE 103 (H) 74 - 99 mg/dL KILN DRAWER NAME KAY LAN CALCIUM IONIZED Result Value Ref Range PH, VENOUS 7.42 7.32 - 7.43 CALCIUM IONIZED 4.7 (L) 4.8 - 5.2 mg/dL POTASSIUM LEVEL Result Value Ref Range POTASSIUM 3.6 3.5 - 5.0 mmol/L POC GLUCOSE Result Value Ref Range POC GLUCOSE 97 74 - 99 mg/dL KILN DRAWER NAME KARLO TRAVIS No new imaging Shyla [...] patient's HPI, labs, xrays, and evaluated the entry level sales consultant's notes and agree with the assessment as documented below. I have spent no less than 40 minutes involved in the care and evaluation of the patient; >50% ofthis time was spent in counseling and/or coordination of care for this patient. Love Goetz MD - Trauma and Acute Care Surgery - Pager: [phone] *If unable to reach me, please call the enamel machine operator and ask for the On-Call Trauma [...] 1859 02/20/21 1900 - 02/21/21 0659 02/21/21 0700 - 02/21/21 1859 02/21/21 1900 [...] Only* (Thu- 7:30am-5pm and Thu-Thu 24 hours): [phone] NSGY After Hours Exchange: [phone] NSGY Office (Thu-Thu 8:30am-4:30pm): [phone] * Gerri Camejo RN - 02/22/2021 2:38 PM CDT Patient has been OOB and ambulating 3 times today * Miguelina Godinez PA - 02/21/2021 1:30 PM CDT NSGY Progress Note Abdominal xray suggestive of ileus Will make NPO Continue IVF Aggressive bowel regimen- will start Movantik Addendum: Patient started vomiting again this afternoon. Will place NG tube. Gen surg consult placed. * Miguelina Godinez PA - 02/21/2021 11:44 AM CDT Neurosurgery [...] Abdomen distended. Output by Drain (mL) 02/19/21 0700 - 02/19/21 1859 02/19/21 1900 - 02/20/21 0659 02/20/21 0700 - 02/20/21 1859 02/20/21 190 - 02/21/21 0659 02/21/21 0700 - 02/21/21 1144 Drain/Device Site #1 Right: [...] Only* (Thu- 7:30am-5pm and Thu-Thu 24 hours): [phone] NSGY After Hours Exchange: [phone] NSGY Office (Thu-Thu 8:30am-4:30pm): [phone] * Patrick Al - 02/20/2021 1:33 PM CDT I stopped in to see the patient to introduce him to Pastoral Care. He was born in [place], raised in the [facility], lived in [place] and now lives in [place], [place]. Essentially, we spoke about [facility] Culture. He was vocal and gave as good as he took. It was a very pleasant visit. Eventually, his daughter arrived and she simply listened as we went back and forth. Fr. Patrick Al, O.P. [phone] * Miguelina Godinez PA - 02/20/2021 1:13 [...] is clean/dry/intact Output by Drain (mL) 02/18/21 07 - 02/18/21 1859 02/18/21 190 - 02/19/21 0659 02/19/21 07 - 02/19/21 18502/19/211899 - 02/20/21 0659 02/20/21 07 - 02/20/21 1314 Drain/Device Site #1 Right: [...] Only* (Thu- 7:30am-5pm and Thu-Thu 24 hours): [phone] NSGY After Hours Exchange: [phone] NSGY Office (Thu-Thu 8:30am-4:30pm): [phone] * Jazzy Coto RN - 02/20/2021 10:12 AM CDT [facility] Adult Therapeutic Orders Protocol [facility] Approved by: [facility] - Medical Executive Committee Approval Date: 07/05/2020 ORDERS ARE ENTERED ???PER PROTOCOL?? Enter the protocol in the patient's electronic health record using smartphrase:.nursingtherapeuticordersprotocol For inpatients with complaints of minor discomfort Nursing Orders: o [id number] Ice Pack/Cold Therapy 20 minutes every 2 hours to affected area. o HFB073 Warm Compress/Heat to affected area 20 minutes every 8 hours to affected area. Medication Orders: o kqrslqqhor-jroyhae-qznqgwnnsfxmsv (CEPACOL) lozenge. 1 each by mouth every [...] the original note were not included. ?02/2020[facility] Adult IV Flush Protocol [facility] Approved by: [facility] - Medical Executive Committee Approval Date: 02/20/2020 [...] bedside coworker ALVAREZ Jordan upon transfer to [facility] Demetrio Score: Demetrio Score: 18 (02/19/21 1519) [...] consult wound care services. 5. Is a director medical writing in place?no If yes, remove device/brace/splint to [...] etc.). Wound care consult was not initiated. [facility] Skin Care Injury Prevention and Treatment Protocol [facility] Approved by: [facility] - Medical Executive Committee Approval Date: 10/06/2019 [...] Fox PA - 02/19/2021 9:02 AM CDT [place], [place] [address] HISTORY AND PHYSICAL PATIENT NAME: Jayjay Ellison CSN: [id number] ADMITTING PHYSICIAN: Francisco Javier Quick MD PRIMARY [...] Units by mouth daily. Yes Provider, Historical VLSIN-8-OEY-EPA-DPA ORAL Take 500 mg by mouth daily. [...] DATE: 02/21/2021 NAME: Jayjay Ellison : 1945 [facility]: [id number] [facility] Surgery H&P/Consult ASSESSMENT/PLAN: Jayjay Ellison is a [...] 02/21/2021 3:58 PM TACS Resident On-Call Pager [phone].TACS TACS Attending On-Call - please refer to Trauma and Acute Care Surgery (TACS) page on [facility] website Subjective: No chief complaint on [...] daily. Past Week at Unknown time ??? DLLHJ-3-UFH-EPA-DPA ORAL Take 500 mg by mouth daily. [...] performed by Francisco Javier Quick MD at [facility] ??? HX HERNIA REPAIR x2 ??? [...] Gatherings with Friends and Family: ??? Attends Pentecostalism Services: ??? Active Member of Clubs or [...] GLUCOSE 122 (H) 74 - 99 mg/dL KILN DRAWER NAME JAZZY COTO HEMOGLOBIN AND HEMATOCRIT Result [...] patient's HPI, labs, xrays, and evaluated the entry level sales consultant's notes and agree with the assessment as documented below. I have spent no less than 35 minutes involved in the care and evaluation of the patient; >50% ofthis time was spent in counseling and/or coordination of care for this patient. Love Goetz MD - Trauma and Acute Care Surgery - Pager: [phone] *If unable to reach me, please call the enamel machine operator and ask for the On-Call Trauma Surgeon* documented in this encounter OR Notes * Anesthesiology - Zachary Krueger MD - 02/21/2021 10:40 AM CDT 02/21/2021 10:40 AM Regional Anesthesia Service Name: Jayjay Ellison Age: 75 y.o. Sex: male [facility]: [id number] Chief complaint: Post operative pain POD # [...] Service may be contacted by zone phone [phone] during daytime resource hours,or by pager [phone] at any time. If there is no answer within 20 minutes, call [phone] for the Anesthesiologist product control and logistics analyst. Zachary Krueger MD Pager: [phone] * Anesthesiology - Zachary Krueger MD - 02/20/2021 11:14 AM CDT 02/20/2021 11:14 AM Regional Anesthesia Service Name: Jayjay Ellison Age: 75 y.o. Sex: male CSN: [id number] Chief complaint: Post operative pain POD # [...] epidural catheter tomorrow. Zachary Krueger MD Pager: [phone] * Operative Report - Francisco Javier Quick MD - 02/20/2021 12:14 AM CDT [place], [place] Patient: JAYJAY ELLISON CSN: [id number] : 1945 Provider: Francisco Javier Quick MD [...] L4-5. SURGEON: Francisco Javier Quick MD ANESTHESIA: INFORMATION TECHNOLOGY DIRECTOR: Tuyet Fox. ESTIMATED BLOOD LOSS: 600 mL. [...] L3, and L4 were removed with a Tickade bone biter. [place] drill was used to perform a laminectomy [...] condition. Francisco Javier Quick MD MMODL D: [id number] V: [id number] Philippe Geiger MD * OR Anesthesia - Dany Rosales MD - 02/19/2021 9:14 AM CDT [facility] Regional Anesthesia Service Epidural [...] epinephrine 5 mL. Dany Rosales MD Pager: [phone] documented in this encounter Miscellaneous Notes * Therapy Treatment - Yessica Curry, Physical Therapist - 02/26/2021 12:00 PM CDT Patient not seen for PT secondary to politely refused, states he is going home shortly. Will continue to follow patient and will re-attempt at a later time if pt remains inpatient beyond today. [facility]. Zone #: [id number] * Care Plan - Sissy Beck LPN [...] care for updates on goals. Zone #: [id number] * Care Plan - Lilly Ramirez Physical [...] for home/community mobility. Outcome: Progressing Flowsheets (Taken 02/25/20211200) Mon: X Assistive Devices Screening: Front wheeled [...] at discharge: DME: No new DME recommended (02/25/211200) Education: PT plan of care Positioning after [...] care for updates on goals. Zone #: [id number] * Care Plan - Azucena Joshua GN [...] Joshua GN - 02/24/2021 11:59 PM CDT [facility] Approved by: [facility] - Medical Executive Committee Approval Date: 07/05/2020 ORDERS ARE ENTERED ???PER PROTOCOL?? Enter the protocol in the patient's electronic health record using [employer]:.nursingtherapeuticordersprotocol For inpatients with complaints of minor discomfort Nursing Orders: o [id number] Ice Pack/Cold Therapy 20 minutes every 2 hours to affected area. o ADI329 Warm Compress/Heat to affected area 20 minutes every 8 hours to affected area. Medication Orders: o zfnnjnauif-tkvfqif-ljwdkxmttbdzff (CEPACOL) lozenge. 1 each by mouth every [...] NPO * Care Plan - Mehnaz Marcial, Commercial Green Building Architect - 02/24/2021 10:15 AM CDT Problem: Physical [...] Flowsheets Taken 02/24/2021 1010 by Mehnaz Marcial, Commercial Green Building Architect Sun: X Pain Rating: Rest: 0 Pain [...] care for updates on goals. Zone #: [id number] * Care Plan - Vijay Kraus RN [...] chair * Care Plan - Werner Joshua, Performance Reporter - 02/23/2021 11:12 AM CDT Problem: Physical [...] To be determined OT Treatment Start Time: 1111 OT Treatment Stop Time: 1135 S: Patient agrees to therapy. Pt resting in bed upon OLMAN arrival w/ family and DIESEL MOTOR MECHANIC at bedside finishing bath. Pain rating: c/o [...] pt, he just got cleaned up w/ DIESEL MOTOR MECHANIC. UE Dressing: Pt Max A to tie gown behind neck sitting at EOB. LE Dressing: Pt SBA to doff/don socks using hand spray operator and sock aid sitting at EOB. Pt [...] goals Recommend: Home with Home Health OT (06/05/21 1112) Recommendations were made on today's assessment. Additional [...] care for updates on goals. Zone #: [id number] On weekends--please call [phone] * Care Plan - Shira Blelo, Commercial Green Building Architect - 02/23/2021 10:39 AM CDT Problem: Physical [...] home/community mobility. Outcome: Progressing Flowsheets (Taken 02/23/2021 1039) Sat: X Pain Rating: Rest: 0 Pain [...] light, phone and tray table within reach. RN, Gerri koroma. A: Response to treatment: Progressing towards goals, [...] care for updates on goals. Zone #: [id number] * Care Plan - Vijay Kraus RN [...] care for updates on goals. Zone #: 14087 * Care Plan - Trista Ahmadi RN - 02/22/2021 1:33 PM CDT Care Management Initial Assessment Initial Discharge Planning Assessment completed. Discussed Care Management's role and Discharge planning. Discharge Plan: Home with [facility] Patient Discharge Planning Goal: Pain Control Patient will potentially discharge to a SNF/NH? No Care Management visited with: patient via in person. Prior to admission, patient resides at: own home. 1+1 IAN. 1 cando home Prior to admission, living arrangements: spouse. [...] Mobile Relation: Daughter Insurance coverage verified: Payor: [facility] / Plan: MEDICARE ADVANTAGE HMO / Product Type: Medicare Managed Care / Prescription coverage: yes Preferred Pharmacy verified: [facility] [address] [place] [phone] [facility] [address] [facility] Employment Status: retired Has VA Benefits: no [...] continue to follow and assist asneeded. Trista Ahmadi, MSN,RN, [facility] [employer] [phone] * Care Plan - Darcie Yang, Physical Therapist - 02/22/2021 12:43 PM CDT [...] Pt in supine with attachments intact,needs in reach,instrument repair technician in room for care. A: Response [...] care for updates on goals. Zone #: 50738 * Care Plan - Lala Simmons RN - 02/22/2021 6:32 AM CDT Patient alert and oriented. Potassium given per IV . No bowel movement this shift but bowel sounds present. Stomach is distended and patient says he feels full of air. NG tube had green drainage. Patient nausous off and on overnight and refused all oral medication. Grnager care was done and a lot of [...] time/date as appropriate. Thank you. Zone #: 69399 * Care Plan - Stacy Carcamo, Occupational Therapist - 02/21/2021 8:45 AM CDT [...] with verbal cues to doff socks with hand spray operator and don socks with sock-aide seatedEOB Toilet [...] denied dizziness. OT promptly called RN and DIESEL MOTOR MECHANIC into room. RN, DIESEL MOTOR MECHANIC, and OT helped assist pt back to a standing position and pt was able to turn and sit on the edge of the bed. Seated edge of bed patient had another episode, however did not loose consciousness at this time. Pt BP taken seated edge of bed (slightly cum320/65) and blood glucose (122) taken. OT and DIESEL MOTOR MECHANIC assisted pt into supine position in bed. Pt denied dizziness or light headedness again once lying down in bed. Patient denied increase in pain or injury after the event. RN notified MD. RN and DIESEL MOTOR MECHANIC providing care in room upon OT departure. [...] in status or patient is [facility] Plan of Care developed, as indicated by OT assessment and patient's current status. Please refer to plan of care for updates on goals. Zone #: [id number] * Care Plan - Elza Blanco RN [...] content, Agrees to continue Living Situation/Functional Level ADVANCED QUALITY ENGINEER: Pt lives with his in a 1 [...] section of the medical chart. Zone #: [id number] On weekends--please call [phone] * Therapy Evaluation - Stacy Carcamo, Occupational Therapist - 02/20/2021 9:20 AM CDT [...] pain intervention: Appeared content Living Situation/Functional Level ADVANCED QUALITY ENGINEER: Pt states he lives in a one story home with his . Pt states there are two steps the enter the home through the garage. Pt states he has a raised toilet and a tub shower combo with grab bars. Pt states ADVANCED QUALITY ENGINEER she was (I) with all ADLs and IADLs. Pt states ADVANCED QUALITY ENGINEER in the last 8 weeks he has used a SPC for ambulation due to increased back and L leg pain. Home Equipment: BSC, hand spray operator, sock-aide, tub transfer bench, grab bars, raised toilet O: Appearance: Pt is 75 y.o. M semi-supine in bed. Epidural, IV, granger, and PAUL drain intact. DIESEL MOTOR MECHANIC inroom assisting with care upon OT arrival. [...] to perform grooming tasks at this time. DIESEL MOTOR MECHANIC in room providing granger care and bed [...] section of the medical chart. Zone #: [id number] On weekends--please call [phone] * Care Plan - Elza Blanco RN - 02/20/2021 5:29 AM CDT Jayjay Ellison is alert and oriented, ambulates x2 & transfer pad. . Complained of itchyness. Medicated per MAR. Voids per granger. Epidural rate at 6ml/hr. [...] pain/comfort utilizing verbal/nonverbal pain scales; assess culturalor confucianist indicators attached to pain; administer pain medications [...] 8:45 AM CDT LUMBAR STENOSIS Case Notes [facility] MEDICARE--PP--CPT 41527, 79663 X 2, 49646, 17016, 97970 X 2, 49352, 06029, 17542, 51051 POC GLUCOSE Routine 02/19/2021 8:05 AM CDT documented in this encounter Results * (ABNORMAL) BASIC METABOLIC PANEL (02/26/2021 8:22 AM CDT) [facility] SODIUM 138 136 - 145 mmol/L 02/26/2021 9:11 AM CDT [employer] LABORATORY SERVICES - [facility] POTASSIUM 4.2 3.5 - 5.0 mmol/L 02/26/2021 9:11 AM CDT [employer] LABORATORY SERVICES - [facility] CHLORIDE 108(H) 98 - 107 mmol/L 02/26/2021 9:11 AM CDT [employer] LABORATORY SERVICES - [facility] CO2 20(L) 22 - 29 mmol/L 02/26/2021 9:11 AM CDT [employer] LABORATORY SERVICES - [facility] CALCIUM 8.6 8.6 - 10.2 mg/dL 02/26/2021 9:11 AM CDT [employer] LABORATORY SERVICES - [facility] BUN 7(L) 8 - 23 mg/dL 02/26/2021 9:11 AM CDT [employer] LABORATORY SERVICES - [facility] CREATININE 0.93 0.67 - 1.17 mg/dL 02/26/2021 9:11 AM [facility] [employer] [facility] Comment:The GFR result is no t clinically significant on patients <18 or >70 years of age. GLUCOSE 166(H) 74 - 99 mg/dL 02/26/2021 9:11 AM [facility] GFR >60 mL/min/1.7 3 sq meter 02/26/2021 9:11 AM [facility] [employer] [facility] Comment: eGFR has not been validated for [...] mL/min/1.7 3 sq meter 02/26/2021 9:11 AM [facility] [employer] [facility] ANION GAP 10 8 - 16 mmol/L 02/26/2021 9:11 AM [facility] [employer] [facility] Blood Venipuncture / Unknown 02/26/2021 8:22 AM CDT 02/26/2021 8:30 AM CDT Miguelina LEE CHEMISTRY ORDERABLES [facility] [facility]# [id number] [address] [place] [address] * MAGNESIUM LEVEL (02/26/2021 8:22 AM CDT) MAGNESIUM 1.9 1.6 - 2.4 mg/dL 02/26/2021 9:11 AM T [facility] [employer] [facility] Blood Venipuncture / Unknown 02/26/2021 8:22 AM CDT 02/26/2021 8:30 AM CDT Miguelina LEE CHEMISTRY ORDERABLES Performing Organization Address City/[facility]/ZIP Co de Phone Number [facility] [employer] [facility] CLIA# [id number] [address] [place] [address] * (ABNORMAL) CALCIUM IONIZED (02/25/2021 6:54 AM CDT) Pathologist [facility] PH, VENOUS 7.43 7.32 - 7.43 02/25/2021 7:06 AM CDT [employer] LABORATORY SERVICES - [facility] CALCIUM IONIZED 4.7(L) 4.8 - 5.2 mg/dL 02/25/2021 7:06 AM CDT [employer] LABORATORY SERVICES - [facility] Blood Venipuncture / Unknown 02/25/2021 6:54 AM CDT 02/25/2021 6:59 AM CDT Miguelina LEE CHEMISTRY ORDERABLES Performing Organization Address City/[facility]/ZIP Co de Phone Number [facility] [employer] [facility] CLIA# [id number] [address] [place] [address] * (ABNORMAL) BASIC METABOLIC PANEL (02/25/2021 5:28 AM CDT) SODIUM 141 136 - 145 mmol/L 02/25/2021 6:37 AM CDT [employer] LABORATORY SERVICES - . [facility] POTASSIUM 3.3(L) 3.5 - 5.0 mmol/L 02/25/2021 6:37 AM CDT [employer] LABORATORY SERVICES - . [facility] CHLORIDE 110(H) 98 - 107 mmol/L 02/25/2021 6:37 AM CDT [employer] LABORATORY SERVICES - [facility] CO2 23 22 - 29 mmol/L 02/25/2021 6:37 AM CDT [employer] LABORATORY SERVICES - . [facility] CALCIUM 8.6 8.6 - 10.2 mg/dL 02/25/2021 6:37 AM CDT [employer] LABORATORY SERVICES - [facility] BUN 11 8 - 23 mg/dL 02/25/2021 6:37 AM T [facility] [employer] [facility] CREATININE 0.93 0.67 - 1.17 mg/dL 02/25/2021 6:37 AM T [facility] [employer] [facility] Comment:The GFR result is no t clinically significant on patients <18 or >70 years of age. GLUCOSE 108(H) 74 - 99 mg/dL 02/25/2021 6:37 AM T [facility] [employer] [facility] GFR >60 mL/min/1.7 3 sq meter 02/25/2021 6:37 AM T [facility] Comment: eGFR has not been validated for [...] 3 sq meter 02/25/2021 6:37 AM T [facility] [employer] [facility] ANION GAP 8 8 - 16 mmol/L 02/25/2021 6:37 AM T [facility] [employer] [facility] Blood Venipuncture / Unknown 02/25/2021 5:28 AM CDT 02/25/2021 5:58 AM CDT Miguelina LEE CHEMISTRY ORDERABLES [facility] [employer] [facility] CLIA# [id number] [address] [facility] [address] [place] [address] * MAGNESIUM LEVEL (02/25/2021 5:28 AM CDT) MAGNESIUM 2.0 1.6 - 2.4 mg/dL 02/25/2021 6:37 AM CDT [facility] [employer] [facility] Blood Venipuncture / Unknown 02/25/2021 5:28 AM CDT 02/25/2021 5:58 AM CDT Miguelina LEE CHEMISTRY ORDERABLES [facility] LABORATORY SERVICES [facility]# [id number] 5 [facility] [place] [place] [address] * (ABNORMAL) BASIC METABOLIC PANEL (02/24/2021 6:40 AM CDT) Pathologist [facility] SODIUM 142 136 - 145 mmol/L 02/24/2021 7:45 AM T [facility] LABORATORY [facility] - . [facility] POTASSIUM 3.4(L) 3.5 - 5.0 mmol/L 02/24/2021 7:45 AM T [facility] LABORATORY [facility] - . [facility] CHLORIDE 110(H) 98 - 107 mmol/L 02/24/2021 7:45 AM T [facility] LABORATORY [facility]. [facility] CO2 24 22 - 29 mmol/L 02/24/2021 7:45 AM T [facility] LABORATORY [facility]. [facility] CALCIUM 8.3(L) 8.6 - 10.2 mg/dL 02/24/2021 7:45 AM T [facility] LABORATORY [facility] - . [facility] BUN 17 8 - 23 mg/dL 02/24/2021 7:45 AM T [facility] LABORATORY [facility]. [facility] CREATININE 0.96 0.67 - 1.17 mg/dL 02/24/2021 7:45 AM T [facility] LABORATORY [facility] Comment:The GFR result is no t clinically significant on patients <18 or >70 years of age. GLUCOSE 100(H) 74 - 99 mg/dL 02/24/2021 7:45 AM T [facility] LABORATORY [facility] GFR >60 mL/min/1.7 3 sq meter 02/24/2021 7:45 AM [facility] LABORATORY [facility] Comment: eGFR has not been validated for [...] mL/min/1.7 3 sq meter 02/24/2021 7:45 AM CDT [facility] LABORATORY [facility] ANION GAP 8 8 - 16 mmol/L 02/24/2021 7:45 AM CDT [facility] LABORATORY SERVICES [facility] Blood Venipuncture / Unknown 02/24/2021 6:40 AM CDT 02/24/2021 7:06 AM CDT Miguelina LEE CHEMISTRY ORDERABLES Performing Organization Address City/[facility]/ZIP Co de Phone Number [facility]# [id number] [address] [place] [address] * MAGNESIUM LEVEL (02/24/2021 6:40 AM CDT) MAGNESIUM 2.3 1.6 - 2.4 mg/dL 02/24/2021 7:45 AM CDT [facility] LABORATORY [facility] Blood Venipuncture / Unknown 02/24/2021 6:40 AM CDT 02/24/2021 7:06 AM CDT Miguelina ELE CHEMISTRY ORDERABLES Performing Organization Address City/[facility]/ZIP Co de Phone Number [facility] LABORATORY [facility]# [id number] [address] [place] [address] * (ABNORMAL) CALCIUM IONIZED (02/24/2021 6:40 AM CDT) PH, VENOUS 7.45(H) 7.32 - 7.43 02/24/2021 7:19 AM CDT [facility] CALCIUM IONIZED 4.6(L) 4.8 - 5.2 mg/dL 02/24/2021 7:19 AM CDT [facility] LABORATORY SERVICES [facility] Blood Venipuncture / Unknown 02/24/2021 6:40 AM CDT 02/24/2021 7:04 AM CDT Miguelina LEE CHEMISTRY ORDERABLES Performing Organization Address [facility]/ZIP Co de Phone Number [facility]# [id number] [address] [place] [address] * POC GLUCOSE (02/24/2021 4:06 AM CDT) GLUCOSE POC 90 74 - 99 mg/dL 02/24/2021 4:06 AM CDT [facility] LABORATORY SERVICES [facility] COMMENT, GLU POC Notified RN/MD 02/24/2021 4:06 AM CDT [facility] LABORATORY SERVICES [facility] KILN DRAWER NAME POC FEDERICAMAIRA (JANNETTE) 02/24/2021 4:06 AM CDT [facility] LABORATORY SERVICES [facility] Blood, whole 02/24/2021 4:06 AM CDT 02/24/2021 4:33 AM CDT Francisco Javier Quick MD POINT OF CARE NITHIN TING Performing Organization Address [facility]/ZIP Co de Phone Number [facility] LABORATORY [facility]# [id number] [address] [place] [address] * POC GLUCOSE (02/24/2021 12:05 AM CDT) GLUCOSE POC 88 74 - 99 mg/dL 02/24/2021 12:05 AM CDT [facility] LABORATORY SERVICES [facility] COMMENT, GLU POC To be Repeated 02/24/2021 12:05 AM CDT [facility] LABORATORY SERVICES [facility] KILN DRAWER NAME POC MAIRA STALLWORTH (JANNETTE) 02/24/2021 12:05 AM CDT [facility] LABORATORY SERVICES [facility] Blood, whole 02/24/2021 12:0 5 AM CDT 02/24/2021 12:39 AM CDT Francisco Javier Quick MD POINT OF CARE NITHIN TRAN [facility]# [id number] [address] [place] [address] * POC GLUCOSE (02/23/2021 7:59 PM CDT) GLUCOSE POC 90 74 - 99 mg/dL 02/23/2021 7:59 PM CDT [facility] LABORATORY SERVICES [facility] KILN DRAWER NAME POC MAIRA STALLWORTH (JANNETTE) 02/23/2021 7:59 PM CDT [facility] LABORATORY SERVICES [facility] Blood, whole 02/23/2021 7:59 PM CDT 02/23/2021 8:11 PM CDT Francisco Javier Quick MD POINT OF CARE NITHIN TRAN Performing Organization Address [facility]/ZIP Co de Phone Number [facility]# [id number] [address] [place] [address] * (ABNORMAL) POC GLUCOSE (02/23/2021 4:10 PM CDT) GLUCOSE POC 71(L) 74 - 99 mg/dL 02/23/2021 4:10 PM CDT [facility] LABORATORY SERVICES [facility] COMMENT, GLU POC Notified RN/MD 02/23/2021 4:10 PM CDT [facility]ORY SERVICES [facility] KILN DRAWER NAME POC MIKAYLA AHMADI 02/23/2021 4:10 PM CDT [facility] SERVICES [facility] Blood, whole 02/23/2021 4:10 PM CDT 02/23/2021 5:14 PM CDT Francisco Javier Quick MD POINT OF CARE NITHIN TRAN [facility] [id number] [address] [place] [address] * POC GLUCOSE (02/23/2021 12:47 PM CDT) GLUCOSE POC 83 74 - 99 mg/dL 02/23/2021 12:47 PM CDT [facility] LABORATORY SERVICES [facility] COMMENT, GLU POC Notified RN/ 02/23/2021 12:47 PM CDT [facility] LABORATORY SERVICES [facility] KILN DRAWER NAME MIKAYLA CASTRO 02/23/2021 12:47 PM CDT [facility] LABORATORY SERVICES [facility] Blood, whole 02/23/2021 12:4 7 PM CDT 02/23/2021 1:13 PM CDT Francisco Javier Quick MD POINT OF CARE NITHIN TRAN [facility] LABORATORY [facility] CLIA# [id number] [address] [place] [address] * POC GLUCOSE (02/23/2021 8:08 AM CDT) [facility] Signature GLUCOSE POC 86 74 - 99 mg/dL 02/23/2021 8:08 AM CDT [facility] LABORATORY [facility] COMMENT, GLU POC Notified RN/ 02/23/2021 8:08 AM CDT [facility] LABORATORY [facility] KILN DRAWER NAME MIKAYLA CASTRO 02/23/2021 8:08 AM CDT [facility] LABORATORY SERVICES [facility] Blood, whole 02/23/2021 8:08 AM CDT 02/23/2021 8:41 AM CDT Francisco Javier Quick MD POINT OF CARE NITHIN TRAN [facility] CLIA# [id number] [address] [place] [address] * (ABNORMAL) BASIC METABOLIC PANEL (02/23/2021 6:50 AM CDT) [facility] SODIUM 140 136 - 145 mmol/L 02/23/2021 8:03 AM [employer] LABORATORY SERVICES - [facility] POTASSIUM 3.2(L) 3.5 - 5.0 mmol/L 02/23/2021 8:03 AM [employer] LABORATORY SERVICES - [facility] CHLORIDE 103 98 - 107 mmol/L 02/23/2021 8:03 AM [employer] LABORATORY SERVICES - [facility] CO2 29 22 - 29 mmol/L 02/23/2021 8:03 AM [employer] LABORATORY SERVICES - [facility] CALCIUM 8.2(L) 8.6 - 10.2 mg/dL 02/23/2021 8:03 AM [employer] [facility] - . [facility] BUN 21 8 - 23 mg/dL 02/23/2021 8:03 AM [employer] LABORATORY SERVICES - . [facility] CREATININE 1.06 0.67 - 1.17 mg/dL 02/23/2021 8:03 AM [employer] LABORATORY SERVICES - [facility] Comment:The GFR result is no t clinically significant on patients <18 or >70 years of age. GLUCOSE 91 74 - 99 mg/dL 02/23/2021 8:03 AM [employer] SERVICES - [facility] GFR >60 mL/min/1.7 3 sq meter 02/23/2021 8:03 AM [employer] [facility] - [facility] Comment: eGFR has not been validated for [...] mL/min/1.7 3 sq meter 02/23/2021 8:03 AM [employer] LABORATORY SERVICES - [facility] ANION GAP 8 8 - 16 mmol/L 02/23/2021 8:03 AM [employer] LABORATORY SERVICES - . [facility] Blood Venipuncture / Unknown 02/23/2021 6:50 AM CDT 02/23/2021 7:03 AM CDT Miguelina LEE CHEMISTRY ORDERABLES Performing Organization Address [facility] Co de Phone Number [facility]# [id number] [address] [place] [address] * MAGNESIUM LEVEL (02/23/2021 6:50 AM CDT) Pathologist [facility] MAGNESIUM 2.3 1.6 - 2.4 mg/dL 02/23/2021 8:03 AM CDT [facility] LABORATORY [facility] Blood Venipuncture / Unknown 02/23/2021 6:50 AM CDT 02/23/2021 7:03 AM CDT Miguelina LEE CHEMISTRY ORDERABLES Performing Organization Address [facility] Phone Number [facility]# [id number] [address] [place] [address] * (ABNORMAL) CALCIUM IONIZED (02/23/2021 6:50 AM CDT) PH, VENOUS 7.43 7.32 - 7.43 02/23/2021 7:39 AM CDT [facility] CALCIUM IONIZED 4.4(L) 4.8 - 5.2 mg/dL 02/23/2021 7:39 AM CDT [facility] Blood Venipuncture / Unknown 02/23/2021 6:50 AM CDT 02/23/2021 7:02 AM CDT Miguelina LEE CHEMISTRY ORDERABLES Performing Organization Address [facility] Co de Phone Number [facility]# [id number] [address] [place] [address] * POC GLUCOSE (02/23/2021 1:02 AM CDT) GLUCOSE POC 97 74 - 99 mg/dL 02/23/2021 1:02 AM CDT [facility] LABORATORY [facility] KILN DRAWER NAME POC KARLO TRAVIS 02/23/2021 1:02 AM CDT [facility] LABORATORY [facility] Blood, whole 02/23/2021 1:02 AM CDT 02/23/2021 1:10 AM CDT Francisco Javier Quick MD POINT OF CARE NITHIN CHELSEA Performing Organization Address [facility]/ZIP Co de Phone Number [facility]# [id number] [address] [place] [address] * POTASSIUM LEVEL (02/22/2021 6:48 PM CDT) Pathologist [facility] POTASSIUM 3.6 3.5 - 5.0 mmol/L 02/22/2021 7:49 PM CDT [facility] LABORATORY [facility] Blood Venipuncture / Unknown 02/22/2021 6:48 PM CDT 02/22/2021 7:02 PM CDT Miguelina LEE CHEMISTRY ORDERABLES Performing Organization Address [facility]/ZIP Co de Phone Number [facility]# [id number] [address] [place] [address] * (ABNORMAL) CALCIUM IONIZED (02/22/2021 6:48 PM CDT) PH, VENOUS 7.42 7.32 - 7.43 02/22/2021 7:26 PM CDT [facility] LABORATORY [facility] CALCIUM IONIZED 4.7(L) 4.8 - 5.2 mg/dL 02/22/2021 7:26 PM CDT [facility] LABORATORY [facility] Blood Venipuncture / Unknown 02/22/2021 6:48 PM CDT 02/22/2021 7:02 PM CDT Miguelina LEE CHEMISTRY ORDERABLES [facility]# [id number] [address] [place] [address] * (ABNORMAL) POC GLUCOSE (02/22/2021 4:42 PM CDT) GLUCOSE POC 103(H) 74 - 99 mg/dL 02/22/2021 4:42 PM CDT [employer] LABORATORY SERVICES [facility] KILN DRAWER NAME POC KAY LAN 02/22/2021 4:42 PM CDT [facility] SERVICES [facility] Blood, whole 02/22/2021 4:42 PM CDT 02/22/2021 5:07 PM CDT Francisco Javier Quick MD POINT OF CARE NITHIN TRAN Performing Organization Address [facility]/ZIP Co de Phone Number [facility]# [id number] [address] [place] [address] * (ABNORMAL) POC GLUCOSE (02/22/2021 12:35 PM CDT) GLUCOSE POC 114(H) 74 - 99 mg/dL 02/22/2021 12:35 PM CDT [facility] SERVICES [facility] COMMENT, GLU POC Notified RN/MD 02/22/2021 12:35 PM CDT [employer] LABORATORY SERVICES [facility] KILN DRAWER NAME POC MIKAYLA AHMADI 02/22/2021 12:35 PM CDT [employer] LABORATORY SERVICES [facility] Blood, whole 02/22/2021 12:3 5 PM CDT 02/22/2021 12:51 PM CDT Francisco Javier Quick MD POINT OF CARE NITHIN TRAN [facility] LABORATORY [facility]# [id number] [address] [place] [address] * (ABNORMAL) CALCIUM IONIZED (02/22/2021 9:35 AM CDT) PH, VENOUS 7.44(H) 7.32 - 7.43 02/22/2021 9:49 AM CDT [facility] LABORATORY [facility] CALCIUM IONIZED 4.6(L) 4.8 - 5.2 mg/dL 02/22/2021 9:49 AM CDT [facility] LABORATORY SERVICES [facility] Blood Venipuncture / Unknown 02/22/2021 9:35 AM CDT 02/22/2021 9:39 AM CDT Miguelina LEE CHEMISTRY ORDERABLES [facility] [employer] [facility] CLIA# [id number] [address] [place] [address] * (ABNORMAL) POC GLUCOSE (02/22/2021 8:46 AM CDT) [facility] GLUCOSE POC 117(H) 74 - 99 mg/dL 02/22/2021 8:46 AM CDT [facility] LABORATORY SERVICES [facility] COMMENT, GLU POC Notified RN/MD 02/22/2021 8:46 AM CDT [facility] LABORATORY SERVICES [facility] KILN DRAWER NAME POC MIKAYLA AHMADI 02/22/2021 8:46 AM CDT [facility] LABORATORY SERVICES [facility] Blood, whole 02/22/2021 8:46 AM CDT 02/22/2021 8:56 AM CDT Francisco Javier Quick MD POINT OF CARE NITHIN TING [facility] CLIA# [id number] [address] [place] [address] * (ABNORMAL) BASIC METABOLIC PANEL (02/22/2021 6:20 AM CDT) [facility] SODIUM 143 136 - 145 mmol/L 02/22/2021 7:20 AM [employer] LABORATORY SERVICES - [facility] POTASSIUM 2.8(L) 3.5 - 5.0 mmol/L 02/22/2021 7:20 AM [employer] LABORATORY SERVICES - . [facility] CHLORIDE 107 98 - 107 mmol/L 02/22/2021 7:20 AM [employer] LABORATORY SERVICES - . [facility] CO2 27 22 - 29 mmol/L 02/22/2021 7:20 AM [employer] LABORATORY SERVICES - . [facility] CALCIUM 7.4(L) 8.6 - 10.2 mg/dL 02/22/2021 7:20 AM [employer] LABORATORY SERVICES - . [facility] BUN 17 8 - 23 mg/dL 02/22/2021 7:20 AM [employer] LABORATORY SERVICES - . [facility] CREATININE 0.98 0.67 - 1.17 mg/dL 02/22/2021 7:20 AM [employer] LABORATORY SERVICES - [facility] Comment:The GFR result is no t clinically significant on patients <18 or >70 years of age. GLUCOSE 99 74 - 99 mg/dL 02/22/2021 7:20 AM [employer] LABORATORY SERVICES - [facility] GFR >60 mL/min/1.7 3 sq meter 02/22/2021 7:20 AM [employer] LABORATORY SERVICES - [facility] Comment: eGFR has not been validated for [...] mL/min/1.7 3 sq meter 02/22/2021 7:20 AM [employer] LABORATORY SERVICES - [facility] ANION GAP 9 8 - 16 mmol/L 02/22/2021 7:20 AM [employer] LABORATORY SERVICES - [facility] Blood Venipuncture / Unknown 02/22/2021 6:20 AM CDT 02/22/2021 6:43 AM CDT Miguelina LEE CHEMISTRY ORDERABLES [facility] LABORATORY SERVICES [facility]# [id number] [place] [place] [address] * XR ABDOMEN FOR FEEDING TUBE 1 VW (02/21/2021 5:18 PM CDT) Anatomical Region Laterality Modality Abdomen Computed Radiogr aphy 02/21/2021 5:18 PM CDT Impressions 02/21/2021 9:20 PM CDT IMPRESSION: 1. ??Enteric tube has been mildly advanced with tip in the body of the stomach. DICTATION LOCATION: [address] Narrative 02/21/2021 9:20 PM CDT XR ABDOMEN [...] body of the stomach. DICTATION LOCATION: Location 1 - [facility] Francisco Javier Quick MD DIAGNOSTIC IMAGIN G [...] a repeat radiograph obtained. DICTATION LOCATION: Location [address] [place] [address] Narrative 02/21/2021 4:21 PM CDT EXAMINATION: XR [...] a repeat radiograph obtained. DICTATION LOCATION: Location [address] [place] [address] Francisco Javier Quick MD DIAGNOSTIC IMAGIN G ORDERABLES * MAGNESIUM LEVEL (02/21/2021 12:44 PM CDT) MAGNESIUM 1.9 1.6 - 2.4 mg/dL 02/21/2021 6:31 PM CDT [facility] [employer] [facility] Blood Venipuncture / Unknown 02/21/2021 12:44 PM CDT 02/21/2021 1:19 PM CDT Miguelina LEE CHEMISTRY ORDERABLES [facility] [employer] [facility]# [id number] [address] [place] [address] * (ABNORMAL) BASIC METABOLIC PANEL (02/21/2021 12:44 PM CDT) SODIUM 140 136 - 145 mmol/L 02/21/2021 1:56 PM CDT [employer] LABORATORY SERVICES - [facility] POTASSIUM 3.0(L) 3.5 - 5.0 mmol/L 02/21/2021 1:56 PM CDT [employer] LABORATORY SERVICES - [facility] CHLORIDE 103 98 - 107 mmol/L 02/21/2021 1:56 PM CDT [employer] LABORATORY SERVICES - [facility] CO2 26 22 - 29 mmol/L 02/21/2021 1:56 PM CDT [employer] LABORATORY SERVICES - . [facility] CALCIUM 8.5(L) 8.6 - 10.2 mg/dL 02/21/2021 1:56 PM CDT [employer] LABORATORY SERVICES - . [facility] BUN 19 8 - 23 mg/dL 02/21/2021 1:56 PM CDT [employer] LABORATORY SERVICES - . [facility] CREATININE 1.14 0.67 - 1.17 mg/dL 02/21/2021 1:56 PM CDT [employer] LABORATORY SERVICES - [facility] Comment:The GFR result is no t clinically significant on patients <18 or >70 years of age. GLUCOSE 98 74 - 99 mg/dL 02/21/2021 1:56 PM CDT [employer] [facility] - [facility] GFR >60 mL/min/1.7 3 sq meter 02/21/2021 1:56 PM CDT [employer] [facility] - [facility] Comment: eGFR has not been validated for [...] 3 sq meter 02/21/2021 1:56 PM CDT [facility] ANION GAP 11 8 - 16 mmol/L 02/21/2021 1:56 PM CDT [facility] Blood Venipuncture / Unknown 02/21/2021 12:44 PM CDT 02/21/2021 1:19 PM CDT Miguelina LEE CHEMISTRY ORDERABLES [facility] CLIA# [id number] [address] [place] [address] * XR ABDOMEN 1 VW (02/21/2021 12:13 PM CDT) Anatomical Region Laterality Modality Abdomen Computed Radiogr aphy 02/21/2021 12:1 3 PM CDT Impressions 02/21/2021 1:02 PM CDT IMPRESSION: Multiple loops of air-filled, dilated small bowel and colon, likely ileus. DICTATION LOCATION: Location [address] [place] [address] Narrative 02/21/2021 1:02 PM CDT EXAMINATION: XR [...] and colon, likely ileus. DICTATION LOCATION: Location - [facility] Miguelina LEE DIAGNOSTIC IMAGING O RDERABLES * (ABNORMAL) HEMOGLOBIN AND HEMATOCRIT (02/21/2021 10:22 AM CDT) HEMOGLOBIN 12.0(L) 13.6 - 16.5 g/dL 02/21/2021 10:46 AM CDT [facility] HEMATOCRIT 36.0(L) 40.0 - 48.0 % 02/21/2021 10:46 AM CDT [facility] Blood Venipuncture / Unknown 02/21/2021 10:22 AM CDT 02/21/2021 10:32 AM CDT Miguelina LEE HEMATOLOGY ORDERABLE S [facility] CLIA# [id number] [address] [place], [place] [address] * (ABNORMAL) POC GLUCOSE (02/21/2021 9:16 AM CDT) Pathologist [facility] GLUCOSE POC 122(H) 74 - 99 mg/dL 02/21/2021 9:16 AM CDT [facility] KILN DRAWER NAME POC JAZZY COOT 02/21/2021 9:16 AM CDT [facility] Blood, whole 02/21/2021 9:16 AM CDT 02/21/2021 9:37 AM CDT Francisco Javier Quick MD POINT OF CARE NITHIN TRAN [facility] CLIA# [id number] [address] [place], [place] [address] * (ABNORMAL) HEMOGLOBIN AND HEMATOCRIT (02/21/2021 7:07 AM CDT) HEMOGLOBIN 11.6(L) 13.6 - 16.5 g/dL 02/21/2021 7:56 AM CDT [facility] HEMATOCRIT 35.5(L) 40.0 - 48.0 % 02/21/2021 7:56 AM CDT [facility] Blood Venipuncture / Unknown 02/21/2021 7:07 AM CDT 02/21/2021 7:39 AM CDT Tuyet LEE HEMATOLOGY ORDERABL ES [facility] CLIA# [id number] [address] [facility] [place] [address] * XR FLUORO LESS THAN 1 HOUR (02/20/2021 7:16 AM CDT) Anatomical Region Laterality Modality Computed Radiogr aphy 02/19/2021 1:23 PM CDT Impressions 02/19/2021 8:57 PM CDT IMPRESSION: 1. Fluoroscopic assistance was provided. DICTATION LOCATION: Location [address] [place] [address] Narrative 02/19/2021 8:57 PM CDT EXAM:Fluoroscopy less [...] kerma = 21 mGy. Procedure Note Raghavendra Hoskins DO - 02/19/2021 EXAM:Fluoroscopy less than one [...] Fluoroscopic assistance was provided. DICTATION LOCATION: Location - [facility] Francisco Javier Quick MD DIAGNOSTIC IMAGIN G ORDERABLES * (ABNORMAL) HEMOGLOBIN AND HEMATOCRIT (02/20/2021 6:52 AM CDT) HEMOGLOBIN 11.6(L) 13.6 - 16.5 g/dL 02/20/2021 7:50 AM CDT [facility] HEMATOCRIT 34.3(L) 40.0 - 48.0 % 02/20/2021 7:50 AM CDT [facility] Blood Venipuncture / Unknown 02/20/2021 6:52 AM CDT 02/20/2021 7:01 AM CDT Tuyet LEE HEMATOLOGY ORDERABL ES [facility] CLIA# [id number] [address] [place] [address] [address] * XR LUMBAR SPINE 1 VW (02/19/2021 11:47 AM CDT) Anatomical Region Laterality Modality Spine Computed Radiogr aphy 02/19/2021 11:4 7 AM CDT Impressions 02/19/2021 5:40 PM CDT IMPRESSION: 1. ??Intraoperative radiograph as above. DICTATION LOCATION: Location 1 - [facility] Narrative 02/19/2021 5:40 PM CDT XR LUMBAR [...] Intraoperative radiograph as above. DICTATION LOCATION: Location [address] [place] [address] Francisco Javier Quick MD DIAGNOSTIC IMAGIN G ORDERABLES * XR LUMBAR SPINE 1 VW (02/19/2021 10:52 AM CDT) Anatomical Region Laterality Modality Spine Computed Radiogr aphy 02/19/2021 10:5 3 AM CDT Impressions 02/19/2021 5:40 PM CDT IMPRESSION: 1. ??Intraoperative radiograph as above. DICTATION LOCATION: Location - [facility] Narrative 02/19/2021 5:40 PM CDT XR LUMBAR [...] Intraoperative radiograph as above. DICTATION LOCATION: Location 1 - [facility] Francisco Javier Quick MD DIAGNOSTIC IMAGIN G ORDERABLES * VERIFICATION BLOOD GROUP (02/19/2021 9:02 AM CDT) ABO GROUP A 02/19/2021 9:36 AM CDT [facility] SERVICES -- [facility] RH (D) TYPE Positive 02/19/2021 9:36 AM CDT [facility] -- [facility] Blood Venipuncture / Unknown 02/19/2021 9:02 AM CDT 02/19/2021 9:02 AM CDT Rahel Priest MD BLOOD BANK MARIBEL BELL [facility] [employer] [facility] CLDC# [id number] [address] [place] [address] * (ABNORMAL) POC GLUCOSE (02/19/2021 8:05 AM CDT) Pathologist [facility] GLUCOSE POC 116(H) 74 - 99 mg/dL 02/19/2021 8:05 AM CDT [facility] KILN DRAWER NAME POC DORA BROUSSARD 02/19/2021 8:05 AM CDT [facility] Blood, whole 02/19/2021 8:05 AM CDT 02/19/2021 8:15 AM CDT Francisco Javier Quick MD POINT OF CARE NITHIN TRAN [facility] [employer] [facility] CLDC# [id number] [address] [place] [address] * 2019 NOVEL CORONAVIRUS (COVID-19) PCR DETECTION (02/11/2021 12:07 PM CDT) Pathologist [facility] COVID-19 PCR NOT DETECTED Not Detected 02/12/20 6:58 PM CDT [facility] SERVICES - [facility] 02/11/2021 6:58 PM CDT [facility] Upper Respiratory ENTIRE NASOPHARYNX / Unknown Collection / Unknown 02/11/2021 12:07 PM CDT 02/11/2021 2:12 PM CDT Narrative [facility] - 02/11/2021 6:58 PM CDT This test [...] Coronavirus. Francisco Javier Quick MD MICROBIOLOGY - [facility] ORDERABLES [facility]# [id number] [address] [facility] [place] [address] documented in this encounter Visit Diagnoses Not on filedocumented in this encounter Administered Medications Inactive Administered [...] Given 02/24/2021 9:38 AM CDT 10 mg rjdqruqesc-vaazuai-bgoopnxsbmohm (CEPACOL) lozenge 1 Each 1 Each, Mouth/Throat, EVERY 2 HOURS PRN, Starting on Thu02/25/21 at 0000, Until Thu02/26/21 at 1543, Cough, Sore Throat, Routine bisacodyL (DULCOLAX) rectal suppository 10 mg 10 mg, Rectal, DAILY PRN, Starting on Thu02/19/21 at 1517, Until Thu02/26/21 at 1543, Constipation, Routine, Post-op - Floor Given 02/21/2021 8:16 AM CDT 10 mg calcium as carbonate (TUMS) 500 mg (200 mg elemental) chewable tablet 400 mg 400 mg, Oral, EVERY 4 HOURS PRN, Starting on Thu02/20/21 at 1013, Until Thu02/26/21 at 1543, Indigestion, Routine Given 02/20/2021 6:36 PM CDT 400 mg Given 02/20/2021 10:21 AM CDT 400 mg cholecalciferol (vitamin D3) tablet 2,000 Units 2,000 [...] Oral, EVERY 8 HOURS PRN, Starting on Lita 02/21/21 at 1530, Until Thu02/26/21 at 1543, Spasm, Routine, Post-op - Floor Given 02/23/2021 9:09 PM CDT 5 mg Given 02/22/2021 9:06 PM CDT 5 mg docusate sodium (COLACE) capsule 100 mg [...] Given 02/24/2021 9:38 AM CDT 20 mg glucagon HCL 1 mg/mL injection 1 [...] Given 02/21/2021 7:02 PM CDT 0.5 mg lidocaine-EPINEPHrine (XYLOCAINE-EPI) 1 %-1:100,000 injection INTRA-PROCEDURE PRN, Starting on Thu02/19/21 at 1012, Until Thu02/19/21 at 1332, Routine, Intra-op Given 02/19/2021 10:12 AM CDT 10 mL Oper ative Site lisinopriL (PRINIVIL) tablet 20 mg 20 mg, [...] Given 02/21/2021 7:17 AM CDT 30 mL metoclopramide (REGLAN) 5 mg/mL injection 10 mg [...] Given 02/23/2021 9:06 PM CDT 10 mg naloxegoL (MOVANTIK) tablet 25 mg 25 [...] Given 02/24/2021 3:05 PM CDT 20 mEq simethicone chewable tablet 160 mg 160 mg, [...] Until Thu02/26/21 at 1543, Routine sodium chloride 0.9 % irrigation solution INTRA-PROCEDURE PRN, Starting on Thu02/19/21 at 0942, Until Thu02/19/21 at 1332, Routine, Intra-op Given 02/19/2021 9:42 AM CDT 500 mL Opera tive Site sodium chloride flush injection 5 mL 5 mL, IV, EVERY 12 HOURS (BlD), First dose on Thu02/20/21 at 0900, Until Discontinued, Routine Given 02/26/2021 9:00 AM CDT 5 mL Given 02/25/2021 8:19 PM CDT 5 mL Given 02/25/2021 8:11 AM CDT 5 mL sodium chloride flush injection 5 mL 5 mL, IV, SEE ADMIN INSTRUCTIONS, Starting on Thu02/20/21 at 0107, Until Thu02/26/21 at 1543, Routine documented in this encounter Active and Recently [...] JULIO Bales) 0617 (Given - Provider: Patsy Lo RN)1155 (Given - Provider: Sissy Beck LPN)1832 (Given [...] 0829 (Given - Provider: Edouard Cartagena, DC) atorvastatin (LIPITOR) tablet 10 mg 10 mg, Oral, DAILY, First dose on Thu02/20/21 at 0900, Until Discontinued, Routine 0938 (Given - Provider: Sissy Beck LPN) 08 (Given - Provider: Sissy Beck LPN) 08 (Given - Provider: Edouard Cartagena RN) cholecalciferol [...] 0811 (Given - Provider: Sissy Beck LPN) 08 (Given - Provider: Edouard Cartagena RN) dextrose [...] Floor 0938 (Given - Provider: Sissy Beck LPN)2099 (Not Given - Provider: JULIO Bales - Reason: Patient condition) 0810 (Given - Provider: Sissy Beck LPN)2019 (Given - Provider: Bertha Paz RN) 08 (Given - Provider: Edouard Cartagena RN) enoxaparin (LOVENOX) injection 40 mg 40 mg, subCUT, EVERY 24 HOURS, First dose on Thu02/21/21 at 1900, Until Discontinued, Routine, Indication: Prophylaxis of VTE 1806 (Given - Provider: Sissy Beck LPN) 183 (Given - Provider: Sissy Beck LPN) famotidine PF (PEPCID) 20 mg/2 mL injection 20 mg 20 mg, IV, EVERY 12 HOURS, First dose on Thu02/22/21 at 1200, Until Discontinued, Routine 0055 (Given - Provider: Vijay Kraus, DC)1206 (Given - Provider: Blake Jurado, DC) 0000 (Refused - Provider: JULIO Bales)1246 (Given - Provider: Pilar Jimenez, DC) 0040 (Given - Provider: Bertha Paz, DC)1200 (Not Given - Provider: Edouard Cartagena, DC - Reason: Other - See Comment - Comment: no iv) furosemide (LASIX) tablet 20 mg 20 mg, Oral, DAILY, First dose on Thu02/20/21 at 0900, Until Discontinued, Routine 0938 (Given - Provider: Sissy Beck LPN) 0811 (Given - Provider: Sissy Beck LPN) 0828 (Given - Provider: Edouard Cartagena, DC) glucagon HCL 1 mg/mL injection 1 mg [...] LPN) 0828 (Given - Provider: Edouard Cartagena, DC) metoclopramide (REGLAN) 5 mg/mL injection 10 mg 10 mg, IV, EVERY 6 HOURS, First dose on Thu02/21/21 at 1200, Until Discontinued, Routine 0055 (Given - Provider: Vijay Kraus RN)0653 (Given - Provider: Vijay Kraus RN)1208 (Given - Provider: Blake Jurado, DC)1749 (Given - Provider: Vida Powers, DC) 0000 (Refused - Provider: JULIO Bales)0618 (Given - Provider: Patsy Lo, DC)1246 (Given - Provider: Pilar Jimenez, DC)1826 (Given - Provider: Vida Powers, DC) 0041 (Given - Provider: Bertha Paz RN)0500 (Given - Provider: Bertha Paz RN)1200 (Not Given - Provider: Edouard Cartagena, DC - Reason: Other - See Comment - Comment: no iv) montelukast (SINGULAIR) 10 mg tablet 10 mg 10 mg, Oral, DAILY AT BEDTIME, First dose on Thu02/19/21 at 2100, Until Discontinued, Routine 2028 (Given - Provider: JULIO Bales) 2019 (Given - Provider: Bertha Paz RN) naloxegoL (MOVANTIK) tablet 25 mg 25 mg, NG Tube, DAILY BEFORE BREAKFAST, First dose (after last modification) on Thu02/22/21 at 0800, Until Discontinued, Routine 0653 (Given - Provider: Vijay Kraus RN) 0617 (Given - Provider: Patsy Lo, DC) 0500 (Given - Provider: Bertha Paz RN) naloxone (NARCAN) 0.4 mg/mL injection 0.1 mg 0.1 mg, IV, SEE ADMIN INSTRUCTIONS, Starting on Thu02/19/21 at 0814, Until Thu02/26/21 at 1543, Routine, PACU polyethylene glycol (MIRALAX) packet 17 Gram 17 Gram, Oral, TWO TIMES DAILY, First dose (after last modification) on Thu02/21/21 at 2100, Until Discontinued, Routine 0939 (Given - Provider: Sissy Beck LPN)2099 (Not Given - Provider: JULIO Bales - Reason: Patient condition) 0809 (Given - Provider: Sissy Beck LPN)2019 (Given - Provider: Bertha Paz RN) 0827 (Given - Provider: Edouard Cartagena RN) potassium bicarbonate-citric acid (EFFER-K) tablet 20 mEq 20 mEq, Oral, DAILY, First dose (after last modification) on Thu02/24/21 at 1330, Until Discontinued, Routine 1505 (Given - Provider: Sissy Beck LPN) 0811 (Given - Provider: Sissy Beck LPN) 0829 (Given - Provider: Edouard Cartagena RN) potassium chloride 40 mEq in sodium chloride [...] Provider: JULIO Bales) 0811 (Given - Provider: Sisys Beck LPN)2019 (Given - Provider: Bertha Paz RN) 0900 (Given - Provider: Edouard Cartagena RN [...] LPN) 0003 (New Bag - Provider: JULIO Bales)08 (New Bag - Provider: Sissy Beck LPN)2056 (New Bag - Provider: Bertha Paz RN) PRN Medication Order 02/24/2021 02/25/2021 02/26/2021 abwckhoohv-hfgalmh-zoiuvczurkvfg (CEPACOL) lozenge 1 Each 1 Each, Mouth/Throat, [...] Routine documented in this encounter Care Teams E Merchant Relationship Specialty Start Date End Date Philippe Geiger MD [address] [place] [id number] PCP - General Internal Medicine 01/08/21 documented as of this encounter
--- OUTSIDE RECORDS SUMMARY | 2024-09-27 12:26 | XMS_ITS | Encounter Summary ---
Author Organization [facility] Address [address] Keen: Epic Prelude ADT [place] [address] Care Team Providers Care Associate Director Qa Name Role Phone Philippe Geiger MD Primary Care Provider [phone] Encounter Details Date Type Department Care Team (Latest Contact Info) Description 01/08/2021 Travel Social History Tobacco Use Types Packs/Day [...] on filedocumented in this encounter Care Teams Associate Director Qa Relationship Specialty Start Date End Date Philippe Geiger MD [address] [place] [phone] PCP - General Internal Medicine 01/08/21 documented as of this encounter
--- OUTSIDE RECORDS SUMMARY | 2024-09-27 12:26 | XMS_ITS | Encounter Summary ---
Author Organization [facility] Address [address] [place] [address] Care Team Providers Care Monotype Keyboard Operator Name Role Phone Philippe Geiger MD Primary Care Provider Encounter Details Date Type Department Care Team (Latest Contact Info) Description 02/11/2021 10:41 AM CDT - 02/11/2021 11:59 PM CDT Hospital Encounter [facility] [address] [place] [address] [place] [address] Clementina Quick MD NO ADDRESS ON FILE Discharge Disposition: Home or Self Care Anesthesia Record Procedure Summary Procedure Name Responsible Anesthesiologist Anesthesia Start Time Anesthesia Stop Time LUMBAR INTERBODY FUSION (Back) Phill Blunt MD 02/19/21 0944 02/19/21 1338 Events Date Time Event Comment 02/19/2021 0828 0933 AN Equip Check Anesthesia eq uipment and materials checked in accordance with local policy. 0944 An Start 0947 In Room This event disp lays the In Room time documented in the Surgical Log. Deleting this event will not remove it from the log but will remove it from the Grid and Graph timeline. 0948 An Start Data 0953 Pre-Induction Immediate pre- induction anesthetic assessment performed. Vital signs as noted on graphic. 0956 An Induction 0959 An Intubation 1012 Procedure Start This event d isplays the Procedure Start time documented in the Surgical Log. Deleting this event will not remove it from the log but will remove it from the Grid and Graph timeline. 1013 Local Inj by Surgeon 1013 An ESU 1022 An ESU 1201 Handoff - Intraop Anesthesio logy transfer of care elements completed in accordance with procedure. 1205 Quick Note Surgeon notifie d that pt had twitches back on TO4 monitor. Stated pt is ok do not need to redose paralytic at this time 1324 Procedure Stop This event di splays the Procedure Stop time documented in the Surgical Log. Deleting this event will not remove it from the log but will remove it from the Grid and Graph timeline. 1328 An Extubation Emergence unev entful Awake, spontaneous respirations. Adequate muscle strength demonstrated Adequate tidal volume. Orapharynx suctioned. Extubated with positive pressure ventilation. 1331 an stop data 1332 Out of Room This event disp lays the Out of Room time documented in the Surgical Log. Deleting this event will not remove it from the log but will remove it from the Grid and Graph timeline. 1338 An Stop 02/20/2021 1318 Follow-up Complete Meds * Agents No agents on file. * Blood No blood administrations on file. Lines, Drains, and Airways Type Details Placement Removal Epidural Catheter Tip Intact: Yes 02/18/21 1620 by Maryse Coto RN 02/21/21 0900 by Maryse Coto RN Drain Tube Number: #1; Orientation: Right:; Location: lumbar spine 02/19/21 0000 by 02/23/21 1201 by Gerri Camejo RN Wound 02/19/21; 0816; Yes; 1; Right; hand; (cut); 02/23/21; 1201 02/19/21 0816 by Lenny Norman RN 02/23/21 1201 by Gerri Camejo RN Peripheral IV Pre-Hospital Start: No; Orientation: Left; Location: Hand; Device: Angiocath; Gauge: 20 gauge; Insertion Attempts: 2; Patient Tolerance: tolerated well 02/19/21 0849 by Lenny Norman RN 02/19/21 1000 by Jennifer Cutler CRNA Indwelling Urethral Catheter 02/19/21; 0959; 02/19/21; No; Indwelling double lumen catheter; latex; 16 Fr; inserted (Inserted by Rod LEE); 1; 5; 10; 02/25/21; 194402/19/21 0959 by Kenzie Bolanos RN 02/25/211944 by Bertha Paz RN Endotracheal Airway Type: ETT; Size: 7; Attempts: 1; Verification: Auscultated bilateral breath sounds, Equal chest movement, Continuous waveform capnography 02/19/21 0959 by Jennifer Cutler, MADHURI 02/19/21 1328 by Jennifer Cutler CRNA Peripheral IV Orientation: Right; Location: Hand; Device: Angiocath; Gauge: 20 gauge; Insertion Attempts: 1; Removal Indication: site symptomatic; Removal Interventions: catheter intact 02/19/21 1001 by Jennifer Cutler, CLIENT TECHNOLOGIES SPECIALIST 02/22/21 2200 by Gerri Camejo RN Peripheral IV Orientation: Right; Location: Arm; Device: Angiocath; Gauge: 20 gauge; Removal Indication: site symptomatic; Removal Interventions: pressure dressing, catheter intact 02/19/21 1230 by Jennifer Cutler, CLIENT TECHNOLOGIES SPECIALIST 02/23/21 1646 by Gerri Camejo RN Peripheral IV Orientation: Left; Location: Arm; Device: Angiocath; Gauge: 18 gauge; Removal Indication: site symptomatic; Removal Interventions: catheter intact, direct pressure 02/19/21 1235 by Jennifer Cutler, CLIENT TECHNOLOGIES SPECIALIST 02/20/21 2100 by Elza Blanco RN Incision 02/19/21; 1333; surgical incision; other (comment); back; 02/27/21; 0143 02/19/21 1333 by Kenzie Bolanos RN 02/27/21 0143 by PROVIDER, DISCHARGE PATIENT documented in this encounter Social History Tobacco [...] have Coronavirus / COVID-19? No / Unsure 02/11/2021 10:33 AM CDT documented as of this encounter Last Filed Vital Signs Vital Sign Reading Time Taken Comments Blood Pressure 162/83 02/11/2021 11:25 AM CDT Pulse 56 02/11/2021 11:25 AM CDT Temperature - - Respiratory Rate - - Oxygen Saturation 97% 02/11/2021 11:25 AM CDT Inhaled Oxygen Concentration - - Weight 107 kg (236 lb) 02/11/2021 11:25 AM CDT Height 177.8 cm (5' 10 ) 02/11/2021 11:25 AM CDT Body Mass Index 33.86 02/11/2021 11:25 AM CDT documented in this encounter Medications at Time of Discharge Medication Sig Dispensed Refills Start Date End Date budesonide-formoteroL (SYMBICORT) 160-4.5 mcg/actuation HFA Aerosol Inhaler [...] capsule Take 400 Units by mouth daily. [id number]-[id number] ORAL Take 500 mg by mouth daily. cyanocobalamin 1,000 mcg Tablet Take 1,000 mcg by mouth daily. Cholecalciferol, Vitamin D3, 50 mcg (2,000 unit) Capsule Take by mouth. documented as of this encounter OR Notes * Anesthesia PAT Evaluation - Javier Torrez MD - 02/11/2021 11:00 AM CDT Pre-Procedure Anesthesiology Consultation and Evaluation (PACE) Service 02/11/2021 11:30 AM Name: Elliott Ellison Age: 75 y.o. Sex: male CSN: [id number] Procedure(s): LUMBAR INTERBODY FUSION Allergies Allergen Reactions Cephalosporins Unknown Codeine Unknown Tramadol Itching Pre-Surgery Instructions: Medication Instructions aspirin (MAMADOU) 325 mg tablet Stop taking 5 days prior to surgery montelukast (SINGULAIR) 10 mg tablet Continue taking as prescribed furosemide (LASIX) 20 mg tablet Take morning of surgery with sip of water atenoloL (TENORMIN) 50 mg tablet Take morning of surgery with sip of water atorvastatin (LIPITOR) 10 mg tablet Take morning of surgery with sip of water lisinopriL (PRINIVIL) 20 mg tablet Do not take day of surgery POTASSIUM ORAL Do not take day of surgery vitamin E 400 unit capsule Stop taking 1 week prior to surgery [id number] ORAL Stop taking 1 week prior to surgery cyanocobalamin 1,000 mcg Tablet Stop taking 1 week prior to surgery Cholecalciferol, Vitamin D3, 50 mcg (2,000 unit) Capsule Stop taking 1 week prior to surgery Advised pt to stop the following medications on :ASA/NSAIDs per surgeon There are no problems to display for this patient. Past Medical History: Diagnosis Date COPD (chronic obstructive pulmonary disease) Difficult intravenous access Difficulty balancing Difficulty walking Emphysema, unspecified HTN (hypertension) Hyperlipidemia Low back pain Numbness Psoriasis Skin disorder Past Surgical History: Procedure Laterality Date HX HERNIA REPAIR x2 HX KNEE ARTHROSCOPY Left HX NASAL/SINUS SURGERY Social History Tobacco Use Smoking status: Never Smoker Smokeless tobacco: Never Used Substance Use Topics Alcohol use: Yes Comment: socially Family History Problem Relation Name Age of Onset Hypertension Father Hypertension Mother Hypertension Sister Hypertension Brother Previous Anesthesia Problems/Concerns: No anesthesia problems/complications; Difficult IV access History of PONV No Review of Systems Cardiovascular: positive for HTN, HLD . Denies cp Respiratory: positive for emphysema,Snoring - Yes, DAVID - No Gastrointestinal: negative. Genitourinary:negative. Musculoskeletal: positive for myalgias, arthralgias, stiff joints and back pain Neurological: positive for BLE pain- worse on L, w/ intermittent paresthesias Endocrine negative Hepatic negative Exercise tolerance able to go up a flight of stairs w/o cp; prior to onset of pain (3 mo ago), pt was extremely active doing yard work, cutting trees etc. Tobacco negative PHYSICAL EXAM BP (!) 162/83 (BP Location: Left arm, Patient Position (BP): Sitting) Pulse (!) 56 Ht 5' 10 (1.778 m) Wt 107 kg (236 lb) SpO2 97% BMI 33.86 kg/m?? Weight: Weight: 107 kg (236 lb) (02/11/21 1125) Height: Ht Readings from Last 1 Encounters: 02/11/21 5' 10 (1.778 m) BMI: Body mass index is 33.86 kg/m??. General Appearance: Alert, oriented, no acute distress and obese Airway: normal range of motion; Airway Class: II (soft palate, uvula, fauces visible); Special Considerations None Dentition: good Lungs: clear to auscultation bilaterally, normal respiratory effort Heart: regular rate and rhythm, S1, S2 normal, no murmur, click, rub or gallop Neuro: alert, oriented x 3, no defects noted in general exam. Extremities: extremities normal, atraumatic, no cyanosis or edema LABS No results found for: WBC, MANUALWBC, HGB, HGBPOC, HCT, HCTPOC, PLT, MCV No results found for: NA, K, CL, CO2, CA, BUN, CREAT, GLUCOSE, ANIONGAP, BCRATIO No results found for: INR, PT, PROTIMEPOC No results found for: HCGURPOC, HCGQUALUR, HCGQUAL, HCGQUANT, HCGINTACT EK02-11-21 normal sinus rhythm, RBBB Other Studies/Considerations: None Risks/Alternatives discussed. Questions solicited and answered. Yes Postop pain management discussed yes Smoking/Tobacco Counseling: None Recommendations:DAVID precautions or Potential difficult intravenous access ATTESTATIONS (Not in a hospital admission) I obtained, updated or reviewed the patient's current medications including dosage, frequency, and route of administration. This information was obtained directly from the patient or electronics parts sales representative or caregiver or another available healthcare resource and updated in [employer] EMR. Social History Tobacco Use Smoking Status Never Smoker Smokeless Tobacco Never Used Patient screened for tobacco use and identified as a Non-User of tobacco. REPORT AND NECESSARY FOLLOW-UP History and physical performed in [facility]; tests (ECG, blood work) reviewed. Abnormal Results Found: no Further Testing or Evaluation Required: no Final [facility] Review: May proceed with procedure/surgery: yes Stop bang score is 4 Based on a STOP-BANG score of 3-4 the patient is deemed moderate risk for DAVID. A conversation addressing potential implications of DAVID on the patient's perioperative course and recommendations for follow-up care and disease management occurred. They were educated on their risk of having DAVID, and were encouraged to discuss with their primary care provider for further follow up. DAVID precautions will be implemented in the perioperative period. JOAO Paula I, Javier Torrez MD, attest that I have reviewed the Advanced Practitioner's note - including the history, documented findings, assessment, and plan. I agree with the plan as documented exceptwhere noted. Javier Torrez MD * Tenisha-ANTONI - Ronel Hidalgo, RN - 02/11/2021 11:00 AM CDT Images from the original note were not included. ? [facility] Routine Orders Protocol [facility] Approved by: [facility] - Medical Executive Committee Approval Date: 12/06/2020 ORDERS ARE ENTERED ???PER PROTOCOL?? Enter the protocol in the patient's electronic health record using smart phrase: .paceroutineordersprotocol PACE/Anesthesiology Care Screening for Procedures ??? Laboratory exams obtained within 3 months prior to surgery are acceptable if normal, or at baseline. ??? Hematocrit/Hemoglobin ([id number]) ??? Cases of expected major blood loss in patients of any age as evidenced by an order for Type andCross or Type and Screen. ??? PT/INR (Lab 320) should be drawn day of surgery ??? Patients taking Warfarin (Coumadin) or who have had Warfarin (Coumadin) discontinued within prior 7 days ??? BMP (Lab15) ??? Patients with: ??? Diabetes ??? Renal disease ??? Dialysis patients: Day of Surgery; If dialysis on day of surgery, Post-dialysis ??? Patients taking the following medications: - Digoxin - Diuretics - Steroids ??? BUN (Zyw245)/ Serum Cr (Lab66) ??? When use of intravenous contrast dye is planned ??? Liver function panel (Lab20) in any patient with: ??? Jaundice, or active liver disease ??? HgbA1c: If result not available from within 3 months of PACE phone or in- person contact, for patients that meet the following conditions: ??? Planned operation is an orthopedic or neurosurgical implant, AND ? ? Either a hx of diabetes or a BMI >35 ??? EKG (EKG) 12 lead EKG- obtained within the last 3 months for the following: ??? Known cardiac disease (CAD, CHF, moderate or worse valvular disease ??? Patients undergoing cardiac, thoracic, or vascular surgery ??? CIED ??? Cardiac Symptoms: Angina, dysrhythmia, palpitations, SOB, PND, S3 ??? Moderate or greater risk surgery with any of the following: Stroke/TIA/CVD, PAD/PVD, CKD (Cr>2), DM, or Drugs or toxins that alter conduction (e.g., digoxin, cocaine, MAOIs, antiarrhythmics, antipsychotics, TCAs) Blood Bank ; For surgical procedures, prepare blood per surgical Blood Bank process unless additional blood orblood products have been ordered by the provider, then follow provider order. *Additional testing maybe indicated based upon patient co-morbidities and planned procedure. Medication Orders ??? Unless otherwise ordered by a member of the [facility] Anesthesiology Staff. 1. STOP a. Seven (7) DAYS PRIOR TO SURGERY: the use of all vitamins, herbal supplements, and other alternative substances. b. Seven (7) DAYS PRIOR TO SURGERY: the use of any UNPRESCRIBED Aspirin, Excedrin and NSAIDs which include Motrin, Ibuprofen, Aleve, and Naprosyn. c. 24 HOURS PRIOR TO PLANNED ARRIVAL AT [facility]: use of angiotensin-converting enzyme (ANTONIO) inhibitorand angiotensin receptor karissa (ARB). 2. CONTINUE - on usual schedule and take medication day of surgery with sips of water to swallow a. Aspirin and NSAIDS unless specifically instructed by surgeon to discontinue. b. All prescription medicines on routine schedule as prescribed, unless instructed otherwise. * Tenisha-OP - Ronel Hidalgo RN - 02/11/2021 11:00 AM CDT Images from the original note were not included. [facility] Pre-Procedure Instructions [facility]ACE PACE Name: Elliott Ellison Age: 75 y.o. Please report to the: [x] Surgery Center [] [facility] [place] Date of Procedure: 02/19/21 Arrive at the time your surgeon's office has instructed. If you are unsure of the arrival time, please call your surgeon's office 24-48 hours before your surgery to confirm. PLEASE NOTIFY your surgeon promptly if you begin to feel ill prior to your surgery. A cold, sore throat, fever, or flu may require postponing the surgery to another date for your safety. Please follow these important instructions PRE-PROCEDURE ORAL INTAKE INSTRUCTIONS - DIETARY INSTRUCTIONS Follow your surgeon's instructions regarding oral intake prior to your scheduled procedure. If no specific instructions were given from your surgeon's office; below are the guidelines from the anesthesia department: Based on your health history and/or scheduled procedure, the following pre- procedure dietary instructions should be followed: * Do not eat food or drink liquids after midnight prior to your procedure. *Oral Hygiene: Adult patients are encouraged to brush teeth, without swallowing, on the day of the procedure. *Use of gum or hard candy on the day of a procedure is discouraged. Patients using gum or hard candy upon presentation to the facility shall be directed to remove the product and not resume use. Before you bathe or shower: Before you bathe, or shower carefully read all directions and warning on the product label. If you are allergic to Hibiclens or Aloe, DO NOT use product. Use the following steps for 3 days prior to surgery and bathe the morning of surgery using the same technique listed below. When you bathe or shower: Wash your hair, with your regular shampoo. Then rinse hair and body thoroughly to remove any shampoo residue. Wash your face and genital area with your regular soap or water only. Thoroughly rinse your body with water from the neck down. Apply the minimum amount of Hibiclens necessary to cover the skin. Use Hibiclens as you would any other liquid soap. You can apply Hibiclens directly to the skinand wash gently with a clean cotton cloth. Step out of the stream of water when applying to avoid rinsing off during application of the soap. Rinse thoroughly with warm water. DO NOT use your regularsoap after applying and rinsing Hibiclens. Do not apply lotion or deodorants to the body on the dayof surgery. Using a clean freshly laundered dry towel pat dry after the showers each time you shower. Sleep in clean freshly laundered sleepwear and bed linens. WITHIN 24 HOURS PRIOR TO SURGERY ?? DO NOT shave near the surgical site. ?? After showering the morning of surgery, DO NOT APPLY body lotions, oil, deodorants, mousse, gel,or powder. Apply no lotions, gels or creams at bedtime for 's last diaper change prior to schedule surgery. ?? DO NOT WEAR JEWELRY (rings, earrings, and body piercings), or hair pieces to the hospital. ?? SMOKING AND USE OF TOBACCO PRODUCTS We recommend patients abstain from smoking for as long as possible before and after surgery, but even quitting for a brief period is still beneficial. DO NOT SMOKE OR USE TOBACCO PRODUCTS 12 hours before arrival to hospital. ?? PLEASE DO NOT EAT anything--including GUM, CANDY, or MINTS--after midnight. You may BRUSH YOUR TEETH. DAY OF SURGERY INSTRUCTIONS ?? YOU WILL NEED A RESPONSIBLE ADULT UPON DISCHARGE to drive you home. ?? BRING PRESCRIBED INHALERS to the hospital with you but DO NOT BRING ANY OTHER MEDICATIONS to thespital (unless otherwise instructed). ?? WEAR comfortable, loose fitting clothes or PJs to the hospital. ?? WEAR GLASSES instead of contact lenses to the hospital; bring a case if possible for glasses, dentures, and hearing aids as you will be asked to remove these items before your surgery. ?? Bring your insurance cards and coach driver's license or photo ID. DO NOT BRING VALUABLES or large amounts of burkett with you to the hospital. ?? BRING any medical devices you need to the hospital, including remotes for stimulators, CPAP, BIPAP, or WOUND VAC machines. ?? Surgical times are estimates and can vary depending on numerous factors. ?? Expect a minimum post-op recovery of 1 hour. The medical staff will provide updates to family and/or friends as appropriate. ??? For surgical procedures, patients may be allowed one visitor. Special consideration for pediatric patients under the age of 18 years. ??? Patient and any permitted visitor should arrive to the facility with a mask. If arriving to [facility] without a mask, one will be provided. Special consideration for pediatric patients under the age of 2 years. ??? Patient and visitor will go through facility entry screening ??? Patients will wear a mask from the time they enter, throughout the entire procedure, and will remain in a mask until they leave the facility or admitted. During your hospital stay you will receive a personal passcode to help protect your health information. This will be a number that you may share with anyone you choose to receive your protected health information (PHI). Family and friends will need to ask for you by name and use the passcode beforeyour care team can share information, either in person or by phone. Please ask those who have your passcode to protect it. ADVANCED PLANNING FOR MEDICATION USE STOP Seven (7) DAYS PRIOR TO SURGERY the use of all vitamins, herbal supplements, and other alternative substances. STOP Seven (7) DAYS PRIOR TO SURGERY the use of any UNPRESCRIBED Asprin, Excedrin and NSAIDs which include Motrin, Ibuprofen, Aleve, and Naprosyn. Pre-Surgery Instructions: Medication Instructions ??? aspirin (MAMADOU) 325 mg tablet Stop taking 5 days prior to surgery ??? montelukast (SINGULAIR) 10 mg tablet Continue taking as prescribed ??? furosemide (LASIX) 20 mg tablet Take morning of surgery with sip of water ??? atenoloL (TENORMIN) 50 mg tablet Take morning of surgery with sip of water ??? atorvastatin (LIPITOR) 10 mg tablet Take morning of surgery with sip of water ??? lisinopriL (PRINIVIL) 20 mg tablet Do not take day of surgery ??? POTASSIUM ORAL Do not take day of surgery ??? vitamin E 400 unit capsule Stop taking 1 week prior to surgery ??? [id number]-2-[id number]-EPA-DPA ORAL Stop taking 1 week prior to surgery ??? cyanocobalamin 1,000 mcg Tablet Stop taking 1 week prior to surgery ??? Cholecalciferol, Vitamin D3, 50 mcg (2,000 unit) Capsule Stop taking 1 week prior to surgery FAQs about Surgical Site Infections What is a Surgical Site Infection (SSI)? A surgical site infection is an infection that occurs after a surgery in the part of the body wherethe surgery took place. Most patients who have surgery do not develop an infection. However, infections develop in about 1 to 3 out of every 100 patients who have surgery. Some of the common symptomsof a surgical site infection are: ??? Redness and pain around the area where you had surgery ??? Drainage of cloudy fluid from your surgical wound ??? Fever Can SSI be treated? Yes. Most surgical site infections can be treated with antibiotics. The antibiotic given to you depends on the bacteria (germs) causing the infection. Sometimes patients with SSI also need another surgery to treat infection. What are some of the things that hospitals are doing to prevent SSIs? To prevent SSIs, doctors, nurses, and other healthcare providers: ??? Clean their hands and arms up to their elbows with antiseptic agent just before the surgery. ??? Clean their hands with soap and water or an alcohol-based hand rub before and after caring for each patient. ??? May remove some of your hair immediately before surgery using electric clippers if the hair is in the same area where the procedure will occur. They should not shave you with a razor. ??? Wear special hair covers, mask, gowns, and gloves during surgery to keep the surgery area clean. Give you antibiotics before your surgery starts. In most cases, you should get antibiotics within 60 minutes before the surgery starts and the antibiotics should be stopped within 24 hours after surgery. ??? Clean the skin at the site of your surgery with a special soap that kills germs What can I do to help prevent SSIs? Before your surgery: ??? Tell your doctor and other medical problems you may have. Health problems such as allergies, diabetes, and obesity could affect your surgery and your treatment. ??? Quit smoking. Patients who smoke get more infections. Talk to your doctor about how you can quit before your surgery. ??? Do not shave near where you will have surgery. Shaving with a razor can irritate your skin and make it easier to develop an infection. At the time of your surgery: ??? Speak up if someone tries to shave you with a razor before surgery. Ask why you need to be shaved and talk with your surgeon if you have any concerns. ??? Ask if you will get antibiotics before surgery. After your surgery: ??? Make sure that your healthcare providers clean their hands before examining you, either with soap and water or an alcohol-based hand rub. If you do not see your providers clean their hands, please ask them to do so. ??? Family and friends who visit you should not touch the surgical wound or dressings. ??? Family and friends should clean their hands with soap and water or an alcohol-based hand rub before and after visiting you. If you do not see them clean their hands, ask them to clean their hands. What do I need to do when I go home from the hospital? Before you go home, your doctor or nurse should explain everything you need to know about taking care of your wound. Make sure you understand how to care for your wound before you leave the hospital. ??? Always clean your hands before and after caring for your wound. ??? Before you go home, make sure you know who to contact if you have questions or problems after you get home. ??? If you have any symptoms of an infection, such as redness and pain at the surgery site, drainage, or fever, call your doctor immediately. If you have additional questions, please ask your doctor or nurse. documented in this encounter Plan of Treatment Not on file documented as of this encounter Procedures Procedure Name Priority Date/Time Associated Diagnosis Comments EKG 12-LEAD Routine 02/11/2021 11:12 AM CDT CBC WITHOUT DIFFERENTIAL Routine 02/11/2021 11:10 AM CDT TYPE AND SCREEN Routine 02/11/2021 11:10 AM CDT Lumbar stenosis with neurogenic claudication BASIC METABOLIC PANEL Routine 02/11/2021 11:10 AM CDT Lumbar stenosis with neurogenic claudication documented in this encounter Results * EKG 12-LEAD (02/11/2021 11:12 AM CDT) 02/11/2021 11:1 2 AM CDT Narrative INTERFACE SYSTEM - 02/11/2021 2:29 PM CDT ? Stationary ECG Study ? [facility] ? Test Date: ?02/11/2021 11:12 AM Pat Name: ? ELLIOTT ELLISON ?Department: ?? 47 ?Room: ? Gender: ? M ?Store Mgr: ?? af : ?1945 ? Requested By: CLEMENTINA SWEET CORRAL Order Number: [id number] ?Reading MD: ?? Jaime Sorenson ? Measurements Intervals ?[place] ? Rate: ? 58 ? P: ?-6 MI: ? 203 ?QRS: ?10 QRSD: ? 146 ?T: ?21 QT: ? 428 ? QTc: ?421 ? Interpretive Statements ? Sinus rhythm Right bundle branch block Electronically Signed On 02-11-2021 14:29:40 CDT by Jaime Sorenson Procedure Note Jaime Sorenson MD - 02/11/2021 Stationary ECG Study [facility] Test Date: 02/11/2021 11:12 AM Pat Name: ELLIOTT ELLISON Department: 47 Room: Gender: Store Mgr: : 1945 Requested By: CLEMENTINA CORRAL Order Number: [id number] Reading : Jaime Sorenson Measurements Intervals [place] Rate: 58 P: -6 MI: 203 QRS: 10 QRSD: 146 T: 21 QT: 428 QTc: 421 Interpretive Statements Sinus rhythm Right bundle branch block Electronically Signed On 02-11-2021 14:29:40 CDT by Jaime Sorenson Brenda Ashlie Joshi [facility] ECG ORDERABLES INTERFACE SYSTEM Refer to clinic/hospital department * CBC WITHOUT DIFFERENTIAL (02/11/2021 11:10 AM CDT) [facility] WBC 8.4 4.0 - 9.8 K/uL 02/11/2021 12:09 PM CDT [facility] RBC 4.83 4.50 - 5.40 M/uL 02/11/2021 12:09 PM CDT [facility] HEMOGLOBIN 15.2 13.6 - 16.5 g/dL 02/11/2021 12:09 PM CDT [facility] HEMATOCRIT 45.0 40.0 - 48.0 % 02/11/2021 12:09 PM CDT [facility] - . [facility] MCV 93.2 82.0 - 99.0 fL 02/11/2021 12:09 PM CDT [facility] . [facility] MCH 31.5 27.2 - 32.6 pg 02/11/2021 12:09 PM CDT [facility] - . [facility] MCHC 33.8 31.5 - 35.5 g/dL 02/11/2021 12:09 PM CDT [facility] PLATELETS 205 140 - 350 K/uL 02/11/2021 12:09 PM CDT [facility] . [facility] MPV 11.0 9.3 - 12.4 fL 02/11/2021 12:09 PM CDT [facility] RDW 13.0 11.5 - 14.5 % 02/11/2021 12:09 PM CDT [facility] RDW-STDEV 44.4 37.1 - 48.7 fL 02/11/2021 12:09 PM CDT [facility] . [facility] Blood Venipuncture / Unknown 02/11/2021 11:10 AM CDT 02/11/2021 11:44 AM CDT Brenda Joshi RAD TECH HEMATOLOGY ORDERABLE S [facility] CLIA# [id number] [address] [place] [address] * TYPE AND SCREEN (02/11/2021 11:10 AM CDT) ABO GROUP A 02/11/2021 3:03 PM CDT [facility] RH (D) TYPE Positive 02/11/2021 3:03 PM CDT [employer] [facility] ANTIBODY SCREEN Negative 02/11/2021 3:03 PM CDT [employer] [facility] Blood Venipuncture / Unknown 02/11/2021 11:10 AM CDT 02/11/2021 11:44 AM CDT Clementina Quick MD BLOOD BANK ORDERA BLES [facility] CLIA# [id number] [address] [facility] [place] [place] [address] * (ABNORMAL) BASIC METABOLIC PANEL (02/11/2021 11:10 AM CDT) SODIUM 142 136 - 145 mmol/L 02/11/2021 12:38 PM [employer] [facility] POTASSIUM 3.5 3.5 - 5.0 mmol/L 02/11/2021 12:38 PM [employer] [facility] CHLORIDE 103 98 - 107 mmol/L 02/11/2021 12:38 PM CDT [employer] [facility] CO2 26 22 - 29 mmol/L 02/11/2021 12:38 PM T [employer] [facility] CALCIUM 9.6 8.6 - 10.2 mg/dL 02/11/2021 12:38 PM [employer] [facility] BUN 13 8 - 23 mg/dL 02/11/2021 12:38 PM [employer] [facility] CREATININE 1.02 0.67 - 1.17 mg/dL 02/11/2021 12:38 PM [employer] [facility] Comment:The GFR result is no t clinically significant on patients <18 or >70 years of age. GLUCOSE 106(H) 74 - 99 mg/dL 02/11/2021 12:38 PM [employer] [facility] - . [facility] GFR >60 mL/min/1.7 3 sq meter 02/11/2021 12:38 PM [employer] [facility] Comment: eGFR has not been validated for [...] result. GFR, >60 mL/min/1.7 3 sq meter 02/11/2021 12:38 PM CDT [employer] [facility] ANION GAP 13 8 - 16 mmol/L 02/11/2021 12:38 PM [facility] [employer] [facility] Blood Venipuncture / Unknown 02/11/2021 11:10 AM CDT 02/11/2021 11:44 AM CDT Clementina Quick MD CHEMISTRY ORDERAB LES Performing Organization Address City/State/[facility] Co de Phone Number [facility]# [id number] [address] [facility] [place] [address] documented in this encounter Visit Diagnoses Diagnosis Lumbar stenosis with neurogenic claudication Spinal stenosis, lumbar region, with neurogenic claudication documented in this encounter Care Teams Monotype Keyboard Operator Relationship Specialty Start Date End Date Philippe Geiger MD [address] [place] [address] PCP - General Internal Medicine 01/08/21 documented as of this encounter
--- OUTSIDE RECORDS SUMMARY | 2024-09-27 12:26 | XMS_ITS | Encounter Summary ---
Author Organization [facility] Address [address] [place] [address] Care Team Providers Care Strainer Cleaner Name Role Phone Philippe Geiger MD Primary Care Provider [phone] Encounter Details Date Type Department Care Team (Late st Contact Info) Description 02/15/2021 Abstract [facility] Neurosurgery - [facility] [address] [facility] [address] [place] [address] Francisco Javier Quick MD NO [...] on filedocumented in this encounter Care Teams Strainer Cleaner Relationship Specialty Start Date End Date Philippe Geiger MD [address] [place] [phone] PCP - General Internal Medicine 01/08/21 documented as of this encounter
--- OUTSIDE RECORDS SUMMARY | 2024-09-27 12:26 | XMS_ITS | Encounter Summary ---
Author Organization [facility] Address [address] [facility] Attn: Epic Prelude [place]T [place] [address] Care Team Providers Care Child Care Name Role Phone Philippe Geiger MD Primary Care Provider [phone] Encounter Details Date Type Department Care Team (Latest Contact Info) Description 01/24/2021 Travel Social History Tobacco Use Types Packs/Day [...] on filedocumented in this encounter Care Teams Child Care Relationship Specialty Start Date End Date Philippe Geiger MD [facility] [place] [address] PCP - General Internal Medicine 01/08/21 documented as of this encounter
--- OUTSIDE RECORDS SUMMARY | 2024-09-27 12:26 | XMS_ITS | Encounter Summary ---
Author Organization [facility] Address [address] [place] [address] Care Team Providers Care Hot Mill Worker Name Role Phone Philippe Geiger MD Primary Care Provider [phone] Encounter Details Date Type Department Care Team (Latest Contact Info) Description 01/23/2021 Orders Only [facility] Neurosurgery - [facility] [address] [facility] [address] [place] [address] Francisco Javier Quick MD NO ADDRESS ON FILE Acquired spondylolisthesis of lumbosacral region (Primary Dx); Lumbar stenosis with neurogenic claudication Social History Tobacco Use Types Packs/Day Years [...] have Coronavirus / COVID-19? No / Unsure 01/23/2021 12:55 PM CDT documented as of this encounter [...] degeneration and facet arthropathy. DICTATION LOCATION: Location 1 - [facility] Narrative 02/19/2021 8:19 AM CDT EXAM: XR [...] degeneration and facet arthropathy. DICTATION LOCATION: Location 1 - [facility] Francisco Javier Quick MD DIAGNOSTIC IMAGIN G ORDERABLES documented in this encounter Visit Diagnoses Diagnosis Acquired spondylolisthesis of lumbosacral region- Primary Acquired spondylolisthesis Lumbar stenosis with neurogenic claudication Spinal stenosis, lumbar region, with neurogenic claudication Lumbar stenosis with neurogenic claudication Spinal stenosis, lumbar region, with neurogenic claudication Acquired spondylolisthesis of lumbosacral region Acquired spondylolisthesis documented in this encounter Care Teams Hot Mill Worker Relationship Specialty [place] [address] [place] [phone] PCP - General Internal Medicine 01/08/21 documented as of this encounter
--- OUTSIDE RECORDS SUMMARY | 2024-09-27 12:26 | XMS_ITS | Encounter Summary ---
Author Organization [facility] Address [address] [place] [address] Care Team Providers Care Seam Taper Machine Name Role Phone Philippe Geiger MD Primary Care Provider [phone] Reason for Visit * Auth/Cert Specialty Diagnoses / Procedures Referred By Contac t Referred To Contact Multi Specialty Diagnoses Spinal stenosis, lumbar region with neurogenic claudication Spondylolisthesis, lumbar region LUMBAR STENOSIS; SPONDYLOLISTHESIS Procedures SC ARTHDSIS POST/POSTEROLATRL/POSTINTERBO DY LUMBAR SC ARTHDSIS POST/POSTERLATRL/POSTINTRBDYA DL SPC/SEG SC LAMINECTOMY,FACETECTOMY,LUMBA R SC LAMINEC/FACETECT/FORAMIN,LUMB AR 1 SEG SC LAMINEC/FACETECT/FORAMIN,EACH ADDNL SC POSTERIOR SEGMENTAL INSTRUMENTATION 3-6 VRT SEG SC INSJ BIOMCHN DEV INTERVERTEBRAL DSC SPC W/ARTHRD SC AUTOGRAFT SPINE SURGERY LOCAL FROM SAME INCISION SC ALLOGRAFT FOR SPINE SURGERY ONLY MORSELIZED LUMBAR INTERBODY FUSION (TLIF L2-3, L3-4, L4-5) [facility] [address] [place] [address] Referral ID Status Reason Start Date Expiration Date Visits Re quested Visits Authorized [id number] 1 1 Encounter Details Date Type Department Care Team (Late st Contact Info) Description 02/19/2021 9:44 AM CDT Anesthesia Event [facility] Operating Room [address] [place] [address] Phill Blunt MD [address] [facility] [address], [place] [address] Patrick Vargas MD [address] [place] [address] Anesthesia Record Procedure Summary Procedure Name Responsible [...] An Stop 02/20/2021 1318 Follow-up Complete Meds Name Total fentaNYL (SUBLIMAZE) PF 50??mcg/mL injec tion 250 mcg lidocaine PF (XYLOCAINE MPF) 20 mg/mL sy ringe 60 mg rocuronium (ZEMURON) 10 mg/mL 5 mL injec tion 70 mg propofol (DIPRIVAN) 10??mg/mL injection 200 mg ePHEDrine 50 mg/mL injection 70 mg vancomycin 1500 mg in sodium chloride 0. 9% 300 mL IVPB Cannot be calculated dexamethasone (DECADRON) 4 mg/mL injecti on 8 mg phenylephrine 1 mg/10 mL (100 mcg/mL) in jection 400 mcg ondansetron (ZOFRAN) 4??mg/2 mL injectio n 4 mg glycopyrrolate (ROBINUL) 0.6 mg/3 mL (0. 2 mg/mL) syringe 0.6 mg neostigmine (PROSTIGMINE) 1 mg/mL inject ion 3 mg morphine PF (ASTRAMORPH,DURAMORPH) 1 mg/ mL injection 1 mg bupivacaine-EPINEPHrine (SEN SORCAINE MPF WITH EPI) 0.25% - 1:200,000 PF injection 5 mL bupivacaine PF 0.75% 0.0625 %, HYDROmorphone (PF) 10 mcg/mL in sodium chloride 0.9% 457.8 mL EPIDURAL 2.4 mL lactated ringers infusion 2,500 mL * Agents Name Air Sevoflurane % Sevoflurane O2 N2O Inspired N2O O2 * Blood No blood administrations on file. [...] 02/25/21; 194402/19/21 0959 by Kenzie Bolanos RN 02/25/21 194 by Bertha Paz RN Endotracheal Airway Type: ETT; Size: 7; Attempts: 1; Verification: Auscultated bilateral breath sounds, Equal chest movement, Continuous waveform capnography 02/19/21 0959 by Jennifer Cutler CRNA 02/19/21 1328 by Jennifer Cutler CRNA Peripheral IV Orientation: Right; Location: Hand; Device: Angiocath; Gauge: 20 gauge; Insertion Attempts: 1; Removal Indication: site symptomatic; Removal Interventions: catheter intact 02/19/21 1001 by Jennifer Cutler CRNA 02/22/21 2200 by Gerri Camejo RN Peripheral IV Orientation: Right; Location: Arm; Device: Angiocath; Gauge: 20 gauge; Removal Indication: site symptomatic; Removal Interventions: pressure dressing, catheter intact 02/19/21 1230 by Jennifer Cutler CRNA 02/23/21 1646 by Gerri Camejo RN Peripheral IV Orientation: Left; Location: Arm; Device: Angiocath; Gauge: 18 gauge; Removal Indication: site symptomatic; Removal Interventions: catheter intact, direct pressure 02/19/21 1235 by Jennifer Cutler CRNA 02/20/21 2100 by Elza Blanco RN Incision [...] AM CDT documented as of this encounter OR Notes * Anesthesia Post-Op Follow-up Note - Kylie Avilez RN - 02/20/2021 1:17 PM CDT 02/20/2021 1:17 PM Jayjay Ellison No apparent Anesthesia related complications Kylie Avilez RN * Anesthesia Postprocedure Evaluation - Latoya Newell MD - 02/19/2021 2:01 PM CDT Post Anesthesia Evaluation Vitals: Vitals Value Taken Time BP 121/52 02/19/21 1345 Temp 37.4 ??C 02/19/21 1334 Resp 17 02/19/21 1359 SpO2 93 % 02/19/21 1359 Pulse 77 02/19/21 1359 Heart Rate 78 bpm 02/19/21 1359 Vitals shown include unvalidated device data. Pain Rating: Pain Rating: Rest: 0 (02/19/21 0800) Anesthesia Post Evaluation Patient location during evaluation: PACU Patient participation: patient was able to participate in the post op evaluation Level of consciousness: 0 = alert, responsive, answers simple questions appropriately, able to perform simple tasks Pain management: adequate Airway patency: patent Nausea or Vomiting: none Anesthetic complications: no Cardiovascular status: regular rate and rhythm Respiratory status: no respiratory symptoms Hydration status: well hydrated Comments: Phase I Postanesthesia Evaluation Including Modified Ross Score Patient seen and evaluated: Modified Ross Score: Score: 10 (02/19/211333) COMMENTS: No apparent Anesthesia related complications RESPIRATORY FUNCTION: Respiration: able to breath and cough freely (02/19/211333) (2=able to breathe and cough freely, 1=dyspnea, limited breathing or tachypnea, 0=apnea or mechanicventilator) O2 Saturation: able to maintain O2 saturation greater than 92% on room air (02/19/21 1334) (2=able to maintain O2 saturation greater than 92% on room air, 1=needs O2 inhalation to maintain O2 saturation greater than 90%, 0=O2 saturation less than 90% even with O2 supplement) Resp: 19 (02/19/21 1345)SpO2: 94 % (02/19/21 1345) CARDIOVASCULAR FUNCTION: Heart Rate: 78 bpm (02/19/21 1345) BP: 121/52 (02/19/21 1345) Circulation: BP within 20% of preanesthetic level (02/19/21 133) (2=BP within 20% of preanesthetic level, 1=BP within 20-49% of preanesthetic level, 0=BP within 50%of preanesthetic level) MENTAL STATUS, NEURO, ACTIVITY: PATIENT PARTICIPATION IN EVALUATION:yes Consciousness: fully awake (02/19/211333) (2=fully awake, 1=arousable on calling, 0=not responding) Activity: able to move 4 extremities voluntarily or on command (02/19/211333) (2=able to move 4 extremities voluntarily or on command, 1=able to move 2 extremities voluntarily or on command, 0=unable to move extremities voluntarily or on command) TEMPERATURE: Temp: 37.4 ??C (02/19/211333) PAIN: Pain Rating: Rest: 0 (02/19/21 0800) Presence of Pain: denies pain/discomfort (02/19/21 134) NAUSEA AND VOMITING: no nausea and no vomiting POSTOPERATIVE HYDRATION: well hydrated Intake/Output Summary (Last 24 hours) at 02/19/21 1402 Last data filed at 02/19/21 1334 Gross per 24 hour Intake: 2500 ml Output: 805 ml Net : 1695 ml Latoya Newell MD 02/19/2021 2:02 PM Latoya Newell MD * Anesthesia Handoff - Jennifer Cutler CRNA - 02/19/2021 1:38 PM CDT Post-Anesthetic transfer of care report elements to appropriate post-anesthesia recovery environment completed in accordance with procedure. I completed my handoff to the receiving nurse during which we: 1. Identified the patient 2. Identified the responsible provider 3. Reviewed the pertinent medical history 4. Discussed the surgical course 5. Reviewed intra-op anesthesia management and issues during anesthesia 6. Set expectations for post-procedure period 7. Orders as necessary and appropriate for continuation of care are present in Epic. 8. Allowed opportunity for questions and acknowledgement of understanding. Vital Signs: BP: 123/52 (02/19/2021 1:34 PM) Pulse: 83 (02/19/2021 1:34 PM) Heart Rate: 83 bpm (02/19/2021 1:34 PM) Temp: 37.4 ??C (02/19/2021 1:34 PM) Resp: 16 (02/19/2021 1:34 PM) SpO2: 100 % (02/19/2021 1:34 PM) 1:38 PM Jennifer Cutler CRNA * Anesthesia Procedure Notes - Phill Blunt MD - 02/19/2021 11:54 AM CDT Associated Order(s): Peripheral Line Insertion Peripheral Line Insertion Date/Time: 02/19/2021 10:10 AM Patient location during procedure: OR Performed by: Phill Blunt MD Preparation: Skin prepped with 2% chlorhexidine (under GETA) Skin prep agent dried: skin prep agent completely dried prior to procedure Hand hygiene: hand hygiene performed prior to procedure Patient was prepped and draped in usual sterile fashion Location: right hand Catheter size: 20 gauge Number of attempts: 1 Successful placement: yes Assessment: effective initial placement and positive blood return Procedure uneventful * Anesthesia Procedure Notes - Jennifer Cutler CRNA - 02/19/2021 10:21 AM CDTAssociated Order(s): Airway Airway Date/Time: 02/19/2021 9:59 AM Location: OR Plan: routine intubation Patient Identity Confirmed by: Verbally with patient and armband Airway: not difficult Performed by: MIXER OPERATOR HELPER HOT METAL: Jennifer Cutler CRNA Indications and Patient Condition: Indications for Airway Management: Anesthesia and airway protection Preoxygenated: Yes Patient Position: Appropriate position w/cervical spine immobilization maintained throughout the procedure Mask Difficulty Assessment: 1 - vent by mask (easy) Plan to extubate at end of case: Yes Final Airway Details: Final Airway Type: Endotracheal airway Final Endotracheal Airway: ETT Cuffed: Yes Cuff Volume (mL): 6 Technique Used for Successful ETT Placement: Direct laryngoscopy Devices/Methods Used in Placement: Straight blade and intubating stylet Insertion Site: Oral Laryngoscope Blade/Videolaryngoscope Blade Size: 2 ETT Size (mm): 7.0 Measured from: Teeth ETT to Teeth (cm): 21 Tube secured with: Tape Placement Verified by: auscultation, end tidal CO2 and chest rise Cormack-Lehane Classification: Grade I - full view of glottis Number of Attempts at Approach: 1 * Anesthesia Preprocedure Evaluation - Patrick Vargas MD - 02/18/2021 9:53 PM CDT Relevant Problems No relevant active problems Anesthesia Evaluation Patient summary reviewed and Nursing notes reviewed Airway Mallampati: II TM distance: >3 FB Neck ROM: full Dental - normal exam Pulmonary (-) pneumonia, COPD, asthma, shortness of breath, recent URI, sleep apnea, rhonchi, decreased breath sounds ROS comment: Social History Tobacco Use Smoking status: Never Smoker Smokeless tobacco: Never Used Chest X-ray result (most recent): No results found for this or any previous visit. Cardiovascular Exercise tolerance: good (Able to climb 2 FOS) (+) hypertension well controlled, (-) pacemaker, valvular problems/murmurs, past UT, CAD, CABG/stent, dysrhythmias, angina, CHF, orthopnea, PND, BROWN, murmur, friction rub Rhythm: regular Rate: normal ROS comment: Cardiac Echo result (most recent): No results found for this or any previous visit. Neuro/Psych (-) seizures, neuromuscular disease, TIA, CVA, headaches, psychiatric history Comments: Carotid Doppler result (most recent): No results found for this or any previous visit. GI/Hepatic/Renal (-) hiatal hernia, GERD, PUD, hepatitis, liver disease, renal disease, bowel prep Endo/Other (+) arthritis (-) diabetes mellitus, hypothyroidism, hyperthyroidism, blood dyscrasia Abdominal Abdomen: soft. Anesthesia History No history of anesthetic complications, no history of difficult intubation, no history of malignanthyperthermia, no history of PONV and no pseudocholinesterase deficiency. Anesthesia Plan ASA Final: 2 General Intravenous induction Oral ETT airway maintenance NPO status > 8 hours Anesthetic plan and risks discussed with Patient. Plan discussed with Anesthesiologist Dividing Machine Operator and Anesthesiologist. Post-op Pain Control Plan to use IV or IM medication for post-op pain control. Smoking Compliance Patient did not smoke on day of surgery documented in this encounter Plan of Treatment Not on file documented as of this encounter Procedures Procedure Name Priority Date/Time Associated Diagnosis Comments PERIPHERAL IV ADULT Routine 02/19/2021 1 0:10 AM CDT SC ANES VNPNXR 3 YEARS/> PHYS/QHP SKILL Routine 02/19/2021 10:10 AM CDT SC ANES INSERT ENDOTRACHEAL AIRWAY Routine 02/19/2021 9:59 AM CDT documented in this encounter Results * SC ANES VNPNXR 3 YEARS/> PHYS/QHP SKILL, PERIPHERAL IV ADULT (02/19/2021 10:10 AM CDT) Narrative Phill Blunt MD - 02/19/2021 10:10 AM CDT Phill Blunt MD ? 02/19/2021 11:55 AM Peripheral Line Insertion Date/Time: 02/19/2021 10:10 AM Patient location during procedure: OR Performed by: Phill Blunt MD Preparation: Skin prepped with 2% chlorhexidine (under GETA) Skin prep agent dried: skin prep agent completely dried prior to procedure Hand hygiene: hand hygiene performed prior to procedure Patient was prepped and draped in usual sterile fashion Location: right hand Catheter size: 20 gauge Number of attempts: 1 Successful placement: yes Assessment: effective initial placement and positive blood return Procedure uneventful Phill Blunt MD PROCEDURE/MINOR SURG ICAL ORDERABLES * SC ANES INSERT ENDOTRACHEAL AIRWAY (02/19/2021 9:59 AM CDT) Narrative Jennifer Cutler CRNA - 02/19/2021 9:59 AM CDT Jennifer Cutler CRNA ? 02/19/2021 10:22 AM Airway Date/Time: 02/19/2021 9:59 AM Location: OR Plan: routine intubation Patient Identity Confirmed by: ??Verbally with patient and armband Airway: not difficult Performed by: MIXER OPERATOR HELPER HOT METAL: ??Jennifer Cutler CRNA Indications and Patient Condition: ??Indications for Airway Management: ??Anesthesia and airway protection ??Preoxygenated: Yes ?Patient Position: ??Appropriate position w/cervical spine immobilization maintained throughout the procedure ??Mask Difficulty Assessment: ??1 - vent by mask (easy) ??Plan to extubate at end of case: Yes ?? Final Airway Details: ??Final Airway Type: ??Endotracheal airway ??Final Endotracheal Airway: ??ETT ??Cuffed: Yes ?Cuff Volume (mL): ??6 ??Technique Used for Successful ETT Placement: ??Direct laryngoscopy ??Devices/Methods Used in Placement: ??Straight blade and intubating stylet ??Insertion Site: ??Oral ??Laryngoscope Blade/Videolaryngoscope Blade Size: ??2 ??ETT Size (mm): ??7.0 ??Measured from: ??Teeth ??ETT to Teeth (cm): ??21 ??Tube secured with: ??Tape ??Placement Verified by: auscultation, end tidal CO2 and chest rise ?Cormack-Lehane Classification: ??Grade I - full view of glottis ??Number of Attempts at Approach: ??1 Phill Blunt MD PROCEDURE/MINOR SURG ICAL ORDERABLES documented in this encounter Visit Diagnoses Not on filedocumented in this encounter Administered Medications Inactive Administered Medications - up to 3 most recent administrations Medication Order MAR Action Action Date Dose Rate Site bupivacaine PF 0.75% 0.0625 %, HYDROmorphone (PF) 10 mcg/mL in sodium chloride 0.9% 457.8 mL EPIDURAL 500 mL, Epidural, at 4.5 mL/hr, CONTINUOUS, Starting on Thu02/19/21 at 0930, Until Lita 02/21/21 at 1043, DS: [phone] Rate Change 02/20/2021 9:30 AM CDT 4.5 mL/hr New Bag 02/19/2021 1:14 PM CDT 6 mL/hr 6 mL/hr bupivacaine-EPINEPHrine (PF) (SENSORCAINE MPF WITH EPI) 0.25 %-1:200,000 injection Infiltration, INTRA-PROCEDURE PRN, Starting on Thu02/19/21 at 1312, Until Thu02/19/21 at 1338, Routine, Anesthesia Intra-op Given 02/19/2021 1:12 PM CDT 5 mL dexamethasone (DECADRON) 4 mg/mL injection IV, INTRA-PROCEDURE PRN, Starting on Thu02/19/21 at 1031, Until Thu02/19/21 at 1338, Routine, Anesthesia Intra-op Given 02/19/2021 10:31 AM CDT 8 mg ePHEDrine injection IV, INTRA-PROCEDURE PRN, Starting on Thu02/19/21 at 1012, Until Thu02/19/21 at 1338, Routine, Anesthesia Intra-op Given 02/19/2021 1:04 PM CDT 10 mg Given 02/19/2021 1:02 PM CDT 10 mg Given 02/19/2021 11:32 AM CDT 10 mg fentaNYL PF (SUBLIMAZE) 50 mcg/mL injection IV, INTRA-PROCEDURE PRN, Starting on Thu02/19/21 at 0953, Until Thu02/19/21 at 1338, Routine, Anesthesia Intra-op Given 02/19/2021 12:26 PM CDT 25 mcg Given 02/19/2021 12:04 PM CDT 25 mcg Given 02/19/2021 10:54 AM CDT 50 mcg glycopyrrolate (ROBINUL) syringe IV, INTRA-PROCEDURE PRN, Starting on Thu02/19/21 at 1304, Until Thu02/19/21 at 1338, Routine, Anesthesia Intra-op Given 02/19/2021 1:04 PM CDT 0.6 mg lactated ringers infusion IV, at 150 mL/hr, PRE-PROCEDURE CONTINUOUS, Starting on Thu02/19/21 at 0800, Until Thu02/19/21 at 1338, Routine New Bag 02/19/2021 12:37 PM CDT New Bag 02/19/2021 11:38 AM CDT Restarted 02/19/2021 9:56 AM CDT lidocaine (PF) (XYLOCAINE MPF) 60 mg/3 mL (2 %) injection syringe IV, INTRA-PROCEDURE PRN, Starting on Thu02/19/21 at 0956, Until Thu02/19/21 at 1338, Routine, Anesthesia Intra-op Given 02/19/2021 9:56 AM CDT 60 mg morphine PF (ASTRAMORPH,DURAMORPH) 1 mg/mL injection Epidural, INTRA-PROCEDURE PRN, Starting on Thu02/19/21 at 1309, Until Thu02/19/21 at 1338, Routine, Anesthesia Intra-op Given 02/19/2021 1:09 PM CDT 1 mg neostigmine (PROSTIGIMINE) 5 mg/5 mL (1 mg/mL) injection IV, INTRA-PROCEDURE PRN, Starting on Thu02/19/21 at 1305, Until Thu02/19/21 at 1338, Routine, Anesthesia Intra-op Given 02/19/2021 1:05 PM CDT 3 mg ondansetron (ZOFRAN) 4 mg/2 mL injection IV, INTRA-PROCEDURE PRN, Starting on Thu02/19/21 at 1301, Until Thu02/19/21 at 1338, Routine, Anesthesia Intra-op Given 02/19/2021 1:01 PM CDT 4 mg phenylephrine 1 mg/10 mL (100 mcg/mL) injection IV, INTRA-PROCEDURE PRN, Starting on Thu02/19/21 at 1214, Until Thu02/19/21 at 1338, Routine, Anesthesia Intra-op Given 02/19/2021 1:27 PM CDT 100 mcg Given 02/19/2021 12:51 PM CDT 100 mcg Given 02/19/2021 12:39 PM CDT 100 mcg propofoL (DIPRIVAN) injection IV, INTRA-PROCEDURE PRN, Starting on Thu02/19/21 at 0956, Until Thu02/19/21 at 1338, Anesthesia Intra-op Given 02/19/2021 9:56 AM CDT 200 mg rocuronium injection IV, INTRA-PROCEDURE PRN, Starting on Thu02/19/21 at 0956, Until Thu02/19/21 at 1338, Routine, Anesthesia Intra-op Given 02/19/2021 10:54 AM CDT 10 mg Given 02/19/2021 10:51 AM CDT 10 mg Given 02/19/2021 9:56 AM CDT 50 mg vancomycin 1500 mg in sodium chloride 0.9% 300 mL IVPB 1,500 mg, IV, PRE-PROCEDURE ONCE, 1 dose, Starting on Thu02/19/21 at 0752, Until Thu02/19/21 at 1021, Routine, Pre-op, Antibiotic Indication: Surgical prophylaxis Continue from Pre-Op 02/19/2021 9:44 AM CDT New Bag 02/19/2021 8:51 AM CDT 1,500 mg 200 mL/hr documented in this encounter Care Teams Seam Taper Machine Relationship Specialty Start Date End Date Philippe Geiger MD [address] [place] [id number] PCP - General Internal Medicine 01/08/21 documented as of this encounter
--- OUTSIDE RECORDS SUMMARY | 2024-09-27 12:26 | XMS_ITS | Encounter Summary ---
Author Organization [facility] Address [address] Keen: Epic Prelude ADT [place] [address] Care Team Providers Care Certified First Assistant Name Role Phone Philippe Geiger MD Primary Care Provider [phone] Encounter Details Date Type Department Care Team (Latest Contact Info) Description 01/23/2021 Travel Social History Tobacco Use Types Packs/Day [...] on filedocumented in this encounter Care Teams Certified First Assistant Relationship Specialty Start Date End Date Philippe Geiger MD [facility] [place] [address] PCP - General Internal Medicine 01/08/21 documented as of this encounter
--- OUTSIDE RECORDS SUMMARY | 2024-09-27 12:26 | XMS_ITS | Encounter Summary ---
Author Organization [facility] Address [address] [place] [address] Care Team Providers Care Label Printing Machinist Name Role Phone Philippe Geiger MD Primary Care Provider [phone] Encounter Details Date Type Department Care Team (Late st Contact Info) Description 01/23/2021 Orders Only [facility] Neurosurgery - [facility] [address] [place] [address] Provider, Abstract NO ADDRESS ON FILE Social History Tobacco [...] Procedure Name Priority Date/Time Associated Diagnosis Comments MRI LUMBAR WO CONTRAST Routine 01/03/2021 documented in this encounter Results * MRI LUMBAR WO CONTRAST (01/03/2021) Anatomical Region Laterality Modality Spine Other Abstract Provider MR ORDERABLES documented in this encounter Visit Diagnoses Not on filedocumented in this encounter Care Teams Label Printing Machinist Relationship Specialty Start Date End Date Philippe Geiger MD [address] [place] [phone] PCP - General Internal Medicine 01/08/21 documented as of this encounter
--- OUTSIDE RECORDS SUMMARY | 2024-09-27 12:26 | XMS_ITS | Encounter Summary ---
Author Organization [facility] Address [address] Attn: Epic Prelude ADT [place] [address] Care Team Providers Care Envelope Stamping Machine Operator Name Role Phone Philippe Geiger MD Primary Care Provider [phone] Encounter Details Date Type Department Care Team (Latest Contact Info) Description 02/11/2021 Travel Social History Tobacco Use Types Packs/Day [...] on filedocumented in this encounter Care Teams Envelope Stamping Machine Operator Relationship Specialty Start Date End Date Philippe Geiger MD [address] [place] [address] PCP - General Internal Medicine 01/08/21 documented as of this encounter
--- OUTSIDE RECORDS SUMMARY | 2024-09-27 12:26 | XMS_ITS | Encounter Summary ---
Author Organization [facility] Address [address] [place] [address] Care Team Providers Care Associate Teacher Name Role Phone Philippe Geiger MD Primary Care Provider [phone] Encounter Details Date Type Department Care Team (Late st Contact Info) Description 02/14/2021 Abstract [facility] Neurosurgery - [facility] [address] [place] [address] Francisco Javier Quick MD NO [...] filedocumented in this encounter Care Teams Associate Teacher Relationship Specialty Start Date End Date Philippe Geiger MD [address] [place] [phone] PCP - General Internal Medicine 01/08/21 documented as of this encounter
--- OUTSIDE RECORDS SUMMARY | 2024-09-27 12:26 | XMS_ITS | Encounter Summary ---
Author Organization [facility] Address [address] [place] [address] Care Team Providers Care Wood Boring Machine Operator Name Role Phone Philippe Geiger MD Primary Care Provider [phone] Reason for Visit * Reason Comments LOW BACK PAIN new patient Extremity Weakness * Eval and Treat (Routine) - Closed Specialty Diagnoses / Procedures Referred By Contac t Referred To Contact Neurosurgery Diagnoses Spinal stenosis, lumbar region without neurogenic claudication Philippe Geiger, DO [address] [place] [address] Francisco Javier Quick MD NO ADDRESS ON FILE Referral ID Status Reason Start Date Expiration Date Visits Re quested Visits Authorized [id number] Closed 01/08/2021 07/07/2021 1 12 Encounter Details Date Type Department Care Team (Latest Contact Info) Description 01/23/2021 1:30 PM CDT Office Visit [facility] Neurosurgery - [facility] [address] [facility] [address] [place] [address] Francisco Javier Quick MD NO ADDRESS ON FILE Lumbar stenosis with neurogenic claudication (Primary Dx); Acquired spondylolisthesis of lumbosacral region Social History Tobacco Use Types Packs/Day Years [...] Sign Reading Time Taken Comments Blood Pressure 146/79 01/23/2021 1:33 PM CDT Pulse 67 01/23/2021 1:33 PM CDT Temperature 36.7 ??C (98.1 ??F) 01/23/2021 1:33 PM CD T Respiratory Rate - - Oxygen Saturation - - Inhaled Oxygen Concentration - - Weight 103.9 kg (229 lb) 01/23/2021 1:33 PM CDT Height 177.8 cm (5' 10 ) 01/23/2021 1:33 PM CDT Body Mass Index 32.86 01/23/2021 1:33 PM CDT documented in this encounter Progress Notes * Francisco Javier Quick MD - 01/23/2021 1:56 PM CDT [facility] Neurosurgery Clinic H&P Patient Name: Jayjay Ellison : 1945 Date of Service: 01/23/2021 Subjective: Chief Complaint: Chief Complaint Patient presents with ??? LOW BACK PAIN new patient ??? Extremity Weakness History of Present Illness: Jayjay is a 75 y.o. male who presents for lower back pain with left leg radiation. The pain started about 6 weeks ago with severe pain radiating mainly into the left leg with some radiation into theright leg. The pain is associated with numbness of the whole leg as well as the toes. He had a work-up for vascular flow without any significant pathology. Patient denies having any urinary incontinence. The pain is worse with standing. Able to sit. Upon awakening the pain is severe and he has a hard time getting out of bed. He has not had any significant treatment for this condition. There is no problem list on file for this patient. Past Medical History: Diagnosis Date ??? COPD (chronic obstructive pulmonary disease) ??? Difficulty balancing ??? Difficulty walking ??? [...] Hypertension Sister ??? Hypertension Brother Social History Tobacco Use ??? Smoking status: Never Smoker Substance Use Topics ??? Alcohol use: Yes Comment: socially TOBACCO COUNSELING He is not a tobacco user. Allergies Allergen Reactions ??? Cephalosporins Unknown ??? Codeine Unknown Current Outpatient Medications on File Prior to Visit Medication Sig Dispense Refill ??? aspirin (MAMADOU) 325 mg tablet Take 325 mg by mouth daily. ??? montelukast (SINGULAIR) 10 mg tablet Take 10 mg by mouth daily at bedtime. ??? furosemide (LASIX) 20 mg tablet Take 20 mg by mouth daily. ??? atenoloL (TENORMIN) 50 mg tablet Take 50 mg by mouth daily. ??? atorvastatin (LIPITOR) 10 mg tablet Take 10 mg by mouth daily. ??? lisinopriL (PRINIVIL) 20 mg tablet Take 20 mg by mouth daily. ??? POTASSIUM ORAL Take 20 mg by mouth daily. ??? vitamin E 400 unit capsule Take 400 Units by mouth daily. ??? GMKRA-6-DXD-EPA-DPA ORAL Take 500 mg by mouth daily. ??? cyanocobalamin 1,000 mcg Tablet Take 1,000 mcg by mouth daily. ??? Cholecalciferol, Vitamin D3, 50 mcg (2,000 unit) Capsule Take by mouth. No current facility-administered medications on file prior to visit. Review of Systems: Review of Systems Constitutional: Negative for chills, fever and weight loss. HENT: Negative for ear pain, hearing loss, sinus pain, sore throat and tinnitus. Eyes: Negative for blurred vision, double vision and photophobia. Respiratory: Negative for cough and shortness of breath. Cardiovascular: Negative for chest pain and leg swelling. Gastrointestinal: Negative for abdominal pain, constipation, diarrhea, heartburn, nausea and vomiting. Genitourinary: Negative for dysuria, frequency and urgency. Musculoskeletal: Positive for back pain. Negative for falls, myalgias and neck pain. Skin: Negative for rash. Neurological: Positive for tingling and weakness. Negative for dizziness, tremors, sensory change, speech change, focal weakness, seizures, loss of consciousness and headaches. Endo/Heme/Allergies: Does not bruise/bleed easily. Psychiatric/Behavioral: Negative for depression, hallucinations, memory loss, substance abuse and suicidal ideas. The patient is not nervous/anxious. Objective: Physical Exam: BP (!) 146/79 (BP Location: Left arm) Pulse 67 Temp 98.1 ??F (36.7 ??C) Ht 5' 10 (1.778 m) Wt 103.9 kg (229 lb) BMI 32.86 kg/m?? Normal BMI Range: 18 & older: > or = 18.5 and < 25 Body mass index is 32.86 kg/m??. Constitutional: Appears well, no distress, well-nourished, well-developed HEENT: External inspection of ears and nose within normal limits, oral mucosa normal Eye: Normal external eye, conjunctiva, lids, cornea Neck: Normal appearance, no thyroid enlargement Cardiovascular: Regular rate and rhythm, no swelling or edema Respiratory: Even/unlabored Gastrointestinal: Nondistended Musculoskeletal: See neuro exam Integumentary: No rashes, no induration Psychiatric: Appropriate to circumstances, normal mood and affect Neurological Exam: Neurologic Exam Mental Status Oriented to person, place, and time. Follows 2 step commands. Attention: normal. Concentration: normal. Speech: speech is normal Level of consciousness: alert Normal comprehension. Cranial Nerves CN III, IV, Pupils are equal, round, and reactive to light. Extraocular motions are normal. CN V Facial sensation intact. CN VII Facial expression full, symmetric. CN VIII CN VIII normal. CN XI CN XI normal. CN XII CN XII normal. Motor Exam Overall muscle tone: normal Strength Strength 5/5 except as noted. Sensory Exam Light touch normal. Pinprick normal. Gait, Coordination, and Reflexes Gait Gait: normal Reflexes Right patellar: 0 Left patellar: 0 Right achilles: 0 Left achilles: 0 Right plantar: normal Left plantar: normal Right Godinez: absent Left Godinez: absent Right ankle clonus: absent Left ankle clonus: absent Labs: No results found for: CA No results found for: [id number] No results for input(s): WBC, HGB, HCT, PLT, NA, INR in the last 72 hours. Imaging Studies: MRI of the lumbar spine shows severe stenosis at L2-3 and L3-4. There is a grade 1 spondylolisthesis at L4-5 with superimposed disc herniation centrally at causing severe stenosis. Assessment and Plan: ICD-10-CM ICD-9-CM 1. Lumbar stenosis with neurogenic claudication M48.062 724.03 2. Acquired spondylolisthesis of lumbosacral region M43.17 738.4 His pain is due to lumbar spondylosis with neurogenic claudication at multiple levels. His stenosisis quite severe from L2 down to L5. We could consider conservative treatment but I do not think they will be successful. Plan: He will be scheduled for laminectomy bilateral facetectomy at L2-3 L3-4 L4-5. Transforaminal lumbar interbody fusion at L2-3 L3-4 and L4-5 I have reviewed the risks of surgery with the patient including, but not limited to, infection, bleeding, bowel and bladder dysfunction, numbness, tingling, spinal fluid leak, continued pain, worsening pain, instability, and need for further surgery in the future. The patient understands these risks and wishes to proceed with surgery. Follow up: Francisco Javier Quick MD documented in this encounter Plan of Treatment Not on file documented as of this encounter Visit Diagnoses Diagnosis Lumbar stenosis with neurogenic claudication- Primary Spinal stenosis, lumbar region, with neurogenic claudication Acquired spondylolisthesis of lumbosacral region Acquired spondylolisthesis documented in this encounter Care Teams Wood Boring Machine Operator Relationship Specialty Start Date End Date Philippe Geiger MD [address] [place] [phone] PCP - General Internal Medicine 01/08/21 documented as of this encounter
--- OUTSIDE RECORDS SUMMARY | 2024-09-27 12:26 | XMS_ITS | Encounter Summary ---
Author Organization [facility] Address [address] [place] [address] Care Team Providers Care House Coordinator Name Role Phone Philippe Geiger MD Primary Care Provider [phone] Encounter Details Date Type Department Care Team (Latest Contact Info) Description 02/11/2021 12:06 PM CDT - 02/11/2021 11:59 PM CDT Hospital Encounter [facility] Pre Procedure Viral Testing [address] [address] Discharge Disposition: Home or Self Care Social [...] capsule Take 400 Units by mouth daily. XIVQS-5-PFQ-EPA-DPA ORAL Take 500 mg by mouth daily. cyanocobalamin 1,000 mcg Tablet Take 1,000 mcg by mouth daily. Cholecalciferol, Vitamin D3, 50 mcg (2,000 unit) Capsule Take by mouth. documented as of this encounter Plan of Treatment Not on file documented as of this encounter Procedures Procedure Name Priority Date/Time Associated Diagnosis Comments 2019 NOVEL CORONAVIRUS (COVID-19) PCR DETECTION Routine 02/11/2021 12:07 PM CDT Preop testing documented in this encounter Results * 2019 NOVEL CORONAVIRUS (COVID-19) PCR DETECTION (02/11/2021 12:07 PM CDT) COVID-19 PCR NOT DETECTED Not Detected 02/12/20 6:58 PM CDT [facility] PERFORMING LAB [facility] 02/11/2021 6:58 PM CDT [facility] Upper Respiratory ENTIRE NASOPHARYNX / Unknown Collection / Unknown 02/11/2021 12:07 PM CDT 02/11/2021 2:12 PM CDT Narrative [facility] - 02/11/2021 6:58 PM CDT This [...] Coronavirus. Francisco Javier Quick MD MICROBIOLOGY - CKME ORDERABLES [facility] CLIA# [id number] [address] [place] [address] documented in this encounter Visit Diagnoses Diagnosis Preop testing Preoperative examination, unspecified documented in this encounter Care Teams House Coordinator Relationship Specialty [place] [address] [place] [phone] PCP - General Internal Medicine 01/08/21 documented as of this encounter
--- OUTSIDE RECORDS SUMMARY | 2024-09-27 12:26 | XMS_ITS | Encounter Summary ---
Author Organization [facility] Address [address] [place] [address] Care Team Providers Care Out Patient Therapist Name Role Phone Philippe Geiger MD Primary Care Provider [phone] Encounter Details Date Type Department Care Team (Late st Contact Info) Description 01/09/2021 Abstract [facility] Neurosurgery - [facility] [address] [facility] [address] [place] [address] Francisco Javier Quick MD NO [...] on filedocumented in this encounter Care Teams Out Patient Therapist Relationship Specialty Start Date End Date Philippe Geiger MD [address] [place] [phone] PCP - General Internal Medicine 01/08/21 documented as of this encounter
--- OUTSIDE RECORDS SUMMARY | 2024-09-27 12:26 | XMS_ITS | Encounter Summary ---
Author Organization [facility] Address [address] [place] [address] Care Team Providers Care Manager Of Software Development Name Role Phone Philippe Geiger MD Primary Care Provider [phone] Encounter Details Date Type Department Care Team (Late st Contact Info) Description 01/17/[address] [facility] Neurosurgery - [facility] [address] [facility] [address] [place] [address] Francisco Javier Quick MD NO ADDRESS ON FILE Social History Tobacco Use Types Packs/Day Years Used Date Smoking Tobacco: Never Alcohol Use Standard Drinks/Week Comments Yes 0 (1 standard drink = 0.6 oz pur e alcohol) Sex and Gender Information Value Date Recorded [...] on filedocumented in this encounter Care Teams Manager Of Software Development Relationship Specialty [place] [address] [place] [phone] PCP - General Internal Medicine 01/08/21 documented as of this encounter
--- OUTSIDE RECORDS SUMMARY | 2024-09-27 21:00 | XMS_ITS | Encounter Summary ---
Author Organization [facility] Address [address] [place] [address] Care Team Providers Care Shift Stacker Name Role Phone Philippe Geiger MD Primary Care Provider [phone] Reason for Visit * Reason Comments Post-op Visit 2 Week - TLIF Encounter Details Date Type Department Care Team (Latest Contact Info) Description 03/11/2021 2:15 PM CDT Office Visit [facility] Neurosurgery - [facility] [address] [facility] [address] [place] [address] Francisco Javier Quick MD NO [...] Quick MD - 03/11/2021 2:01 PM CDT [facility] Neurosurgery Clinic Postoperative Visit Patient Name: Jayjay [...] surgery documented in this encounter Care Teams Shift Stacker Relationship Specialty Start Date End Date Philippe Geiger MD [address] [place] [address] PCP - General Internal Medicine 01/08/21 documented as of this encounter
--- OUTSIDE RECORDS SUMMARY | 2024-09-27 21:00 | XMS_ITS | Encounter Summary ---
Author Organization [facility] Address [address] [place] [address] Care Team Providers Care Upholstery Instructor Name Role Phone Philippe Geiger MD Primary Care Provider Encounter Details Date Type Department Care Team (Late st Contact Info) Description 02/27/2021 Abstract [facility] Neurosurgery - [facility] [address] [facility] [address] [place] [address] Francisco Javier Quick MD NO [...] on filedocumented in this encounter Care Teams Upholstery Instructor Relationship Specialty Start Date End Date Philippe Geiger MD [address] [place] [phone] PCP - General Internal Medicine 01/08/21 documented as of this encounter
--- OUTSIDE RECORDS SUMMARY | 2024-09-27 21:00 | XMS_ITS | Encounter Summary ---
Author Organization [facility] Address [address] [place] [address] Care Team Providers Care Boiler Welder Name Role Phone Philippe Geiger MD Primary Care Provider [phone] Encounter Details Date Type Department Care Team (Late st Contact Info) Description 03/06/2021 Abstract [facility] Neurosurgery - [facility] [address] [facility] [address] [place] [address] Francisco Javier Quick MD NO [...] on filedocumented in this encounter Care Teams Boiler Welder Relationship Specialty Start Date End Date Philippe Geiger MD [address] [place] [phone] PCP - General Internal Medicine 01/08/21 documented as of this encounter
--- OUTSIDE RECORDS SUMMARY | 2024-09-27 21:00 | XMS_ITS | Encounter Summary ---
Author Organization [facility] Address [address] [facility] Attn: Epic Prelude ADT JENNY VALDEZ [address] Care Team Providers Care Tire Inspector Name Role Phone Philippe Geiger MD Primary Care Provider [phone] Encounter Details Date Type Department Care Team [...] on filedocumented in this encounter Care Teams Tire Inspector Relationship Specialty Start Date End Date Philippe Geiger MD [address] [place] [address] PCP - General Internal Medicine 01/08/21 documented as of this encounter
--- OUTSIDE RECORDS SUMMARY | 2024-09-27 21:00 | XMS_ITS | Encounter Summary ---
Author Organization [facility] Address [address] [place] [address] Care Team Providers Care Geometry Teacher Name Role Phone Philippe Geiger MD Primary Care Provider [phone] Reason for Visit * Reason Comments Follow Up PO/TLIF * Eval and Treat (Routine) - Closed Specialty Diagnoses / Procedures Referred By Contac t Referred To Contact Neurosurgery Diagnoses Spinal stenosis, lumbar region without neurogenic claudication Philippe Geiger, DO [address] [place] [address] Francisco Javier Quick MD NO ADDRESS ON FILE Referral ID Status Reason Start Date Expiration Date Visits Re quested Visits Authorized [id number] Closed 01/08/2021 07/07/2021 1 12 Encounter Details Date Type Department Care Team (Latest Contact Info) Description 04/22/2021 10:45 AM CDT Office Visit [facility] Neurosurgery - [facility] [address] [facility] [address] [place] [address] Francisco Javier Quick MD NO ADDRESS ON [...] fusion documented in this encounter Care Teams Geometry Teacher Relationship Specialty Start Date End Date Philippe Geiger MD [address] [place] [address] PCP - General Internal Medicine 01/08/21 documented as of this encounter
--- OUTSIDE RECORDS SUMMARY | 2024-09-27 21:00 | XMS_ITS | Encounter Summary ---
Author Organization [facility] Address [address] [place] [address] Care Team Providers Care Net Programmer Name Role Phone Philippe Geiger MD Primary Care Provider [phone] Encounter Details Date Type Department Care Team (Latest Contact Info) Description 04/22/2021 10:00 AM CDT - 04/22/2021 11:59 PM CDT Hospital Encounter [facility] [place] [address] [place] [address] Francisco Javier Quick MD NO ADDRESS ON [...] capsule Take 400 Units by mouth daily. SXDNX-7-ROO-EPA-DPA ORAL Take 500 mg by mouth daily. [...] unchanged. ?? DICTATION LOCATION: Location 1 - [facility] ?? Narrative 04/22/2021 10:51 AM CDT LUMBAR [...] mm unchanged. DICTATION LOCATION: Location 1 - [facility] Francisco Javier Quick MD DIAGNOSTIC IMAGIN G ORDERABLES documented in this encounter Visit Diagnoses Diagnosis Lumbar stenosis with neurogenic claudication Spinal stenosis, lumbar region, with neurogenic claudication documented in this encounter Care Teams Net Programmer Relationship Specialty Start Date End Date Philippe Geiger MD [address] [place] [address] PCP - General Internal Medicine 01/08/21 documented as of this encounter
--- OUTSIDE RECORDS SUMMARY | 2024-09-27 21:00 | XMS_ITS | Encounter Summary ---
Author Organization [facility] Address [address] [place] [address] Care Team Providers Care News Intern Name Role Phone Philippe Geiger MD Primary Care Provider [phone] Encounter Details Date Type Department Care Team (Late st Contact Info) Description 03/11/2021 Orders Only [facility] Neurosurgery - [facility] [address] [facility] [address] [place] [address] Francisco Javier Quick MD NO [...] mm unchanged. ?? DICTATION LOCATION: Location - [facility] ?? Narrative 04/22/2021 10:51 AM CDT [...] anterolisthesis 6.4 mm unchanged. DICTATION LOCATION: Location [address] [place] [address] Francisco Javier Quick MD DIAGNOSTIC IMAGIN G ORDERABLES documented in this encounter Visit Diagnoses Diagnosis Lumbar stenosis with neurogenic claudication- Primary Spinal stenosis, lumbar region, with neurogenic claudication Lumbar stenosis with neurogenic claudication Spinal stenosis, lumbar region, with neurogenic claudication documented in this encounter Care Teams News Intern Relationship Specialty [place] [address] [place] [phone] PCP - General Internal Medicine 01/08/21 documented as of this encounter
--- OUTSIDE RECORDS SUMMARY | 2024-09-27 21:00 | XMS_ITS | CONTINUITY OF CARE DOCUMENT ---
Author Name luis alberto sahu Address Unknown Organization [facility] Address [address] [facility] [address] [place] [address] Phone [phone] Care Team Providers Care Stencil Cutter Name Role Phone Melvina WINTERS, Leo Unavailable JONATHAN CAN MD Unavailable JONATHAN CAN MD Unavailable PROBLEMS Condition Status Date Provider Notes Decreased dorsalis pedis pulse active Julia Leung INSURANCE PROVIDERS Payer name Policy type / Coverage type [place] [employer] party ID [facility] MEDICARE COMPLETE HMO Other [id number] TREATMENT PLAN Date Name Complete Echo Arterial Duplex Clay-Ashlie godinez EX
--- OUTSIDE RECORDS SUMMARY | 2024-09-27 21:00 | XMS_ITS | Encounter Summary ---
Author Organization [facility] Address [address] [facility] Attn: Epic Prelude ADT [place]DEZ [address] Care Team Providers Care Billet Worker Name Role Phone Philippe Geiger MD Primary Care Provider [phone] Encounter Details Date Type Department Care Team [...] on filedocumented in this encounter Care Teams Billet Worker Relationship Specialty Start Date End Date Philippe Geiger MD [address] [place] [address] PCP - General Internal Medicine 01/08/21 documented as of this encounter
--- OUTSIDE RECORDS SUMMARY | 2024-09-27 21:00 | XMS_ITS | Clinical Summary ---
Author Organization [facility] Address [address] [place] [address] Phone Care Team Providers Care Operations Supervisor 2Nd Shift Name Role Phone Philippe Geiger MD Primary Care Provider [phone] Allergies Active Allergy Reactions Criticality Noted Date [...] Take 400 Units by mouth daily. Active ZUJXM-1-DST-EPA-DPA ORAL Take 500 mg by mouth daily. [...] 06/12/2030 06/12/2020 Medical Devices Implanted Type Area Final Assembly Worker Device Identifier Shelf Expiration Date Model / Serial / Lot Cage Interbody 4?? 9mm 26/9 Str Plif [id number] - [id number] Implanted:Qty : 1 on 02/19/2021 by Francisco Javier Quick MD at [facility] Cage N/A: Back [employer] [id number] 10/21/2024 [id number] / / [id number] Description:All Depuy cages and other spinal hardware was processed on requisition, 249316. Eit T/Plif H 8mm Implanted:Qty : 1 on 02/19/2021 by Francisco Javier Quick MD at [facility] Cage N/A: Back [employer] [id number] 10/21/2024 [id number] / / [id number] Eit T/Plif H 7mm Implanted:Qty : 1 on 02/19/2021 by Francisco Javier Quick MD at [facility] Cage N/A: Back [employer] [id number] 05/21/2025 [id number] / / [id number] Hemostatic Surgiflo 8ml W/Thrombin 2994 - [id number] Implanted:Qty : 1 on 02/19/2021 by Francisco Javier Quick MD at [facility] Hemostatic N/A: Back [employer] [id number] 02/18/2022 2994 / / [id number] Jose Juan Xpdm Crv W/Line 105mm [id number] - Ssterilized Implanted:Qty : 2 on 02/19/2021 by Francisco Javier Quick MD at [facility] Jose Juan N/A: Back [employer] [id number] / STERILIZED / [id number] Set Screw Xpdm Verse 5.5mm - Sload# 17 Implanted:Qty : 8 on 02/19/2021 by Francisco Javier Quick MD at [facility] Screw N/A: Back [employer] 1 / LOAD# 17 / STERILIZED 01-07-21 Screw Xpdm Verse 7x45mm -745 - Sload# 17 Implanted:Qty : 8 on 02/19/2021 by Francisco Javier Quick MD at [facility] Screw N/A: Back [employer] [id number] / LOAD# 17 / STERILIZED 01-07-21 Putty Dbx Dbm 10 [id number] - [id number] Implanted:Qty : 1 on 02/19/2021 by Francisco Javier Quick MD at [facility] Tissue N/A: Back [employer] FOU 09/15/2021 [id number] / [id number] / Advance Directives For more information, please contact: [phone] * Full Code (Latest Code Status on File) Date Activated Date Inactivated Comments 02/19/2021 3:17 PM 02/26/2021 3:48 PM Care Teams Operations Supervisor 2Nd Shift Relationship Specialty Start Date End Date Philippe Geiger MD [address] [place] [phone] PCP - General Internal Medicine 01/08/21
--- OUTSIDE RECORDS SUMMARY | 2024-09-27 21:01 | XMS_ITS | Encounter Summary ---
Author Organization [facility] Address [address] [place] [address] Care Team Providers Care Dredgemaster Name Role Phone Philippe Geiger MD Primary Care Provider [phone] Reason for Visit * Auth/Cert Specialty Diagnoses / Procedures Referred By Contac t Referred To Contact Multi Specialty Diagnoses Spinal stenosis, lumbar region with neurogenic claudication Spondylolisthesis, lumbar region LUMBAR STENOSIS; SPONDYLOLISTHESIS Procedures MO ARTHDSIS POST/POSTEROLATRL/POSTINTERBO DY LUMBAR MO ARTHDSIS POST/POSTERLATRL/POSTINTRBDYA DL SPC/SEG MO LAMINECTOMY,FACETECTOMY,LUMBA R MO LAMINEC/FACETECT/FORAMIN,LUMB AR 1 SEG MO LAMINEC/FACETECT/FORAMIN,EACH ADDNL MO POSTERIOR SEGMENTAL INSTRUMENTATION 3-6 VRT SEG MO INSJ BIOMCHN DEV INTERVERTEBRAL DSC SPC W/ARTHRD MO AUTOGRAFT SPINE SURGERY LOCAL FROM SAME INCISION MO ALLOGRAFT FOR SPINE SURGERY ONLY MORSELIZED LUMBAR INTERBODY FUSION (TLIF L2-3, L3-4, L4-5) [facility] [address] [place] [address] Referral ID Status Reason Start Date Expiration Date Visits Re quested Visits Authorized [id number] 1 1 Encounter Details Date Type Department Care Team (Latest Contact Info) Description 02/19/2021 7:23 AM CDT - 02/26/2021 1:43 PM CDT Hospital Encounter [facility] Neurology [address] [place] [address] Francisco Javier Quick MD NO [...] Geiger PA - 03/20/2021 12:46 PM CDT [place], [place] [address] Discharge Summary Patient: Jayjay Ellison / 75 y.o. / male CSN: [id number] : 1945 ADMIT DATE: 02/19/2021 DISCHARGE DATE: [...] by mouth daily at bedtime. Refills: 0 RFQFM-7-BBD-EPA-DPA ORAL Take 500 mg by mouth daily. Refills: 0 POTASSIUM ORAL Take 20 mg by mouth daily. Refills: 0 vitamin E 400 unit capsule Take 400 Units by mouth daily. Refills: 0 Where to Get Your Medications These [address] [facility] [address] Hours: Retail 8 AM - 12 AM [...] 9:16 AM CDT Thank you for choosing [facility] Neurosurgery for your care! The following [...] 1-2 days to make your appointment at [phone]. Feel free tocall for any further questions [...] out. Medications will NOT be refilled by ???tactical air control party manager?? providers after hours! > Many pain medications [...] pain medications or muscle relaxants (I.e. Percocet, [place], Valium, Flexiril, etc). There are no restrictions [...] 3 months after your surgery. Contact information: [facility] Office #: [phone] 8:30am- 4:30pm Thu-Thursday Exchange#: [phone] After-hours Emergency contact documented in this encounter [...] capsule Take 400 Units by mouth daily. IXFCK-7-VPN-EPA-DPA ORAL Take 500 mg by mouth daily. [...] Only* (Thu- 7:30am-5pm and Thu-Thu 24 hours): [phone] NSGY After Hours Exchange: [phone] NSGY Office (Thu-Thu 8:30am-4:30pm): [phone] * Nelly Chou MD - 02/26/2021 7:28 AM CDT Images from the original note were not included. DATE: 02/26/2021 NAME: Jayjay Elilson : 1945 CSN: [id number] [facility] Surgery Progress Note Recent Events: NAEON. Tolerated [...] 02/26/2021 7:28 AM TACS Resident On-Call Pager [phone].[phone] TACS Attending On-Call - please refer to Trauma and Acute Care Surgery (TACS) page on [facility] website Subjective: No chief complaint on file. [...] daily. Past Week at Unknown time ??? CNAXX-9-GGK-EPA-DPA ORAL Take 500 mg by mouth daily. [...] performed by Francisco Javier Quick MD at [facility] OR [facility] ??? HX HERNIA REPAIR x2 ??? [...] Gatherings with Friends and Family: ??? Attends Jainism Services: ??? Active Member of Clubs or [...] Only* (Thu- 7:30am-5pm and Thu-Thu 24 hours): [phone] NSGY After Hours Exchange: [phone] NSGY Office (Thu-Thu 8:30am-4:30pm): [phone] * Nelly Chou MD - 02/25/2021 9:44 AM CDT Images from the original note were not included. DATE: 02/25/2021 NAME: Jayjay Ellison : 1945 CSN: [id number] [facility] General Surgery Progress Note Recent Events: [...] 02/25/2021 9:44 AM TACS Resident On-Call Pager [phone] TACS Attending On-Call - please refer to Trauma and Acute Care Surgery (TACS) page on [employer] website Subjective: No chief complaint on file. [...] daily. Past Week at Unknown time ??? FVFVP-6-IZT-EPA-DPA ORAL Take 500 mg by mouth daily. [...] performed by Francisco Javier Quick MD at [facility] OR [facility] ??? HX HERNIA REPAIR x2 ??? [...] Gatherings with Friends and Family: ??? Attends Jainism Services: ??? Active Member of Clubs or [...] Only* (Thu- 7:30am-5pm and Thu-Thu 24 hours): [phone] NSGY After Hours Exchange: [phone] NSGY Office (Thu-Thu 8:30am-4:30pm): [phone] * Nelly Chou MD - 02/24/2021 8:31 AM CDT Images from the original note were not included. DATE: 02/24/2021 NAME: Jayjay Ellison : 1945 CSN: [id number] [facility] General Surgery Progress Note Recent Events: [...] 02/24/2021 8:31 AM TACS Resident On-Call Pager [phone].[phone] TACS Attending On-Call - please refer to Trauma and Acute Care Surgery (TACS) page on [employer] website Subjective: No chief complaint on file. [...] daily. Past Week at Unknown time ??? HTRMD-6-UMJ-EPA-DPA ORAL Take 500 mg by mouth daily. [...] performed by Francisco Javier Quick MD at [facility] ??? HX HERNIA REPAIR x2 ??? HX [...] Gatherings with Friends and Family: ??? Attends Jainism Services: ??? Active Member of Clubs or [...] 99 mg/dL COMMENT, GLU POC Notified RN/MD DISH STACKER NAME MIKAYLA AHMADI POC GLUCOSE Result Value Ref Range POC GLUCOSE 71 (L) 74 - 99 mg/dL COMMENT, GLU POC Notified RN/MD DISH STACKER NAME MIKAYLA AHMADI POC GLUCOSE Result Value Ref Range POC GLUCOSE 90 74 - 99 mg/dL DISH STACKER NAME MAIRA STALLWORTH (JANNETTE) POC GLUCOSE Result Value Ref Range POC GLUCOSE 88 74 - 99 mg/dL COMMENT, GLU POC To be Repeated DISH STACKER NAME MAIRA STALLWORTH (JANNETTE) POC GLUCOSE Result Value Ref Range POC GLUCOSE 90 74 - 99 mg/dL COMMENT, GLU POC Notified RN/MD DISH STACKER NAME MAIRA STALLWORTH (JANNETTE) BASIC METABOLIC PANEL [...] patient's HPI, labs, xrays, and evaluated the individual pension consultant's notes and agree with the assessment as documented below. I have spent no less than 35 minutes involved in the care and evaluation of the patient; >50% ofthis time was spent in counseling and/or coordination of care for this patient. Love Goetz MD - Trauma and Acute Care Surgery - Pager: [phone] *If unable to reach me, please call the sodium chlorite operator and ask for the On-Call Trauma [...] Only* (Thu- 7:30am-5pm and Thu-Thu 24 hours): [phone] NSGY After Hours Exchange: [phone] NSGY Office (Thu-Thu 8:30am-4:30pm): [phone] * Shyla Lord MD - 02/23/2021 5:55 AM CDT Images from the original note were not included. DATE: 02/23/2021 NAME: Jayjay Ellison : 1945 CSN: [id number] [facility] General Surgery Progress Note Recent Events: [...] 02/23/2021 5:55 AM TACS Resident On-Call Pager [phone] TACS Attending On-Call - please refer to Trauma and Acute Care Surgery (TACS) page on [facility] website Subjective: No chief complaint on file. [...] daily. Past Week at Unknown time ??? FZLEZ-6-LDC-EPA-DPA ORAL Take 500 mg by mouth daily. [...] performed by Francisco Javier Quick MD at [facility] ??? HX HERNIA REPAIR x2 ??? HX [...] Gatherings with Friends and Family: ??? Attends Jainism Services: ??? Active Member of Clubs or [...] 99 mg/dL COMMENT, GLU POC Notified RN/MD DISH STACKER NAME MIKAYLA AHMADI CALCIUM IONIZED Result Value Ref Range PH, VENOUS 7.44 (H) 7.32 - 7.43 CALCIUM IONIZED 4.6 (L) 4.8 - 5.2 mg/dL POC GLUCOSE Result Value Ref Range POC GLUCOSE 114 (H) 74 - 99 mg/dL COMMENT, GLU POC Notified RN/MD DISH STACKER NAME MIKAYLA AHMADI POC GLUCOSE Result Value Ref Range POC GLUCOSE 103 (H) 74 - 99 mg/dL DISH STACKER NAME KAY LAN CALCIUM IONIZED Result Value Ref Range PH, VENOUS 7.42 7.32 - 7.43 CALCIUM IONIZED 4.7 (L) 4.8 - 5.2 mg/dL POTASSIUM LEVEL Result Value Ref Range POTASSIUM 3.6 3.5 - 5.0 mmol/L POC GLUCOSE Result Value Ref Range POC GLUCOSE 97 74 - 99 mg/dL DISH STACKER NAME KARLO TRAVIS No new imaging Shyla [...] patient's HPI, labs, xrays, and evaluated the individual pension consultant's notes and agree with the assessment as documented below. I have spent no less than 40 minutes involved in the care and evaluation of the patient; >50% ofthis time was spent in counseling and/or coordination of care for this patient. Love Goetz MD - Trauma and Acute Care Surgery - Pager: [phone] *If unable to reach me, please call the sodium chlorite operator and ask for the On-Call Trauma [...] Only* (Thu- 7:30am-5pm and Thu-Thu 24 hours): [phone] NSGY After Hours Exchange: [phone] NSGY Office (Mon-Fri 8:30am-4:30pm): [phone] * Gerri Camejo RN - 02/22/2021 2:38 [...] Only* (Thu- 7:30am-5pm and Thu-Thu 24 hours): [phone] NSGY After Hours Exchange: [phone] NSGY Office (Thu-Thu 8:30am-4:30pm): [phone] * Patrick Al - 02/20/2021 1:33 PM CDT I stopped in to see the patient to introduce him to Pastoral Care. He was born in [place], raised in the [facility], lived in [place] and now lives in [place], [place]. Essentially, we spoke about Southern Culture. He was vocal and gave as good as he took. It was a very pleasant visit. Eventually, his daughter arrived and she simply listened as we went back and forth. Fr. Patrick Al, O.P. [phone] * Miguelina Godinez PA - 02/20/2021 1:13 [...] Only* (Thu- 7:30am-5pm and Thu-Thu 24 hours): [phone] NSGY After Hours Exchange: [phone] NSGY Office (Thu-Thu 8:30am-4:30pm): [phone] * Jazzy Coto RN - 02/20/2021 10:12 AM CDT [facility] Adult Therapeutic Orders Protocol [facility] Approved by: [facility] - Medical Executive Committee Approval Date: 07/05/2020 ORDERS ARE ENTERED ???PER PROTOCOL?? Enter the protocol in the patient's electronic health record using smartphrase:.nursingtherapeuticordersprotocol For inpatients with complaints of minor discomfort Nursing Orders: o [id number] Ice Pack/Cold Therapy 20 minutes every 2 hours to affected area. o VNS268 Warm Compress/Heat to affected area 20 minutes every 8 hours to affected area. Medication Orders: o eckizvplsq-gapfvsd-entbeunopbmyus (CEPACOL) lozenge. 1 each by mouth every [...] the original note were not included. ?02/2020[facility] Adult IV Flush Protocol [facility] Approved by: [facility] - Medical Executive Committee Approval Date: 02/20/2020 [...] bedside coworker ALVAREZ Jordan upon transfer to [facility] Demetrio Score: Demetrio Score: 18 (02/19/21 [...] consult wound care services. 5. Is a chief medical director in place?no If yes, remove device/brace/splint to [...] etc.). Wound care consult was not initiated. [facility] Skin Care Injury Prevention and Treatment Protocol [facility] Approved by: [facility] - Medical Executive Committee Approval Date: 10/06/2019 [...] Fox PA - 02/19/2021 9:02 AM CDT [place], [place] [address] HISTORY AND PHYSICAL PATIENT NAME: Jayjay Ellison CSN: [id number] ADMITTING PHYSICIAN: Francisco Javier Quick MD PRIMARY [...] Date End Date Taking? Authorizing Provider aspirin (MAMADUO) 325 mg tablet Take 325 mg by [...] Units by mouth daily. Yes Provider, Historical PULXV-1-ECK-EPA-DPA ORAL Take 500 mg by mouth daily. [...] 02/21/2021 NAME: Jayjay Ellison : 1945 CSN: [id number] [facility] General Surgery H&P/Consult ASSESSMENT/PLAN: Jayjay Ellison is [...] 02/21/2021 3:58 PM TACS Resident On-Call Pager [phone].[phone] TACS Attending On-Call - please refer to Trauma and Acute Care Surgery (TACS) page on [employer] website Subjective: No chief complaint on file. [...] daily. Past Week at Unknown time ??? YXIQO-4-SIW-EPA-DPA ORAL Take 500 mg by mouth daily. [...] performed by Francisco Javier Quick MD at [facility] ??? HX HERNIA REPAIR x2 ??? HX [...] Gatherings with Friends and Family: ??? Attends Jainism Services: ??? Active Member of Clubs or [...] GLUCOSE 122 (H) 74 - 99 mg/dL DISH STACKER NAME JAZZY COTO HEMOGLOBIN AND HEMATOCRIT Result [...] patient's HPI, labs, xrays, and evaluated the individual pension consultant's notes and agree with the assessment as documented below. I have spent no less than 35 minutes involved in the care and evaluation of the patient; >50% ofthis time was spent in counseling and/or coordination of care for this patient. Love Goetz MD - Trauma and Acute Care Surgery - Pager: [phone] *If unable to reach me, please call the sodium chlorite operator and ask for the On-Call Trauma Surgeon* documented in this encounter OR Notes * Anesthesiology - Zachary Krueger MD - 02/21/2021 10:40 AM CDT 02/21/2021 10:40 AM Regional Anesthesia Service Name: Jayjay Ellison Age: 75 y.o. Sex: male CSN: [id number] Chief complaint: Post operative pain POD # [...] Service may be contacted by zone phone [phone] during daytime resource hours,or by pager [phone] at any time. If there is no answer within 20 minutes, call [phone] for the Anesthesiologist tactical air control party manager. Zachary Krueger MD Pager: [phone] * Anesthesiology - Zachary Krueger MD - 02/20/2021 11:14 AM CDT 02/20/2021 11:14 AM Regional Anesthesia Service Name: Jayjay Ellison Age: 75 y.o. Sex: male CSN: [id number] Chief complaint: Post operative pain POD # [...] epidural catheter tomorrow. Zachary Krueger MD Pager: [phone] * Operative Report - Francisco Javier Quick MD - 02/20/2021 12:14 AM CDT [facility] [place] [place] Patient: JAYJAY ELLISON CSN: [id number] : 1945 Provider: Francisco Javier Quick MD [...] L4-5. SURGEON: Francisco Javier Quick MD ANESTHESIA: BRANCH OPERATIONS SPECIALIST: Tuyet Fox. ESTIMATED BLOOD LOSS: 600 mL. [...] L3, and L4 were removed with a [employer] bone biter. Protochips drill was used to perform a laminectomy [...] condition. Francisco Javier Quick MD MMODL D: [id number] V: [id number] CC Philippe Geiger MD * OR Anesthesia - Dany Rosales MD - 02/19/2021 9:14 AM CDT [facility] Regional Anesthesia Service Epidural [...] epinephrine 5 mL. Dany Rosales MD Pager: [phone] documented in this encounter Miscellaneous Notes * Therapy Treatment - Yessica Curry, Physical Therapist - 02/26/2021 12:00 PM CDT Patient not seen for PT secondary to politely refused, states he is going home shortly. Will continue to follow patient and will re-attempt at a later time if pt remains inpatient beyond today. [facility]. Zone #: [id number] * Care Plan - Sissy Beck LPN [...] care for updates on goals. Zone #: [id number] * Care Plan - Lilly Ramirez Physical [...] care for updates on goals. Zone #: [id number] * Care Plan - Azucena Joshua GN [...] CDT ..[facility] Adult Therapeutic Orders Protocol [facility] Approved by: [facility] - Medical Executive Committee Approval Date: 07/05/2020 ORDERS ARE ENTERED ???PER PROTOCOL?? Enter the protocol in the patient's electronic health record using smartphrase:.nursingtherapeuticordersprotocol For inpatients with complaints of minor discomfort Nursing Orders: o [id number] Ice Pack/Cold Therapy 20 minutes every 2 hours to affected area. o QLE414 Warm Compress/Heat to affected area 20 minutes every 8 hours to affected area. Medication Orders: o wphfrkkjvt-lzuvwxn-mttimpdiaswthg (CEPACOL) lozenge. 1 each by mouth every [...] NPO * Care Plan - Mehnaz Marcial, Detasseling Crew Supervisor - 02/24/2021 10:15 AM CDT Problem: Physical [...] Flowsheets Taken 02/24/2021 1010 by Mehnaz Marcial, Detasseling Crew Supervisor Sun: X Pain Rating: Rest: 0 Pain [...] care for updates on goals. Zone #: [id number] * Care Plan - Vijay Kraus RN [...] chair * Care Plan - Werner Joshua, Warehouse Technician - 02/23/2021 11:12 AM CDT Problem: Physical [...] bed upon OLMAN arrival w/ family and TORPEDO WORKER at bedside finishing bath. Pain rating: c/o [...] pt, he just got cleaned up w/ TORPEDO WORKER. UE Dressing: Pt Max A to tie gown behind neck sitting at EOB. LE Dressing: Pt SBA to doff/don socks using route driver coin machines and sock aid sitting at EOB. Pt [...] care for updates on goals. Zone #: [phone] On weekends--please call [phone] * Care Plan - Shira Bello, Detasseling Crew Supervisor - 02/23/2021 10:39 AM CDT Problem: Physical [...] care for updates on goals. Zone #: 53274 * Care Plan - Vijay Kraus RN [...] care for updates on goals. Zone #: 65152 * Care Plan - Trista Ahmadi RN - 02/22/2021 1:33 PM CDT Care Management Initial Assessment Initial Discharge Planning Assessment completed. Discussed Care Management's role and Discharge planning. Discharge Plan: Home with [facility] Patient Discharge Planning Goal: Pain Control Patient [...] Mobile Relation: Daughter Insurance coverage verified: Payor: [employer] / Plan: MEDICARE ADVANTAGE HMO / Product Type: Medicare Managed Care / Prescription coverage: yes Preferred Pharmacy verified: [facility] [address] [place] [address] [facility] Employment Status: retired Has VA Benefits: no [...] follow and assist asneeded. Trista Ahmadi MSN,RN, [facility] Flat Lock Machine Operator II [phone] * Care Plan - Darcie Yang Physical [...] Pt in supine with attachments intact,needs in reach,rvda master certified rv technician in room for care. A: Response [...] care for updates on goals. Zone #: 12512 * Care Plan - Lala Simmons RN [...] time/date as appropriate. Thank you. Zone #: [phone] * Care Plan - Stacy Carcamo Occupational [...] with verbal cues to doff socks with route driver coin machines and don socks with sock-aide seatedEOB Toilet [...] denied dizziness. OT promptly called RN and TORPEDO WORKER into room. RN, TORPEDO WORKER, and OT helped assist pt back to a standing position and pt was able to turn and sit on the edge of the bed. Seated edge of bed patient had another episode, however did not loose consciousness at this time. Pt BP taken seated edge of bed (slightly cjx654/65) and blood glucose (122) taken. OT and TORPEDO WORKER assisted pt into supine position in bed. Pt denied dizziness or light headedness again once lying down in bed. Patient denied increase in pain or injury after the event. RN notified MD. RN and TORPEDO WORKER providing care in room upon OT departure. [...] in [facility] Plan of Care developed, as indicated by OT assessment and patient's current status. Please refer to plan of care for updates on goals. Zone #: 67510 * Care Plan - Elza Blanco RN [...] content, Agrees to continue Living Situation/Functional Level FLATBED STITCHER: Pt lives with his in a 1 [...] section of the medical chart. Zone #: [phone] On weekends--please call [phone] * Therapy Evaluation - Stacy Carcamo Occupational [...] pain intervention: Appeared content Living Situation/Functional Level FLATBED STITCHER: Pt states he lives in a one story home with his . Pt states there are two steps the enter the home through the garage. Pt states he has a raised toilet and a tub shower combo with grab bars. Pt states FLATBED STITCHER she was (I) with all ADLs and IADLs. Pt states FLATBED STITCHER in the last 8 weeks he has used a SPC for ambulation due to increased back and L leg pain. Home Equipment: BSC, route driver coin machines, sock-aide, tub transfer bench, grab bars, raised toilet O: Appearance: Pt is 75 y.o. M semi-supine in bed. Epidural, IV, granger, and PAUL drain intact. TORPEDO WORKER inroom assisting with care upon OT arrival. [...] to perform grooming tasks at this time. TORPEDO WORKER in room providing granger care and bed [...] section of the medical chart. Zone #: [phone] On weekends--please call [phone] * Care Plan - Elza Blanco RN [...] pain/comfort utilizing verbal/nonverbal pain scales; assess culturalor adventist indicators attached to pain; administer pain medications [...] 8:45 AM CDT LUMBAR STENOSIS Case Notes [facility] MEDICARE--PP--CPT 43655, 14037 X 2, 46218, 10885, 34331 X 2, 91305, 57015, 03025, 96915 POC GLUCOSE Routine 02/19/2021 8:05 AM CDT documented in this encounter Results * (ABNORMAL) BASIC METABOLIC PANEL (02/26/2021 8:22 AM CDT) Pathologist [facility] SODIUM 138 136 - 145 mmol/L 02/26/2021 9:11 AM CDT [facility] POTASSIUM 4.2 3.5 - 5.0 mmol/L 02/26/2021 9:11 AM CDT [facility] CHLORIDE 108(H) 98 - 107 mmol/L 02/26/2021 9:11 AM CDT [facility] CO2 20(L) 22 - 29 mmol/L 02/26/2021 9:11 AM CDT [facility] CALCIUM 8.6 8.6 - 10.2 mg/dL 02/26/2021 9:11 AM CDT [facility] BUN 7(L) 8 - 23 mg/dL 02/26/2021 9:11 AM T [facility] CREATININE 0.93 0.67 - 1.17 mg/dL 02/26/2021 9:11 AM CDT [facility] Comment:The GFR result is no t clinically significant on patients <18 or >70 years of age. GLUCOSE 166(H) 74 - 99 mg/dL 02/26/2021 9:11 AM CDT [facility] GFR >60 mL/min/1.7 3 sq meter 02/26/2021 9:11 AM CDT [facility] Comment: eGFR has not been validated [...] 3 sq meter 02/26/2021 9:11 AM CDT [facility] ANION GAP 10 8 - 16 mmol/L 02/26/2021 9:11 AM CDT [facility] Blood Venipuncture / Unknown 02/26/2021 8:22 AM CDT 02/26/2021 8:30 AM CDT Miguelina LEE CHEMISTRY ORDERABLES Performing Organization Address [facility] Co de Phone Number [facility] [employer] [facility]# [id number] [address] [place] [address] * MAGNESIUM LEVEL (02/26/2021 8:22 AM CDT) MAGNESIUM 1.9 1.6 - 2.4 mg/dL 02/26/2021 9:11 AM CDT [facility] Blood Venipuncture / Unknown 02/26/2021 8:22 AM CDT 02/26/2021 8:30 AM CDT Miguelina LEE CHEMISTRY ORDERABLES Performing Organization Address City/[facility] Co de Phone Number [facility] [employer] [facility] CLIA# [id number] [address] [place] [address] * (ABNORMAL) CALCIUM IONIZED (02/25/2021 6:54 AM CDT) PH, VENOUS 7.43 7.32 - 7.43 02/25/2021 7:06 AM CDT [facility] CALCIUM IONIZED 4.7(L) 4.8 - 5.2 mg/dL 02/25/2021 7:06 AM T [facility] Blood Venipuncture / Unknown 02/25/2021 6:54 AM CDT 02/25/2021 6:59 AM CDT Miguelina LEE CHEMISTRY ORDERABLES [facility] [employer] [facility] CLIA# [id number] [facility] [place] [address] * (ABNORMAL) BASIC METABOLIC PANEL (02/25/2021 5:28 AM CDT) SODIUM 141 136 - 145 mmol/L 02/25/2021 6:37 AM T [employer] [facility] POTASSIUM 3.3(L) 3.5 - 5.0 mmol/L 02/25/2021 6:37 AM [facility] [employer] [facility] CHLORIDE 110(H) 98 - 107 mmol/L 02/25/2021 6:37 AM T [facility] LABORATORY SERVICES [facility] CO2 23 22 - 29 mmol/L 02/25/2021 6:37 AM [facility] LABORATORY [facility] CALCIUM 8.6 8.6 - 10.2 mg/dL 02/25/2021 6:37 AM T [facility] LABORATORY SERVICES [facility]. [facility] BUN 11 8 - 23 mg/dL 02/25/2021 6:37 AM T [facility]. [facility] CREATININE 0.93 0.67 - 1.17 mg/dL 02/25/2021 6:37 AM T [employer] [facility] Comment:The GFR result is no t clinically significant on patients <18 or >70 years of age. GLUCOSE 108(H) 74 - 99 mg/dL 02/25/2021 6:37 AM T [employer] [facility] GFR >60 mL/min/1.7 3 sq meter 02/25/2021 6:37 AM T [employer] [facility] Comment: eGFR has not been validated [...] 3 sq meter 02/25/2021 6:37 AM CDT [facility] LABORATORY SERVICES [facility] ANION GAP 8 8 - 16 mmol/L 02/25/2021 6:37 AM CDT [facility] LABORATORY SERVICES [facility] Blood Venipuncture / Unknown 02/25/2021 5:28 AM CDT 02/25/2021 5:58 AM CDT Miguelina LEE CHEMISTRY ORDERABLES Performing Organization Address City/[facility]/ZIP Co de Phone Number [facility] [employer] [facility]# [id number] [address] [place] [place] [address] * MAGNESIUM LEVEL (02/25/2021 5:28 AM CDT) MAGNESIUM 2.0 1.6 - 2.4 mg/dL 02/25/2021 6:37 AM CDT [facility] [employer] [facility] Blood Venipuncture / Unknown 02/25/2021 5:28 AM CDT 02/25/2021 5:58 AM CDT Miguelina LEE CHEMISTRY ORDERABLES [facility]# [id number] [address] [place] [address] * (ABNORMAL) BASIC METABOLIC PANEL (02/24/2021 6:40 AM CDT) SODIUM 142 136 - 145 mmol/L 02/24/2021 7:45 AM CDT [employer] LABORATORY SERVICES - [facility] POTASSIUM 3.4(L) 3.5 - 5.0 mmol/L 02/24/2021 7:45 AM [facility] [employer] LABORATORY SERVICES - [facility] CHLORIDE 110(H) 98 - 107 mmol/L 02/24/2021 7:45 AM [facility] [employer] LABORATORY SERVICES - [facility] CO2 24 22 - 29 mmol/L 02/24/2021 7:45 AM [facility] [employer] LABORATORY SERVICES - . [facility] CALCIUM 8.3(L) 8.6 - 10.2 mg/dL 02/24/2021 7:45 AM [employer] LABORATORY SERVICES - . [facility] BUN 17 8 - 23 mg/dL 02/24/2021 7:45 AM [facility] [employer] LABORATORY SERVICES - . [facility] CREATININE 0.96 0.67 - 1.17 mg/dL 02/24/2021 7:45 AM [facility] [employer] LABORATORY SERVICES - [facility] Comment:The GFR result is no t clinically significant on patients <18 or >70 years of age. GLUCOSE 100(H) 74 - 99 mg/dL 02/24/2021 7:45 AM [employer] SERVICES - [facility] GFR >60 mL/min/1.7 3 sq meter 02/24/2021 7:45 AM [facility] [employer] LABORATORY SERVICES - [facility] Comment: [...] mL/min/1.7 3 sq meter 02/24/2021 7:45 AM [employer] LABORATORY SERVICES - . [facility] ANION GAP 8 8 - 16 mmol/L 02/24/2021 7:45 AM [employer] LABORATORY SERVICES - [facility] Blood Venipuncture / Unknown 02/24/2021 6:40 AM CDT 02/24/2021 7:06 AM CDT Miguelina LEE CHEMISTRY ORDERABLES Performing Organization Address City/[facility]/ZIP Co de Phone Number [facility]# [id number] [address] [place] [address] * MAGNESIUM LEVEL (02/24/2021 6:40 AM CDT) [facility] MAGNESIUM 2.3 1.6 - 2.4 mg/dL 02/24/2021 7:45 AM CDT [facility] LABORATORY [facility] Blood Venipuncture / Unknown 02/24/2021 6:40 AM CDT 02/24/2021 7:06 AM CDT Miguelina LEE CHEMISTRY ORDERABLES Performing Organization Address [facility] Phone Number [facility]# [id number] [address] [place] [address] * (ABNORMAL) CALCIUM IONIZED (02/24/2021 6:40 AM CDT) [facility] PH, VENOUS 7.45(H) 7.32 - 7.43 02/24/2021 7:19 AM CDT [facility] CALCIUM IONIZED 4.6(L) 4.8 - 5.2 mg/dL 02/24/2021 7:19 AM CDT [facility] Blood Venipuncture / Unknown 02/24/2021 6:40 AM CDT 02/24/2021 7:04 AM CDT Miguelina LEE CHEMISTRY ORDERABLES Performing Organization Address [facility] Co de Phone Number [facility]# [id number] [address] [place] [address] * POC GLUCOSE (02/24/2021 4:06 AM CDT) [facility] GLUCOSE POC 90 74 - 99 mg/dL 02/24/2021 4:06 AM CDT [facility] LABORATORY SERVICES - [facility] COMMENT, GLU POC Notified RN/MD 02/24/2021 4:06 AM CDT [facility] - [facility] DISH STACKER NAME POC MAIRA STALLWORTH (JANNETTE) 02/24/2021 4:06 AM CDT [facility] LABORATORY SERVICES - [facility] Blood, whole 02/24/2021 4:06 AM CDT 02/24/2021 4:33 AM CDT Francisco Javier Quick MD POINT OF CARE NITHIN TRAN [facility] LABORATORY SERVICES [facility] CLIA# [id number] [address] [place] [id number] * POC GLUCOSE (02/24/2021 12:05 AM CDT) GLUCOSE POC 88 74 - 99 mg/dL 02/24/2021 12:05 AM CDT [facility] LABORATORY SERVICES - [facility] COMMENT, GLU POC To be Repeated 02/24/2021 12:05 AM CDT [facility] LABORATORY SERVICES - [facility] DISH STACKER NAME POC MAIRA STALLWORTH (JANNETTE) 02/24/2021 12:05 AM CDT [facility] LABORATORY SERVICES [facility] Blood, whole 02/24/2021 12:0 5 AM CDT 02/24/2021 12:39 AM CDT Francisco Javier Quick MD POINT OF CARE NITHIN TRAN [facility] LABORATORY [facility] CLIA# [id number] [address] [place] [address] * POC GLUCOSE (02/23/2021 7:59 PM CDT) GLUCOSE POC 90 74 - 99 mg/dL 02/23/2021 7:59 PM CDT [facility] - [facility] DISH STACKER NAME MAIRA SHANE (JANNETTE) 02/23/2021 7:59 PM CDT [facility] LABORATORY SERVICES [facility] Blood, whole 02/23/2021 7:59 PM CDT 02/23/2021 8:11 PM CDT Francisco Javier Quick MD POINT OF CARE NITHIN CHELSEA Performing Organization Address [facility] Co de Phone Number [facility] LABORATORY [facility]# [id number] [address] [place] [address] * (ABNORMAL) POC GLUCOSE (02/23/2021 4:10 PM CDT) GLUCOSE POC 71(L) 74 - 99 mg/dL 02/23/2021 4:10 PM CDT [facility] LABORATORY SERVICES [facility] COMMENT, GLU POC Notified RN/ 02/23/2021 4:10 PM CDT [facility] LABORATORY SERVICES [facility] DISH STACKER NAME POC MIKAYLA AHMADI 02/23/2021 4:10 PM CDT [facility] Blood, whole 02/23/2021 4:1 0 PM CDT 02/23/2021 5:14 PM CDT Francisco Javier Quick MD POINT OF CARE NITHIN TRAN Performing Organization Address [facility] Co de Phone Number [facility] LABORATORY [facility]# [id number] [address] [facility] [place] [address] * POC GLUCOSE (02/23/2021 12:47 PM CDT) GLUCOSE POC 83 74 - 99 mg/dL 02/23/2021 12:47 PM CDT [facility] LABORATORY SERVICES [facility] COMMENT, GLU POC Notified RN/ 02/23/2021 12:47 PM CDT [facility] DISH STACKER NAME POC MIKAYLA AHMADI 02/23/2021 12:47 PM CDT [facility] LABORATORY SERVICES [facility] Blood, whole 02/23/2021 12:4 7 PM CDT 02/23/2021 1:13 PM CDT Francisco Javier Quick MD POINT OF CARE NITHIN WILBURNSuzie Performing Organization Address [facility]/ZIP Co de Phone Number [facility] [employer] [facility]# [id number] [address] [place] [address] * POC GLUCOSE (02/23/2021 8:08 AM CDT) GLUCOSE POC 86 74 - 99 mg/dL 02/23/2021 8:08 AM CDT [employer] [facility] COMMENT, GLU POC Notified RN/MD 02/23/2021 8:08 AM CDT [employer] [facility] DISH STACKER NAME POC MIKAYLA AHMADI 02/23/2021 8:08 AM CDT [employer] [facility] Blood, whole 02/23/2021 8:08 AM CDT 02/23/2021 8:41 AM CDT Francisco Javier Quick MD POINT OF CARE NITHIN TRAN Performing Organization Address [facility]/ZIP Co de Phone Number [facility] [employer] [facility]# [id number] [address] [place] [address] * (ABNORMAL) BASIC METABOLIC PANEL (02/23/2021 6:50 AM CDT) SODIUM 140 136 - 145 mmol/L 02/23/2021 8:03 AM CDT [employer] [facility] POTASSIUM 3.2(L) 3.5 - 5.0 mmol/L 02/23/2021 8:03 AM CDT [employer] LABORATORY SERVICES - [facility] CHLORIDE 103 98 - 107 mmol/L 02/23/2021 8:03 AM CDT [employer] [facility]ORATORY SERVICES - [facility] CO2 29 22 - 29 mmol/L 02/23/2021 8:03 AM CDT [employer] [facility]ORAT[facility] SERVICES - [facility] CALCIUM 8.2(L) 8.6 - 10.2 mg/dL 02/23/2021 8:03 AM CDT [facility] [employer] SERVICES [facility] BUN 21 8 - 23 mg/dL 02/23/2021 8:03 AM [facility] [employer] [facility] CREATININE 1.06 0.67 - 1.17 mg/dL 02/23/2021 8:03 AM T [facility] LABORATORY [facility] Comment:The GFR result is no t clinically significant on patients <18 or >70 years of age. GLUCOSE 91 74 - 99 mg/dL 02/23/2021 8:03 AM T [facility] LABORATORY [facility] GFR >60 mL/min/1.7 3 sq meter 02/23/2021 8:03 AM T [facility] LABORATORY [facility] Comment: eGFR has [...] 3 sq meter 02/23/2021 8:03 AM T [facility] [employer] [facility] ANION GAP 8 8 - 16 mmol/L 02/23/2021 8:03 AM T [facility] [employer] [facility] Blood Venipuncture / Unknown 02/23/2021 6:50 AM CDT 02/23/2021 7:03 AM CDT Miguelina LEE CHEMISTRY ORDERABLES [facility] [employer] [facility]# [id number] [address] [facility] [place] [address] * MAGNESIUM LEVEL (02/23/2021 6:50 AM CDT) MAGNESIUM 2.3 1.6 - 2.4 mg/dL 02/23/2021 8:03 AM CDT [facility] LABORATORY [facility] Blood Venipuncture / Unknown 02/23/2021 6:50 AM CDT 02/23/2021 7:03 AM CDT Miguelina LEE CHEMISTRY ORDERABLES Performing Organization Address [facility]/ZIP Co de Phone Number [facility]# [id number] [address] [place] [address] * (ABNORMAL) CALCIUM IONIZED (02/23/2021 6:50 AM CDT) PH, VENOUS 7.43 7.32 - 7.43 02/23/2021 7:39 AM CDT [facility] LABORATORY [facility] CALCIUM IONIZED 4.4(L) 4.8 - 5.2 mg/dL 02/23/2021 7:39 AM CDT [facility] [employer] [facility] Blood Venipuncture / Unknown 02/23/2021 6:50 AM CDT 02/23/2021 7:02 AM CDT Miguelina LEE CHEMISTRY ORDERABLES Performing Organization Address [facility]/ZIP Co de Phone Number [facility]# [id number] [address] [place] [address] * POC GLUCOSE (02/23/2021 1:02 AM CDT) GLUCOSE POC 97 74 - 99 mg/dL 02/23/2021 1:02 AM CDT [facility] LABORATORY [facility] DISH STACKER NAME POC KARLO TRAVIS 02/23/2021 1:02 AM CDT [facility] [employer] [facility] Blood, whole 02/23/2021 1:02 AM CDT 02/23/2021 1:10 AM CDT Francisco Javier Quick MD POINT OF CARE NITHIN TRAN [facility]# [id number] [address] [place] [address] * POTASSIUM LEVEL (02/22/2021 6:48 PM CDT) [facility] POTASSIUM 3.6 3.5 - 5.0 mmol/L 02/22/2021 7:49 PM CDT [facility] LABORATORY [facility] Blood Venipuncture / Unknown 02/22/2021 6:48 PM CDT 02/22/2021 7:02 PM CDT Miguelina LEE CHEMISTRY ORDERABLES [facility]# [id number] [address] [place] [address] * (ABNORMAL) CALCIUM IONIZED (02/22/2021 6:48 PM CDT) [facility] PH, VENOUS 7.42 7.32 - 7.43 02/22/2021 7:26 PM CDT [facility] CALCIUM IONIZED 4.7(L) 4.8 - 5.2 mg/dL 02/22/2021 7:26 PM CDT [facility] LABORATORY [facility] Blood Venipuncture / Unknown 02/22/2021 6:48 PM CDT 02/22/2021 7:02 PM CDT Miguelina LEE CHEMISTRY ORDERABLES [facility]# [id number] [address] [place] [address] * (ABNORMAL) POC GLUCOSE (02/22/2021 4:42 PM CDT) [facility] GLUCOSE POC 103(H) 74 - 99 mg/dL 02/22/2021 4:42 PM CDT [facility] LABORATORY [facility] DISH STACKER NAME POC KAY LAN 02/22/2021 4:42 PM CDT [facility] LABORATORY [facility] Blood, whole 02/22/2021 4:42 PM CDT 02/22/2021 5:07 PM CDT Francisco Javier Quick MD POINT OF CARE NITHIN TRAN Performing Organization Address [facility] Co de Phone Number [facility]# [id number] [address] [place] [address] * (ABNORMAL) POC GLUCOSE (02/22/2021 12:35 PM CDT) GLUCOSE POC 114(H) 74 - 99 mg/dL 02/22/2021 12:35 PM CDT [facility] LABORATORY [facility] COMMENT, GLU POC Notified RN/MD 02/22/2021 12:35 PM CDT [facility] LABORATORY [facility] DISH STACKER NAME POC MIKAYLA AHMADI 02/22/2021 12:35 PM CDT [facility] Blood, whole 02/22/2021 12:3 5 PM CDT 02/22/2021 12:51 PM CDT Francisco Javier Quick MD POINT OF CARE NITHIN TRAN Performing Organization Address [facility] Co de Phone Number [facility] [employer] [facility]# [id number] [address] [place] [address] * (ABNORMAL) CALCIUM IONIZED (02/22/2021 9:35 AM CDT) PH, VENOUS 7.44(H) 7.32 - 7.43 02/22/2021 9:49 AM CDT [facility] LABORATORY [facility] CALCIUM IONIZED 4.6(L) 4.8 - 5.2 mg/dL 02/22/2021 9:49 AM CDT [facility] LABORATORY [facility] Blood Venipuncture / Unknown 02/22/2021 9:35 AM CDT 02/22/2021 9:39 AM CDT Miguelina LEE CHEMISTRY ORDERABLES Performing Organization Address [facility]/ZIP Co de Phone Number [employer] [facility]# [id number] [address] [place] [address] * (ABNORMAL) POC GLUCOSE (02/22/2021 8:46 AM CDT) GLUCOSE POC 117(H) 74 - 99 mg/dL 02/22/2021 8:46 AM CDT [employer] LABORATORY SERVICES - [facility] COMMENT, GLU POC Notified RN/MD 02/22/2021 8:46 AM CDT [employer] LABORATORY SERVICES - [facility] DISH STACKER NAME POC MIKAYLA AHMADI 02/22/2021 8:46 AM CDT [employer] [facility]ORATORY SERVICES - [facility] Blood, whole 02/22/2021 8:46 AM CDT 02/22/2021 8:56 AM CDT Francisco Javier Quick MD POINT OF CARE NITHIN TING Performing Organization Address [facility]/ZIP Co de Phone Number [employer] SERVICES [facility]# [id number] [address] [place] [address] * (ABNORMAL) BASIC METABOLIC PANEL (02/22/2021 6:20 AM CDT) SODIUM 143 136 - 145 mmol/L 02/22/2021 7:20 AM CDT [employer] LABORATORY SERVICES [facility] POTASSIUM 2.8(L) 3.5 - 5.0 mmol/L 02/22/2021 7:20 AM CDT [employer] LABORATORY SERVICES - [facility] CHLORIDE 107 98 - 107 mmol/L 02/22/2021 7:20 AM CDT [employer] LABORATORY SERVICES - [facility] CO2 27 22 - 29 mmol/L 02/22/2021 7:20 AM CDT [employer] LABORATORY SERVICES - [facility] CALCIUM 7.4(L) 8.6 - 10.2 mg/dL 02/22/2021 7:20 AM CDT [employer] LABORATORY SERVICES - [facility] BUN 17 8 - 23 mg/dL 02/22/2021 7:20 AM [facility] CREATININE 0.98 0.67 - 1.17 mg/dL 02/22/2021 7:20 AM T [facility] LABORATORY [facility] Comment:The GFR result is no t clinically significant on patients <18 or >70 years of age. GLUCOSE 99 74 - 99 mg/dL 02/22/2021 7:20 AM T [facility] LABORATORY [facility] GFR >60 mL/min/1.7 3 sq meter 02/22/2021 7:20 AM T [facility] LABORATORY [facility] Comment: eGFR has not been validated [...] 3 sq meter 02/22/2021 7:20 AM T [facility] LABORATORY [facility] ANION GAP 9 8 - 16 mmol/L 02/22/2021 7:20 AM CDT [facility] LABORATORY [facility] Blood Venipuncture / Unknown 02/22/2021 6:20 AM CDT 02/22/2021 6:43 AM CDT Miguelina LEE CHEMISTRY ORDERABLES [facility] [employer] [facility] CLIA# [id number] [address] [place] [address] * XR ABDOMEN FOR FEEDING TUBE 1 VW (02/21/2021 5:18 PM CDT) Anatomical Region Laterality Modality Abdomen Computed Radiogr aphy 02/21/2021 5:18 PM CDT Impressions 02/21/2021 9:20 PM CDT IMPRESSION: 1. ??Enteric tube has been mildly advanced with tip in the body of the stomach. DICTATION LOCATION: Location - [facility] Narrative 02/21/2021 9:20 PM CDT XR [...] of the stomach. DICTATION LOCATION: Location - [facility] Francisco Javier Quick MD DIAGNOSTIC IMAGIN [...] repeat radiograph obtained. DICTATION LOCATION: Location - [facility] Narrative 02/21/2021 4:21 PM CDT EXAMINATION: [...] radiograph obtained. DICTATION LOCATION: Location 1 - [facility] Francisco Javier Quick MD DIAGNOSTIC JARENIN G ORDERABLES * MAGNESIUM LEVEL (02/21/2021 12:44 PM CDT) MAGNESIUM 1.9 1.6 - 2.4 mg/dL 02/21/2021 6:31 PM CDT [facility] LABORATORY SERVICES [facility] Blood Venipuncture / Unknown 02/21/2021 12:44 PM CDT 02/21/2021 1:19 PM CDT Miguelina LEE CHEMISTRY ORDERABLES [facility] LABORATORY SERVICES [facility]# [id number] [address] [place] [address] * (ABNORMAL) BASIC METABOLIC PANEL (02/21/2021 12:44 PM CDT) SODIUM 140 136 - 145 mmol/L 02/21/2021 1:56 PM CDT [facility] LABORATORY [facility] POTASSIUM 3.0(L) 3.5 - 5.0 mmol/L 02/21/2021 1:56 PM CDT [facility] LABORATORY SERVICES - [facility] CHLORIDE 103 98 - 107 mmol/L 02/21/2021 1:56 PM CDT [facility] LABORATORY SERVICES - [facility] CO2 26 22 - 29 mmol/L 02/21/2021 1:56 PM CDT [facility] LABORATORY SERVICES - [facility] CALCIUM 8.5(L) 8.6 - 10.2 mg/dL 02/21/2021 1:56 PM CDT [facility] BUN 19 8 - 23 mg/dL 02/21/2021 1:56 PM CDT [facility] CREATININE 1.14 0.67 - 1.17 mg/dL 02/21/2021 1:56 PM CDT [facility] Comment:The GFR result is no t clinically significant on patients <18 or >70 years of age. GLUCOSE 98 74 - 99 mg/dL 02/21/2021 1:56 PM CDT [facility] GFR >60 mL/min/1.7 3 sq meter 02/21/2021 1:56 PM T [facility] Comment: eGFR has not been validated [...] 3 sq meter 02/21/2021 1:56 PM CDT [facility] ANION GAP 11 8 - 16 mmol/L 02/21/2021 1:56 PM CDT [facility] Blood Venipuncture / Unknown 02/21/2021 12:44 PM CDT 02/21/2021 1:19 PM CDT Miguelina LEE CHEMISTRY ORDERABLES [facility] [employer] [facility] CLIA# [id number] [address] [place] [address] * XR ABDOMEN 1 VW (02/21/2021 12:13 PM CDT) Anatomical Region Laterality Modality Abdomen Computed Radiogr aphy 02/21/2021 12:1 3 PM CDT Impressions 02/21/2021 1:02 PM CDT IMPRESSION: Multiple loops of air-filled, dilated small bowel and colon, likely ileus. DICTATION LOCATION: Location [address] [place] [address] Narrative 02/21/2021 1:02 PM CDT EXAMINATION: XR [...] and colon, likely ileus. DICTATION LOCATION: Location [address] [place] [address] Miguelina LEE DIAGNOSTIC IMAGING O RDERABLES * (ABNORMAL) HEMOGLOBIN AND HEMATOCRIT (02/21/2021 10:22 AM CDT) HEMOGLOBIN 12.0(L) 13.6 - 16.5 g/dL 02/21/2021 10:46 AM CDT [facility] HEMATOCRIT 36.0(L) 40.0 - 48.0 % 02/21/2021 10:46 AM CDT [facility] Blood Venipuncture / Unknown 02/21/2021 10:22 AM CDT 02/21/2021 10:32 AM CDT Miguelina LEE HEMATOLOGY ORDERABLE S Performing Organization Address [facility]/ZIP Co de Phone Number [facility]# [id number] [address] [place] [address] * (ABNORMAL) POC GLUCOSE (02/21/2021 9:16 AM CDT) GLUCOSE POC 122(H) 74 - 99 mg/dL 02/21/2021 9:16 AM CDT [facility] DISH STACKER NAME POC JAZZY COTO 02/21/2021 9:16 AM CDT [facility] Blood, whole 02/21/2021 9:16 AM CDT 02/21/2021 9:37 AM CDT Francisco Javier Quick MD POINT OF CARE NITHIN CHELSEA Performing Organization Address [facility]/ZIP Co de Phone Number [facility]# [id number] [address] [place] [address] * (ABNORMAL) HEMOGLOBIN AND HEMATOCRIT (02/21/2021 7:07 AM CDT) Pathologist [facility] HEMOGLOBIN 11.6(L) 13.6 - 16.5 g/dL 02/21/2021 7:56 AM CDT [facility] HEMATOCRIT 35.5(L) 40.0 - 48.0 % 02/21/2021 7:56 AM CDT [facility] Blood Venipuncture / Unknown 02/21/2021 7:07 AM CDT 02/21/2021 7:39 AM CDT Tuyet LEE HEMATOLOGY ORDERABL ES Performing Organization Address [facility]/ZIP Co de Phone Number [facility] [employer] [facility]# [id number] [address] [place] [address] * XR FLUORO LESS THAN 1 HOUR (02/20/2021 7:16 AM CDT) Anatomical Region Laterality Modality Computed Radiogr aphy 02/19/2021 1:23 PM CDT Impressions 02/19/2021 8:57 PM CDT IMPRESSION: 1. Fluoroscopic assistance was provided. DICTATION LOCATION: Location [address] [place] [address] Narrative 02/19/2021 8:57 PM CDT EXAM:Fluoroscopy less [...] Fluoroscopic assistance was provided. DICTATION LOCATION: Location [address] [place] [address] Francisco Javier Quick MD DIAGNOSTIC IMAGIN G ORDERABLES * (ABNORMAL) HEMOGLOBIN AND HEMATOCRIT (02/20/2021 6:52 AM CDT) HEMOGLOBIN 11.6(L) 13.6 - 16.5 g/dL 02/20/2021 7:50 AM CDT [facility] HEMATOCRIT 34.3(L) 40.0 - 48.0 % 02/20/2021 7:50 AM CDT [facility] Blood Venipuncture / Unknown 02/20/2021 6:52 AM CDT 02/20/2021 7:01 AM CDT Tuyet LEE HEMATOLOGY ORDERABL ES [facility]# [id number] [address] [place] [address] * XR LUMBAR SPINE 1 VW (02/19/2021 11:47 AM CDT) Anatomical Region Laterality Modality Spine Computed Radiogr aphy 02/19/2021 11:4 7 AM CDT Impressions 02/19/2021 5:40 PM CDT IMPRESSION: 1. ??Intraoperative radiograph as above. DICTATION LOCATION: Location - [facility] Narrative 02/19/2021 5:40 PM CDT XR [...] Intraoperative radiograph as above. DICTATION LOCATION: Location [address] [place] [address] Francisco Javier Quick MD DIAGNOSTIC IMAGIN G ORDERABLES * XR LUMBAR SPINE 1 VW (02/19/2021 10:52 AM CDT) Anatomical Region Laterality Modality Spine Computed Radiogr aphy 02/19/2021 10:5 3 AM CDT Impressions 02/19/2021 5:40 PM CDT IMPRESSION: 1. ??Intraoperative radiograph as above. DICTATION LOCATION: Location [address] [place] [address] Narrative 02/19/2021 5:40 PM CDT XR LUMBAR [...] radiograph as above. DICTATION LOCATION: Location - [facility] Francisco Javier Quick MD DIAGNOSTIC MARCIA Larsen ORDERABLES * VERIFICATION BLOOD GROUP (02/19/2021 9:02 AM CDT) ABO GROUP A 02/19/2021 9:36 AM CDT [facility] SERVICES -- [facility] RH (D) TYPE Positive 02/19/2021 9:36 AM CDT [facility] SERVICES -- [facility] Blood Venipuncture / Unknown 02/19/2021 9:02 AM CDT 02/19/2021 9:02 AM CDT Rahel Priest MD BLOOD BANK [facility] [id number] [address] [place] [address] * (ABNORMAL) POC GLUCOSE (02/19/2021 8:05 AM CDT) [facility] GLUCOSE POC 116(H) 74 - 99 mg/dL 02/19/2021 8:05 AM CDT [facility] DISH STACKER NAME POC DORA BROUSSARD 02/19/2021 8:05 AM CDT [facility] [employer] [facility] Blood, whole 02/19/2021 8:05 AM CDT 02/19/2021 8:15 AM CDT Francisco Javier Quick MD POINT OF CARE NITHIN AKILA Performing Organization Address City/[facility]/ZIP Co de Phone Number [facility] [employer] [facility]# [id number] [address] [place] [address] * 2019 NOVEL CORONAVIRUS (COVID-19) PCR DETECTION (02/11/2021 12:07 PM CDT) [facility] COVID-19 PCR NOT DETECTED Not Detected 02/12/20 6:58 PM CDT [facility] [employer] [facility] PERFORMING LAB [facility] 02/11/2021 6:58 PM CDT [facility] [employer] [facility] Upper Respiratory ENTIRE NASOPHARYNX / Unknown Collection / Unknown 02/11/2021 12:07 PM CDT 02/11/2021 2:12 PM CDT Narrative [facility] - 02/11/2021 6:58 PM CDT This [...] Quick MD MICROBIOLOGY - PHILIPPE NORMAN ORDERABLES [facility] SERVICES [facility]# [id number] [address] [place] [address] documented in this encounter Visit Diagnoses Diagnosis [...] Given 02/24/2021 9:38 AM CDT 10 mg sfnpndechd-hzqofxr-pmnkroooxvvvt (CEPACOL) lozenge 1 Each 1 Each, Mouth/Throat, [...] at 0930, Until Thu02/21/21 at 1043, DS: [phone] Rate Change 02/20/2021 9:30 AM CDT 4.5 [...] Blake Jurado RN)[id number] (Given - Provider: Vida Powers, DC) 0000 [...] RN) PRN Medication Order 02/24/2021 02/25/2021 02/26/2021 xofcfijyml-hxkhfdv-ztakhukxppbrp (CEPACOL) lozenge 1 Each 1 Each, Mouth/Throat, [...] Routine documented in this encounter Care Teams Dredgemaster Relationship Specialty Start Date End Date Philippe Geiger MD [address] [place] [phone] PCP - General Internal Medicine 01/08/21 documented as of this encounter
--- OUTSIDE RECORDS SUMMARY | 2024-09-27 21:01 | XMS_ITS | Encounter Summary ---
Author Organization [facility] Address [address] [place] [address] Care Team Providers Care Hse Manager Name Role Phone Philippe Geiger MD Primary Care Provider [phone] Encounter Details Date Type Department Care Team (Latest Contact Info) Description 01/23/2021 Prep for Surgery [facility] Neurosurgery - [facility] [address] [place] [address] Katia Mckeon PAIndiraC NO ADDRESS [...] claudication documented in this encounter Care Teams Hse Manager Relationship Specialty Start Date End Date Philippe Geiger MD [address] [place] [address] PCP - General Internal Medicine 01/08/21 documented as of this encounter
--- OUTSIDE RECORDS SUMMARY | 2024-09-27 21:01 | XMS_ITS | Encounter Summary ---
Author Organization [facility] Address [address] [place] [address] Care Team Providers Care Rigger Supervisor Name Role Phone Philippe Geiger MD Primary Care Provider Encounter Details Date Type Department Care Team (Latest Contact Info) Description 02/11/2021 12:06 PM CDT - 02/11/2021 11:59 PM CDT Hospital Encounter Kalie Pre Procedure Viral Testing [address] [address] Discharge Disposition: Home or Self Care Social [...] capsule Take 400 Units by mouth daily. LAWDL-5-JAL-EPA-DPA ORAL Take 500 mg by mouth daily. [...] DETECTED Not Detected 02/12/20 6:58 PM CDT [facility] PERFORMING LAB [facility] 02/11/2021 6:58 PM CDT [facility] Upper Respiratory ENTIRE NASOPHARYNX / Unknown Collection / Unknown 02/11/2021 12:07 PM CDT 02/11/2021 2:12 PM CDT Narrative [facility] - 02/11/2021 6:58 PM CDT This test [...] Coronavirus. Francisco Javier Quick MD MICROBIOLOGY - CKWA ORDERABLES [facility] CLIA# [id number] [address] [address] documented in this encounter Visit Diagnoses Diagnosis Preop testing Preoperative examination, unspecified documented in this encounter Care Teams Rigger Supervisor Relationship Specialty [place] [address] [place] [address] PCP - General Internal Medicine 01/08/21 documented as of this encounter
--- OUTSIDE RECORDS SUMMARY | 2024-09-27 21:01 | XMS_ITS | Encounter Summary ---
Author Organization [facility] Address [address] [facility] [address] Keen: Epic Prelude [address]T [address] [address] Care Team Providers Care Wire Frame Lamp Shade Maker Name Role Phone Philippe Geiger MD Primary [...] on filedocumented in this encounter Care Teams Wire Frame Lamp Shade Maker Relationship Specialty Start Date End Date Philippe Geiger MD [facility] [place] [address] PCP - General Internal Medicine 01/08/21 documented as of this encounter
--- OUTSIDE RECORDS SUMMARY | 2024-09-27 21:01 | XMS_ITS | Encounter Summary ---
Author Organization [facility] Address [address] [facility] Attn: Epic Prelude [place]T [address] [address] Care Team Providers Care Shellfish Farming Supervisor Name Role Phone Philippe Geiger MD Primary Care Provider [phone] Encounter Details Date Type Department Care Team [...] on filedocumented in this encounter Care Teams Shellfish Farming Supervisor Relationship Specialty Start Date End Date Philippe Geiger MD [address] [place] [address] PCP - General Internal Medicine 01/08/21 documented as of this encounter
--- OUTSIDE RECORDS SUMMARY | 2024-09-27 21:01 | XMS_ITS | Encounter Summary ---
Author Organization [facility] Address [address] [place] [address] Care Team Providers Care Boom Conveyor Operator Name Role Phone Philippe Geiger MD Primary Care Provider [phone] Encounter Details Date Type Department Care Team (Late st Contact Info) Description 02/15/2021 Abstract [facility] Neurosurgery - [facility] [address] [facility] [address] [place] [address] Francisco Javier Quick MD NO [...] on filedocumented in this encounter Care Teams Boom Conveyor Operator Relationship Specialty Start Date End Date Philippe Geiger MD [address] [place] [phone] PCP - General Internal Medicine 01/08/21 documented as of this encounter
--- OUTSIDE RECORDS SUMMARY | 2024-09-27 21:01 | XMS_ITS | Encounter Summary ---
Author Organization [facility] Address [address] [place] [address] Care Team Providers Care Database Management Specialist Name Role Phone Philippe Geiger MD Primary Care Provider [phone] Encounter Details Date Type Department Care Team (Latest Contact Info) Description 01/23/2021 Orders Only [facility] Neurosurgery - [facility] [address] [facility] [address] [place] [address] Francisco Javier Quick MD NO [...] facet arthropathy. DICTATION LOCATION: Location 1 - [facility] Narrative 02/19/2021 8:19 AM CDT EXAM: XR [...] facet arthropathy. DICTATION LOCATION: Location 1 - [facility] Francisco Javier Quick MD DIAGNOSTIC IMAGIN G ORDERABLES documented in this encounter Visit Diagnoses Diagnosis Acquired spondylolisthesis of lumbosacral region- Primary Acquired spondylolisthesis Lumbar stenosis with neurogenic claudication Spinal stenosis, lumbar region, with neurogenic claudication Lumbar stenosis with neurogenic claudication Spinal stenosis, lumbar region, with neurogenic claudication Acquired spondylolisthesis of lumbosacral region Acquired spondylolisthesis documented in this encounter Care Teams Database Management Specialist Relationship Specialty [place] [address] [place] [phone] PCP - General Internal Medicine 01/08/21 documented as of this encounter
--- OUTSIDE RECORDS SUMMARY | 2024-09-27 21:01 | XMS_ITS | Encounter Summary ---
Author Organization [facility] Address [address] [facility] Attn: Epic Prelude [address]T [address] [address] Care Team Providers Care Wood Heel Cementer Name Role Phone Philippe Geiger MD Primary Care Provider [phone] Encounter Details Date Type Department Care Team [...] on filedocumented in this encounter Care Teams Wood Heel Cementer Relationship Specialty Start Date End Date Philippe Geiger MD [facility] [place] [address] PCP - General Internal Medicine 01/08/21 documented as of this encounter
--- OUTSIDE RECORDS SUMMARY | 2024-09-27 21:01 | XMS_ITS | Encounter Summary ---
Author Organization [facility] Address [address] [place] [address] Care Team Providers Care Electronics Technician Name Role Phone Philippe Geiger MD Primary Care Provider [phone] Encounter Details Date Type Department Care Team (Latest Contact Info) Description 02/11/2021 10:41 AM CDT - 02/11/2021 11:59 PM CDT Hospital Encounter [facility] [address] [place] [address] [place] [address] Clementina Quick MD NO ADDRESS [...] catheter intact 02/19/21 1001 by Jennifer Cutler, HONE OPERATOR 02/22/21 2200 by Gerri Camejo RN Peripheral IV Orientation: Right; Location: Arm; Device: Angiocath; Gauge: 20 gauge; Removal Indication: site symptomatic; Removal Interventions: pressure dressing, catheter intact 02/19/21 1230 by Jennifer Cutler, HONE OPERATOR 02/23/21 1646 by Gerri Camejo RN Peripheral IV Orientation: Left; Location: Arm; Device: Angiocath; Gauge: 18 gauge; Removal Indication: site symptomatic; Removal Interventions: catheter intact, direct pressure 02/19/21 1235 by Jennifer Cutler, HONE OPERATOR 02/20/21 2100 by Elza Blanco RN Incision [...] capsule Take 400 Units by mouth daily. YHOLM-2-NAL-EPA-DPA ORAL Take 500 mg by mouth daily. [...] Ellison Age: 75 y.o. Sex: male CSN: [id number] Procedure(s): LUMBAR INTERBODY FUSION Allergies Allergen Reactions [...] Stop taking 1 week prior to surgery WDJCT-7-NMQ-EPA-DPA ORAL Stop taking 1 week prior to [...] was obtained directly from the patient or herbicide service sales representative or caregiver or another available healthcare resource and updated in [employer]. Social History Tobacco Use Smoking Status Never Smoker Smokeless Tobacco Never Used Patient screened for tobacco use and identified as a Non-User of tobacco. REPORT AND NECESSARY FOLLOW-UP History and physical performed in [facility]; tests (ECG, blood work) reviewed. Abnormal Results Found: no Further Testing or Evaluation Required: no Final [facility] Center Review: May proceed with procedure/surgery: yes [...] ? [facility] Routine Orders Protocol [facility] Approved by: [facility] - Medical Executive Committee Approval Date: 12/06/2020 ORDERS ARE ENTERED ???PER PROTOCOL?? Enter the protocol in the patient's electronic health record using smart phrase: .paceroutineordersprotocol [facility]/Anesthesiology Care Screening for Procedures ??? Laboratory exams obtained within 3 months prior to surgery are acceptable if normal, or at baseline. ??? Hematocrit/Hemoglobin (Oub9151) ??? Cases of expected major blood loss [...] Digoxin - Diuretics - Steroids ??? BUN (Smu287)/ Serum Cr (Lab66) ??? When use of [...] otherwise ordered by a member of the [facility] Anesthesiology Staff. 1. STOP a. Seven (7) DAYS PRIOR TO SURGERY: the use of all vitamins, herbal supplements, and other alternative substances. b. Seven (7) DAYS PRIOR TO SURGERY: the use of any UNPRESCRIBED Aspirin, Excedrin and NSAIDs which include Motrin, Ibuprofen, Aleve, and Naprosyn. c. 24 HOURS PRIOR TO PLANNED ARRIVAL AT [facility]: use of angiotensin-converting enzyme (ANTONIO) inhibitorand [...] the original note were not included. [facility] Pre-Procedure Instructions [facility] Name: Elliott Ellison Age: 75 y.o. Please report to the: [x] Surgery Center [] [facility] Date of Procedure: 02/19/21 Arrive at the [...] surgery. ?? 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 DO NOT [...] facility with a mask. If arriving to [facility] without a mask, one will be provided. [...] taking 1 week prior to surgery ??? PYIJD-6-RQP-EPA-DPA ORAL Stop taking 1 week prior to [...] ? Stationary ECG Study ? [facility] ? Test Date: ?02/11/2021 11:12 AM Pat Name: ? ELLIOTT ELLISON ?Department: ?? 47 ?Room: ? Gender: ? M ?Sustainability Coach: ?? af : ?1945 ? Requested By: CLEMENTINA SWEET CORRAL Order Number: [id number] ?Reading MD: ?? Jaime Sorenson ? Measurements Intervals ?[place] ? Rate: ? 58 ? P: ?-6 MO: ? 203 ?QRS: ?10 QRSD: ? 146 ?T: ?21 QT: ? 428 ? QTc: ?421 ? Interpretive Statements ? Sinus rhythm Right bundle branch block Electronically Signed On 02-11-2021 14:29:40 CDT by Jaime Sorenson Procedure Note Jaime Sorenson MD - 02/11/2021 Stationary ECG Study [facility] Test Date: 02/11/2021 11:12 AM Pat Name: ELLIOTT ELLISON Department: 47 Room: Gender: Sustainability Coach: : 1945 Requested By: CLEMENTINA CORRAL Order Number: [id number] Reading : Jaime Sorenson Measurements Intervals [place] Rate: 58 P: -6 MO: 203 QRS: 10 QRSD: 146 T: 21 QT: 428 QTc: 421 Interpretive Statements Sinus rhythm Right bundle branch block Electronically Signed On 02-11-2021 14:29:40 CDT by Jaime Sorenson Brenda Ashlie Joshi [facility] ECG ORDERABLES INTERFACE SYSTEM Refer to clinic/hospital department * CBC WITHOUT DIFFERENTIAL (02/11/2021 11:10 AM CDT) [facility] WBC 8.4 4.0 - 9.8 K/uL 02/11/2021 12:09 PM CDT [facility] RBC 4.83 4.50 - 5.40 M/uL 02/11/2021 12:09 PM CDT [facility] HEMOGLOBIN 15.2 13.6 - 16.5 g/dL 02/11/2021 12:09 PM CDT [facility] HEMATOCRIT 45.0 40.0 - 48.0 % 02/11/2021 12:09 PM CDT [facility] - . [facility] MCV 93.2 82.0 - 99.0 fL 02/11/2021 12:09 PM CDT [facility] - . [facility] MCH 31.5 27.2 - 32.6 pg 02/11/2021 12:09 PM CDT [facility] - . [facility] MCHC 33.8 31.5 - 35.5 g/dL 02/11/2021 12:09 PM CDT [facility] PLATELETS 205 140 - 350 K/uL 02/11/2021 12:09 PM CDT [facility] - . [facility] MPV 11.0 9.3 - 12.4 fL 02/11/2021 12:09 PM CDT [facility] RDW 13.0 11.5 - 14.5 % 02/11/2021 12:09 PM CDT [facility] RDW-STDEV 44.4 37.1 - 48.7 fL 02/11/2021 12:09 PM CDT [facility] - . [facility] Blood Venipuncture / Unknown 02/11/2021 11:10 AM CDT 02/11/2021 11:44 AM CDT Brenda Joshi GUEST SERVICE HOST HEMATOLOGY ORDERABLE S [facility] CLIA# [id number] [address] [place] [address] * TYPE AND SCREEN (02/11/2021 11:10 AM CDT) ABO GROUP A 02/11/2021 3:03 PM CDT [facility] -- [facility] RH (D) TYPE Positive 02/11/2021 3:03 PM CDT [facility] ANTIBODY SCREEN Negative 02/11/2021 3:03 PM CDT [facility] Blood Venipuncture / Unknown 02/11/2021 11:10 AM CDT 02/11/2021 11:44 AM CDT Clementina Quick MD BLOOD BANK ORDERA BLES [facility] CLIA# [id number] [address] [facility] [address] [place] [address] * (ABNORMAL) BASIC METABOLIC PANEL (02/11/2021 11:10 AM CDT) SODIUM 142 136 - 145 mmol/L 02/11/2021 12:38 PM T [employer] [facility]AT[facility] - [facility] POTASSIUM 3.5 3.5 - 5.0 mmol/L 02/11/2021 12:38 PM T [facility] [facility] - [facility] CHLORIDE 103 98 - 107 mmol/L 02/11/2021 12:38 PM CDT [facility] CO2 26 22 - 29 mmol/L 02/11/2021 12:38 PM T [facility] CALCIUM 9.6 8.6 - 10.2 mg/dL 02/11/2021 12:38 PM T [employer] [facility] - [facility] BUN 13 8 - 23 mg/dL 02/11/2021 12:38 PM T [employer] [facility] CREATININE 1.02 0.67 - 1.17 mg/dL 02/11/2021 12:38 PM T [employer] [facility] - [facility] Comment:The GFR result is no t clinically significant on patients <18 or >70 years of age. GLUCOSE 106(H) 74 - 99 mg/dL 02/11/2021 12:38 PM T [employer] LABORATORY SERVICES - . [facility] GFR >60 mL/min/1.7 3 sq meter 02/11/2021 12:38 PM T [employer] [facility] - [facility] Comment: eGFR [...] 3 sq meter 02/11/2021 12:38 PM CDT [facility] - [facility] ANION GAP 13 8 - 16 mmol/L 02/11/2021 12:38 PM T [facility] Blood Venipuncture / Unknown 02/11/2021 11:10 AM CDT 02/11/2021 11:44 AM CDT Clementina Quick MD CHEMISTRY ORDERAB LES Performing Organization Address City/State/[facility] Co de Phone Number [facility]# [id number] [address] [facility] [place] [address] documented in this encounter Visit Diagnoses Diagnosis Lumbar stenosis with neurogenic claudication Spinal stenosis, lumbar region, with neurogenic claudication documented in this encounter Care Teams Electronics Technician Relationship Specialty Start Date End Date Philippe Geiger MD [address] [place] [address] PCP - General Internal Medicine 01/08/21 documented as of this encounter
--- OUTSIDE RECORDS SUMMARY | 2024-09-27 21:01 | XMS_ITS | Encounter Summary ---
Author Organization [facility] Address [address] [place] [address] Care Team Providers Care Software Development Manager Name Role Phone Philippe Geiger MD Primary Care Provider Encounter Details Date Type Department Care Team (Late st Contact Info) Description 02/14/2021 Abstract [facility] Neurosurgery - [facility] [address] [facility] [address] [place] [address] Francisco Javier Quick MD [...] on filedocumented in this encounter Care Teams Software Development Manager Relationship Specialty Start Date End Date Philippe Geiger MD [address] [place] [phone] PCP - General Internal Medicine 01/08/21 documented as of this encounter
--- OUTSIDE RECORDS SUMMARY | 2024-09-27 21:01 | XMS_ITS | Encounter Summary ---
Author Organization [facility] Address [address] [place] [address] Care Team Providers Care Hotel Engineer Name Role Phone Philippe Geiger MD Primary Care Provider [phone] Reason for Visit * Reason Onset Date Comments Medication Refill 02/19/2021 Encounter Details Date Type Department Care Team (Late st Contact Info) Description 02/19/[address] [facility] Neurosurgery - [facility] [address] [facility] [address] [place] [address] Tuyet Fox PA NO ADDRESS [...] fusion pain medications to be filled at [facility] pharmacy. documented in this encounter Plan of Treatment Not on file documented as of this encounter Visit Diagnoses Diagnosis Postoperative pain after spinal surgery- Primary documented in this encounter Care Teams Hotel Engineer Relationship Specialty [place] [address] [place] [id number] PCP - General Internal Medicine 01/08/21 documented as of this encounter
--- OUTSIDE RECORDS SUMMARY | 2024-09-27 21:01 | XMS_ITS | Encounter Summary ---
Author Organization [facility] Address [address] [facility] Attn: Epic Prelude ADT JENNY VALDEZ [address] Care Team Providers Care Carport Erector Name Role Phone Philippe Geiger MD Primary Care Provider [phone] Encounter Details Date Type Department Care Team [...] on filedocumented in this encounter Care Teams Carport Erector Relationship Specialty Start Date End Date Philippe Geiger MD [address] [place] [address] PCP - General Internal Medicine 01/08/21 documented as of this encounter
--- OUTSIDE RECORDS SUMMARY | 2024-09-27 21:01 | XMS_ITS | Encounter Summary ---
Author Organization [facility] Address [address] [place] [address] Care Team Providers Care Conductor/Engineer Name Role Phone Philippe Geiger MD Primary Care Provider [phone] Reason for Visit * Auth/Cert Specialty Diagnoses / Procedures Referred By Contac t Referred To Contact Multi Specialty Diagnoses Spinal stenosis, lumbar region with neurogenic claudication Spondylolisthesis, lumbar region LUMBAR STENOSIS; SPONDYLOLISTHESIS Procedures UT ARTHDSIS POST/POSTEROLATRL/POSTINTERBO DY LUMBAR UT ARTHDSIS POST/POSTERLATRL/POSTINTRBDYA DL SPC/SEG UT LAMINECTOMY,FACETECTOMY,LUMBA R UT LAMINEC/FACETECT/FORAMIN,LUMB AR 1 SEG UT LAMINEC/FACETECT/FORAMIN,EACH ADDNL UT POSTERIOR SEGMENTAL INSTRUMENTATION 3-6 VRT SEG UT INSJ BIOMCHN DEV INTERVERTEBRAL DSC SPC W/ARTHRD UT AUTOGRAFT SPINE SURGERY LOCAL FROM SAME INCISION UT ALLOGRAFT FOR SPINE SURGERY ONLY MORSELIZED LUMBAR INTERBODY FUSION (TLIF L2-3, L3-4, L4-5) [facility] Or [address] [place] [address] Referral ID Status Reason Start Date Expiration Date Visits Re quested Visits Authorized [id number] 1 1 Encounter Details Date Type Department Care Team (Late st Contact Info) Description 02/19/2021 8:45 AM CDT - 02/19/2021 12:00 PM CDT Surgery [facility] Operating Room [address] [place] [address] Francisco Javier Quick MD NO [...] Ming ean 1 Case Notes UHC MEDICARE--PP--CPT 62652, 88512 X 2, 65522, 01605, 47482 X 2, 32573, 81041, 32518, 08515 documented in this encounter Social History Tobacco [...] Geiger PA - 03/20/2021 12:46 PM CDT [place], [place] [address] Discharge Summary Patient: Jayjay Ellison / 75 y.o. / male CSN: [id number] : 1945 ADMIT DATE: 02/19/2021 DISCHARGE DATE: [...] by mouth daily at bedtime. Refills: 0 VFVRO-2-LXW-EPA-DPA ORAL Take 500 mg by mouth daily. Refills: 0 POTASSIUM ORAL Take 20 mg by mouth daily. Refills: 0 vitamin E 400 unit capsule Take 400 Units by mouth daily. Refills: 0 Where to Get Your Medications These medications were sent to [facility] [address] [facility] [address] Hours: Retail 8 AM - 12 AM [...] 9:16 AM CDT Thank you for choosing [facility]surgery for your care! The following is [...] 1-2 days to make your appointment at [phone]. Feel free tocall for any further questions [...] out. Medications will NOT be refilled by ???medical records receptionist?? providers after hours! > Many pain medications [...] pain medications or muscle relaxants (I.e. Percocet, [place], Valium, Flexiril, etc). There are no restrictions [...] 3 months after your surgery. Contact information: [facility] Office #: [phone] 8:30am- 4:30pm Thu-Thursday Exchange#: [phone] After-hours Emergency contact documented in this encounter [...] capsule Take 400 Units by mouth daily. RUYUZ-6-GLZ-EPA-DPA ORAL Take 500 mg by mouth daily. [...] Only* (Thu- 7:30am-5pm and Thu-Thu 24 hours): [phone] NSGY After Hours Exchange: [phone] NSGY Office (Thu-Thu 8:30am-4:30pm): [phone] * Nelly Chou MD - 02/26/2021 7:28 AM CDT Images from the original note were not included. DATE: 02/26/2021 NAME: Jayjay Ellison : 1945 CSN: [id number] [facility] Surgery Progress Note Recent Events: NAEON. Tolerated [...] 02/26/2021 7:28 AM TACS Resident On-Call Pager [phone].TACS TACS Attending On-Call - please refer to Trauma and Acute Care Surgery (TACS) page on [employer] website Subjective: No chief complaint on file. [...] daily. Past Week at Unknown time ??? UELIT-9-ONA-EPA-DPA ORAL Take 500 mg by mouth daily. [...] performed by Francisco Javier Quick MD at [facility] OR [facility] ??? HX HERNIA REPAIR x2 ??? HX [...] Gatherings with Friends and Family: ??? Attends Anglican Services: ??? Active Member of Clubs or [...] Only* (Thu- 7:30am-5pm and Fri-Thu 24 hours): [phone] NSGY After Hours Exchange: [phone] NSGY Office (Thu-Thu 8:30am-4:30pm): [phone] * Nelly Chou MD - 02/25/2021 9:44 AM CDT Images from the original note were not included. DATE: 02/25/2021 NAME: Jayjay Ellison : 1945 [facility]: [id number] [facility] General Surgery Progress Note Recent Events: [...] 02/25/2021 9:44 AM TACS Resident On-Call Pager [phone].TACS TACS Attending On-Call - please refer to Trauma and Acute Care Surgery (TACS) page on [employer] website Subjective: No chief complaint on file. [...] daily. Past Week at Unknown time ??? GTNEL-7-HDM-EPA-DPA ORAL Take 500 mg by mouth daily. [...] performed by Francisco Javier Quick MD at [facility] OR [facility] ??? HX HERNIA REPAIR x2 ??? HX [...] Gatherings with Friends and Family: ??? Attends Anglican Services: ??? Active Member of Clubs or [...] Only* (Thu- 7:30am-5pm and Fri-Thu 24 hours): [phone] NSGY After Hours Exchange: [phone] NSGY Office (Thu-Thu 8:30am-4:30pm): [phone] * Nelly Chou MD - 02/24/2021 8:31 AM CDT Images from the original note were not included. DATE: 02/24/2021 NAME: Jayjay Ellison : 1945 [facility]: [id number] [facility] General Surgery Progress Note Recent Events: [...] 02/24/2021 8:31 AM TACS Resident On-Call Pager [phone].TACS TACS Attending On-Call - please refer to Trauma and Acute Care Surgery (TACS) page on [facility] website Subjective: No chief complaint on [...] daily. Past Week at Unknown time ??? DXYYA-4-YKK-EPA-DPA ORAL Take 500 mg by mouth daily. [...] performed by Francisco Javier Quick MD at [facility] OR [facility] ??? HX HERNIA REPAIR x2 ??? HX [...] Gatherings with Friends and Family: ??? Attends Anglican Services: ??? Active Member of Clubs or [...] 99 mg/dL COMMENT, GLU POC Notified RN/MD MS SQL SERVER DEVELOPER NAME MIKAYLA AHMADI POC GLUCOSE Result Value Ref Range POC GLUCOSE 71 (L) 74 - 99 mg/dL COMMENT, GLU POC Notified RN/MD MS SQL SERVER DEVELOPER NAME MIKAYLA AHMADI POC GLUCOSE Result Value Ref Range POC GLUCOSE 90 74 - 99 mg/dL MS SQL SERVER DEVELOPER NAME FEDERICAMAIRA Hagan (JANNETTE) POC GLUCOSE Result Value Ref Range POC GLUCOSE 88 74 - 99 mg/dL COMMENT, GLU POC To be Repeated MS SQL SERVER DEVELOPER NAME FEDERICAMAIRA (JANNETTE) POC GLUCOSE Result Value Ref Range POC GLUCOSE 90 74 - 99 mg/dL COMMENT, GLU POC Notified RN/MD MS SQL SERVER DEVELOPER NAME FEDERICAMAIRA Hagan (JANNETTE) BASIC METABOLIC PANEL [...] patient's HPI, labs, xrays, and evaluated the strategic planning consultant's notes and agree with the assessment as documented below. I have spent no less than 35 minutes involved in the care and evaluation of the patient; >50% ofthis time was spent in counseling and/or coordination of care for this patient. Love Goetz MD - Trauma and Acute Care Surgery - Pager: [phone] *If unable to reach me, please call the scroll saw operator and ask for the On-Call Trauma [...] Only* (Thu- 7:30am-5pm and Thu-Thu 24 hours): [phone] NSGY After Hours Exchange: [phone] NSGY Office (Thu-Thu 8:30am-4:30pm): [phone] * Shyla Lord MD - 02/23/2021 5:55 AM CDT Images from the original note were not included. DATE: 02/23/2021 NAME: Jayjay Ellison : 1945 CSN: [id number] [facility] General Surgery Progress Note Recent Events: [...] 02/23/2021 5:55 AM TACS Resident On-Call Pager [phone].TACS TACS Attending On-Call - please refer to Trauma and Acute Care Surgery (TACS) page on [employer] website Subjective: No chief complaint on file. [...] daily. Past Week at Unknown time ??? NSFRZ-1-GOC-EPA-DPA ORAL Take 500 mg by mouth daily. [...] performed by Francisco Javier Quick MD at [facility] ??? HX HERNIA REPAIR x2 ??? [...] Gatherings with Friends and Family: ??? Attends Anglican Services: ??? Active Member of Clubs or [...] 99 mg/dL COMMENT, GLU POC Notified RN/MD MS SQL SERVER DEVELOPER NAME MIKAYLA AHMADI CALCIUM IONIZED Result Value Ref Range PH, VENOUS 7.44 (H) 7.32 - 7.43 CALCIUM IONIZED 4.6 (L) 4.8 - 5.2 mg/dL POC GLUCOSE Result Value Ref Range POC GLUCOSE 114 (H) 74 - 99 mg/dL COMMENT, GLU POC Notified RN/MD MS SQL SERVER DEVELOPER NAME MIKAYLA AHMADI POC GLUCOSE Result Value Ref Range POC GLUCOSE 103 (H) 74 - 99 mg/dL MS SQL SERVER DEVELOPER NAME KAY LAN CALCIUM IONIZED Result Value Ref Range PH, VENOUS 7.42 7.32 - 7.43 CALCIUM IONIZED 4.7 (L) 4.8 - 5.2 mg/dL POTASSIUM LEVEL Result Value Ref Range POTASSIUM 3.6 3.5 - 5.0 mmol/L POC GLUCOSE Result Value Ref Range POC GLUCOSE 97 74 - 99 mg/dL MS SQL SERVER DEVELOPER NAME KARLO TRAVIS No new imaging Shyla [...] patient's HPI, labs, xrays, and evaluated the strategic planning consultant's notes and agree with the assessment as documented below. I have spent no less than 40 minutes involved in the care and evaluation of the patient; >50% ofthis time was spent in counseling and/or coordination of care for this patient. Love Goetz MD - Trauma and Acute Care Surgery - Pager: [phone] *If unable to reach me, please call the scroll saw operator and ask for the On-Call Trauma [...] Only* (Thu- 7:30am-5pm and Thu-Thu 24 hours): [phone] NSGY After Hours Exchange: [phone] NSGY Office (Thu-Thu 8:30am-4:30pm): [phone] * Gerri Camejo RN - 02/22/2021 2:38 [...] Only* (Thu- 7:30am-5pm and Thu-Thu 24 hours): [phone] NSGY After Hours Exchange: [phone] NSGY Office (Thu-Thu 8:30am-4:30pm): [phone] * Patrick Al - 02/20/2021 1:33 PM CDT I stopped in to see the patient to introduce him to Pastoral Care. He was born in [place], raised in the [facility], lived in [place] and now lives in [place], [place]. Essentially, we spoke about [facility] Culture. He was vocal and gave as good as he took. It was a very pleasant visit. Eventually, his daughter arrived and she simply listened as we went back and forth. Fr. Patrick Al, O.P. [phone] * Miguelina Godinez PA - 02/20/2021 1:13 [...] Only* (Thu- 7:30am-5pm and Thu-Thu 24 hours): [phone] NSGY After Hours Exchange: [phone] NSGY Office (Thu-Thu 8:30am-4:30pm): [phone] * Jazzy Coto RN - 02/20/2021 10:12 AM CDT [facility] Adult Therapeutic Orders Protocol [facility] Approved by: [facility] - Medical Executive Committee Approval Date: 07/05/2020 ORDERS ARE ENTERED ???PER PROTOCOL?? Enter the protocol in the patient's electronic health record using smartphrase:.nursingtherapeuticordersprotocol For inpatients with complaints of minor discomfort Nursing Orders: o [id number] Ice Pack/Cold Therapy 20 minutes every 2 hours to affected area. o YCY257 Warm Compress/Heat to affected area 20 minutes every 8 hours to affected area. Medication Orders: o qfjwybzoeg-lmawtyn-kysxtdbammfwoa (CEPACOL) lozenge. 1 each by mouth every [...] the original note were not included. ?02/2020[facility] Adult IV Flush Protocol [facility] Approved by: [facility] - Medical Executive Committee [...] bedside coworker ALVAREZ Jordan upon transfer to Counts include 234 beds at the [facility] Demetrio Score: Demetrio Score: 18 (02/19/21 [...] wound care services. 5. Is a medical services manager in place?no If yes, remove device/brace/splint to [...] etc.). Wound care consult was not initiated. [facility] Skin Care Injury Prevention and Treatment Protocol [facility] Approved by: [facility] - Medical Executive Committee [...] Fox PA - 02/19/2021 9:02 AM CDT [place], [place] [address] HISTORY AND PHYSICAL PATIENT NAME: Jayjay Ellison CSN: [id number] ADMITTING PHYSICIAN: Francisco Javier Quick MD PRIMARY [...] Units by mouth daily. Yes Provider, Historical BLBWJ-6-JHX-EPA-DPA ORAL Take 500 mg by mouth daily. [...] DATE: 02/21/2021 NAME: Jayjay Ellison : 1945 [facility]: [id number] [facility] Surgery H&P/Consult ASSESSMENT/PLAN: Jayjay Ellison is a [...] 02/21/2021 3:58 PM TACS Resident On-Call Pager [phone].TACS TACS Attending On-Call - please refer to Trauma and Acute Care Surgery (TACS) page on [facility] website Subjective: No chief complaint on [...] daily. Past Week at Unknown time ??? NOWQX-7-CQF-EPA-DPA ORAL Take 500 mg by mouth daily. [...] performed by Francisco Javier Quick MD at [facility] ??? HX HERNIA REPAIR x2 ??? [...] Gatherings with Friends and Family: ??? Attends Anglican Services: ??? Active Member of Clubs or [...] GLUCOSE 122 (H) 74 - 99 mg/dL MS SQL SERVER DEVELOPER NAME JAZZY COTO HEMOGLOBIN AND HEMATOCRIT Result [...] patient's HPI, labs, xrays, and evaluated the strategic planning consultant's notes and agree with the assessment as documented below. I have spent no less than 35 minutes involved in the care and evaluation of the patient; >50% ofthis time was spent in counseling and/or coordination of care for this patient. Love Goetz MD - Trauma and Acute Care Surgery - Pager: [phone] *If unable to reach me, please call the scroll saw operator and ask for the On-Call Trauma Surgeon* documented in this encounter OR Notes * Anesthesiology - Zachary Krueger MD - 02/21/2021 10:40 AM CDT 02/21/2021 10:40 AM Regional Anesthesia Service Name: Jayjay Ellison Age: 75 y.o. Sex: male [facility]: [id number] Chief complaint: Post operative pain POD # [...] Service may be contacted by zone phone [phone] during daytime resource hours,or by pager [phone] at any time. If there is no answer within 20 minutes, call [phone] for the Anesthesiologist medical records receptionist. Zachary Krueger MD Pager: [phone] * Anesthesiology - Zachary Krueger MD - 02/20/2021 11:14 AM CDT 02/20/2021 11:14 AM Regional Anesthesia Service Name: Jayjay Ellison Age: 75 y.o. Sex: male CSN: [id number] Chief complaint: Post operative pain POD # [...] epidural catheter tomorrow. Zachary Krueger MD Pager: [phone] * Operative Report - Francisco Javier Quick MD - 02/20/2021 12:14 AM CDT [place], [place] Patient: JAYJAY ELLISON CSN: [id number] : 1945 Provider: Francisco Javier Quick MD [...] L4-5. SURGEON: Francisco Javier Quick MD ANESTHESIA: MARKET DEVELOPMENT ANALYST: Tuyet Fox. ESTIMATED BLOOD LOSS: 600 mL. [...] L3, and L4 were removed with a [employer] bone biter. Worden drill was used to perform a laminectomy [...] condition. Francisco Javier Quick MD MMODL D: [id number] V: [id number] Philippe Geiger MD * OR Anesthesia - Dany Rosales MD - 02/19/2021 9:14 AM CDT [facility] Regional Anesthesia Service Epidural [...] and Bupivacaine 0.25% with epinephrine 5 mL. Dnay Rosales MD Pager: [phone] documented in this encounter Miscellaneous Notes * Therapy Treatment - Yessica Curry, Physical Therapist - 02/26/2021 12:00 PM CDT Patient not seen for PT secondary to politely refused, states he is going home shortly. Will continue to follow patient and will re-attempt at a later time if pt remains inpatient beyond today. [facility]. Zone #: [id number] * Care Plan - Sissy Beck LPN [...] care for updates on goals. Zone #: [id number] * Care Plan - Lilly Ramirez Physical [...] care for updates on goals. Zone #: [id number] * Care Plan - Azucena Joshua GN [...] Joshua GN - 02/24/2021 11:59 PM CDT [facility] Adult Therapeutic Orders Protocol [facility] Approved by: [facility] - Medical Executive Committee Approval Date: 07/05/2020 ORDERS ARE ENTERED ???PER PROTOCOL?? Enter the protocol in the patient's electronic health record using Vow To Be Chicrase:.nursingtherapeuticordersprotocol For inpatients with complaints of minor discomfort Nursing Orders: o [id number] Ice Pack/Cold Therapy 20 minutes every 2 hours to affected area. o WKR428 Warm Compress/Heat to affected area 20 minutes every 8 hours to affected area. Medication Orders: o dyonljdled-ksjcejs-bstybhlpabvabh (CEPACOL) lozenge. 1 each by mouth every [...] NPO * Care Plan - Mehnaz Marcial, Cattle Producers - 02/24/2021 10:15 AM CDT Problem: Physical [...] Flowsheets Taken 02/24/2021 1010 by Mehnaz Marcial, Cattle Producers Sun: X Pain Rating: Rest: 0 Pain [...] care for updates on goals. Zone #: [phone] * Care Plan - Vijay Kraus RN [...] chair * Care Plan - Werner Joshua, Financial Internship - 02/23/2021 11:12 AM CDT Problem: Physical [...] bed upon OLMAN arrival w/ family and INDUSTRIAL SERVICER at bedside finishing bath. Pain rating: c/o [...] pt, he just got cleaned up w/ INDUSTRIAL SERVICER. UE Dressing: Pt Max A to tie gown behind neck sitting at EOB. LE Dressing: Pt SBA to doff/don socks using principal data architect and sock aid sitting at EOB. Pt [...] care for updates on goals. Zone #: [id number] On weekends--please call [phone] * Care Plan - Shira Bello, Cattle Producers - 02/23/2021 10:39 AM CDT Problem: Physical [...] care for updates on goals. Zone #: [id number] * Care Plan - Vijay Kraus RN [...] care for updates on goals. Zone #: 98418 * Care Plan - Trista Ahmadi RN - 02/22/2021 1:33 PM CDT Care Management Initial Assessment Initial Discharge Planning Assessment completed. Discussed Care Management's role and Discharge planning. Discharge Plan: Home with [facility] Patient Discharge Planning Goal: Pain Control Patient will potentially discharge to a SNF/NH? No Care Management visited with: patient via in person. Prior to admission, patient resides at: own home. 1+1 [address]AN. [address] Prior to admission, living arrangements: spouse. [...] Mobile Relation: Daughter Insurance coverage verified: Payor: [facility] / Plan: MEDICARE ADVANTAGE HMO / Product Type: Medicare Managed Care / Prescription coverage: yes Preferred Pharmacy verified: [facility] [address] [place] [address] [id number] [facility] [address] [facility] Employment Status: retired Has VA Benefits: no [...] follow and assist asneeded. Trista Ahmadi, MSN,RN, [facility] Computer Service Technician II [phone] * Care Plan - Darcie Yang, Physical [...] Pt in supine with attachments intact,needs in reach,electric meter technician in room for care. A: Response [...] care for updates on goals. Zone #: 22711 * Care Plan - Lala Simmons RN [...] time/date as appropriate. Thank you. Zone #: 44900 * Care Plan - Stacy Carcamo, Occupational [...] with verbal cues to doff socks with principal data architect and don socks with sock-aide seatedEOB Toilet [...] denied dizziness. OT promptly called RN and INDUSTRIAL SERVICER into room. RN, INDUSTRIAL SERVICER, and OT helped assist pt back to a standing position and pt was able to turn and sit on the edge of the bed. Seated edge of bed patient had another episode, however did not loose consciousness at this time. Pt BP taken seated edge of bed (slightly bpu014/65) and blood glucose (122) taken. OT and INDUSTRIAL SERVICER assisted pt into supine position in bed. Pt denied dizziness or light headedness again once lying down in bed. Patient denied increase in pain or injury after the event. RN notified MD. RN and INDUSTRIAL SERVICER providing care in room upon OT departure. [...] [facility] Plan of Care developed, as indicated by OT assessment and patient's current status. Please refer to plan of care for updates on goals. Zone #: 55972 * Care Plan - Elza Blanco RN [...] content, Agrees to continue Living Situation/Functional Level MANTEL CRAFTSMAN: Pt lives with his in a 1 [...] section of the medical chart. Zone #: [phone] On weekends--please call [phone] * Therapy Evaluation - Stacy Carcamo, Occupational [...] pain intervention: Appeared content Living Situation/Functional Level MANTEL CRAFTSMAN: Pt states he lives in a one story home with his . Pt states there are two steps the enter the home through the garage. Pt states he has a raised toilet and a tub shower combo with grab bars. Pt states MANTEL CRAFTSMAN she was (I) with all ADLs and IADLs. Pt states MANTEL CRAFTSMAN in the last 8 weeks he has used a SPC for ambulation due to increased back and L leg pain. Home Equipment: BSC, principal data architect, sock-aide, tub transfer bench, grab bars, raised toilet O: Appearance: Pt is 75 y.o. M semi-supine in bed. Epidural, IV, granger, and PAUL drain intact. INDUSTRIAL SERVICER inroom assisting with care upon OT arrival. [...] to perform grooming tasks at this time. INDUSTRIAL SERVICER in room providing granger care and bed [...] section of the medical chart. Zone #: [phone] On weekends--please call [phone] * Care Plan - Elza Blanco RN [...] pain/comfort utilizing verbal/nonverbal pain scales; assess culturalor denominational indicators attached to pain; administer pain medications [...] 8:45 AM CDT LUMBAR STENOSIS Case Notes [facility] MEDICARE--PP--CPT 87056, 37042 X 2, 10382, 20067, 28549 X 2, 81954, 06939, 30954, 36962 POC GLUCOSE Routine 02/19/2021 8:05 AM CDT documented in this encounter Results * (ABNORMAL) BASIC METABOLIC PANEL (02/26/2021 8:22 AM CDT) [facility] SODIUM 138 136 - 145 mmol/L 02/26/2021 9:11 AM CDT [facility] POTASSIUM 4.2 3.5 - 5.0 mmol/L 02/26/2021 9:11 AM CDT [facility] CHLORIDE 108(H) 98 - 107 mmol/L 02/26/2021 9:11 AM CDT [facility] CO2 20(L) 22 - 29 mmol/L 02/26/2021 9:11 AM CDT [facility] CALCIUM 8.6 8.6 - 10.2 mg/dL 02/26/2021 9:11 AM CDT [facility] BUN 7(L) 8 - 23 mg/dL 02/26/2021 9:11 AM CDT [email or web address] - [facility] [[email or web address]] MARY CREATININE 0.93 0.67 - 1.17 mg/dL 02/26/2021 9:11 AM [facility] [email or web address] [facility] Comment:The GFR result is no t clinically significant on patients <18 or >70 years of age. GLUCOSE 166(H) 74 - 99 mg/dL 02/26/2021 9:11 AM [facility] GFR >60 mL/min/1.7 3 sq meter 02/26/2021 9:11 AM [facility] [email or web address] [facility] Comment: eGFR has not been [...] mL/min/1.7 3 sq meter 02/26/2021 9:11 AM [facility] [email or web address] [facility] ANION GAP 10 8 - 16 mmol/L 02/26/2021 9:11 AM [facility] [email or web address] [facility] Blood Venipuncture / Unknown 02/26/2021 8:22 AM CDT 02/26/2021 8:30 AM CDT Miguelina LEE CHEMISTRY ORDERABLES [facility] [email or web address] [facility]# [id number] [address] [place] [address] * MAGNESIUM LEVEL (02/26/2021 8:22 AM CDT) MAGNESIUM 1.9 1.6 - 2.4 mg/dL 02/26/2021 9:11 AM T [facility] [email or web address] [facility] Blood Venipuncture / Unknown 02/26/2021 8:22 AM CDT 02/26/2021 8:30 AM CDT Miguelina LEE CHEMISTRY ORDERABLES Performing Organization Address City/[facility]/ZIP Co de Phone Number [facility] [email or web address] [facility] CLIA# [id number] [address] [place] [address] * (ABNORMAL) CALCIUM IONIZED (02/25/2021 6:54 AM CDT) Pathologist [facility] PH, VENOUS 7.43 7.32 - 7.43 02/25/2021 7:06 AM CDT [facility] CALCIUM IONIZED 4.7(L) 4.8 - 5.2 mg/dL 02/25/2021 7:06 AM CDT [facility] Blood Venipuncture / Unknown 02/25/2021 6:54 AM CDT 02/25/2021 6:59 AM CDT Miguelina LEE CHEMISTRY ORDERABLES Performing Organization Address City/[facility]/ZIP Co de Phone Number [facility] [email or web address] SERVICES [facility] CLIA# [id number] [address] [place] [address] * (ABNORMAL) BASIC METABOLIC PANEL (02/25/2021 5:28 AM CDT) SODIUM 141 136 - 145 mmol/L 02/25/2021 6:37 AM CDT [facility] - . [facility] POTASSIUM 3.3(L) 3.5 - 5.0 mmol/L 02/25/2021 6:37 AM CDT [facility] - . [facility] CHLORIDE 110(H) 98 - 107 mmol/L 02/25/2021 6:37 AM CDT [facility] - [facility] CO2 23 22 - 29 mmol/L 02/25/2021 6:37 AM CDT [facility] - [facility] CALCIUM 8.6 8.6 - 10.2 mg/dL 02/25/2021 6:37 AM CDT [facility] - [facility] BUN 11 8 - 23 mg/dL 02/25/2021 6:37 AM T [facility] [employer] [facility] CREATININE 0.93 0.67 - 1.17 mg/dL 02/25/2021 6:37 AM T [facility] [employer] [facility] Comment:The GFR result is no t clinically significant on patients <18 or >70 years of age. GLUCOSE 108(H) 74 - 99 mg/dL 02/25/2021 6:37 AM T [facility] [employer] [facility] GFR >60 mL/min/1.7 3 sq meter 02/25/2021 6:37 AM T [facility] Comment: eGFR has not been [...] 3 sq meter 02/25/2021 6:37 AM T [facility] [employer] [facility] ANION GAP 8 8 - 16 mmol/L 02/25/2021 6:37 AM T [facility] [employer] [facility] Blood Venipuncture / Unknown 02/25/2021 5:28 AM CDT 02/25/2021 5:58 AM CDT Miguelina LEE CHEMISTRY ORDERABLES [facility] [employer] [facility] CLIA# [id number] [address] [facility] TONYRENÉ [place]MYN [place] [address] * MAGNESIUM LEVEL (02/25/2021 5:28 AM CDT) MAGNESIUM 2.0 1.6 - 2.4 mg/dL 02/25/2021 6:37 AM CDT [facility] [employer] [facility] Blood Venipuncture / Unknown 02/25/2021 5:28 AM CDT 02/25/2021 5:58 AM CDT Miguelina LEE CHEMISTRY ORDERABLES [facility] LABORATORY SERVICES [facility]# [id number] [address] [facility] [place] [address] * (ABNORMAL) BASIC METABOLIC PANEL (02/24/2021 6:40 AM CDT) Pathologist [facility] SODIUM 142 136 - 145 mmol/L 02/24/2021 7:45 AM T [facility] LABORATORY [facility] - . [facility] POTASSIUM 3.4(L) 3.5 - 5.0 mmol/L 02/24/2021 7:45 AM T [facility] LABORATORY [facility] - . [facility] CHLORIDE 110(H) 98 - 107 mmol/L 02/24/2021 7:45 AM T [facility] LABORATORY [facility]. [facility] CO2 24 22 - 29 mmol/L 02/24/2021 7:45 AM T [facility] LABORATORY [facility]. [facility] CALCIUM 8.3(L) 8.6 - 10.2 mg/dL 02/24/2021 7:45 AM T [facility] LABORATORY [facility] - . [facility] BUN 17 8 - 23 mg/dL 02/24/2021 7:45 AM T [facility] LABORATORY [facility]. [facility] CREATININE 0.96 0.67 - 1.17 mg/dL 02/24/2021 7:45 AM T [facility] LABORATORY [facility] Comment:The GFR result is no t clinically significant on patients <18 or >70 years of age. GLUCOSE 100(H) 74 - 99 mg/dL 02/24/2021 7:45 AM T [facility] LABORATORY [facility] GFR >60 mL/min/1.7 3 sq meter 02/24/2021 7:45 AM [facility] LABORATORY [facility] Comment: eGFR has not been [...] 3 sq meter 02/24/2021 7:45 AM CDT [facility] LABORATORY [facility] ANION GAP 8 8 - 16 mmol/L 02/24/2021 7:45 AM CDT [facility] LABORATORY SERVICES [facility] Blood Venipuncture / Unknown 02/24/2021 6:40 AM CDT 02/24/2021 7:06 AM CDT Miguelina LEE CHEMISTRY ORDERABLES Performing Organization Address City/[facility]/ZIP Co de Phone Number [facility] [email or web address] [facility]# [id number] [address] [place] [address] * MAGNESIUM LEVEL (02/24/2021 6:40 AM CDT) MAGNESIUM 2.3 1.6 - 2.4 mg/dL 02/24/2021 7:45 AM CDT [facility] LABORATORY [facility] Blood Venipuncture / Unknown 02/24/2021 6:40 AM CDT 02/24/2021 7:06 AM CDT Miguelina LEE CHEMISTRY ORDERABLES Performing Organization Address City/[facility]/ZIP Co de Phone Number [facility] LABORATORY [facility]# [id number] [address] [place] [address] * (ABNORMAL) CALCIUM IONIZED (02/24/2021 6:40 AM CDT) PH, VENOUS 7.45(H) 7.32 - 7.43 02/24/2021 7:19 AM CDT [facility] LABORATORY [facility] CALCIUM IONIZED 4.6(L) 4.8 - 5.2 mg/dL 02/24/2021 7:19 AM CDT [facility] LABORATORY SERVICES [facility] Blood Venipuncture / Unknown 02/24/2021 6:40 AM CDT 02/24/2021 7:04 AM CDT Miguelina LEE CHEMISTRY ORDERABLES Performing Organization Address [facility]/ZIP Co de Phone Number [facility]# [id number] [address] [place] [address] * POC GLUCOSE (02/24/2021 4:06 AM CDT) GLUCOSE POC 90 74 - 99 mg/dL 02/24/2021 4:06 AM CDT [facility] LABORATORY SERVICES [facility] COMMENT, GLU POC Notified RN/MD 02/24/2021 4:06 AM CDT [facility] LABORATORY SERVICES [facility] MS SQL SERVER DEVELOPER NAME POC FEDERICAMAIRA (JANNETTE) 02/24/2021 4:06 AM CDT [facility] LABORATORY SERVICES [facility] Blood, whole 02/24/2021 4:06 AM CDT 02/24/2021 4:33 AM CDT Francisco Javier Quick MD POINT OF CARE NITHIN TING Performing Organization Address [facility]/ZIP Co de Phone Number [facility] LABORATORY [facility]# [id number] [address] [place] [address] * POC GLUCOSE (02/24/2021 12:05 AM CDT) GLUCOSE POC 88 74 - 99 mg/dL 02/24/2021 12:05 AM CDT [facility] LABORATORY SERVICES [facility] COMMENT, GLU POC To be Repeated 02/24/2021 12:05 AM CDT [facility] LABORATORY SERVICES [facility] MS SQL SERVER DEVELOPER NAME POC MAIRA STALLWORTH (JANNETTE) 02/24/2021 12:05 AM CDT [facility] LABORATORY SERVICES [facility] Blood, whole 02/24/2021 12:0 5 AM CDT 02/24/2021 12:39 AM CDT Francisco Javier Quick MD POINT OF CARE NITHIN TRAN [facility] [email or web address] [facility]# [id number] [address] [place] [address] * POC GLUCOSE (02/23/2021 7:59 PM CDT) GLUCOSE POC 90 74 - 99 mg/dL 02/23/2021 7:59 PM CDT [facility] LABORATORY SERVICES [facility] MS SQL SERVER DEVELOPER NAME POC MAIRA STALLWORTH (JANNETTE) 02/23/2021 7:59 PM CDT [facility] LABORATORY SERVICES [facility] Blood, whole 02/23/2021 7:59 PM CDT 02/23/2021 8:11 PM CDT Francisco Javier Quick MD POINT OF CARE NITHIN TRAN Performing Organization Address [facility]/ZIP Co de Phone Number [facility] [email or web address] [facility]# [id number] [address] [place] [address] * (ABNORMAL) POC GLUCOSE (02/23/2021 4:10 PM CDT) GLUCOSE POC 71(L) 74 - 99 mg/dL 02/23/2021 4:10 PM CDT [facility] LABORATORY SERVICES [facility] COMMENT, GLU POC Notified RN/MD 02/23/2021 4:10 PM CDT [facility] LABORATORY SERVICES [facility] MS SQL SERVER DEVELOPER NAME POC MIKAYLA AHMADI 02/23/2021 4:10 PM CDT [facility] LABORATORY SERVICES [facility] Blood, whole 02/23/2021 4:10 PM CDT 02/23/2021 5:14 PM CDT Francisco Javier Quick MD POINT OF CARE NITHIN TRAN [facility]# [id number] [address] [place] [address] * POC GLUCOSE (02/23/2021 12:47 PM CDT) GLUCOSE POC 83 74 - 99 mg/dL 02/23/2021 12:47 PM CDT [facility] LABORATORY SERVICES [facility] COMMENT, GLU POC Notified RN/ 02/23/2021 12:47 PM CDT [facility] LABORATORY SERVICES [facility] MS SQL SERVER DEVELOPER NAME MIKAYLA CASTRO 02/23/2021 12:47 PM CDT [facility] LABORATORY SERVICES [facility] Blood, whole 02/23/2021 12:4 7 PM CDT 02/23/2021 1:13 PM CDT Francisco Javier Quick MD POINT OF CARE NITHIN TRAN [facility] LABORATORY [facility] CLIA# [id number] [address] [place] [address] * POC GLUCOSE (02/23/2021 8:08 AM CDT) [facility] Signature GLUCOSE POC 86 74 - 99 mg/dL 02/23/2021 8:08 AM CDT [facility] LABORATORY [facility] COMMENT, GLU POC Notified RN/ 02/23/2021 8:08 AM CDT [facility] LABORATORY [facility] MS SQL SERVER DEVELOPER NAME MIKAYLA CASTRO 02/23/2021 8:08 AM CDT [facility] LABORATORY SERVICES [facility] Blood, whole 02/23/2021 8:08 AM CDT 02/23/2021 8:41 AM CDT Francisco Javier Quick MD POINT OF CARE NITHIN TRAN [facility] CLIA# [id number] [address] [place] [address] * (ABNORMAL) BASIC METABOLIC PANEL (02/23/2021 6:50 AM CDT) [facility] SODIUM 140 136 - 145 mmol/L 02/23/2021 8:03 AM [employer] LABORATORY SERVICES - [facility] POTASSIUM 3.2(L) 3.5 - 5.0 mmol/L 02/23/2021 8:03 AM [employer] LABORATORY SERVICES - [facility] CHLORIDE 103 98 - 107 mmol/L 02/23/2021 8:03 AM [employer] LABORATORY SERVICES - [facility] CO2 29 22 - 29 mmol/L 02/23/2021 8:03 AM [employer] LABORATORY SERVICES - [facility] CALCIUM 8.2(L) 8.6 - 10.2 mg/dL 02/23/2021 8:03 AM [employer] [facility] - . [facility] BUN 21 8 - 23 mg/dL 02/23/2021 8:03 AM [employer] LABORATORY SERVICES - . [facility] CREATININE 1.06 0.67 - 1.17 mg/dL 02/23/2021 8:03 AM [employer] LABORATORY SERVICES - [facility] Comment:The GFR result is no t clinically significant on patients <18 or >70 years of age. GLUCOSE 91 74 - 99 mg/dL 02/23/2021 8:03 AM [employer] [facility] - [facility] GFR >60 mL/min/1.7 3 sq meter 02/23/2021 8:03 AM [employer] [facility] - [facility] Comment: eGFR has not been validated [...] mL/min/1.7 3 sq meter 02/23/2021 8:03 AM [employer] LABORATORY SERVICES - [facility] ANION GAP 8 8 - 16 mmol/L 02/23/2021 8:03 AM [employer] LABORATORY SERVICES - . [facility] Blood Venipuncture / Unknown 02/23/2021 6:50 AM CDT 02/23/2021 7:03 AM CDT Miguelina LEE CHEMISTRY ORDERABLES Performing Organization Address [facility] Co de Phone Number [facility]# [id number] [address] [place] [address] * MAGNESIUM LEVEL (02/23/2021 6:50 AM CDT) Pathologist [facility] MAGNESIUM 2.3 1.6 - 2.4 mg/dL 02/23/2021 8:03 AM CDT [facility] LABORATORY [facility] Blood Venipuncture / Unknown 02/23/2021 6:50 AM CDT 02/23/2021 7:03 AM CDT Miguelina LEE CHEMISTRY ORDERABLES Performing Organization Address [facility] Phone Number [facility]# [id number] [address] [place] [address] * (ABNORMAL) CALCIUM IONIZED (02/23/2021 6:50 AM CDT) PH, VENOUS 7.43 7.32 - 7.43 02/23/2021 7:39 AM CDT [facility] CALCIUM IONIZED 4.4(L) 4.8 - 5.2 mg/dL 02/23/2021 7:39 AM CDT [facility] Blood Venipuncture / Unknown 02/23/2021 6:50 AM CDT 02/23/2021 7:02 AM CDT Miguelina LEE CHEMISTRY ORDERABLES Performing Organization Address [facility] Co de Phone Number [facility] [email or web address] [facility]# [id number] [address] [place] [address] * POC GLUCOSE (02/23/2021 1:02 AM CDT) GLUCOSE POC 97 74 - 99 mg/dL 02/23/2021 1:02 AM CDT [facility] LABORATORY [facility] MS SQL SERVER DEVELOPER NAME POC KARLO TRAVIS 02/23/2021 1:02 AM CDT [facility] LABORATORY [facility] Blood, whole 02/23/2021 1:02 AM CDT 02/23/2021 1:10 AM CDT Francisco Javier Quick MD POINT OF CARE NITHIN CHELSEA Performing Organization Address [facility]/ZIP Co de Phone Number [facility]# [id number] [address] [place] [address] * POTASSIUM LEVEL (02/22/2021 6:48 PM CDT) Pathologist [facility] POTASSIUM 3.6 3.5 - 5.0 mmol/L 02/22/2021 7:49 PM CDT [facility] LABORATORY [facility] Blood Venipuncture / Unknown 02/22/2021 6:48 PM CDT 02/22/2021 7:02 PM CDT Miguelina LEE CHEMISTRY ORDERABLES Performing Organization Address [facility]/ZIP Co de Phone Number [facility]# [id number] [address] [place] [address] * (ABNORMAL) CALCIUM IONIZED (02/22/2021 6:48 PM CDT) PH, VENOUS 7.42 7.32 - 7.43 02/22/2021 7:26 PM CDT [facility] LABORATORY [facility] CALCIUM IONIZED 4.7(L) 4.8 - 5.2 mg/dL 02/22/2021 7:26 PM CDT [facility] LABORATORY [facility] Blood Venipuncture / Unknown 02/22/2021 6:48 PM CDT 02/22/2021 7:02 PM CDT Miguelina LEE CHEMISTRY ORDERABLES [facility] [employer] [facility]# [id number] [address] [place] [address] * (ABNORMAL) POC GLUCOSE (02/22/2021 4:42 PM CDT) GLUCOSE POC 103(H) 74 - 99 mg/dL 02/22/2021 4:42 PM CDT [employer] LABORATORY SERVICES [facility] MS SQL SERVER DEVELOPER NAME POC KAY LAN 02/22/2021 4:42 PM CDT [facility] LAB[facility]ORY SERVICES [facility] Blood, whole 02/22/2021 4:42 PM CDT 02/22/2021 5:07 PM CDT Francisco Javier Quick MD POINT OF CARE NITHIN TRAN Performing Organization Address [facility]/ZIP Co de Phone Number [facility] [email or web address] [facility]# [id number] [address] [place] [address] * (ABNORMAL) POC GLUCOSE (02/22/2021 12:35 PM CDT) GLUCOSE POC 114(H) 74 - 99 mg/dL 02/22/2021 12:35 PM CDT [facility] LABORATORY SERVICES [facility] COMMENT, GLU POC Notified RN/MD 02/22/2021 12:35 PM CDT [facility] LABORATORY SERVICES [facility] MS SQL SERVER DEVELOPER NAME POC MIKAYLA AHMADI 02/22/2021 12:35 PM CDT [facility] LABORATORY SERVICES [facility] Blood, whole 02/22/2021 12:3 5 PM CDT 02/22/2021 12:51 PM CDT Francisco Javier Quick MD POINT OF CARE NITHIN TRAN [facility] LABORATORY [facility]# [id number] [address] [place] [address] * (ABNORMAL) CALCIUM IONIZED (02/22/2021 9:35 AM CDT) PH, VENOUS 7.44(H) 7.32 - 7.43 02/22/2021 9:49 AM CDT [facility] LABORATORY [facility] CALCIUM IONIZED 4.6(L) 4.8 - 5.2 mg/dL 02/22/2021 9:49 AM CDT [facility] LABORATORY SERVICES [facility] Blood Venipuncture / Unknown 02/22/2021 9:35 AM CDT 02/22/2021 9:39 AM CDT Miguelina LEE CHEMISTRY ORDERABLES [facility] [employer] [facility] CLIA# [id number] [address] [place] [address] * (ABNORMAL) POC GLUCOSE (02/22/2021 8:46 AM CDT) [facility] GLUCOSE POC 117(H) 74 - 99 mg/dL 02/22/2021 8:46 AM CDT [facility] LABORATORY SERVICES [facility] COMMENT, GLU POC Notified RN/MD 02/22/2021 8:46 AM CDT [facility] LABORATORY SERVICES [facility] MS SQL SERVER DEVELOPER NAME POC MIKAYLA AHMADI 02/22/2021 8:46 AM CDT [facility] LABORATORY SERVICES [facility] Blood, whole 02/22/2021 8:46 AM CDT 02/22/2021 8:56 AM CDT Francisco Javier Quick MD POINT OF CARE NITHIN TING [facility] CLIA# [id number] [address] [place] [address] * (ABNORMAL) BASIC METABOLIC PANEL (02/22/2021 6:20 AM CDT) [facility] SODIUM 143 136 - 145 mmol/L 02/22/2021 7:20 AM [employer] LABORATORY SERVICES - [facility] POTASSIUM 2.8(L) 3.5 - 5.0 mmol/L 02/22/2021 7:20 AM [employer] LABORATORY SERVICES - . [facility] CHLORIDE 107 98 - 107 mmol/L 02/22/2021 7:20 AM [employer] LABORATORY SERVICES - . [facility] CO2 27 22 - 29 mmol/L 02/22/2021 7:20 AM [employer] LABORATORY SERVICES - . [facility] CALCIUM 7.4(L) 8.6 - 10.2 mg/dL 02/22/2021 7:20 AM [employer] LABORATORY SERVICES - . [facility] BUN 17 8 - 23 mg/dL 02/22/2021 7:20 AM [employer] LABORATORY SERVICES - . [facility] CREATININE 0.98 0.67 - 1.17 mg/dL 02/22/2021 7:20 AM [employer] LABORATORY SERVICES - [facility] Comment:The GFR result is no t clinically significant on patients <18 or >70 years of age. GLUCOSE 99 74 - 99 mg/dL 02/22/2021 7:20 AM [employer] LABORATORY SERVICES - [facility] GFR >60 mL/min/1.7 3 sq meter 02/22/2021 7:20 AM [employer] LABORATORY SERVICES - [facility] Comment: eGFR has not been validated [...] mL/min/1.7 3 sq meter 02/22/2021 7:20 AM [employer] LABORATORY SERVICES - [facility] ANION GAP 9 8 - 16 mmol/L 02/22/2021 7:20 AM [employer] LABORATORY SERVICES - [facility] Blood Venipuncture / Unknown 02/22/2021 6:20 AM CDT 02/22/2021 6:43 AM CDT Miguelina LEE CHEMISTRY ORDERABLES [facility] LABORATORY SERVICES [facility]# [id number] [address] [place] [place] [address] * XR ABDOMEN FOR FEEDING TUBE 1 VW (02/21/2021 5:18 PM CDT) Anatomical Region Laterality Modality Abdomen Computed Radiogr aphy 02/21/2021 5:18 PM CDT Impressions 02/21/2021 9:20 PM CDT IMPRESSION: 1. ??Enteric tube has been mildly advanced with tip in the body of the stomach. DICTATION LOCATION: [address] Narrative 02/21/2021 9:20 PM CDT XR [...] the stomach. DICTATION LOCATION: Location 1 - [facility] Francisco Javier Quick MD DIAGNOSTIC [...] a repeat radiograph obtained. DICTATION LOCATION: Location [address] [place] [address] Narrative 02/21/2021 4:21 PM CDT EXAMINATION: XR [...] a repeat radiograph obtained. DICTATION LOCATION: Location [address] [place] [address] Francisco Javier Quick MD DIAGNOSTIC IMAGIN G ORDERABLES * MAGNESIUM LEVEL (02/21/2021 12:44 PM CDT) MAGNESIUM 1.9 1.6 - 2.4 mg/dL 02/21/2021 6:31 PM CDT [facility] [employer] [facility] Blood Venipuncture / Unknown 02/21/2021 12:44 PM CDT 02/21/2021 1:19 PM CDT Miguelina LEE CHEMISTRY ORDERABLES [facility] [employer] [facility]# [id number] [address] [place] [address] * (ABNORMAL) BASIC METABOLIC PANEL (02/21/2021 12:44 PM CDT) SODIUM 140 136 - 145 mmol/L 02/21/2021 1:56 PM CDT [employer] LABORATORY SERVICES - [facility] POTASSIUM 3.0(L) 3.5 - 5.0 mmol/L 02/21/2021 1:56 PM CDT [email or web address] LABORATORY SERVICES - [facility] CHLORIDE 103 98 - 107 mmol/L 02/21/2021 1:56 PM CDT [facility] LABORATORY SERVICES - [facility] CO2 26 22 - 29 mmol/L 02/21/2021 1:56 PM CDT [employer] LABORATORY SERVICES - . [facility] CALCIUM 8.5(L) 8.6 - 10.2 mg/dL 02/21/2021 1:56 PM CDT [employer] LABORATORY SERVICES - . [facility] BUN 19 8 - 23 mg/dL 02/21/2021 1:56 PM CDT [employer] LABORATORY SERVICES - . [facility] CREATININE 1.14 0.67 - 1.17 mg/dL 02/21/2021 1:56 PM CDT [employer] LABORATORY SERVICES - [facility] Comment:The GFR result is no t clinically significant on patients <18 or >70 years of age. GLUCOSE 98 74 - 99 mg/dL 02/21/2021 1:56 PM CDT [employer] LABORATORY SERVICES - [facility] GFR >60 mL/min/1.7 3 sq meter 02/21/2021 1:56 PM CDT [employer] LABORATORY SERVICES - [facility] Comment: eGFR has not been validated [...] 3 sq meter 02/21/2021 1:56 PM CDT [facility] LABORATORY [facility] ANION GAP 11 8 - 16 mmol/L 02/21/2021 1:56 PM CDT [facility] LABORATORY [facility] Blood Venipuncture / Unknown 02/21/2021 12:44 PM CDT 02/21/2021 1:19 PM CDT Miguelina LEE CHEMISTRY ORDERABLES [facility] LABORATORY [facility] CLIA# [id number] [address] [place] [address] * XR ABDOMEN 1 VW (02/21/2021 12:13 PM CDT) Anatomical Region Laterality Modality Abdomen Computed Radiogr aphy 02/21/2021 12:1 3 PM CDT Impressions 02/21/2021 1:02 PM CDT IMPRESSION: Multiple loops of air-filled, dilated small bowel and colon, likely ileus. DICTATION LOCATION: Location [address] [place] [address] Narrative 02/21/2021 1:02 PM CDT EXAMINATION: XR [...] colon, likely ileus. DICTATION LOCATION: Location - [facility] Miguelina LEE DIAGNOSTIC IMAGING O RDERABLES * (ABNORMAL) HEMOGLOBIN AND HEMATOCRIT (02/21/2021 10:22 AM CDT) HEMOGLOBIN 12.0(L) 13.6 - 16.5 g/dL 02/21/2021 10:46 AM CDT [facility] HEMATOCRIT 36.0(L) 40.0 - 48.0 % 02/21/2021 10:46 AM CDT [facility] Blood Venipuncture / Unknown 02/21/2021 10:22 AM CDT 02/21/2021 10:32 AM CDT Miguelina LEE HEMATOLOGY ORDERABLE S [facility] CLIA# [id number] [address] [place], [place] [address] * (ABNORMAL) POC GLUCOSE (02/21/2021 9:16 AM CDT) Pathologist [facility] GLUCOSE POC 122(H) 74 - 99 mg/dL 02/21/2021 9:16 AM CDT [facility] MS SQL SERVER DEVELOPER NAME POC JAZZY COTO 02/21/2021 9:16 AM CDT [facility] Blood, whole 02/21/2021 9:16 AM CDT 02/21/2021 9:37 AM CDT Francisco Javier Qucik MD POINT OF CARE NITHIN TRAN [facility] CLIA# [id number] [address] [place], [place] [address] * (ABNORMAL) HEMOGLOBIN AND HEMATOCRIT (02/21/2021 7:07 AM CDT) HEMOGLOBIN 11.6(L) 13.6 - 16.5 g/dL 02/21/2021 7:56 AM CDT [facility] HEMATOCRIT 35.5(L) 40.0 - 48.0 % 02/21/2021 7:56 AM CDT [facility] Blood Venipuncture / Unknown 02/21/2021 7:07 AM CDT 02/21/2021 7:39 AM CDT Tuyet LEE HEMATOLOGY ORDERABL ES [facility] CLIA# [id number] [address] [facility] [place] [address] * XR FLUORO LESS THAN 1 HOUR (02/20/2021 7:16 AM CDT) Anatomical Region Laterality Modality Computed Radiogr aphy 02/19/2021 1:23 PM CDT Impressions 02/19/2021 8:57 PM CDT IMPRESSION: 1. Fluoroscopic assistance was provided. DICTATION LOCATION: Location [address] [place] [address] Narrative 02/19/2021 8:57 PM CDT EXAM:Fluoroscopy less [...] assistance was provided. DICTATION LOCATION: Location - [facility] Francisco Javier Quick MD DIAGNOSTIC IMAGIN G ORDERABLES * (ABNORMAL) HEMOGLOBIN AND HEMATOCRIT (02/20/2021 6:52 AM CDT) HEMOGLOBIN 11.6(L) 13.6 - 16.5 g/dL 02/20/2021 7:50 AM CDT [facility] HOSPITAL HEMATOCRIT 34.3(L) 40.0 - 48.0 % 02/20/2021 7:50 AM CDT [facility] Blood Venipuncture / Unknown 02/20/2021 6:52 AM CDT 02/20/2021 7:01 AM CDT Tuyet LEE HEMATOLOGY ORDERABL ES [facility] CLIA# [id number] [address] [place] [address] * XR LUMBAR SPINE 1 VW (02/19/2021 11:47 AM CDT) Anatomical Region Laterality Modality Spine Computed Radiogr aphy 02/19/2021 11:4 7 AM CDT Impressions 02/19/2021 5:40 PM CDT IMPRESSION: 1. ??Intraoperative radiograph as above. DICTATION LOCATION: Location 1 - [facility] Narrative 02/19/2021 5:40 PM CDT XR LUMBAR [...] Intraoperative radiograph as above. DICTATION LOCATION: Location [address] [place] [address] [place] Javier Quick MD DIAGNOSTIC IMAGIN G ORDERABLES * XR LUMBAR SPINE 1 VW (02/19/2021 10:52 AM CDT) Anatomical Region Laterality Modality Spine Computed Radiogr aphy 02/19/2021 10:5 3 AM CDT Impressions 02/19/2021 5:40 PM CDT IMPRESSION: 1. ??Intraoperative radiograph as above. DICTATION LOCATION: Location - [facility] Narrative 02/19/2021 5:40 PM CDT XR LUMBAR [...] as above. DICTATION LOCATION: Location 1 - [facility] [place] Javier Quick MD DIAGNOSTIC IMAGIN G ORDERABLES * VERIFICATION BLOOD GROUP (02/19/2021 9:02 AM CDT) ABO GROUP A 02/19/2021 9:36 AM CDT [facility] -- [facility] RH (D) TYPE Positive 02/19/2021 9:36 AM CDT [facility] -- [facility] Blood Venipuncture / Unknown 02/19/2021 9:02 AM CDT 02/19/2021 9:02 AM CDT Rahel Priest MD BLOOD BANK MARIBEL BELL [facility] [email or web address] [facility] CLWI# [id number] [address]IM[address]ZREN[address] [place] [place] [address] * (ABNORMAL) POC GLUCOSE (02/19/2021 8:05 AM CDT) Pathologist [facility] GLUCOSE POC 116(H) 74 - 99 mg/dL 02/19/2021 8:05 AM CDT [facility] MS SQL SERVER DEVELOPER NAME POC DORA BROUSSARD 02/19/2021 8:05 AM CDT [facility] Blood, whole 02/19/2021 8:05 AM CDT 02/19/2021 8:15 AM CDT [place] Javier Quick MD POINT OF CARE NITHIN TRAN [facility] [email or web address] [facility] CLWI# [id number] [address] [place] [address] * 2019 NOVEL CORONAVIRUS (COVID-19) PCR DETECTION (02/11/2021 12:07 PM CDT) Pathologist [facility] COVID-19 PCR NOT DETECTED Not Detected 02/12/20 6:58 PM CDT [facility] - [facility] 02/11/2021 6:58 PM CDT [facility] Upper Respiratory ENTIRE NASOPHARYNX / Unknown Collection / Unknown 02/11/2021 12:07 PM CDT 02/11/2021 2:12 PM CDT Narrative [facility] - 02/11/2021 6:58 PM CDT This [...] Coronavirus. [place] Javier Quick MD MICROBIOLOGY - [facility] ORDERABLES [facility]# [id number] [address] [facility] [place] [address] documented in this encounter Visit Diagnoses Not [...] Given 02/24/2021 9:38 AM CDT 10 mg bwsrufqlhv-ggizosz-wpyqnfryvshwp (CEPACOL) lozenge 1 Each 1 Each, Mouth/Throat, [...] LPN) 0003 (New Bag - Provider: JULIO Blaes)08 (New Bag - Provider: Sissy Beck LPN)2056 (New Bag - Provider: Bertha Paz RN) PRN Medication Order 02/24/2021 02/25/2021 02/26/2021 ffopbccldk-quchnmr-eqedpxzfdrxwk (CEPACOL) lozenge 1 Each 1 Each, Mouth/Throat, [...] Routine documented in this encounter Care Teams Conductor/Engineer Relationship Specialty Start Date End Date Philippe Geiger MD [address] [place] [phone] PCP - General Internal Medicine 01/08/21 documented as of this encounter
--- OUTSIDE RECORDS SUMMARY | 2024-09-27 21:01 | XMS_ITS | Encounter Summary ---
[facility] Organization [facility] Address [address] [place] [address] Care Team Providers Care Silverware Washer Name Role Phone Philippe Geiger MD Primary Care Provider [phone] Reason for Visit * Auth/Cert Specialty Diagnoses / Procedures Referred By Contac t Referred To Contact Multi Specialty Diagnoses Spinal stenosis, lumbar region with neurogenic claudication Spondylolisthesis, lumbar region LUMBAR STENOSIS; SPONDYLOLISTHESIS Procedures IA ARTHDSIS POST/POSTEROLATRL/POSTINTERBO DY LUMBAR IA ARTHDSIS POST/POSTERLATRL/POSTINTRBDYA DL SPC/SEG IA LAMINECTOMY,FACETECTOMY,LUMBA R IA LAMINEC/FACETECT/FORAMIN,LUMB AR 1 SEG IA LAMINEC/FACETECT/FORAMIN,EACH ADDNL IA POSTERIOR SEGMENTAL INSTRUMENTATION 3-6 VRT SEG IA INSJ BIOMCHN DEV INTERVERTEBRAL DSC SPC W/ARTHRD IA AUTOGRAFT SPINE SURGERY LOCAL FROM SAME INCISION IA ALLOGRAFT FOR SPINE SURGERY ONLY 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 [id number]-DPA ORAL Take 500 mg by mouth daily. [...] degeneration and facet arthropathy. DICTATION LOCATION: Location [address] [place] [address] Narrative 02/19/2021 8:19 AM CDT EXAM: XR [...] disc degeneration and facet arthropathy. DICTATION LOCATION: [address] [place] Javier Quick MD DIAGNOSTIC IMAGIN G ORDERABLES documented in this encounter Visit Diagnoses Diagnosis Lumbar stenosis with neurogenic claudication Spinal stenosis, lumbar region, with neurogenic claudication Acquired spondylolisthesis of lumbosacral region Acquired spondylolisthesis documented in this encounter Care Teams Silverware Washer Relationship Specialty Start Date End Date Philippe Geiger MD [address] [place] [address] PCP - General Internal Medicine 01/08/21 documented as of this encounter
--- OUTSIDE RECORDS SUMMARY | 2024-09-27 21:01 | XMS_ITS | Encounter Summary ---
Author Organization [facility] Address [address] [place] [address] Care Team Providers Care Hard Rock Miner Blasting Name Role Phone Philippe Geiger MD Primary Care Provider [phone] Reason for Visit * Auth/Cert Specialty Diagnoses / Procedures Referred By Contac t Referred To Contact Multi Specialty Diagnoses Spinal stenosis, lumbar region with neurogenic claudication Spondylolisthesis, lumbar region LUMBAR STENOSIS; SPONDYLOLISTHESIS Procedures DE ARTHDSIS POST/POSTEROLATRL/POSTINTERBO DY LUMBAR DE ARTHDSIS POST/POSTERLATRL/POSTINTRBDYA DL SPC/SEG DE LAMINECTOMY,FACETECTOMY,LUMBA R DE LAMINEC/FACETECT/FORAMIN,LUMB AR 1 SEG DE LAMINEC/FACETECT/FORAMIN,EACH ADDNL DE POSTERIOR SEGMENTAL INSTRUMENTATION 3-6 VRT SEG DE INSJ BIOMCHN DEV INTERVERTEBRAL DSC SPC W/ARTHRD DE AUTOGRAFT SPINE SURGERY LOCAL FROM SAME INCISION DE ALLOGRAFT FOR SPINE SURGERY ONLY MORSELIZED LUMBAR INTERBODY FUSION (TLIF L2-3, L3-4, L4-5) [facility] [address] [place] [address] Referral ID Status Reason Start Date Expiration Date Visits Re quested Visits Authorized [id number] 1 1 Encounter Details Date Type Department Care Team (Late st Contact Info) Description 02/19/2021 9:44 AM CDT Anesthesia Event [facility] Operating Room [address] [place] [address] Phill Blunt MD [address] [facility] [address], [place] [address] Patrick Vargas MD [address] [place] [address] Anesthesia Record Procedure Summary Procedure [...] and armband Airway: not difficult Performed by: CHRISTMAS TREE FARM MANAGER: Jennifer Cutler CRNA Indications and Patient Condition: [...] well controlled, (-) pacemaker, valvular problems/murmurs, past ND, CAD, CABG/stent, dysrhythmias, angina, CHF, orthopnea, PND, [...] discussed with Patient. Plan discussed with Anesthesiologist Hospitality Host and Anesthesiologist. Post-op Pain Control Plan to use IV or IM medication for post-op pain control. Smoking Compliance Patient did not smoke on day of surgery documented in this encounter Plan of Treatment Not on file documented as of this encounter Procedures Procedure Name Priority Date/Time Associated Diagnosis Comments PERIPHERAL IV ADULT Routine 02/19/2021 1 0:10 AM CDT DE ANES VNPNXR 3 YEARS/> PHYS/QHP SKILL Routine 02/19/2021 10:10 AM CDT DE ANES INSERT ENDOTRACHEAL AIRWAY Routine 02/19/2021 9:59 AM CDT documented in this encounter Results * DE ANES VNPNXR 3 YEARS/> PHYS/QHP SKILL, PERIPHERAL [...] Blunt MD PROCEDURE/MINOR SURG ICAL ORDERABLES * DE ANES INSERT ENDOTRACHEAL AIRWAY (02/19/2021 9:59 AM CDT) Narrative Jennifer Cutler CRNA - 02/19/2021 9:59 AM CDT Jennifer Cutler CRNA ? 02/19/2021 10:22 AM Airway Date/Time: 02/19/2021 9:59 AM Location: OR Plan: routine intubation Patient Identity Confirmed by: ??Verbally with patient and armband Airway: not difficult Performed by: CHRISTMAS TREE FARM MANAGER: ??Jennifer Cutler CRNA Indications and Patient Condition: [...] 0930, Until Lita 02/21/21 at 1043, DS: [phone] Rate Change 02/20/2021 9:30 AM CDT 4.5 [...] mL/hr documented in this encounter Care Teams Hard Rock Miner Blasting Relationship Specialty Start Date End Date Philippe Geiger MD [address] [place] [phone] PCP - General Internal Medicine 01/08/21 documented as of this encounter
--- OUTSIDE RECORDS SUMMARY | 2024-09-27 21:01 | XMS_ITS | Encounter Summary ---
Author Organization [facility] Address [address] [place] [address] Care Team Providers Care Front Office Manager Name Role Phone Philippe Geiger MD Primary Care Provider [phone] Encounter Details Date Type Department Care Team (Late st Contact Info) Description 01/23/2021 Orders Only [facility] Neurosurgery - [facility] [address] [facility] [address] [place] [address] Provider, Abstract NO ADDRESS ON [...] on filedocumented in this encounter Care Teams Front Office Manager Relationship Specialty Start Date End Date Philippe Geiger MD [address] [place] [phone] PCP - General Internal Medicine 01/08/21 documented as of this encounter
--- OUTSIDE RECORDS SUMMARY | 2024-09-27 21:02 | XMS_ITS | Encounter Summary ---
Author Organization [facility] Address [address] [place] [address] Care Team Providers Care Sour Bleaching Pleater Name Role Phone Philippe Geiger MD Primary Care Provider [phone] Encounter Details Date Type Department Care Team (Late st Contact Info) Description 01/08/[address] [facility] Neurosurgery - [facility] [address] [facility] [address] [place] [address] [place] Javier Quick MD NO [...] on filedocumented in this encounter Care Teams Sour Bleaching Pleater Relationship Specialty Start Date End Date Philippe Geiger MD [address] [place] [phone] PCP - General Internal Medicine 01/08/21 documented as of this encounter
--- OUTSIDE RECORDS SUMMARY | 2024-09-27 21:02 | XMS_ITS | Encounter Summary ---
Author Organization [facility] Address [address] [place] [address] Care Team Providers Care Barber Shop Operator Name Role Phone Philippe Geiger MD Primary Care Provider [phone] Encounter Details Date Type Department Care Team (Late st Contact Info) Description 01/09/2021 Abstract [facility] Neurosurgery - [facility] [address] [facility] [address] [place] [address] [place] Javier Quick MD NO [...] on filedocumented in this encounter Care Teams Barber Shop Operator Relationship Specialty Start Date End Date Philippe Geiger MD [address] [place] [phone] PCP - General Internal Medicine 01/08/21 documented as of this encounter
--- OUTSIDE RECORDS SUMMARY | 2024-09-27 21:02 | XMS_ITS | Encounter Summary ---
Author Organization [facility] Address [address] [place] [address] Care Team Providers Care Clerk Entry Level Name Role Phone Philippe Geiger MD Primary Care Provider [phone] Reason for Visit * Reason Comments LOW BACK PAIN new patient Extremity Weakness * Eval and Treat (Routine) - Closed Specialty Diagnoses / Procedures Referred By Contac t Referred To Contact Neurosurgery Diagnoses Spinal stenosis, lumbar region without neurogenic claudication Philippe Geiger, DO [address] [place] [address] [place] Javier Quick MD NO ADDRESS ON FILE Referral ID Status Reason Start Date Expiration Date Visits Re quested Visits Authorized [id number] Closed 01/08/2021 07/07/2021 1 12 Encounter Details Date Type Department Care Team (Latest Contact Info) Description 01/23/2021 1:30 PM CDT Office Visit [facility] Neurosurgery - [facility] [address] [facility] [address] [place] [address] [place] Javier Quick MD NO [...] Quick MD - 01/23/2021 1:56 PM CDT [facility] H&P Patient Name: Jayjay Ellison [...] Take 400 Units by mouth daily. ??? [id number]-0-[id number]-EPA-DPA ORAL Take 500 mg by mouth daily. [...] found for: [place] No results found for: [id number] No results for input(s): WBC, HGB, HCT, [...] spondylolisthesis documented in this encounter Care Teams Clerk Entry Level Relationship Specialty Start Date End Date Philippe Geiger MD [address] [place] [phone] PCP - General Internal Medicine 01/08/21 documented as of this encounter
--- OUTSIDE RECORDS SUMMARY | 2024-09-27 21:02 | XMS_ITS | Encounter Summary ---
Author Organization [facility] Address [address] [place] [address] Care Team Providers Care Oncology Radiation Physician Name Role Phone Philippe Geiger MD Primary Care Provider Encounter Details Date Type Department Care Team (Late st Contact Info) Description 01/17/2021 Abstract [facility] Neurosurgery - [facility] [address] [facility] [address] [place] [address] [place] Javier Quick MD NO [...] on filedocumented in this encounter Care Teams Oncology Radiation Physician Relationship Specialty [place] [address] [place] [phone] PCP - General Internal Medicine 01/08/21 documented as of this encounter
--- OUTSIDE RECORDS SUMMARY | 2024-09-27 21:02 | XMS_ITS | Encounter Summary ---
Author Organization [facility] Address [address] [facility] [address] Keen: Epic Prelude [place]T [place] [address] Care Team Providers Care Bindery Machine Setter/Set Up Operator Name Role Phone Philippe Geiger MD Primary Care Provider [phone] Encounter Details Date Type Department Care Team [...] on filedocumented in this encounter Care Teams Bindery Machine Setter/Set Up Operator Relationship Specialty Start Date End Date Philippe Geiger MD [address] [place] [phone] PCP - General Internal Medicine 01/08/21 documented as of this encounter
== END 2024-09-20 20:21 | disposition left against medical advice (07) ==
PROVIDERS: Emergency Provider Physician Assistant; PCP Internal Medicine
DX: K86.9 Disease of pancreas, unspecified (principal); R74.01 Elevation of levels of liver transaminase levels; J44.9 Chronic obstructive pulmonary disease, unspecified; K21.9 Gastro-esophageal reflux disease without esophagitis; J45.909 Unspecified asthma, uncomplicated; M10.9 Gout, unspecified
CPT/HCPCS: 36415; 74177; 80048; 80074; 80076; 81001; 83690; 85025; 85610; 85730; 87086; 99284; J7030; Q9967